=== PATIENT | female | born 1935 | race Caucasian/White ===

== ENCOUNTER → 2017-03-06 09:01 | Outpatient (CLI) | payer MEDICARE, OTHER, SELFPAY ==
[2017-03-06 13:25] LABS: Basophils % 0.6 % (0.1-2.0); Eosinophils # 0.2 K/mm3 (0.0-0.4); Eosinophils % 4.7 % (0.1-12.0); Hemoglobin 14.2 g/dL (12.2-16.2); Lymphocytes # 0.8 K/mm3 (0.7-4.5); Lymphocytes % 16.5 K/mm3 (10-50); Mean Corpuscular HGB Conc 32.9 g/dL (31.8-35.4); Mean Corpuscular Volume 94.2 fl (81-99); Mean Platelet Volume 9.1 fl (7.4-10.4); Monocytes # 0.3 K/mm3 (0.1-1.0); Monocytes % 7.1 % (1.7-9.3); Neutrophils # 3.4 K/mm3 (1.8-7.8); Neutrophils % 71.1 % (37.0-80.0); Platelet Count 144 K/mm3 (142-424); Red Blood Count 4.57 M/mm3 (4.20-5.40); Red Cell Distribution Width 13.5 % (11.5-17.5); White Blood Count 4.8 K/mm3 (4.8-10.8)
[2017-03-06 14:01] LABS: Alanine Aminotransferase 20 U/L (12-78); Albumin Level 3.7 gm/dL (3.4-5.0); Albumin/Globulin Ratio 1.3 (1.1-1.8); Alkaline Phosphatase 53 U/L (46-116); Anion Gap 14.4 mEq/L (5-15); Aspartate Amino Transferase 15 U/L (15-37); Bilirubin,Total 0.6 mg/dL (0.2-1.0); Blood Urea Nitrogen 17 mg/dL (7-18); Calcium 8.8 mg/dL (8.5-10.1); Carbon Dioxide 26 mmol/L (21.0-32.0); Chloride 108 mmol/L (98-107); Chol/HDL Ratio 2.8 (1-3.5); Cholesterol 170 mg/dL (140-200); Creatinine,Serum 0.88 mg/dL (0.55-1.02); Estimated Glomerular Filt Rate 62 ml/min (>60); GFR (African American) 75 ML/MIN (>60); Globulin 2.8 gm/dl (1.3-3.2); Glucose 103 mg/dL (74-106); HDL Cholesterol 61 mg/dL (29-89); LDL Cholesterol 96 mg/dL (0-130); Potassium 4.4 mmoL/L (3.5-5.1); Sodium 144 mmol/L (136-145); Total Protein,Serum 6.5 gm/dL (6.4-8.2); Triglycerides 67 mg/dL (30-200); VLDL Cholesterol 13 mg/dL (0-40)
== END ==
PROVIDERS: PCP Internal Medicine Adolescent Medicine; Visit Provider Internal Medicine Adolescent Medicine
DX: I25.10 Atherosclerotic heart disease of native coronary artery without angina pectoris (principal)
CPT/HCPCS: 36415; 80053; 80061; 85025

== ENCOUNTER 2017-04-04 10:22 | Observation (INO) | payer MEDICARE, OTHER, SELFPAY ==
[2017-04-04] VITALS (7 sets, daily range): BP systolic 97–170; BP diastolic 64–109; PULSE 70–125; RESP 16–20; TEMP 36.1–36.8; O2SAT 95–100; BMI 24.0; BMI 24.9
--- NOTE | 2017-04-04 10:29 | CT_ITS ---
CT cervical spine wo con INDICATION: Neck pain following injury ITS.REASON: fall ORDERING PHYSICIAN: Johny Corbett MD PATIENT AGE: 82 years COMPARISON: None TECHNIQUE: Axial images are obtained without contrast. Sagittal and coronal reformatted images are reviewed as well. FINDINGS: There is normal alignment. There is mild cervicothoracic curvature convex left. No acute fracture or dislocation is evident. No prevertebral soft tissue swelling. There is fusion of the C6-C7 vertebral body. Degenerative disc disease is present at C5-C6 with endplate and uncovertebral hypertrophy with moderate right foraminal narrowing. The lung apices are clear. IMPRESSION: 1. No acute fracture. 2. Degenerative disc disease at C5-C6 with right-sided foraminal narrowing
--- NOTE | 2017-04-04 10:29 | XR_ITS ---
XR shoulder LT min 2V HISTORY: Pain following injury ITS.REASON: fall ORDERING PHYSICIAN: Johny Corbett MD PATIENT AGE: 82 years COMPARISON: None FINDINGS: There is a displaced comminuted fracture involving the proximal shaft of left humerus. The distal fracture fragment is displaced laterally x 18 mm. There is a curvilinear density at the humeral neck with some cortical irregularity laterally which may represent an old humeral neck fracture. Please correlate clinically. If the patient is tender in this region then would consider CT scan to exclude an associated humeral neck fracture. IMPRESSION: Displaced left proximal humeral shaft fracture Possible old humeral neck fracture. Consider CT for confirmation
--- NOTE | 2017-04-04 10:33 | XR_ITS ---
XR clavicle LT CLINICAL INDICATION: Post traumatic pain ITS.REASON: fall ORDERING PHYSICIAN: Johny Corbett MD PATIENT AGE: 82 years COMPARISON: None FINDINGS: Mild osteoarthritic changes are present at the acromioclavicular joint and glenohumeral joint. There is comminuted fracture of the proximal humeral shaft with 19 mm lateral displacement of the distal fracture fragment. Pacemaker pack is present. The clavicle has an unremarkable appearance IMPRESSION: 1. Comminuted displaced left humeral shaft fracture 2. Otherwise negative left clavicle
--- NOTE | 2017-04-04 10:33 | XR_ITS ---
XR chest AP HISTORY: Posttraumatic pain, chest pain following injury ITS.REASON: fall ORDERING PHYSICIAN: Johny Corbett MD PATIENT AGE: 82 years COMPARISON: 01/11/2017 FINDINGS: There has been prior median sternotomy with CABG and prior left atrial appendage clipping. Normal heart size. No evidence of CHF. There is a bipolar pacemaker present from the left subclavian approach. The lungs are clear bilaterally. Nonspecific calcifications are present in the left upper quadrant IMPRESSION: Postsurgical change, no acute finding
--- NOTE | 2017-04-04 10:34 | HMH.EDFALL ---
ED Disposition Clinical Impression: Fracture of humeral shaft, left, closed, DJD (degenerative joint disease) of cervical spine, Intractable pain Disposition: Still a Patient Condition on Discharge: Fair Referrals: Hood Paredes MD [Primary Care Provider] - - Critical Care Critical Care Time: No Attestation: On , the high probability of a clinically significant, sudden or life threatening deterioration of the following system(s) required my full and direct attention, intervention and personal management. The time I documented below is in addition to time spent performing reported procedures but includes the following listed in this critical care notation. Medical Decision Making Vital Signs: 04/04/17 10:23 Temperature 97.9 F Temperature Source Oral Pulse Rate [Right Brachial] 125 H Respiratory Rate 18 Blood Pressure [Right Arm] 170/109 Blood Pressure Mean [Right Arm] 129 Blood Pressure Source [Right Arm] Automatic Cuff Blood Pressure Position [Right Arm] Supine 02 Sat by Pulse Oximetry 100 Oxygen Delivery Method Room Air - Lab Data Lab Results 04/04/17 10:34: WBC 7.8, RBC 4.94, Hgb 15.2, Hct 46.1, MCV 93.3, MCH 30.8, MCHC 33.0, RDW 12.7, Plt Count 160, MPV 8.3, Neut % (Auto) 73.0, Lymph % (Auto) 16.6, [place] % (Auto) 7.2, Eos % (Auto) 2.4, Baso % (Auto) 0.7, Neut # (Auto) 5.7, Lymph # (Auto) 1.3, [place] # (Auto) 0.6, Eos # (Auto) 0.2, Baso # (Auto) 0.1 04/04/17 10:34: Sodium 140, Potassium 4.7, Chloride 106, Carbon Dioxide 28, Anion Gap 10.7, BUN 21 H, Creatinine 1.03 H, Estimated Creat Clear 43, Estimated GFR 51 L, Est GFR ( Amer) 62, Glucose 111 H, Calcium 9.0, Total Bilirubin 0.7, AST 19, ALT 23, Alkaline Phosphatase 55, Total Protein 7.1, Albumin 3.6, Globulin 3.5 H, Albumin/Globulin Ratio 1.0 L Result diagrams: 04/04/17 10:34 04/04/17 10:34 Orders (Tests/Meds): ED MEDICATIONS Discontinued Medications Generic Name Dose Route Start Last Admin Trade Name Ani PRN Reason Stop Dose Admin Morphine Sulfate 2 mg 04/04/17 10:32 04/04/17 10:38 Morphine 2mg/Ml Syringe IV 04/04/17 10:33 2 mg ONCE ONE Administration Morphine Sulfate 2 mg 04/04/17 11:19 04/04/17 11:23 Morphine 2mg/Ml Syringe IV 04/04/17 11:20 2 mg ONCE ONE Administration Ondansetron HCl 4 mg 04/04/17 10:32 04/04/17 10:38 Zofran 4mg/2ml Vial IV 04/04/17 10:33 4 mg ONCE ONE Administration Ondansetron HCl 4 mg 04/04/17 11:22 04/04/17 11:23 Zofran 4mg/2ml Vial IV 04/04/17 11:23 4 mg ONCE ONE Administration - Radiology Data #1 Image(s): Chest, Shoulder, Clavicle Image Reviewed: Yes I reviewed the patient's radiology image Preliminary Findings: Normal/NAD, Abnormal fracture of the humeral head. - CT Data CT Scan: Head, C-Spine Time Received: 11:[address] Reviewed: Yes: I have viewed the radiologist's interpretation Preliminary Findings: Normal/NAD - Alan Inquiry Pt receiving controlled substance: No Alan was queried for this patient: No Medical Decision Making Narrative: 11:[address] Mason the orthopedic: Dr. Mason wanted to see her as an outpatient. I spoke with the patient who complained of intractable pain after morphine I spoke with her primary care physician Gabrielle, agreed to admit her for pain control. Fall HPI - General Chief Complaint: Fall Stated Complaint: fall Mode of Arrival: EMS Limitations: Physical Limitations Description of Symptoms (Recalled from ER Triage Doc. by RN): fell at home in her yard, ems reports that she might have a dislocated shoulder. 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 She went out of her house to visit the neighbors when she slipped in the mud and landed on her left side with a result left shoulder pain. She denies any other focal pain. He states that s
--- NOTE | 2017-04-04 10:37 | ED_ITS ---
ED Disposition Clinical Impression: Fracture of humeral shaft, left, closed, DJD (degenerative joint disease) of cervical spine, Intractable pain Disposition: Still a Patient Condition on Discharge: Fair Referrals: Hood Paredes MD [Primary Care Provider] - - Critical Care Critical Care Time: No Attestation: On , the high probability of a clinically significant, sudden or life threatening deterioration of the following system(s) required my full and direct attention, intervention and personal management. The time I documented below is in addition to time spent performing reported procedures but includes the following listed in this critical care notation. Medical Decision Making Vital Signs: 04/04/17 10:23 Temperature 97.9 F Temperature Source Oral Pulse Rate [Right Brachial] 125 H Respiratory Rate 18 Blood Pressure [Right Arm] 170/109 Blood Pressure Mean [Right Arm] 129 Blood Pressure Source [Right Arm] Automatic Cuff Blood Pressure Position [Right Arm] Supine 02 Sat by Pulse Oximetry 100 Oxygen Delivery Method Room Air - Lab Data Lab Results 04/04/17 10:34: WBC 7.8, RBC 4.94, Hgb 15.2, Hct 46.1, MCV 93.3, MCH 30.8, MCHC 33.0, RDW 12.7, Plt Count 160, MPV 8.3, Neut % (Auto) 73.0, Lymph % (Auto) 16.6 , [place] % (Auto) 7.2, Eos % (Auto) 2.4, Baso % (Auto) 0.7, Neut # (Auto) 5.7, Lymph # (Auto) 1.3, [place] # (Auto) 0.6, Eos # (Auto) 0.2, Baso # (Auto) 0.1 04/04/17 10:34: Sodium 140, Potassium 4.7, Chloride 106, Carbon Dioxide 28, Anion Gap 10.7, BUN 21 H, Creatinine 1.03 H, Estimated Creat Clear 43, Estimated GFR 51 L, Est GFR ( Amer) 62, Glucose 111 H, Calcium 9.0, Total Bilirubin 0.7, AST 19, ALT 23, Alkaline Phosphatase 55, Total Protein 7.1 , Albumin 3.6, Globulin 3.5 H, Albumin/Globulin Ratio 1.0 L Result diagrams: 04/04/17 10:34 04/04/17 10:34 Orders (Tests/Meds): ED MEDICATIONS Discontinued Medications Generic Name Dose Route Start Last Admin Trade Name Ani PRN Reason Stop Dose Admin Morphine Sulfate 2 mg 04/04/17 10:32 04/04/17 10:38 Morphine 2mg/Ml Syringe IV 04/04/17 10:33 2 mg ONCE ONE Administration Morphine Sulfate 2 mg 04/04/17 11:19 04/04/17 11:23 Morphine 2mg/Ml Syringe IV 04/04/17 11:20 2 mg ONCE ONE Administration Ondansetron HCl 4 mg 04/04/17 10:32 04/04/17 10:38 Zofran 4mg/2ml Vial IV 04/04/17 10:33 4 mg ONCE ONE Administration Ondansetron HCl 4 mg 04/04/17 11:22 04/04/17 11:23 Zofran 4mg/2ml Vial IV 04/04/17 11:23 4 mg ONCE ONE Administration - Radiology Data #1 Image(s): Chest, Shoulder, Clavicle Image Reviewed: Yes I reviewed the patient's radiology image Preliminary Findings: Normal/NAD, Abnormal fracture of the humeral head. - CT Data CT Scan: Head, C-Spine Time Received: 11:[address] Reviewed: Yes: I have viewed the radiologist's interpretation Preliminary Findings: Normal/NAD - Alan Inquiry Pt receiving controlled substance: No Alan was queried for this patient: No Medical Decision Making Narrative: 11:[address] Mason the orthopedic: Dr. Mason wanted to see her as an outpatient. I spoke with the patient who complained of intractable pain after morphine I spoke with her primary care physician Gabrielle, agreed to admit her for pain control. [facility]
--- NOTE | 2017-04-04 10:42 | CT_ITS ---
CT head/brain wo con HISTORY: Headache, pain, contusion, abrasion, patient fell with head injury on blood thinners ITS.REASON: FALL ORDERING PHYSICIAN: Johny Corbett MD PATIENT AGE: 82 years COMPARISON: None TECHNIQUE: Axial images obtained without contrast. Brain and bone windows reviewed. FINDINGS: No midline shift, mass effect, intracranial hemorrhage, hydrocephalus, or extra-axial fluid collection is evident. There is mild atrophy with periventricular ischemic gliotic change. There is mild soft tissue splenic and the left frontal region. The calvarium has an unremarkable appearance. No mastoid effusion. No sinus air-fluid levels.. IMPRESSION: No acute intracranial findings.
--- NOTE | 2017-04-04 10:47 | PC.NURSE ---
Pt to radiology at this time
[2017-04-04 10:49] LABS: Basophils # 0.1 K/mm3 (0-0.2); Basophils % 0.7 % (0.1-2.0); Eosinophils # 0.2 K/mm3 (0.0-0.4); Eosinophils % 2.4 % (0.1-12.0); Hematocrit 46.1 % (37.0-47.0); Hemoglobin 15.2 g/dL (12.2-16.2); Lymphocytes # 1.3 K/mm3 (0.7-4.5); Lymphocytes % 16.6 K/mm3 (10-50); Mean Corpuscular Hemoglobin 30.8 pg (27.0-31.2); Mean Corpuscular Volume 93.3 fl (81-99); Mean Platelet Volume 8.3 fl (7.4-10.4); Monocytes # 0.6 K/mm3 (0.1-1.0); Monocytes % 7.2 % (1.7-9.3); Neutrophils # 5.7 K/mm3 (1.8-7.8); Platelet Count 160 K/mm3 (142-424); Red Blood Count 4.94 M/mm3 (4.20-5.40); Red Cell Distribution Width 12.7 % (11.5-17.5); White Blood Count 7.8 K/mm3 (4.8-10.8)
[2017-04-04 11:01] LABS: Alanine Aminotransferase 23 U/L (12-78); Albumin Level 3.6 gm/dL (3.4-5.0); Alkaline Phosphatase 55 U/L (46-116); Anion Gap 10.7 mEq/L (5-15); Bilirubin,Total 0.7 mg/dL (0.2-1.0); Blood Urea Nitrogen 21 mg/dL (7-18); Carbon Dioxide 28 mmol/L (21.0-32.0); Chloride 106 mmol/L (98-107); Creatinine Clearance Estimated 43 mL/min (0-300); Creatinine,Serum 1.03 mg/dL (0.55-1.02); Estimated Glomerular Filt Rate 51 ml/min (>60); GFR (African American) 62 ML/MIN (>60); Globulin 3.5 gm/dl (1.3-3.2); Glucose 111 mg/dL (74-106); Sodium 140 mmol/L (136-145); Total Protein,Serum 7.1 gm/dL (6.4-8.2)
[2017-04-04 11:04] LABS: Potassium 4.7 mmoL/L (3.5-5.1)
[2017-04-04 11:05] LABS: Aspartate Amino Transferase 19 U/L (15-37)
--- NOTE | 2017-04-04 11:42 | PC.NURSE ---
Pt back from radiology at this time.
--- NOTE | 2017-04-04 11:46 | PC.NURSE ---
Dr Mason paged per
--- NOTE | 2017-04-04 12:16 | PC.NURSE ---
Dr Corbett on phone with Dr Mason at this time
--- NOTE | 2017-04-04 12:18 | PC.NURSE ---
Dr Mason requested to see patient in the office.
--- NOTE | 2017-04-04 12:55 | PC.NURSE ---
Dr Paredes agreed to admit patient for pain control.
--- NOTE | 2017-04-04 13:03 | PC.NURSE ---
pt current pain level 7/10. repositioned at this time.
--- NOTE | 2017-04-04 14:26 | HMH.HP ---
*Admission Date: 04/04/17 *Chief complaint: left arm pain *History of present illness: 82 year old female presented to the ED for evaluation of left arm pain s/p fall. Patient reports she was walking through her yard when she tripped and fell landing on her left arm. She had acute onset of arm pain, states I can't move my arm. She denies any dizziness or CV symptoms prior to fall. In the ED, she was noted to have a displaced fracture of the left humeral shaft. Plan was to d/c home with outpatient ortho follow-up; however patient had intractable pain. She was admitted for pain control and orthopedic consultation. [facility] [place] History I have reviewed the patient's past medical history: Yes Medical History: Reports:: Atrial Fibrillation, Coronary Artery Disease, Hypertension, Internal Pacemaker, Valvular Heart Disease Denies:: Cancer, Diabetes Mellitus Type 1, Diabetes Mellitus Type 2, MRSA Laterality Cases: Bilateral: Total Hip Replacement Other Surgeries: Yes: Cardiac Catheterization, Colonoscopy, Pacemaker, Other (LHC, cardioversion) Amputation: No - *Social History Educational Level: Completed High School Smoking Status: Never smoker Alcohol Intake: never Occupational Status: retired Housing: house Household Members: none - Psychiatric History Expresses thoughts of harming self/others: None Suicide Plan Description: No Plan *Family Hx:: Coronary Artery Disease, Heart Attack Review of Systems - Review of Systems Review of systems:: pertinent systems reviewed and negative unless documented below - *Musculoskeletal Comments: left arm pain, swelling and limited mobility Meds Home Medications Medication Instructions Recorded Confirmed Type aspirin 81 mg tablet,delayed 81 mg PO DAILY 02/25/17 04/04/17 History release carvedilol 25 mg tablet 25 mg PO BID 02/25/17 04/04/17 History levothyroxine 100 mcg tablet 100 mcg PO ONCE tab 02/25/17 04/04/17 History lisinopril 10 mg tablet 10 mg PO TID tab 02/25/17 04/04/17 History omeprazole 40 mg capsule,delayed 40 mg PO ONCE 02/25/17 04/04/17 History release promethazine 25 mg tablet 25 mg PO Q4H PRN tab 02/25/17 04/04/17 History spironolactone 25 mg tablet 25 mg PO .qday tab 02/25/17 04/04/17 History Allergies Allergy/AdvReac Type Severity Reaction Status Date / Time codeine Allergy Intermediate DEATHLY Verified 04/04/17 10:28 SICK Exam Vital signs and Labs for Last 24 Hours: Temp Pulse Resp BP Pulse Ox 98.1 F 90 16 135/79 96 04/04/17 13:56 04/04/17 13:56 04/04/17 13:56 04/04/17 13:56 04/04/17 13:51 I & O for Last 24 hours: Intake & Output 04/02/17 04/03/17 04/04/17 04/05/17 11:59 11:59 11:59 11:59 Weight 145 lb 5 oz Narrative: Alert and oriented x3. Rate and rhythm regular. Lung sounds clear and equal. Abdomen soft and non--tender Skin, pink , warm and dry. Left upper arm with obvious deformity and mild swelling. She is able to grasp my hand and wiggle her fingers. Pulses 2+ bilaterally. Sensation intact. Assessment and Plan (1) Fracture of humeral shaft, left, closed Current visit: Yes Status: Acute Category: Medical Code(s): S42.302A - Unspecified fracture of shaft of humerus, left arm, initial encounter for closed fracture (2) Intractable pain Current visit: Yes Status: Acute Category: Medical Code(s): R52 - Pain, unspecified - Assessment and plan all Dx Assessment and Plan for all problems:: Goal is pain control. Orthopedic consult pending. Consider PT consult prior to discharge.
--- NOTE | 2017-04-04 14:30 | P.HP_ITS ---
*Admission Date: 04/04/17 *Chief complaint: left arm pain *History of present illness: 82 year old female presented to the ED for evaluation of left arm pain s/p fall. Patient reports she was walking through her yard when she tripped and fell landing on her left arm. She had acute onset of arm pain, states I can't move my arm. She denies any dizziness or CV symptoms prior to fall. In the ED, she was noted to have a displaced fracture of the left humeral shaft. Plan was to d/c home with outpatient ortho follow-up; however patient had intractable pain. She was admitted for pain control and orthopedic consultation. [facility] History I have reviewed the patient's past medical history: Yes Medical History: Reports:: Atrial Fibrillation, Coronary Artery Disease, Hypertension, Internal Pacemaker, Valvular Heart Disease Denies:: Cancer, Diabetes Mellitus Type 1, Diabetes Mellitus Type 2, MRSA Laterality Cases: Bilateral: Total Hip Replacement Other Surgeries: Yes: Cardiac Catheterization, Colonoscopy, Pacemaker, Other ( LHC, cardioversion) Amputation: No - *Social History Educational Level: Completed High School Smoking Status: Never smoker Alcohol Intake: never Occupational Status: retired Housing: house Household Members: none - Psychiatric History Expresses thoughts of harming self/others: None Suicide Plan Description: No Plan *Family Hx:: Coronary Artery Disease, Heart Attack Review of Systems - Review of Systems Review of systems:: pertinent systems reviewed and negative unless documented below - *Musculoskeletal Comments: left arm pain, swelling and limited mobility Meds Home Medications Medication Instructions Recorded Confirmed Type aspirin 81 mg tablet,delayed 81 mg PO DAILY 02/25/17 04/04/17 History release carvedilol 25 mg tablet 25 mg PO BID 02/25/17 04/04/17 History levothyroxine 100 mcg tablet 100 mcg PO ONCE tab 02/25/17 04/04/17 History lisinopril 10 mg tablet 10 mg PO TID tab 02/25/17 04/04/17 History omeprazole 40 mg capsule,delayed 40 mg PO ONCE 02/25/17 04/04/17 History release promethazine 25 mg tablet 25 mg PO Q4H PRN tab 02/25/17 04/04/17 History spironolactone 25 mg tablet 25 mg PO .qday tab 02/25/17 04/04/17 History Allergies Allergy/AdvReac Type Severity Reaction Status Date / Time codeine Allergy Intermediate DEATHLY Verified 04/04/17 10:28 SICK Exam Vital signs and Labs for Last 24 Hours: Temp Pulse Resp BP Pulse Ox 98.1 F 90 16 135/79 96 04/04/17 13:56 04/04/17 13:56 04/04/17 13:56 04/04/17 13:56 04/04/17 13:51 I & O for Last 24 hours: Intake & Output 04/02/17 04/03/17 04/04/17 04/05/17 11:59 11:59 11:59 11:59 Weight 145 lb 5 oz Narrative: Alert and oriented x3. Rate and rhythm regular. Lung sounds clear and equal. Abdomen soft and non--tender Skin, pink , warm and dry. Left upper arm with obvious deformity and mild swelling. She is able to grasp my hand and wiggle her fingers. Pulses 2+ bilaterally. Sensation intact. Assessment and Plan (1) Fracture of humeral shaft, left, closed Current visit: Yes Status: Acute Category: Medical Code(s): S42.302A - Unspecified fracture of shaft of humerus, left arm, initial encounter for closed fracture (2) Intractable pain Current visit: Yes Status: Acute Category: Medical Code(s): R52 - Pain, unspecified - Asses
--- NOTE | 2017-04-04 16:14 | PC.NURSE ---
Report received from Hollie. Pt arrived to floor at approx 1400 via stretcher. Pt was transferred from stretcher to bed w/ assist x4. She reported severe pain ( a 10/10) in left shoulder and nausea. Prn morphine and phenergan administered per mar w/relief reported by patient. Upon assessment left shoulder noted to be swollen. Sling to left arm in place. Bilateral radial pulses +2, bilateral pedal pulses +2. Trace edema noted to BLE. Cap refill <3sec. Dr Mason came to floor and placed soft roll cast to left shoulder. Pt stated she was hungry, dietary notified and food delivered to room. Pt ate approx 75%. Will continue to monitor.
--- NOTE | 2017-04-04 16:15 | HMH.ORTHOCON ---
*Admission Date: 04/04/17 *Chief complaint: Injury left arm/shoulder *History of present illness: Patient is an 82 year old [id number] female admitted from the ER with fracture shaft of left upper humerus. Patient's son is present with her in the room. She is giving a history of injury to her left arm when she tripped and fell while she was walking through her yard earlier today. Following the fall she developed severe pain in her left upper arm worse with any attempted movements. Following evaluation in the ER, the ER physician contacted me regarding further management. After reviewing the x-rays, I have recommended nonsurgical management with splinting/sling and swath immobilization and outpatient follow-up. However, she was admitted to medical services for pain management as well as the fact that she lives by herself. Patient says she is in a lot of pain over the upper arm and it is made worse by any attempted movements of the arm. No history of any distal tingling or numbness. No history of any other injuries. No history of any previous fractures. No history of any dizziness, syncope, chest pain or shortness of breath prior to the fall. Review of Systems - Review of Systems Review of systems:: pertinent systems reviewed and negative unless documented below - *Musculoskeletal Reports joint pain, Reports limited joint movement Comments: Pain left arm [facility] History I have reviewed the patient's past medical history: Yes Medical History: Reports:: Atrial Fibrillation, Coronary Artery Disease, Hypertension, Internal Pacemaker, Valvular Heart Disease Denies:: Cancer, Diabetes Mellitus Type 1, Diabetes Mellitus Type 2, MRSA Laterality Cases: Bilateral: Total Hip Replacement Other Surgeries: Yes: Cardiac Catheterization, Colonoscopy, Pacemaker, Other (LHC, cardioversion) Amputation: No - *Social History Educational Level: Completed High School Smoking Status: Never smoker Alcohol Intake: never Occupational Status: retired Housing: house Household Members: none - Psychiatric History Expresses thoughts of harming self/others: None Suicide Plan Description: No Plan *Family Hx:: Coronary Artery Disease, Heart Attack Meds Home Medications Medication Instructions Recorded Confirmed Type aspirin 81 mg tablet,delayed 81 mg PO DAILY 02/25/17 04/04/17 History release carvedilol 25 mg tablet 25 mg PO BID 02/25/17 04/04/17 History levothyroxine 100 mcg tablet 100 mcg PO ONCE tab 02/25/17 04/04/17 History lisinopril 10 mg tablet 10 mg PO TID tab 02/25/17 04/04/17 History omeprazole 40 mg capsule,delayed 40 mg PO ONCE 02/25/17 04/04/17 History release promethazine 25 mg tablet 25 mg PO Q4H PRN tab 02/25/17 04/04/17 History spironolactone 25 mg tablet 25 mg PO .qday tab 02/25/17 04/04/17 History Allergies Allergy/AdvReac Type Severity Reaction Status Date / Time codeine Allergy Intermediate DEATHLY Verified 04/04/17 10:28 SICK Exam Vital signs and Labs for Last 24 Hours: Temp Pulse Resp BP Pulse Ox 97.0 F L 121 H 18 109/68 96 04/04/17 16:00 04/04/17 16:00 04/04/17 16:00 04/04/17 16:00 04/04/17 16:00 I & O for Last 24 hours: Intake & Output 04/02/17 04/03/17 04/04/17 04/05/17 11:59 11:59 11:59 11:59 Weight 145 lb 5 oz - Constitutional mild distress, average body habitus, cooperative - *Routine HEENT Exam Head: Present: normocephalic, atraumatic Eye: Present: EOMI, PERRL ENT: Present: mucous membranes moist - *Routine Neck Exam Present: supple, full ROM, trachea midline - *Routine Respiratory Exam Present: CTA bilaterally - *Routine Cardiovascular Exam Present: RRR, Normal S1, Normal S2 - *Routine Abdominal Exam Present: soft, normoactive bowel sounds - *Routine Extremities Exam Present: normal capillary refill Comments: On examination of her left arm, the skin is intact. There is diffuse swelling and ecchymosis over the upper arm. She is
--- NOTE | 2017-04-04 16:20 | P.CONS_ITS ---
*Admission Date: 04/04/17 *Chief complaint: Injury left arm/shoulder *History of present illness: Patient is an 82 year old [id number] female admitted from the ER with fracture shaft of left upper humerus. Patient's son is present with her in the room. She is giving a history of injury to her left arm when she tripped and fell while she was walking through her yard earlier today. Following the fall she developed severe pain in her left upper arm worse with any attempted movements. Following evaluation in the ER, the ER physician contacted me regarding further management. After reviewing the x-rays, I have recommended nonsurgical management with splinting/sling and swath immobilization and outpatient follow-up. However, she was admitted to medical services for pain management as well as the fact that she lives by herself. Patient says she is in a lot of pain over the upper arm and it is made worse by any attempted movements of the arm. No history of any distal tingling or numbness. No history of any other injuries. No history of any previous fractures. No history of any dizziness, syncope, chest pain or shortness of breath prior to the fall. Review of Systems - Review of Systems Review of systems:: pertinent systems reviewed and negative unless documented below - *Musculoskeletal Reports joint pain, Reports limited joint movement Comments: Pain left arm [facility] History I have reviewed the patient's past medical history: Yes Medical History: Reports:: Atrial Fibrillation, Coronary Artery Disease, Hypertension, Internal Pacemaker, Valvular Heart Disease Denies:: Cancer, Diabetes Mellitus Type 1, Diabetes Mellitus Type 2, MRSA Laterality Cases: Bilateral: Total Hip Replacement Other Surgeries: Yes: Cardiac Catheterization, Colonoscopy, Pacemaker, Other ( LHC, cardioversion) Amputation: No - *Social History Educational Level: Completed High School Smoking Status: Never smoker Alcohol Intake: never Occupational Status: retired Housing: house Household Members: none - Psychiatric History Expresses thoughts of harming self/others: None Suicide Plan Description: No Plan *Family Hx:: Coronary Artery Disease, Heart Attack Meds Home Medications Medication Instructions Recorded Confirmed Type aspirin 81 mg tablet,delayed 81 mg PO DAILY 02/25/17 04/04/17 History release carvedilol 25 mg tablet 25 mg PO BID 02/25/17 04/04/17 History levothyroxine 100 mcg tablet 100 mcg PO ONCE tab 02/25/17 04/04/17 History lisinopril 10 mg tablet 10 mg PO TID tab 02/25/17 04/04/17 History omeprazole 40 mg capsule,delayed 40 mg PO ONCE 02/25/17 04/04/17 History release promethazine 25 mg tablet 25 mg PO Q4H PRN tab 02/25/17 04/04/17 History spironolactone 25 mg tablet 25 mg PO .qday tab 02/25/17 04/04/17 History Allergies Allergy/AdvReac Type Severity Reaction Status Date / Time codeine Allergy Intermediate DEATHLY Verified 04/04/17 10:28 SICK Exam Vital signs and Labs for Last 24 Hours: Temp Pulse Resp BP Pulse Ox 97.0 F L 121 H 18 109/68 96 04/04/17 16:00 04/04/17 16:00 04/04/17 16:00 04/04/17 16:00 04/04/17 16:00 I & O for Last 24 hours: Intake & Output 04/02/17 04/03/17 04/04/17 04/05/17 11:59 11:59 11:59 11:59 Weight 145 lb 5 oz - Constitutional mild distress, average body habitus, cooperative - *Routine HEENT Exam Hea
--- NOTE | 2017-04-04 18:49 | PC.NURSE ---
Report to be given to Ava Miles RN
--- NOTE | 2017-04-05 03:49 | PC.NURSE ---
PATIENT HAS RESTED WELL ON AND OFF THIS SHIFT. SHE HAS C/O PAIN TO LEFT ARM X2 AND RECEIVED PRN MORPHINE WHICH WAS EFFECTIVE. SHE SLEEPS IN BETWEEN DOSES OF PAIN MEDS AND USUALLY BEGINS C/O PAIN CLOSE TO TIME WHEN PAIN MEDS ARE DUE. PATIENT USES BSC WITH STAFF ASSIST X1 AND DOES WELL. SHE IS CURRENTLY IN BED SLEEPING. NO OTHER PROBLEMS NOTED AT THIS TIME. VSS. WILL CONTINUE TO MONITOR. SAFETY MEASURES IN PLACE, CALL LIGHT IN REACH.
[2017-04-05 04:00] VITALS: BP 101/59; PULSE 100; RESP 18; TEMP 36.3; O2SAT 93
--- NOTE | 2017-04-05 07:13 | PC.NURSE ---
REPORT GIVEN TO Donaldo RICHMOND W/C
[2017-04-05 07:56] VITALS: BP 107/62; PULSE 122; RESP 16; TEMP 36.8; O2SAT 95
--- NOTE | 2017-04-05 08:23 | HMH.ACPN2 ---
Internal Medicine - PN: Subj *Date: 04/05/17 *Time: 08:23 Interval history: Patient was casted yesterday. Continues to have some pain in the arm with movement, some random tingling in the fingers but no swelling. She is in good spirits, alert, oriented ?3. Cardiopulmonary assessment unremarkable. Left hand is without swelling, good pulses, able to move it well and good stress test technician strength. Cast looks appropriately placed. Exam Vital signs and Labs for Last 24 Hours: Temp Pulse Resp BP Pulse Ox 98.3 F 122 H 16 107/62 95 04/05/17 07:56 04/05/17 07:56 04/05/17 07:56 04/05/17 07:56 04/05/17 07:56 I & O for Last 24 hours: Intake & Output 04/02/17 04/03/17 04/04/17 04/05/17 11:59 11:59 11:59 11:59 Intake Total 720 / 720 Output Total 200 / 200 Balance 520 / 520 Weight 145 lb 5 oz Assessment and Plan (1) Fracture of humeral shaft, left, closed Current visit: Yes Status: Acute Category: Medical Code(s): S42.302A - Unspecified fracture of shaft of humerus, left arm, initial encounter for closed fracture (2) Intractable pain Current visit: Yes Status: Acute Category: Medical Code(s): R52 - Pain, unspecified - Assessment and plan all Dx Assessment and Plan for all problems:: Change to p.o. pain control. Possible discharge this afternoon.
--- NOTE | 2017-04-05 09:02 | HMH.PHAVTE ---
[facility] Pharmacy VTE Monitoring - Patient Demographics Admission date: 04/04/17 Report Date: 04/05/17 Time: 09:03 Allergies/Adverse Reactions: Patient Allergies codeine Allergy (Intermediate, Verified 04/04/17 10:28) DEATHLY SICK Height: 1.63 m Weight: 65.913 kg Patient Problems: Current Active Problems Fracture of humeral shaft, left, closed (Acute) DJD (degenerative joint disease) of cervical spine (Acute) Intractable pain (Acute) - VTE Risk Labs: VTE Related Lab Results Hgb 15.2 g/dL (12.2-16.2) 04/04/17 10:34 Hct 46.1 % (37.0-47.0) 04/04/17 10:34 Plt Count 160 K/mm3 (142-424) 04/04/17 10:34 BUN 21 mg/dL (7-18) H 04/04/17 10:34 Creatinine 1.03 mg/dL (0.55-1.02) H 04/04/17 10:34 Estimated Creat Clear 43 mL/min (0-300) 04/04/17 10:34 Was VTE Risk Assessment Performed: Yes VTE Score: 1 - Prophylaxis VTE Prophylaxis Ordered?: Yes Types of VTE Prophylaxis: TEDS Knee High Location of Applied Device: Bilateral Lower Extremeties - VTE Diagnosis Confirmed Treatment or plan recommended: Continue Current Treatment
--- NOTE | 2017-04-05 13:03 | HMH.DCSUM ---
General - General Admission date: 04/04/17 Discharge date: 04/05/17 HPI HPI: Patient is an 82 year old [id number] female admitted from the ER with fracture shaft of left upper humerus. Patient's son is present with her in the room. She is giving a history of injury to her left arm when she tripped and fell while she was walking through her yard earlier today. Following the fall she developed severe pain in her left upper arm worse with any attempted movements. Following evaluation in the ER, the ER physician contacted me regarding further management. After reviewing the x-rays, I have recommended nonsurgical management with splinting/sling and swath immobilization and outpatient follow-up. However, she was admitted to medical services for pain management as well as the fact that she lives by herself. Patient says she is in a lot of pain over the upper arm and it is made worse by any attempted movements of the arm. No history of any distal tingling or numbness. No history of any other injuries. No history of any previous fractures. No history of any dizziness, syncope, chest pain or shortness of breath prior to the fall. Objective Vital signs: Temp Pulse Resp BP Pulse Ox 98.3 F 122 H 16 107/62 95 04/05/17 07:56 04/05/17 07:56 04/05/17 07:56 04/05/17 07:56 04/05/17 07:56 Narrative: Patient is slightly drowsy from her pain medication but is in no distress. Heart rate regular, lungs clear. Cast and other parts of her exam are unchanged from this morning. Hospital Course Hospital Course: She was admitted, orthopedic consult was obtained, appreciate this. Cast applied. No complications. Patient had good pain control overnight with morphine. This morning given a couple of Percocets. Did well with this. She will be discharged home with Percocet prescription, Phenergan for the nausea with the medication, short-term follow-up with orthopedics. DS: Diagnosis - Discharge Diagnosis (1) Fracture of humeral shaft, left, closed Status: Acute (2) Intractable pain Status: Acute Discharge Plan - Patient Discharge Instructions ACTIVITY: Continue current activity DIET: continue same diet - Follow up Plan Follow up with: Oli Mason MD [Staff Physician] - 04/10/17 Disposition: Home, Self-[facility] Medications: Home Medications Medication Instructions Recorded Confirmed Type aspirin 81 mg tablet,delayed 81 mg PO DAILY 02/25/17 04/04/17 History release carvedilol 25 mg tablet 25 mg PO BID 02/25/17 04/04/17 History levothyroxine 100 mcg tablet 100 mcg PO DAILY tab 02/25/17 04/05/17 History lisinopril 10 mg tablet 10 mg PO TID tab 02/25/17 04/04/17 History omeprazole 40 mg capsule,delayed 40 mg PO HS 02/25/17 04/05/17 History release spironolactone 25 mg tablet 25 mg PO DAILY tab 02/25/17 04/05/17 History Prescriptions/Medication Reconciliation: New Oxycodone HCl/Acetaminophen [Percocet 5/325mg tablet] 1 - 2 tab PO Q4-6H PRN 5 Days #30 tab PRN Reason: Severe Pain Continue omeprazole 40 mg capsule,delayed release 40 mg PO HS spironolactone 25 mg tablet 25 mg PO DAILY tab levothyroxine 100 mcg tablet 100 mcg PO DAILY tab aspirin 81 mg tablet,delayed release 81 mg PO DAILY carvedilol 25 mg tablet 25 mg PO BID lisinopril 10 mg tablet 10 mg PO TID tab Promethazine HCl [Phenergan 25mg tab] 25 mg PO Q4H PRN #20 tab PRN Reason: Vomiting
--- NOTE | 2017-04-05 13:08 | P.DS_ITS ---
General - General Admission date: 04/04/17 Discharge date: 04/05/17 HPI HPI: Patient is an 82 year old [id number] female admitted from the ER with fracture shaft of left upper humerus. Patient's son is present with her in the room. She is giving a history of injury to her left arm when she tripped and fell while she was walking through her yard earlier today. Following the fall she developed severe pain in her left upper arm worse with any attempted movements. Following evaluation in the ER, the ER physician contacted me regarding further management. After reviewing the x-rays, I have recommended nonsurgical management with splinting/sling and swath immobilization and outpatient follow-up. However, she was admitted to medical services for pain management as well as the fact that she lives by herself. Patient says she is in a lot of pain over the upper arm and it is made worse by any attempted movements of the arm. No history of any distal tingling or numbness. No history of any other injuries. No history of any previous fractures. No history of any dizziness, syncope, chest pain or shortness of breath prior to the fall. Objective Vital signs: Temp Pulse Resp BP Pulse Ox 98.3 F 122 H 16 107/62 95 04/05/17 07:56 04/05/17 07:56 04/05/17 07:56 04/05/17 07:56 04/05/17 07:56 Narrative: Patient is slightly drowsy from her pain medication but is in no distress. Heart rate regular, lungs clear. Cast and other parts of her exam are unchanged from this morning. Hospital Course Hospital Course: She was admitted, orthopedic consult was obtained, appreciate this. Cast applied. No complications. Patient had good pain control overnight with morphine. This morning given a couple of Percocets. Did well with this. She will be discharged home with Percocet prescription, Phenergan for the nausea with the medication, short-term follow-up with orthopedics. DS: Diagnosis - Discharge Diagnosis (1) Fracture of humeral shaft, left, closed Status: Acute (2) Intractable pain Status: Acute Discharge Plan - Patient Discharge Instructions ACTIVITY: Continue current activity DIET: continue same diet - Follow up Plan Follow up with: Oli Mason MD [Staff Physician] - 04/10/17 Disposition: Home, Self-[facility] Medications: Home Medications Medication Instructions Recorded Confirmed Type aspirin 81 mg tablet,delayed 81 mg PO DAILY 02/25/17 04/04/17 History release carvedilol 25 mg tablet 25 mg PO BID 02/25/17 04/04/17 History levothyroxine 100 mcg tablet 100 mcg PO DAILY tab 02/25/17 04/05/17 History lisinopril 10 mg tablet 10 mg PO TID tab 02/25/17 04/04/17 History omeprazole 40 mg capsule,delayed 40 mg PO HS 02/25/17 04/05/17 History release spironolactone 25 mg tablet 25 mg PO DAILY tab 02/25/17 04/05/17 History Prescriptions/Medication Reconciliation: New Oxycodone HCl/Acetaminophen [Percocet 5/325mg tablet] 1 - 2 tab PO Q4- 6H PRN 5 Days #30 tab PRN Reason: Severe Pain Continue omeprazole 40 mg capsule,delayed release 40 mg PO HS spironolactone 25 mg tablet 25 mg PO DAILY tab levothyroxine 100 mcg tablet 100 mcg PO DAILY tab aspirin 81 mg tablet,delayed release 81 mg PO DAILY carvedilol 25 mg tablet 25 mg PO BID lisinopril 10 mg tablet 10 mg PO TID tab Promethazine HCl [Phenergan 25mg tab] 25 mg PO Q4H PRN #20 tab PRN Reason: Vomiting
[2017-04-05 13:56] VITALS: BMI 24.7
--- NOTE | 2017-04-05 15:23 | PC.NURSE ---
Pt discharged home, picked up by son. Pt received percocet for pain x2 this shift, medication was effective. Pt was given prescriptions/paperwork/education prior to discharge.
== END 2017-04-05 15:15 | disposition home or self-care (01) ==
LOC: ER 13:01 → 2ND 13:29
PROVIDERS: Admitting Provider Internal Medicine Adolescent Medicine; Emergency Provider Emergency Medicine; Family Provider Internal Medicine Adolescent Medicine; PCP Internal Medicine Adolescent Medicine; Visit Provider Internal Medicine Adolescent Medicine
DX: S42.352A Displaced comminuted fracture of shaft of humerus, left arm, initial encounter for closed fracture (principal); M47.812 Spondylosis without myelopathy or radiculopathy, cervical region; I50.20 Unspecified systolic (congestive) heart failure; I11.0 Hypertensive heart disease with heart failure; Z95.5 Presence of coronary angioplasty implant and graft; Z95.4 Presence of other heart-valve replacement; I42.9 Cardiomyopathy, unspecified; I48.2 Chronic atrial fibrillation; W01.0XXA Fall on same level from slipping, tripping and stumbling without subsequent striking against object, initial encounter; Y92.017 Garden or yard in single-family (private) house as the place of occurrence of the external cause
CPT/HCPCS: 70450; 71045; 72125; 73000; 73030; 80053; 85025; 96365; 96374; 96375; 96376; 99282; G0378; J2270; J2405

== ENCOUNTER 2017-04-08 03:33 | Emergency (ER) | payer MEDICARE, OTHER, SELFPAY ==
[2017-04-08 03:41] VITALS: BP 137/47; PULSE 106; RESP 14; TEMP 36.7; O2SAT 96; BMI 24.0
--- NOTE | 2017-04-08 04:22 | HMH.EDGENADL ---
ED Disposition Clinical Impression: Fracture of humeral shaft, left, closed Qualifiers: Encounter type: sequela Fracture morphology: oblique Fracture alignment: displaced Qualified Code(s): S42.332S - Displaced oblique fracture of shaft of humerus, left arm, sequela Disposition: Home, Self-Care Condition on Discharge: Good Instructions: DI for Humeral Fracture Additional Instructions: call ortho this am Referrals: Hood Paredes MD [Primary Care Provider] - - Critical Care Critical Care Time: No Attestation: On 04/08/17, the high probability of a clinically significant, sudden or life threatening deterioration of the following system(s) required my full and direct attention, intervention and personal management. The time I documented below is in addition to time spent performing reported procedures but includes the following listed in this critical care notation. Medical Decision Making - Medical Records Medical records reviewed: Yes: I reviewed the patient's medical records. Vital Signs: 04/08/17 03:41 Temperature 98.1 F Temperature Source Oral Pulse Rate [Right Radial] 106 H Respiratory Rate 14 Blood Pressure [Right Arm] 137/47 Blood Pressure Mean [Right Arm] 77 Blood Pressure Source [Right Arm] Automatic Cuff Blood Pressure Position [Right Arm] Sitting 02 Sat by Pulse Oximetry 96 Oxygen Delivery Method Room Air - Alan Inquiry Pt receiving controlled substance: No General Adult HPI - General Chief complaint: PAIN Stated complaint: Spasms in fractured left shoulder Time Seen by Provider: 04/08/17 04:22 Mode of Arrival: Wheelchair Source of Information: Patient, Relative, Medical Record Limitations: Physical Limitations Description of Symptoms (Recalled from ER Triage Doc. by RN): Pt. reports spasms in her left shoulder that she broke on - History of Present Illness HPI narrative: pain related to fx of lt upper arm a few days ago and has seen ortho - pt in splint and sling Onset (ago): day(s) Location: upper extremity Radiation: non-radiation Severity: moderate Quality: sharp Relieving factors: immobilization Treatments prior to arrival: other (pain meds) - Related Data Home Medications Medication Instructions Recorded Confirmed aspirin 81 mg tablet,delayed 81 mg PO DAILY 02/25/17 04/08/17 release carvedilol 25 mg tablet 25 mg PO BID 02/25/17 04/08/17 levothyroxine 100 mcg tablet 100 mcg PO DAILY tab 02/25/17 04/08/17 lisinopril 10 mg tablet 10 mg PO TID tab 02/25/17 04/08/17 omeprazole 40 mg capsule,delayed 40 mg PO HS 02/25/17 04/08/17 release spironolactone 25 mg tablet 25 mg PO DAILY tab 02/25/17 04/08/17 Previous Rx's Medication Instructions Recorded Oxycodone HCl/Acetaminophen 1 - 2 tab PO Q4-6H PRN 5 Days #30 04/05/17 [Percocet 5/325mg tablet] tab Promethazine HCl [Phenergan 25mg 25 mg PO Q4H PRN #20 tab 04/05/17 tab] Allergies Allergy/AdvReac Type Severity Reaction Status Date / Time codeine Allergy Intermediate DEATHLY Verified 04/08/17 03:53 SICK [facility] History I have reviewed the patient's past medical history: Yes Medical History: Reports:: Atrial Fibrillation, Coronary Artery Disease, Hypertension, Internal Pacemaker, Valvular Heart Disease Denies:: Cancer, Diabetes Mellitus Type 1, Diabetes Mellitus Type 2, MRSA Laterality Cases: Bilateral: Total Hip Replacement Other Surgeries: Yes: Cardiac Catheterization, Colonoscopy, Pacemaker, Other (LHC, cardioversion) Amputation: No - Social History Smoking Status: Never smoker Alcohol Intake: never Occupational Status: retired Housing: house Household Members: none - Psychiatric History Expresses thoughts of harming self/others: None Suicide Plan Description: No Plan Family Hx:: Coronary Artery Disease, Heart Attack ROS Obtained: Yes All systems reviewed & no additional complaints - Constitutional Constitutional: Denies fever(s) - Eyes Eyes: Denies c
--- NOTE | 2017-04-08 04:25 | ED_ITS ---
ED Disposition Clinical Impression: Fracture of humeral shaft, left, closed Qualifiers: Encounter type: sequela Fracture morphology: oblique Fracture alignment: displaced Qualified Code(s): S42.332S - Displaced oblique fracture of shaft of humerus, left arm, sequela Disposition: Home, Self-Care Condition on Discharge: Good Instructions: DI for Humeral Fracture Additional Instructions: call ortho this am Referrals: Hood Paredes MD [Primary Care Provider] - - Critical Care Critical Care Time: No Attestation: On 04/08/17, the high probability of a clinically significant, sudden or life threatening deterioration of the following system(s) required my full and direct attention, intervention and personal management. The time I documented below is in addition to time spent performing reported procedures but includes the following listed in this critical care notation. Medical Decision Making - Medical Records Medical records reviewed: Yes: I reviewed the patient's medical records. Vital Signs: 04/08/17 03:41 Temperature 98.1 F Temperature Source Oral Pulse Rate [Right Radial] 106 H Respiratory Rate 14 Blood Pressure [Right Arm] 137/47 Blood Pressure Mean [Right Arm] 77 Blood Pressure Source [Right Arm] Automatic Cuff Blood Pressure Position [Right Arm] Sitting 02 Sat by Pulse Oximetry 96 Oxygen Delivery Method Room Air - Alan Inquiry Pt receiving controlled substance: No General Adult HPI - General Chief complaint: PAIN Stated complaint: Spasms in fractured left shoulder Time Seen by Provider: 04/08/17 04:22 Mode of Arrival: Wheelchair Source of Information: Patient, Relative, Medical Record Limitations: Physical Limitations Description of Symptoms (Recalled from ER Triage Doc. by RN): Pt. reports spasms in her left shoulder that she broke on - History of Present Illness HPI narrative: pain related to fx of lt upper arm a few days ago and has seen ortho - pt in splint and sling Onset (ago): day(s) Location: upper extremity Radiation: non-radiation Severity: moderate Quality: sharp Relieving factors: immobilization Treatments prior to arrival: other (pain meds) - Related Data Home Medications Medication Instructions Recorded Confirmed aspirin 81 mg tablet,delayed 81 mg PO DAILY 02/25/17 04/08/17 release carvedilol 25 mg tablet 25 mg PO BID 02/25/17 04/08/17 levothyroxine 100 mcg tablet 100 mcg PO DAILY tab 02/25/17 04/08/17 lisinopril 10 mg tablet 10 mg PO TID tab 02/25/17 04/08/17 omeprazole 40 mg capsule,delayed 40 mg PO HS 02/25/17 04/08/17 release spironolactone 25 mg tablet 25 mg PO DAILY tab 02/25/17 04/08/17 Previous Rx's Medication Instructions Recorded Oxycodone HCl/Acetaminophen 1 - 2 tab PO Q4-6H PRN 5 Days #30 04/05/17 [Percocet 5/325mg tablet] tab Promethazine HCl [Phenergan 25mg 25 mg PO Q4H PRN #20 tab 04/05/17 tab] Allergies Allergy/AdvReac Type Severity Reaction Status Date / Time codeine Allergy Intermediate DEATHLY Verified 04/08/17 03:[address] [facility] History I have reviewed the patient's past medical history: Yes Medical History: Reports:: Atrial Fibrillation, Coronary Artery Disease, Hypertension, Internal Pacemaker, Valvular Heart Disease
--- NOTE | 2017-04-08 04:29 | XR_ITS ---
XR shoulder LT 1V Performed at 4:33 AM Ordering Physician: Ruben Joyner MD Patient Age: 82 years: Female HISTORY: ITS.REASON: pain Increased pain at the left humeral fracture TECHNIQUE: 3 views left shoulder portable COMPARISON :04/04/2017 at 1122 FINDINGS Oblique fracture left humeral shaft is again evident. This oblique/spinal fracture is just proximal to the midportion left humeral shaft.. There is additional angulation, more pronounced at the fracture suggested on this study versus the previous exam. Possibly 20 degree angulation with apex directed lateral, and posterior. Presumably re injury.The hanging fiberglass cast and splint is in place. Pacemaker overlying the left chest with atrial and ventricular leads intact. Sternotomy. Valve replacement IMPRESSION: There is been additional angulation at the previous seen fracture at shaft of humerus. 1 compared to the 04/04/2017 chest study.
[2017-04-08 04:45] VITALS: BP 119/70; PULSE 88; RESP 16; O2SAT 95
[2017-04-08 05:15] VITALS: BP 113/76; PULSE 111; RESP 16; TEMP 36.6; O2SAT 95
== END 2017-04-08 05:15 | disposition home or self-care (01) ==
PROVIDERS: Emergency Provider Emergency Medicine; Family Provider Internal Medicine Adolescent Medicine; PCP Internal Medicine Adolescent Medicine
DX: S42.332D Displaced oblique fracture of shaft of humerus, left arm, subsequent encounter for fracture with routine healing (principal); X58.XXXA Exposure to other specified factors, initial encounter; I25.10 Atherosclerotic heart disease of native coronary artery without angina pectoris; Z95.0 Presence of cardiac pacemaker; I38 Endocarditis, valve unspecified; I10 Essential (primary) hypertension; Z79.82 Long term (current) use of aspirin; Z79.899 Other long term (current) drug therapy
CPT/HCPCS: 73020; 96372; 99282

== ENCOUNTER → 2017-04-08 13:23 | Outpatient (CLI) | payer MEDICARE, OTHER, SELFPAY ==
--- NOTE | 2017-04-08 13:29 | XR_ITS ---
XR shoulder LT 1V HISTORY: Pain following injury, humerus fracture, evaluate for posterior dislocation of the shoulder ITS.REASON: HUMERUS FRACTURE ORDERING PHYSICIAN: Oli Mason MD PATIENT AGE: 82 years COMPARISON: Prior exam from the same day FINDINGS: There is an oblique displaced fracture of the junction of the proximal to mid shaft of the humerus. Axillary view of the shoulder shows no evidence of posterior dislocation. IMPRESSION: 1. No evidence of shoulder dislocation. 2. Proximal humeral fracture
== END ==
PROVIDERS: PCP Internal Medicine Adolescent Medicine; Visit Provider Orthopaedic Surgery
DX: S42.309A Unspecified fracture of shaft of humerus, unspecified arm, initial encounter for closed fracture (principal)
CPT/HCPCS: 73020; 96372

== ENCOUNTER 2017-04-11 15:42 | Emergency (ER) | payer MEDICARE, OTHER, SELFPAY ==
[2017-04-11 15:51] VITALS: BP 133/95; PULSE 92; RESP 16; TEMP 36.8; O2SAT 96; BMI 27.4
--- NOTE | 2017-04-11 16:01 | XR_ITS ---
XR humerus LT CLINICAL INDICATION: Cast displacement, follow-up fracture ITS.REASON: DISLOCATED CAST ORDERING PHYSICIAN: Johny Corbett MD PATIENT AGE: 82 years COMPARISON: 04/08/2017 FINDINGS: Displaced proximal shaft humerus fracture once again noted with 1.4 cm lateral displacement of the distal fracture fragment as well as dorsal displacement of the distal fracture fragment x 1.7 cm with 0% bone apposition and no overlying callus formation. There is minimal lateral angulation of the distal fracture fragment IMPRESSION: Overall no change persistent displaced proximal humeral fracture
--- NOTE | 2017-04-11 16:05 | HMH.EDGENADL ---
ED Disposition Clinical Impression: Arm pain, left, Fracture, humerus closed, shaft, Decubitus ulcer of buttock, stage 2 Disposition: Home, Self-Care Condition on Discharge: Fair Additional Instructions: 1- us the new sling. 2- he it off for some degree of external rotation and abduction. 3- see Dr Mason next week as planned. 4- continue [place] check every hour and return for any change. 5- use duoderm patch for the bed sore. Referrals: Hood Paredes MD [Primary Care Provider] - - Critical Care Critical Care Time: No Attestation: On 04/11/17, the high probability of a clinically significant, sudden or life threatening deterioration of the following system(s) required my full and direct attention, intervention and personal management. The time I documented below is in addition to time spent performing reported procedures but includes the following listed in this critical care notation. Medical Decision Making - Medical Records Medical records reviewed: Yes: I reviewed the patient's medical records. Vital Signs: 04/11/17 15:51 Temperature 98.3 F Temperature Source Oral Pulse Rate [Right Brachial] 92 H Respiratory Rate 16 Blood Pressure [Right Arm] 133/95 Blood Pressure Mean [Right Arm] 107 Blood Pressure Source [Right Arm] Automatic Cuff Blood Pressure Position [Right Arm] Sitting 02 Sat by Pulse Oximetry 96 Oxygen Delivery Method Room Air Orders (Tests/Meds): ED MEDICATIONS Discontinued Medications Generic Name Dose Route Start Last Admin Trade Name Freq PRN Reason Stop Dose Admin Hydrocodone Bitart/Acetaminophen 1 tab 04/11/17 15:57 04/11/17 16:03 [place] 7.5/325mg Tablet PO 04/11/17 15:58 1 tab ONCE ONE Administration Ondansetron HCl 4 mg 04/11/17 15:57 04/11/17 16:03 Zofran 4mg Odt SL 04/11/17 15:58 4 mg ONCE ONE Administration ORDERS Category Date Time Status XR humerus LT Stat Exams 04/11/17 16:01 Taken - Radiology Data #1 Image(s): Humerus Image Reviewed: Yes I reviewed the patient's radiology image Preliminary Findings: Abnormal (I discussed with the x-ray with Dr. Mason.) - Alan Inquiry Pt receiving controlled substance: No Alan was queried for this patient: No Medical Decision Making Narrative: The patient felt relief after removing the cotton wrap and Ollie wrap over her Ortho-Glass. SHe underwent follow-up x-rays. Her cap Refills where intact and her radial pulse was 2 + strong. Dr. Mason was in agreement keep the patient in comfortable position even if this requires some degree of abduction and external rotation. I showed the daughter how to check for her neurovascular bundle. General Adult HPI - General Chief complaint: PAIN Stated complaint: broken arm, in pain Mode of Arrival: Family Vehicle Limitations: No Limitations Description of Symptoms (Recalled from ER Triage Doc. by RN): LEFT HUMERUS - History of Present Illness HPI narrative: 82 years old white female with a one-week history of mid shaft left humerus fracture. She was admitted for pain control was seen by Dr. Mason who placed her in an Ortho-Glass and arm sling. She was seen early this morning by Dr. Guzman for oral thrush right buttock sore, she was prescribed antibiotic for both. Upon return she complained of 3 day history of left arm pain, her daughter brought her to the ED for evaluation. She denies weakness, numbness of the left upper extremity. Onset (ago): day(s) (3-4 days.) Location: left, upper extremity Radiation: non-radiation Severity: moderate Severity scale (1-10): 5 Quality: sharp, other (irritating) Consistency: constant Relieving factors: none Exacerbating factors: none Associated symptoms: denies other symptoms Treatments prior to arrival: other (she is one ultram for pain. ) - Related Data Home Medications Medication Instructions Recorded Confirmed aspirin 81 mg tablet,delayed 81 mg PO DAILY 02/25/17 0
--- NOTE | 2017-04-11 16:08 | ED_ITS ---
ED Disposition Clinical Impression: Arm pain, left, Fracture, humerus closed, shaft, Decubitus ulcer of buttock, stage 2 Disposition: Home, Self-Care Condition on Discharge: Fair Additional Instructions: 1- us the new sling. 2- he it off for some degree of external rotation and abduction. 3- see Dr Mason next week as planned. 4- continue NV check every hour and return for any change. 5- use duoderm patch for the bed sore. Referrals: Hood Paredes MD [Primary Care Provider] - - Critical Care Critical Care Time: No Attestation: On 04/11/17, the high probability of a clinically significant, sudden or life threatening deterioration of the following system(s) required my full and direct attention, intervention and personal management. The time I documented below is in addition to time spent performing reported procedures but includes the following listed in this critical care notation. Medical Decision Making - Medical Records Medical records reviewed: Yes: I reviewed the patient's medical records. Vital Signs: 04/11/17 15:51 Temperature 98.3 F Temperature Source Oral Pulse Rate [Right Brachial] 92 H Respiratory Rate 16 Blood Pressure [Right Arm] 133/95 Blood Pressure Mean [Right Arm] 107 Blood Pressure Source [Right Arm] Automatic Cuff Blood Pressure Position [Right Arm] Sitting 02 Sat by Pulse Oximetry 96 Oxygen Delivery Method Room Air Orders (Tests/Meds): ED MEDICATIONS Discontinued Medications Generic Name Dose Route Start Last Admin Trade Name Freq PRN Reason Stop Dose Admin Hydrocodone Bitart/Acetaminophen 1 tab 04/11/17 15:57 04/11/17 16:03 [place] 7.5/325mg Tablet PO 04/11/17 15:58 1 tab ONCE ONE Administration Ondansetron HCl 4 mg 04/11/17 15:57 04/11/17 16:03 Zofran 4mg Odt SL 04/11/17 15:58 4 mg ONCE ONE Administration ORDERS Category Date Time Status XR humerus LT Stat Exams 04/11/17 16:01 Taken - Radiology Data #1 Image(s): Humerus Image Reviewed: Yes I reviewed the patient's radiology image Preliminary Findings: Abnormal (I discussed with the x-ray with Dr. Mason.) - Alan Inquiry Pt receiving controlled substance: No Alan was queried for this patient: No Medical Decision Making Narrative: The patient felt relief after removing the cotton wrap and Ollie wrap over her Ortho-Glass. SHe underwent follow-up x-rays. Her cap Refills where intact and her radial pulse was 2 + strong. Dr. Mason was in agreement keep the patient in comfortable position even if this requires some degree of abduction and external rotation. I showed the daughter how to check for her neurovascular bundle. General Adult HPI - General Chief complaint: PAIN Stated complaint: broken arm, in pain Mode of Arrival: Family Vehicle Limitations: No Limitations Description of Symptoms (Recalled from ER Triage Doc. by RN): LEFT HUMERUS - History of Present Illness HPI narrative: 82 years old white female with a one-week history of mid shaft left humerus fracture. She was admitted for pain control was seen by Dr. Mason who placed her in an Ortho-Glass and arm sling. She was seen early this morning by Dr. Guzman for oral thrush right buttock sore, she was prescribed antibiotic for both. Upon return she comp
[2017-04-11 17:13] VITALS: BP 138/84; PULSE 104; RESP 20; TEMP 36.6
== END 2017-04-11 17:23 | disposition home or self-care (01) ==
PROVIDERS: Emergency Provider Emergency Medicine; Family Provider Internal Medicine Adolescent Medicine; PCP Internal Medicine Adolescent Medicine
DX: M79.622 Pain in left upper arm (principal); S42.352A Displaced comminuted fracture of shaft of humerus, left arm, initial encounter for closed fracture; L89.302 Pressure ulcer of unspecified buttock, stage 2; Z95.4 Presence of other heart-valve replacement; Z95.5 Presence of coronary angioplasty implant and graft; Z95.0 Presence of cardiac pacemaker; I10 Essential (primary) hypertension; I48.2 Chronic atrial fibrillation; I25.10 Atherosclerotic heart disease of native coronary artery without angina pectoris
CPT/HCPCS: 73060; 99281; 99282

== ENCOUNTER 2017-04-11 17:00 | Outpatient (RCR) | payer MEDICARE, OTHER, SELFPAY | END 2017-04-11 17:01 | disposition home or self-care (01) | LOC: PT 17:00 | PROVIDERS: Visit Provider Orthopaedic Surgery | DX: S49.92XD Unspecified injury of left shoulder and upper arm, subsequent encounter (principal); S42.342D Displaced spiral fracture of shaft of humerus, left arm, subsequent encounter for fracture with routine healing | CPT/HCPCS: 73020; 96372; 97760 ==

== ENCOUNTER → 2017-04-24 11:54 | Outpatient (CLI) | payer MEDICARE, OTHER, SELFPAY ==
--- NOTE | 2017-04-24 11:55 | XR_ITS ---
XR humerus LT CLINICAL INDICATION: ITS.REASON: follow up left humerus fracture ORDERING PHYSICIAN: Oli Mason MD PATIENT AGE: 82 years COMPARISON: 04/11/17 FINDINGS: Laced proximal humeral shaft fracture once again noted. The distal fracture fragment is displaced laterally x 17 mm not significant change. No callus formation apparent. 0% bony apposition. IMPRESSION: No change displaced proximal humeral fracture
== END ==
PROVIDERS: PCP Internal Medicine Adolescent Medicine; Visit Provider Orthopaedic Surgery
DX: S42.302D Unspecified fracture of shaft of humerus, left arm, subsequent encounter for fracture with routine healing (principal)
CPT/HCPCS: 73060

== ENCOUNTER → 2017-05-15 13:19 | Outpatient (CLI) | payer MEDICARE, OTHER, SELFPAY ==
--- NOTE | 2017-05-15 13:22 | XR_ITS ---
XR humerus LT Ordering Physician: Oli Mason MD Patient Age: 82 years: Female HISTORY: ITS.REASON: fu left humerus fracture TECHNIQUE: AP and lateral views left humerus COMPARISON :Previous study 04/24/2017 FINDINGS There is progressive callus formation and healing about the fracture humeral shaft just proximal to its midpoint. The moderate angulation and distraction here remains stable in position, similar.. The distal fragment is displaced to 15 mm laterally and & posteriorly. The moderate angulation if anything less evident on today's study but this may be projectional. IMPRESSION: Healing oblique fracture of the proximal humeral shaft. . Distraction and displacement at the fracture appear similar . Definite developing early callus formation. Moderate angulation effacing less evident on today's studies
== END ==
PROVIDERS: PCP Internal Medicine Adolescent Medicine; Visit Provider Orthopaedic Surgery
DX: S42.302A Unspecified fracture of shaft of humerus, left arm, initial encounter for closed fracture (principal)
CPT/HCPCS: 73060

== ENCOUNTER → 2017-06-03 13:24 | Outpatient (CLI) | payer MEDICARE, OTHER, SELFPAY ==
--- NOTE | 2017-06-03 13:27 | XR_ITS ---
XR chest 2V HISTORY: ITS.REASON: shortness of breath and pain around pacemaker ORDERING PHYSICIAN: Nathalie Luque PATIENT AGE: 82 years COMPARISON: 04/04/2017 FINDINGS: Mild cardiomegaly without failure. There has been a prior CABG and atrial appendage clipping. Cardiac pacemaker device is present from left subclavian approach. Pacer wires appear intact. No lobar consolidation or collapse. Slight increased markings right lower lobe medially likely due to vascular overlap with chronic change. IMPRESSION: As above, no change with no acute finding.
== END ==
PROVIDERS: PCP Internal Medicine Adolescent Medicine; Visit Provider Urology
DX: I48.2 Chronic atrial fibrillation (principal); I25.10 Atherosclerotic heart disease of native coronary artery without angina pectoris; Z95.0 Presence of cardiac pacemaker
CPT/HCPCS: 71046

== ENCOUNTER → 2017-06-07 07:54 | Outpatient (CLI) | payer MEDICARE, OTHER, SELFPAY ==
--- NOTE | 2017-06-07 07:59 | CA_ITS ---
PROCEDURE: 2-D M-mode and color Doppler study INDICATIONS FOR THE TEST: Chest pain COPD Heart MurmurX Tobacco Smoking Palpitations Fatigue Syncope Edema Hypertension Diabetes Mellitus Rheumatic Fever SOB ALY Obesity Hyperlipidemia Family History HD Additional History A FLUTTER,MVR,PACEMAKER,CAD ECHO 09/27 35% EF PATIENT INFORMATION HEIGHT: 64 WEIGHT:149 GENDER: Female B/P:122/84 2-D/M-MODE INTERPRETATION: 2-D MEASUREMENTS OBSERVED VALUES IN CMS Right Ventricular Dimension (RVDd) 2.9 Interventricular Septum (Thickness)(IVsd) 1.3 Left Ventricular Internal Dimensions(LVIDd) 4.9 Left Ventricular Posterior Wall (Thickness)(LVPWd) 1.3 Aortic Root 3.3 Aortic Cusp Separation 2.0 Left Atrial Dimensions (LAD) 5.3 2D 1. Left atrium is moderately enlarged, left ventricle is normal size, mild concentric left ventricular hypertrophy, visually estimated ejection fraction is 20-25%, left ventricle is globally hypokinetic. 2. The right atrium and right ventricle are mildly enlarged with normal contractility. There is a pacemaker lead seen in the right ventricle. 3. The aortic valve is minimally thickened and fibrosed. 4. There is mild prosthetic valve noted in the mitral position. 5. The tricuspid valve leaflets are minimally thickened. 6. No significant pericardial effusion noted. DOPPLER INTERROGATION: 1. The aortic out flow velocity within normal range, there is no aortic stenosis aortic insufficiency. 2. The mitral inflow velocities mildly increased, the pressure half time and mean gradient is not calculated. There is mild mitral regurgitation. 3. There is mild tricuspid regurgitation noted, tricuspid and enteric velocity insufficient for acquisition of the right ventricular systolic pressure. CONCLUSION: 1. Moderately enlarged atrium, normal left ventricular size, mild concentric left ventricular hypertrophy, visually estimated ejection fraction of 20-25%, left ventricle is globally hypokinetic. 2. Bio prosthetic valve in the mitral position, the mean gradient is not calculated, this does not appear to be significant mitral inflow obstruction or mitral regurgitation. 3. Mild tricuspid regurgitation, tricuspid and jet velocity insufficient for calculation of the right ventricular systolic pressure. 4. No significant pericardial effusion noted.
== END ==
PROVIDERS: Family Provider Internal Medicine Adolescent Medicine; PCP Internal Medicine Adolescent Medicine; Visit Provider Internal Medicine Cardiovascular Disease
DX: I48.4 Atypical atrial flutter (principal); I50.23 Acute on chronic systolic (congestive) heart failure
CPT/HCPCS: 93306

== ENCOUNTER → 2017-06-13 08:51 | Outpatient (CLI) | payer MEDICARE, OTHER, SELFPAY ==
[2017-06-13 13:59] LABS: Basophils # 0.1 K/mm3 (0-0.2); Basophils % 0.9 % (0.1-2.0); Eosinophils # 0.2 K/mm3 (0.0-0.4); Eosinophils % 2.6 % (0.1-12.0); Hemoglobin 14.7 g/dL (12.2-16.2); Lymphocytes % 14.4 K/mm3 (10-50); Mean Corpuscular HGB Conc 31.9 g/dL (31.8-35.4); Mean Corpuscular Hemoglobin 29.3 pg (27.0-31.2); Mean Corpuscular Volume 91.7 fl (81-99); Mean Platelet Volume 9.5 fl (7.4-10.4); Monocytes # 0.6 K/mm3 (0.1-1.0); Monocytes % 8.7 % (1.7-9.3); Neutrophils # 5.1 K/mm3 (1.8-7.8); Neutrophils % 73.4 % (37.0-80.0); Platelet Count 172 K/mm3 (142-424); Red Blood Count 5.02 M/mm3 (4.20-5.40); Red Cell Distribution Width 13.5 % (11.5-17.5)
[2017-06-13 14:09] LABS: Anion Gap 17.4 mEq/L (5-15); Blood Urea Nitrogen 26 mg/dL (7-18); Carbon Dioxide 23 mmol/L (21.0-32.0); Chloride 108 mmol/L (98-107); Creatinine,Serum 0.96 mg/dL (0.55-1.02); Estimated Glomerular Filt Rate 56 ml/min (>60); GFR (African American) 67 ML/MIN (>60); Glucose 118 mg/dL (74-106); Potassium 4.4 mmoL/L (3.5-5.1); Sodium 144 mmol/L (136-145)
== END ==
PROVIDERS: Visit Provider Internal Medicine Cardiovascular Disease
DX: I48.91 Unspecified atrial fibrillation (principal); I25.10 Atherosclerotic heart disease of native coronary artery without angina pectoris; Z95.2 Presence of prosthetic heart valve
CPT/HCPCS: 36415; 80048; 85025

== ENCOUNTER → 2017-06-24 13:31 | Outpatient (CLI) | payer MEDICARE, OTHER, SELFPAY ==
--- NOTE | 2017-06-24 13:35 | XR_ITS ---
XR humerus LT CLINICAL INDICATION: Follow-up fracture ITS.REASON: follow up ORDERING PHYSICIAN: Oli Mason MD PATIENT AGE: 82 years COMPARISON: 05/15/2016 FINDINGS: There is a healing displaced fracture involving the proximal to mid shaft of the left humerus. The distal fracture fragment is displaced posterior laterally x 17 mm with mild medial angulation of the distal fracture fragment. Increasing callus formation noted since a previous exam. IMPRESSION: Healing displaced left proximal to mid shaft humeral fracture
== END ==
PROVIDERS: Family Provider Internal Medicine Adolescent Medicine; PCP Internal Medicine Adolescent Medicine; Visit Provider Orthopaedic Surgery
DX: S42.309D Unspecified fracture of shaft of humerus, unspecified arm, subsequent encounter for fracture with routine healing (principal)
CPT/HCPCS: 73060

== ENCOUNTER 2017-07-31 11:00 | Outpatient (RCR) | payer MEDICARE, OTHER, SELFPAY ==
--- NOTE | 2017-05-20 14:42 | HMH.PTOPEV ---
Rehab Outpatient Evaluation Rehab OP Evaluation Start: 05/20/17 14:15 Freq: Status: Active Protocol: Document 05/20/17 14:16 TFRY (Rec: 05/20/17 14:41 TFRY [id number]) Electronically Signed By Alesia Vang OT 05/20/17 14:16 Outpatient Therapy Subjective History Subjective History THIS IS A 82 YEAR OLD RIGHT HANDED FEMALE REFERRED TO OCCUPATIONAL THERAPY FOR LEFT HUMERUS PATIENT IS STATUS POST A FX. PATIENT STATES THAT SHE FELL ON APRIL 11, 2017 AND BROKE HER HUMERUS. Chief Complaint Pain Stiff Symptom Type Ache Symptoms Relieved By Rest/Positioning Symptoms Aggravated By Physical Activity Prior Functional Limitations None Current Functional Limitations Reaching Lifting Symptom Description Activity Dependent Level of pain today (0-10) 0 Pain scale - at its best (0-10) 0 Pain scale - at its worst (0-10) 5 Shoulder/Elbow Eval Shoulder Objective Measurements Palpation Tenderness tenderness shoulder exam standard left Shoulder Palpation Findings Tenderness swelling shoulder exam standard left Shoulder ROM Left Shoulder ROM Limitations Pain Shoulder Abduction Active Range of 70 Motion (degrees) Shoulder Abduction Passive Range of 90 Motion (degrees) Shoulder Flexion Active Range of Motion 60 (degrees) Query Text: Shoulder Flexion Passive Range of Motion 105 (degrees) Shoulder External Rotation Active Range 30 of Motion (degrees) Shoulder External Rotation Passive Range 30 of Motion (degrees) Shoulder Internal Rotation Active Range WFL of Motion (degrees) Shoulder Internal Rotation Passive Range WFL of Motion (degrees) Shoulder Extension Active Range of 40 Motion (degrees) Shoulder Extension Passive Range of 45 Motion (degrees) pain with active ROM shoulder exam left standard pain with passive ROM shoulder exam left standard decreased ROM shoulder exam standard left Shoulder MMT Shoulder Abduction Strength Grade 2+ Poor+ Shoulder Extension Strength Grade 3 Fair Shoulder Flexion Strength Grade 2+ Poor+ Shoulder External Rotation Strength 2+ Poor+ Grade Shoulder Internal Rotation Strength 3 Fair Grade Shoulder Strength Patient Testing Sitting Position Elbow Objective Measurements Outpat
== END 2017-08-16 12:00 | disposition home or self-care (01) ==
LOC: OT 11:00
PROVIDERS: Family Provider Internal Medicine Adolescent Medicine; PCP Internal Medicine Adolescent Medicine; Visit Provider Orthopaedic Surgery
DX: S42.302A Unspecified fracture of shaft of humerus, left arm, initial encounter for closed fracture (principal)
CPT/HCPCS: 97110; 97163; 97164; 97165

== ENCOUNTER → 2017-12-16 09:11 | Outpatient (CLI) | payer MEDICARE, OTHER, SELFPAY ==
--- NOTE | 2017-12-16 09:18 | XR_ITS ---
XR DEXA axial skeleton HISTORY: ITS.REASON: POST MENOPAUSAL ORDERING PHYSICIAN: Hood Paredes MD PATIENT AGE: 82 years COMPARISON: 07/25/2016 FINDINGS: The BMD measured at the AP Spine L1-L4 is 1.006 g/cm squared with a T score of -1.5. This is considered Osteopenic according to the World Health Organization criteria. Fracture risk is Moderate. Treatment is advised. L-spine density has increased by 7%. Mean hip density has a T score of -1.2 and has decreased by 3% IMPRESSION: Osteopenia with moderate fracture risk. Suggest treatment and follow-up exam December 2019
== END ==
PROVIDERS: PCP Internal Medicine Adolescent Medicine; Visit Provider Internal Medicine Adolescent Medicine
DX: Z13.820 Encounter for screening for osteoporosis (principal); Z78.0 Asymptomatic menopausal state
CPT/HCPCS: 77080

== ENCOUNTER 2017-12-18 17:49 | Observation (INO) ==
--- NOTE | 2017-12-18 17:52 | Emergency Department Note ---
ED Disposition Clinical Impression: Chest pain, precordial, Pre-syncope Disposition: Still a Patient Condition on Discharge: Good - Critical Care Critical Care Time: No Attestation: On , the high probability of a clinically significant, sudden or life threatening deterioration of the following system(s) required my full and direct attention, intervention and personal management. The time I documented below is in addition to time spent performing reported procedures but includes the following listed in this critical care notation. Medical Decision Making - Alan Inquiry Pt receiving controlled substance: No Vital Signs: 12/18/17 17:49 12/18/17 17:56 12/18/17 18:53 Temperature 98.2 F 98.2 F Temperature Source Oral Oral Pulse Rate Pulse Rate [Left Radial] 90 90 87 Respiratory Rate 18 18 Blood Pressure Blood Pressure [Right Arm] 150/80 H 150/80 H 160/78 H Blood Pressure Mean [Right Arm] 103 103 105 Blood Pressure Source [Right Arm] Automatic Cuff Automatic Cuff Automatic Cuff Blood Pressure Position [Right Arm] Sitting Sitting Sitting 02 Sat by Pulse Oximetry 96 96 97 Oxygen Delivery Method Room Air Room Air Room Air 12/18/17 20:04 Temperature 98.5 F Temperature Source Pulse Rate 74 Pulse Rate [Left Radial] Respiratory Rate 15 Blood Pressure 154/74 H Blood Pressure [Right Arm] Blood Pressure Mean [Right Arm] Blood Pressure Source [Right Arm] Blood Pressure Position [Right Arm] 02 Sat by Pulse Oximetry Oxygen Delivery Method Room Air - Lab Data Lab Results 12/18/17 18:13: WBC 9.9, RBC 4.53, Hgb 13.9, Hct 41.3, MCV 91.2, MCH 30.6, MCHC 33.5, RDW 13.3, Plt Count 189, MPV 8.3, Neut % (Auto) 68.4, Lymph % (Auto) 20.4, [place] % (Auto) 6.2, Eos % (Auto) 4.1, Baso % (Auto) 0.9, Neut # (Auto) 6.8, Lymph # (Auto) 2.0, [place] # (Auto) 0.6, Eos # (Auto) 0.4, Baso # (Auto) 0.1 12/18/17 18:13: Sodium 141, Potassium 3.5, Chloride 105, Carbon Dioxide 25, Anion Gap 14.5, BUN 20 H, Creatinine 1.14 H, Estimated Creat Clear 38, Estimated GFR 46 L, Est GFR ( Amer) 55 L, Glucose 118 H, Calcium 9.2, Total Bilirubin 0.3, AST 16, ALT 20, Alkaline Phosphatase 68, Troponin I < 0.02, Total Protein 7.1, Albumin 3.7, Globulin 3.4 H, Albumin/Globulin Ratio 1.1, Digoxin 1.10 L 12/18/17 18:13: TSH 0.12 L, Free T4 Index 3.8 L, Thyroxine (T4) 10.0, T3 Uptake 38 Result diagrams: 12/18/17 18:13 12/18/17 18:13 Orders (Tests/Meds): ED MEDICATIONS Generic Name Dose Route Start Last Admin Trade Name Freq PRN Reason Stop Dose Admin Aspirin 81 mg 12/19/17 09:00 Aspirin 81mg Enteric Coated Tablet PO 01/18/18 08:59 DAILY STEPHANE Digoxin 125 mcg 12/18/17 20:05 Digoxin 0.125mg Tablet PO 01/17/18 20:04 ONCE STEPHANE Levothyroxine Sodium 100 mcg 12/19/17 09:00 Synthroid 100mcg (0.1mg) Tablet PO 01/18/18 08:59 DAILY [place]ANE Non-Formulary Medication 1 tab 12/19/17 09:00 Losartan/Hydrochlorothiazide [Hyzaar 100-12.5 Tablet] PO 01/18/18 08:59 DAILY [place] Non-Formulary Medication 100 mg 12/18/17 21:00 Metoprolol Tartrate [Metoprolol Tartrate] PO 01/17/18 20:59 BID [place]ANE Non-Formulary Medication 40 mg 12/18/17 21:00 Omeprazole [Omeprazole 40mg Capsule] PO 01/17/18 20:59 HS STEPHANE Non-Formulary Medication 4 mg 12/18/17 20:05 Ondansetron Hcl [Zofran 4mg Tab] PO Q8H PRN nausea and vomiting Spironolactone 25 mg 12/19/17 09:00 Aldactone 25mg Tablet PO 01/18/18 08:59 DAILY STEPHANE - Radiology Data #1 Image(s): Chest Image Reviewed: Yes I reviewed the patient's radiology image Cardiomegaly. Pacemaker. No acute disease. - ECG Data Tracing #1 EKG interpreted by Fredi Womack MD: Rhythm: Atrial fibrillation, controlled response, with demand pacemaker beats as well Rate: 96 [place]: normal Ectopy: none Conduction: normal ST Segment Changes: Anterior, lateral, inferior depression T Wave Changes: Anterior, lateral, inferior inversion Q Waves: none ST and T wave changes are new since most recent EKG January 2017 Tracing #2 EKG #2 interpreted by Fredi Womack MD: Rhythm: Mostly ventricular paced rhythm, with some atrial fibrillation Rate: 84 [place]: normal Ectopy: none Conduction: normal ST Segment Changes: Lateral depression T Wave Changes: Lateral T wave inversion Q Waves: none - Physician Consults Physician Consulted: Bobby Time: 19:42 Reason -: Cardiology Eval/Care Comment/Response: Admit to primary care, he will see the patient in the morning, serial cardiac enzyme Additional Consult: Anya - present Time: 20:05 Reason -: Admission - Reevaluation(s) Time: 19:56 Reevaluation #1: Remains asymptomatic. Now also states that during the episode this evening she had a sensation of vibrating or beating around her pacemaker. She describes this is being more around the pacemaker rather than substernally in the cardiac area. Uncertain whether this represented palpitations or rapid heartbeat. She says that her pacemaker area is now also sore to the touch. She does not describe anything that sounds like a discharge of her defibrillator. I advised that she may need her pacemaker/defibrillator interrogated while she is in the hospital. General Adult HPI - General Stated complaint: Chest pain Time Seen by Provider: 12/18/17 17:50 - History of Present Illness HPI narrative: Around 5 PM was sitting talking to her sister when she had onset of a "awful feeling", pressure in the left side of her chest and an overall feeling that she was going to pass out. Denies shortness of breath but did have a feeling of being hot and sweaty and nauseated. Symptoms lasted for 10 minutes. Her chest pressure had resolved by the time EMS arrived, but her nausea persisted. She was treated with medication for nausea during transport and says her nausea is now gone. She does not think that she had a full syncopal episode, just felt li ke she was going to pass out. Has a history of coronary artery disease with stent placement. Pacemaker defibrillator. Atrial fibrillation. Mitral valve replacement. - Related Data Home Medications Medication Instructions Recorded Confirmed aspirin 81 mg tablet,delayed 81 mg PO DAILY 02/25/17 12/18/17 release levothyroxine 100 mcg tablet 100 mcg PO DAILY tab 02/25/17 12/18/17 omeprazole 40 mg capsule,delayed 40 mg PO HS 02/25/17 12/18/17 release spironolactone 25 mg tablet 25 mg PO DAILY tab 02/25/17 12/18/17 Digoxin 125 mcg PO ONCE 12/18/17 12/18/17 Losartan/Hydrochlorothiazide 1 tab PO DAILY 12/18/17 12/18/17 [Hyzaar 100-12.5 Tablet] Metoprolol Tartrate 100 mg PO BID 12/18/17 12/18/17 Previous Rx's Medication Instructions Recorded Promethazine HCl [Phenergan 25mg 25 mg PO Q4H PRN #20 tab 04/05/17 tab] ondansetron HCl 4 mg tablet 4 mg PO Q8H PRN #20 tab 04/08/17 Allergies Allergy/AdvReac Type Severity Reaction Status Date / Time codeine Allergy Intermediate "DEATHLY Verified 05/15/17 14:05 SICK" amiodarone Allergy Mild tongue Verified 05/31/17 10:15 tingling acetaminophen [From Percocet] AdvReac Nausea Verified 05/15/17 14:05 oxycodone [From Percocet] AdvReac Nausea Verified 05/15/17 14:05 H History I have reviewed the patient's past medical history: Yes Medical History: Reports:: Atrial Fibrillation, Congestive Heart Failure, Co ronary Artery Disease, Hyperlipidemia, Hypertension, Internal Pacemaker, Valvular Heart Disease Denies:: Cancer, Diabetes Mellitus Type 1, Diabetes Mellitus Type 2, MRSA Other Medical History: Reports: Other Comment: 2018- Lt. broken arm Laterality Cases: Bilateral: Total Hip Replacement Other Surgeries: Yes: Cardiac Catheterization, Colonoscopy, Pacemaker, Other ([facility] 2018) Amputation: No Fractures: Yes Comment: LT arm - Social History Smoking Status: Never smoker Alcohol Intake: never Alcohol Intake Frequency:: other Occupational Status: retired Housing: house Household Members: none Family Hx:: Coronary Artery Disease, Heart Attack ROS Obtained: Yes All systems reviewed & no additional complaints - Constitutional Constitutional: Denies fever(s) - Cardiovascular Cardiovascular: Reports chest pain at rest, Reports diaphoresis - Respiratory Respiratory: No cough, No dyspnea - Gastrointestinal Gastrointestingal: Reports: nausea. Denies: abdominal pain, vomiting Physical Exam - General General appearance: alert, in no apparent distress - Head Head exam: atraumatic, normocephalic - Eye Eye exam: Present: normal appearance - ENT ENT exam: Present: mucous membranes moist - Neck Neck exam: Present: normal inspection, trachea midline - Chest Chest inspection: Present: normal inspection, symmetric chest wall rise - Respiratory Respiratory exam: Present: normal lung sounds bilaterally. Absent: respiratory distress - Cardiovascular Cardiovascular exam: Present: regular rate, irregular rhythm, normal heart sounds, Pacemaker/defibrillator - Abdominal Exam Abdominal exam: Present: soft. Absent: distention, tenderness - Extremities Exam Extremities exam: Present: normal inspection - Neurological Exam Neurological exam: Present: alert, oriented X3. Absent: motor sensory deficit - Psychiatric Psychiatric exam: Present: normal affect, normal mood - Skin Skin exam: Present: warm, dry
[2017-12-18 18:26] LABS: Basophils # 0.1 K/mm3 (0-0.2); Basophils % 0.9 % (0.1-2.0); Eosinophils # 0.4 K/mm3 (0.0-0.4); Eosinophils % 4.1 % (0.1-12.0); Hematocrit 41.3 % (37.0-47.0); Hemoglobin 13.9 g/dL (12.2-16.2); Lymphocytes % 20.4 % (10-50); Mean Corpuscular HGB Conc 33.5 g/dL (31.8-35.4); Mean Corpuscular Hemoglobin 30.6 pg (27.0-31.2); Mean Corpuscular Volume 91.2 fl (81-99); Mean Platelet Volume 8.3 fl (7.4-10.4); Monocytes # 0.6 K/mm3 (0.1-1.0); Monocytes % 6.2 % (1.7-9.3); Neutrophils # 6.8 K/mm3 (1.8-7.8); Neutrophils % 68.4 % (37.0-80.0); Platelet Count 189 K/mm3 (142-424); Red Blood Count 4.53 M/mm3 (4.20-5.40); Red Cell Distribution Width 13.3 % (11.5-17.5); White Blood Count 9.9 K/mm3 (4.8-10.8)
[2017-12-18 18:47] LABS: Alanine Aminotransferase 20 U/L (12-78); Albumin Level 3.7 gm/dL (3.4-5.0); Albumin/Globulin Ratio 1.1 (1.1-1.8); Alkaline Phosphatase 68 U/L (46-116); Anion Gap 14.5 mEq/L (5-15); Bilirubin,Total 0.3 mg/dL (0.2-1.0); Blood Urea Nitrogen 20 mg/dL (7-18); Calcium 9.2 mg/dL (8.5-10.1); Carbon Dioxide 25 mmol/L (21.0-32.0); Chloride 105 mmol/L (98-107); Globulin 3.4 gm/dl (1.3-3.2); Glucose 118 mg/dL (74-106); Sodium 141 mmol/L (136-145); Total Protein,Serum 7.1 gm/dL (6.4-8.2)
[2017-12-18 18:52] LABS: Free Thyroxine Index 3.8 ug/dL (5.93-13.13); Thyroid Stimulating Hormone 0.12 uIU/ml (0.358-3.740)
[2017-12-18 18:53] LABS: Aspartate Amino Transferase 16 U/L (15-37); Potassium 3.5 mmoL/L (3.5-5.1)
--- NOTE | 2017-12-19 07:47 | Pharmacy Consult Notes ---
[facility] Pharmacy VTE Monitoring - Patient Demographics Admission date: 12/19/17 Report Date: 12/19/17 Time: 07:47 Allergies/Adverse Reactions: Patient Allergies codeine Allergy (Intermediate, Verified 05/15/17 14:05) "DEATHLY SICK" amiodarone Allergy (Mild, Verified 05/31/17 10:15) tongue tingling acetaminophen [From Percocet] Adverse Reaction (Verified 05/15/17 14:05) Nausea oxycodone [From Percocet] Adverse Reaction (Verified 05/15/17 14:05) Nausea Height: 1.6 m Weight: 61.774 kg Patient Problems: Current Active Problems Chest pain, precordial (Acute) Pre-syncope (Acute) - VTE Risk Labs: VTE Related Lab Results Hgb 13.9 g/dL (12.2-16.2) 12/18/17 18:13 Hct 41.3 % (37.0-47.0) 12/18/17 18:13 Plt Count 189 K/mm3 (142-424) 12/18/17 18:13 BUN 20 mg/dL (7-18) H 12/18/17 18:13 Creatinine 1.14 mg/dL (0.55-1.02) H 12/18/17 18:13 Estimated Creat Clear 38 mL/min (0-300) 12/18/17 18:13 Was VTE Risk Assessment Performed: Yes VTE Risk Level: Moderate Risk Clinical Trial Participant: No - Prophylaxis VTE Prophylaxis Ordered?: Yes Types of VTE Prophylaxis: TEDS Knee High Location of Applied Device: Bilateral Lower Extremeties
--- NOTE | 2017-12-19 08:15 | Consult Report ---
History of Present Illness Consult date: 12/19/17 Requesting physician: Hood Paredes Chief complaint: chest discomfort, near syncope Additional Medical History:: 1. Coronary artery disease A. History of drug-eluting stent to to left anterior descending, ramus and circumflex arteries 08/18/2014. On dual antiplatelet therapy until recently. 2. Mitral valve replacement with a tissue valve approximately April 2015, [facility]. Combined with RIGHT and LEFT atrial ablation procedures with LEFT atrial appendage ligation. A. Patient cardioverted to sinus rhythm. B. Postop for cardiomyopathy with ejection fraction on May 18, 2015 showing ejection fraction of less than 20 percent with mild TR. 3. Hypertension 4. Hyperlipidemia 5. History of atrial fibrillation and enlarged LEFT atrium A. RIGHT and LEFT atrial ablation procedures with LEFT atrial appendage ligation, April 2015. B. Hospital observation after ER visit, 12/19/2017, for A. fib with RVR in the VT zone that responded to ATP without defibrillator firing. 6. History of recurrent anemia with reported EGD and colonoscopy within the last year okay per patient. 7. [facility] AICD placed 10/2016 for sudden cardiac prevention and ischemic cardiomyopathy A. Echo, 05/2017, Moderately enlarged atrium, normal left ventricular size, mild concentric left ventricular hypertrophy, visually estimated ejection fraction of 20-25%, left ventricle is globally hypokinetic. Bio prosthetic valve in the mitral position, the mean gradient is not calculated, this does not appear to be significant mitral inflow obstruction or mitral regurgitation. Mild tricuspid regurgitation, tricuspid and jet velocity insufficient for calculation of the right ventricular systolic pressure. No significant pericardial effusion noted. B. MARS, 06/2017, Mildly left atrium, normal left ventricular size, visually estimated ejection fraction 50% with no obvious regional wall motion abnormality. There is no thrombus seen in the left atrium, left atrial appendage is slightly gated there is no fluid appendage. Normal functioning valve prosthetic valve in the mitral position. Agitated saline contrast study fails to identify intracardiac shunt. No significant pericardial effusion noted. History of present illness: 82-year-old white female with history of coronary artery disease, mitral valve replacement with bioprosthetic valve and ischemic cardia myopathy with subsequent placement of AICD in October 2016 presented to the ER for evaluation of lightheadedness and near syncopal symptoms. Patient relates sitting at the table talking with her sister when she felt an uncomfortable sensation in her chest described as a buzzing sensation around her defibrillator. She did feel lightheaded and dizzy as if she might pass out but denies loss of consciousness. Patient came to the emergency department for evaluation. EKG showed intermittent atrial fibrillation with intermittent pacing. Initial troponin was normal but patient was kept overnight for observation. Resultant troponins have remained normal. Cardiology consulted for evaluation recommendations. Patient's pacemaker/defibrillator was interrogated this a.m. showing 2 episodes occurring at 5:33 PM and 5:34 PM last evening that appeared to be atrial fibrillation with a rapid ventricular response into the ventricular tachycardia zone which prompted the device to anti-tachy pace her out of the rhythm. There were no episodes of defibrillator firing. The device appears to have worked appropriately. In talking with the patient recently she states she has had some intermittent low blood pressures into the 90s systolic and has reduced her losartan to just a half a tablet of her 100 mg pill twice a day. She maintains compliance of her beta-terri. Review of telemetry shows no further episodes overnight. [facility] History Medical History: Reports:: Atrial Fibrillation, Congestive Heart Failure, Coronary Artery Disease, Hyperlipidemia, Hypertension, Internal Pacemaker, Valvular Heart Disease Denies:: Cancer, Diabetes Mellitus Type 1, Diabetes Mellitus Type 2, MRSA Other Medical History: Reports: Anemia, Cataracts, Hypothyroidism, Thyroid Disease, Other Laterality Cases: Bilateral: Total Hip Replacement Other Surgeries: Yes: Cardiac Catheterization, Colonoscopy, Pacemaker, Other (MARS 2018) Amputation: No Fractures: Yes - *Social History Educational Level: Attended High School Smoking Status: Never smoker Alcohol Intake: never Alcohol Intake Frequency:: other Occupational Status: retired Housing: house Household Members: none - Psychiatric History Expresses thoughts of harming self/others: None Suicide Plan Description: No Plan *Family Hx:: Coronary Artery Disease, Heart Attack Meds Home Medications Medication Instructions Recorded Confirmed Type aspirin 81 mg tablet,delayed 81 mg PO DAILY 02/25/17 12/18/17 History release levothyroxine 100 mcg tablet 100 mcg PO DAILY tab 02/25/17 12/18/17 History omeprazole 40 mg capsule,delayed 40 mg PO HS 02/25/17 12/18/17 History release Digoxin 125 mcg PO DAILY 12/18/17 12/19/17 History Metoprolol Tartrate 100 mg PO BID 12/18/17 12/18/17 History Losartan/Hydrochlorothiazide 1 each PO DAILY 12/19/17 12/19/17 History [Losartan-Hctz 100-12.5 mg Tab] Spironolactone 25 mg PO DAILY 12/19/17 12/19/17 History Allergies Allergy/AdvReac Type Severity Reaction Status Date / Time codeine Allergy Intermediate "DEATHLY Verified 05/15/17 14:05 SICK" amiodarone Allergy Mild tongue Verified 05/31/17 10:15 tingling acetaminophen [From Percocet] AdvReac Nausea Verified 05/15/17 14:05 oxycodone [From Percocet] AdvReac Nausea Verified 05/15/17 14:05 Review of Systems - *Cardiovascular Reports chest pain, Reports rapid, pounding, or irregular heartbeat, Reports fast heart rate - *Respiratory Denies shortness of breath, Denies shortness of breath with activity - *Gastrointestinal Denies abdominal pain, Denies loose stools - *Genitourinary Denies blood in urine - *Musculoskeletal Denies joint pain - *Neurologic Reports dizziness, Denies lack of coordination Exam Vital signs and Labs for Last 24 Hours: Temp Pulse Resp BP Pulse Ox 97.6 F 80 17 115/65 96 12/19/17 04:00 12/19/17 04:58 12/19/17 04:00 12/19/17 04:00 12/19/17 04:00 Laboratory Results - last 24 hr 12/18/17 18:13: WBC 9.9, RBC 4.53, Hgb 13.9, Hct 41.3, MCV 91.2, MCH 30.6, MCHC 33.5, RDW 13.3, Plt Count 189, MPV 8.3, Neut % (Auto) 68.4, Lymph % (Auto) 20.4, [place] % (Auto) 6.2, Eos % (Auto) 4.1, Baso % (Auto) 0.9, Neut # (Auto) 6.8, Lymph # (Auto) 2.0, [place] # (Auto) 0.6, Eos # (Auto) 0.4, Baso # (Auto) 0.1 12/18/17 18:13: Sodium 141, Potassium 3.5, Chloride 105, Carbon Dioxide 25, Anion Gap 14.5, BUN 20 H, Creatinine 1.14 H, Estimated Creat Clear 38, Estimated GFR 46 L, Est GFR ( Amer) 55 L, Glucose 118 H, Calcium 9.2, Total Bilirubin 0.3, AST 16, ALT 20, Alkaline Phosphatase 68, Troponin I < 0.02, Total Protein 7.1, Albumin 3.7, Globulin 3.4 H, Albumin/Globulin Ratio 1.1, Digoxin 1.10 L 12/18/17 18:13: TSH 0.12 L, Free T4 Index 3.8 L, Thyroxine (T4) 10.0, T3 Uptake 38 12/18/17 23:10: Troponin I < 0.02 12/19/17 02:15: Troponin I < 0.02 I & O for Last 24 hours: Intake & Output 12/16/17 12/17/17 12/18/17 12/19/17 11:59 11:59 11:59 11:59 Weight 136 lb 3 oz - *Routine HEENT Exam Head: Present: normocephalic Eye: Present: EOMI, PERRL ENT: Present: mucous membranes moist - *Routine Neck Exam Present: supple. Absent: JVD, carotid bruit - *Routine Respiratory Exam Present: CTA bilaterally. Absent: accessory muscle use, rales, rhonchi, wheezes - *Routine Cardiovascular Exam Present: RRR. Absent: murmur, gallop, rubs - *Routine Abdominal Exam Present: soft. Absent: tenderness, distended, guarding - *Routine Extremities Exam Absent: edema, calf tenderness - *Routine Skin Exam Present: warm. Absent: cyanosis - *Routine Neurological Exam Present: alert, oriented X3, moving all extremities Assessment and Plan (1) Pre-syncope Current visit: Yes Status: Acute Category: Medical Code(s): R55 - Syncope and collapse (2) Atrial fibrillation Problem details: s/p GIOVANNI ligation (2016) Current visit: No Status: Chronic Qualifiers: Atrial fibrillation type: chronic Qualified Code(s): I48.2 - Chronic atrial fibrillation Category: Medical Code(s): I48.91 - Unspecified atrial fibrillation (3) History of mitral valve replacement with bioprosthetic valve Current visit: Yes Status: Acute Category: Surgical Code(s): Z95.3 - Presence of xenogenic heart valve (4) Coronary arteriosclerosis Current visit: No Status: Chronic Category: Medical Code(s): I25.10 - Atherosclerotic heart disease of [place] coronary artery without angina pectoris (5) Stented coronary artery Current visit: No Status: Chronic Category: Surgical Code(s): Z95.5 - Presence of coronary angioplasty implant and graft - Assessment and plan all Dx Assessment and Plan for all problems:: 1. Recommend increasing metoprolol tartrate to 150 mg BID 2. Reduce losartan to 25 mg daily 3. Low TSH noted. Will defer synthroid dose to Dr. Paredes. 4. Pt could be discharged home today with early follow up with Dr. Paredes and our clinic within the next week. 5. Will obtain echo either prior to discharge or as outpatient.
--- NOTE | 2017-12-19 08:47 | H&P/Discharge Summary ---
General - General Admission date:: 12/18/17 Discharge date: 12/19/17 *Admission Date: 12/19/17 *Chief complaint: palpitations, dizziness *History of present illness: 82-year-old white female with history of coronary artery disease, mitral valve replacement with bioprosthetic valve and ischemic cardia myopathy with subsequent placement of AICD in October 2016 presented to the ER for evaluation of lightheadedness and near syncopal symptoms. Patient relates sitting at the table talking with her sister when she felt an uncomfortable sensation in her chest described as a buzzing sensation around her defibrillator . She did feel lightheaded and dizzy as if she might pass out but denies loss of consciousness. Patient came to the emergency department for evaluation. EKG showed intermittent atrial fibrillation with intermittent pacing. Initial troponin was normal but patient was kept overnight for observation. Resultant troponins have remained normal. Cardiology consulted for evaluation recommendations. Patient's pacemaker/defibrillator was interrogated this a.m. showing 2 episodes occurring at 5:33 PM and 5:34 PM last evening that appeared to be atrial fibrillation with a rapid ventricular response into the ventricular tachycardia zone which prompted the device to anti-tachy pace her out of the rhythm. There were no episodes of defibrillator firing. The device appears to have worked appropriately. In talking with the patient recently she states she has had some intermittent low blood pressures into the 90s systolic and has reduced her losartan to just a half a tablet of her 100 mg pill twice a day. She maintains compliance of her beta-sandip. Review of telemetry shows no further episodes overnight. Above per Cardiology Bhavin Deshpande PA-C. Greatly appreciated. [facility] History I have reviewed the patient's past medical history: Yes Medical History: Reports:: Atrial Fibrillation, Congestive Heart Failure, Coronary Artery Disease, Hyperlipidemia, Hypertension, Internal Pacemaker, Valvular Heart Disease Denies:: Cancer, Diabetes Mellitus Type 1, Diabetes Mellitus Type 2, MRSA Other Medical History: Reports: Anemia, Cataracts, Hypothyroidism, Thyroid Disease, Other Laterality Cases: Bilateral: Total Hip Replacement Other Surgeries: Yes: Cardiac Catheterization, Colonoscopy, Pacemaker, Other (MARS 2018) Amputation: No Fractures: Yes - *Social History Educational Level: Attended High School Smoking Status: Never smoker Alcohol Intake: never Alcohol Intake Frequency:: other Occupational Status: retired Housing: house Household Members: none - Psychiatric History Expresses thoughts of harming self/others: None Suicide Plan Description: No Plan *Family Hx:: Coronary Artery Disease, Heart Attack Review of Systems - Constitutional Reports weakness - *Cardiovascular Reports lightheadedness, Reports fast heart rate - *Neurologic Reports dizziness, Denies lack of coordination Exam Vital signs and Labs for Last 24 Hours: Temp Pulse Resp BP Pulse Ox 98.4 F 80 18 120/71 95 12/19/17 08:00 12/19/17 08:00 12/19/17 08:00 12/19/17 08:00 12/19/17 08:00 Laboratory Results - last 24 hr 12/18/17 18:13: WBC 9.9, RBC 4.53, Hgb 13.9, Hct 41.3, MCV 91.2, MCH 30.6, MCHC 33.5, RDW 13.3, Plt Count 189, MPV 8.3, Neut % (Auto) 68.4, Lymph % (Auto) 20.4, [place] % (Auto) 6.2, Eos % (Auto) 4.1, Baso % (Auto) 0.9, Neut # (Auto) 6.8, Lymph # (Auto) 2.0, [place] # (Auto) 0.6, Eos # (Auto) 0.4, Baso # (Auto) 0.1 12/18/17 18:13: Sodium 141, Potassium 3.5, Chloride 105, Carbon Dioxide 25, Anion Gap 14.5, BUN 20 H, Creatinine 1.14 H, Estimated Creat Clear 38, Estimated GFR 46 L, Est GFR ( Amer) 55 L, Glucose 118 H, Calcium 9.2, Total Bilirubin 0.3, AST 16, ALT 20, Alkaline Phosphatase 68, Troponin I < 0.02, Total Protein 7.1, Albumin 3.7, Globulin 3.4 H, Albumin/Globulin Ratio 1.1, Digoxin 1.10 L 12/18/17 18:13: TSH 0.12 L, Free T4 Index 3.8 L, Thyroxine (T4) 10.0, T3 Uptake 38 12/18/17 23:10: Troponin I < 0.02 12/19/17 02:15: Troponin I < 0.02 I & O for Last 24 hours: Intake & Output 11/05/18 11/06/18 11/07/18 11/08/18 11:59 11:59 11:59 11:59 Intake Total 240 / 240 Balance 240 / 240 Weight 136 lb 3 oz Narrative: Alert and oriented x3. Rate and rhythm regular. No LE edema. No JVD. No carotid bruit. Skin pink, warm and dry. Pharynx with mild erythema, nose clear. No cervical LAD. Lung sounds clear and equal. Abdomen soft and nontender. No acute neuro deficits. Hospital Course Hospital Course: Patient was admitted to observation. She was placed on telemetry which was uneventful. She had no further episodes of chest tightness or palpitations. Serial enzymes were negative. Cardiology was consulted and PPM was interrogated. A. fib and short run VT noted, see cardiology note. Recommendations to increase Beta Sandip and decrease losartan. TSH was noted to be low at 0.12. Synthroid was decreased. Patient feels well and is ready to d/c home. Discharge home on increased dose of beta sandip. Stop losartan/HCTZ and start decreased dose of losartan. Synthroid decreased. Claritan added for allergic rhinitis. See medication reconciliation for complete list. FU in office with Dr. Paredes in [place] at 0900 Saturday Results Labs on day of discharge: Labs from last 24 hours 12/19/17 12/18/17 12/18/17 02:15 23:10 18:13 WBC RBC Hgb Hct MCV MCH MCHC RDW Plt Count MPV Neut % (Auto) Lymph % (Auto) [place] % (Auto) Eos % (Auto) Baso % (Auto) Neut # (Auto) Lymph # (Auto) [place] # (Auto) Eos # (Auto) Baso # (Auto) Sodium Potassium Chloride Carbon Dioxide Anion Gap BUN Creatinine Estimated Creat Clear Estimated GFR Est GFR ( Amer) Glucose Calcium Total Bilirubin AST ALT Alkaline Phosphatase Troponin I < 0.02 < 0.02 Total Protein Albumin Globulin Albumin/Globulin Ratio TSH 0.12 L Free T4 Index 3.8 L Thyroxine (T4) 10.0 T3 Uptake 38 Digoxin 12/18/17 12/18/17 18:13 18:13 WBC 9.9 RBC 4.53 Hgb 13.9 Hct 41.3 MCV 91.2 MCH 30.6 MCHC 33.5 RDW 13.3 Plt Count 189 MPV 8.3 Neut % (Auto) 68.4 Lymph % (Auto) 20.4 [place] % (Auto) 6.2 Eos % (Auto) 4.1 Baso % (Auto) 0.9 Neut # (Auto) 6.8 Lymph # (Auto) 2.0 [place] # (Auto) 0.6 Eos # (Auto) 0.4 Baso # (Auto) 0.1 Sodium 141 Potassium 3.5 Chloride 105 Carbon Dioxide 25 Anion Gap 14.5 BUN 20 H Creatinine 1.14 H Estimated Creat Clear 38 Estimated GFR 46 L Est GFR ( Amer) 55 L Glucose 118 H Calcium 9.2 Total Bilirubin 0.3 AST 16 ALT 20 Alkaline Phosphatase 68 Troponin I < 0.02 Total Protein 7.1 Albumin 3.7 Globulin 3.4 H Albumin/Globulin Ratio 1.1 TSH Free T4 Index Thyroxine (T4) T3 Uptake Digoxin 1.10 L DS: Diagnosis - Discharge Diagnosis (1) Pre-syncope Status: Acute (2) Atrial fibrillation Status: Chronic Problem details: s/p GIOVANNI ligation (2015) (3) History of mitral valve replacement with bioprosthetic valve Status: Acute (4) Coronary arteriosclerosis Status: Chronic (5) Stented coronary artery Status: Chronic Discharge Medications - Medications for Discharge Home Medication List at Discharge: New Levothyroxine Sodium [Synthroid 75mcg (0.075mg) tablet] 75 mcg PO DAILY #30 tablet Loratadine [Claritin] 10 mg PO DAILY #30 capsule Losartan Potassium [Cozaar] 50 mg PO DAILY #30 tablet Metoprolol Tartrate [Lopressor 100mg Tablet] 150 mg PO BID #90 tab Continue omeprazole 40 mg capsule,delayed release 40 mg PO HS aspirin 81 mg tablet,delayed release 81 mg PO DAILY ondansetron HCl 4 mg tablet 4 mg PO Q8H PRN #20 tab PRN Reason: nausea and vomiting Digoxin 125 mcg PO DAILY Spironolactone 25 mg PO DAILY Discontinued levothyroxine 100 mcg tablet 100 mcg PO DAILY tab Metoprolol Tartrate 100 mg PO BID Losartan/Hydrochlorothiazide [Losartan-Hctz 100-12.5 mg Tab] 1 each PO DAILY Disposition Disposition: Home, Self-Care
--- NOTE | 2017-12-19 15:26 | Cardiology Report ---
PROCEDURE: 2-D M-mode and color Doppler study INDICATIONS FOR THE TEST: Chest pain+ COPD Heart Murmur+ Tobacco Smoking Palpitations+ Fatigue Syncopepre Edema Hypertension+Diabetes Mellitus Rheumatic Fever SOB ALY Obesity Hyperlipidemia Family History HD+ Additional History pacemaker, pig valve MV, CAD, hx of AFIB, hx of ablation PATIENT INFORMATION HEIGHT: 63 WEIGHT: 136 GENDER: Female B/P: 120/71 2-D/M-MODE INTERPRETATION: 2-D MEASUREMENTS OBSERVED VALUES IN CMS Right Ventricular Dimension (RVDd) 2.9 Interventricular Septum (Thickness)(IVsd) 1.0 Left Ventricular Internal Dimensions(LVIDd) 3.7 Left Ventricular Posterior Wall (Thickness)(LVPWd) 1.2 Aortic Root 2.8 Aortic Cusp Separation 2.1 Left Atrial Dimensions (LAD) 4.6 2D 1. Left atrium is moderately enlarged, left ventricle is normal size, visually estimated ejection fraction 40-45%, there is abnormal septal motion, there is moderate hypokinesis involving the distal septum and apical wall. 2. The right atrium and right ventricle are mildly enlarged with normal contractility., There is pacemaker lead seen in the right atrium and right ventricle 3. The aortic valve is minimally thickened and fibrosed. 4. There is mild prosthetic valve noted in the mitral position valve is well seated. 5. The tricuspid valve is grossly normal. 6. No significant pericardial effusion noted. DOPPLER INTERROGATION: 1. The aortic out flow velocity within normal range, there is no aortic stenosis aortic insufficiency. 2. The mitral inflow velocity across the prosthetic valve is within normal range, there is no mitral inflow obstruction, or significant mitral regurgitation. 3. Mild tricuspid regurgitation, calculated right ventricular systolic pressure 36 mmHg consistent with mild pulmonary hypertension. 4. Diastolic parameters are inconclusive CONCLUSION: 1. Moderately enlarged left atrium, normal left ventricular size, visually estimated ejection fraction of 40-45% with segmental wall motion abnormality described above, there is abnormal septal motion. 2. Mildly enlarged right ventricle with normal contractility. 3. Normal functioning bio prosthetic valve in the mitral position. 4. Mild tricuspid regurgitation, calculated right ventricular systolic pressure 36 mmHg consistent with mild pulmonary hypertension. 5. No significant pericardial effusion noted.
== END 2017-12-19 10:06 | disposition home or self-care (01) ==
LOC: ER 17:49 → 2ND 17:49
PROVIDERS: ADMIT Emergency Medicine; ATTEND Internal Medicine Adolescent Medicine
CPT/HCPCS: 36415; 71010; 71045; 80053; 80162; 84436; 84443; 84479; 84484; 85025; 93005; 93306; 99284; G0378

== ENCOUNTER → 2018-04-01 08:41 | Outpatient (CLI) | payer MEDICARE, OTHER, SELFPAY ==
--- NOTE | 2018-04-01 08:42 | CI_ITS ---
Cerebrovascular Exam Indications: 782.0 Disturbance of skin sensation. IMPRESSIONS 1. The bilateral vertebral arteries are patent with normal antegrade flow. 2. Study suggests 20-49% stenosis involving the right internal carotid artery. Disease progression from the study of 28-Mar-2015. 3. Study suggests less than 20% stenosis involving the left internal carotid artery. No change from the study of 28-Mar-2015. History: Risk factors: Hypertension. Hyperlipidemia. Carotid duplex study. Complete study and Doppler flow study including spectral analysis, color and gayle scale imaging. Height: Height: 162.6cm. Height: 64in. Weight: Weight: 63.5kg. Weight: 139.7lb. Body mass index: BMI: 24kg/m^2. Body surface area: BSA: 1.7m^2. Location: Vascular laboratory. Patient status: Outpatient. Tables: Arterial flow: + +--------+--------+ Location V sys V ed + +--------+--------+ Right CCA - proximal 84.9cm/s 15.7cm/s + +--------+--------+ Right CCA - distal 51.5cm/s 10.1cm/s + +--------+--------+ Right ECA 80.8cm/s 7cm/s + +--------+--------+ Right ICA - proximal 29.7cm/s 9.6cm/s + +--------+--------+ Right ICA - mid 56.8cm/s 18.5cm/s + +--------+--------+ Right ICA - distal 56.8cm/s 16.3cm/s + +--------+--------+ Right vertebral 18.9cm/s 5.2cm/s + +--------+--------+ Left CCA - proximal 57.5cm/s 12.3cm/s + +--------+--------+ Left CCA - distal 55.8cm/s 14.9cm/s + +--------+--------+ Left ECA 72cm/s 5.7cm/s + +--------+--------+ Left ICA - proximal 54.4cm/s 11.9cm/s + +--------+--------+ Left ICA - mid 38.2cm/s 16.2cm/s + +--------+--------+ Left ICA - distal 55.3cm/s 18cm/s + +--------+--------+ Left vertebral 29cm/s 9.7cm/s + +--------+--------+ Velocity ratios: + + + + + + Right, V sys Right, V ed Left, V sys Left, V ed + + + + + + Max ICA/dist CCA 1.1 1.83 0.99 1.21 + + + + + + (Report amended ) Electronically signed by: Amor Davis [id number]
== END ==
PROVIDERS: PCP Internal Medicine Adolescent Medicine; Visit Provider Internal Medicine Cardiovascular Disease
DX: E78.5 Hyperlipidemia, unspecified (principal); I11.9 Hypertensive heart disease without heart failure; I25.10 Atherosclerotic heart disease of native coronary artery without angina pectoris; I42.9 Cardiomyopathy, unspecified; I48.91 Unspecified atrial fibrillation; R20.0 Anesthesia of skin; R55 Syncope and collapse; Z95.4 Presence of other heart-valve replacement; Z95.5 Presence of coronary angioplasty implant and graft
CPT/HCPCS: 93880

== ENCOUNTER → 2018-04-04 09:14 | Outpatient (CLI) | payer MEDICARE, OTHER, SELFPAY ==
[2018-04-04 14:27] LABS: Anion Gap 15.6 mEq/L (5-15); Blood Urea Nitrogen 17 mg/dL (7-18); Calcium 9.2 mg/dL (8.5-10.1); Carbon Dioxide 24 mmol/L (21.0-32.0); Chloride 106 mmol/L (98-107); Creatinine,Serum 1.12 mg/dL (0.55-1.02); Estimated Glomerular Filt Rate 47 ml/min (>60); GFR (African American) 56 ML/MIN (>60); Glucose 129 mg/dL (74-106); Potassium 4.6 mmoL/L (3.5-5.1); Sodium 141 mmol/L (136-145)
== END ==
PROVIDERS: PCP Internal Medicine Adolescent Medicine; Visit Provider Internal Medicine Cardiovascular Disease
DX: E78.5 Hyperlipidemia, unspecified (principal); I25.10 Atherosclerotic heart disease of native coronary artery without angina pectoris; I42.9 Cardiomyopathy, unspecified; I48.91 Unspecified atrial fibrillation; R55 Syncope and collapse; Z95.4 Presence of other heart-valve replacement; Z95.5 Presence of coronary angioplasty implant and graft; I50.20 Unspecified systolic (congestive) heart failure
CPT/HCPCS: 36415; 80048; 83880

== ENCOUNTER → 2020-07-20 07:36 | Outpatient (CLI) | payer MEDICARE, OTHER, SELFPAY ==
[2020-07-20 10:12] LABS: Basophils # 0.1 K/mm3 (0-0.2); Basophils % 1.2 % (0.1-2.0); Eosinophils # 0.2 K/mm3 (0.0-0.4); Eosinophils % 3.2 % (0.1-12.0); Hematocrit 42.1 % (37.0-47.0); Hemoglobin 14.1 g/dL (12.2-16.2); Lymphocytes # 1.2 K/mm3 (0.7-4.5); Lymphocytes % 17.2 % (10-50); Mean Corpuscular HGB Conc 33.6 g/dL (31.8-35.4); Mean Corpuscular Hemoglobin 29.7 pg (27.0-31.2); Mean Corpuscular Volume 88.5 fl (81-99); Mean Platelet Volume 8.9 fl (7.4-10.4); Monocytes # 0.6 K/mm3 (0.1-1.0); Neutrophils # 4.9 K/mm3 (1.8-7.8); Neutrophils % 70.5 % (37.0-80.0); Platelet Count 130 K/mm3 (142-424); Red Blood Count 4.76 M/mm3 (4.20-5.40); Red Cell Distribution Width 14.6 % (11.5-17.5)
[2020-07-20 10:13] LABS: Chloride 107 mmol/L (98-107)
[2020-07-20 10:14] LABS: Potassium 4.3 mmoL/L (3.5-5.1); Sodium 140 mmol/L (136-145)
[2020-07-20 10:16] LABS: Alanine Aminotransferase 17 U/L (12-78); Albumin/Globulin Ratio 1.6 (1.1-1.8); Alkaline Phosphatase 59 U/L (38-126); Anion Gap 12.3 mEq/L (5-15); Aspartate Amino Transferase 22 U/L (14-36); Bilirubin,Total 1.2 mg/dl (0.2-1.3); Blood Urea Nitrogen 10 mg/dl (7-17); Carbon Dioxide 25 mmol/L (22.0-30.0); Estimated Glomerular Filt Rate 60 ml/min (>60); GFR (African American) 72 ML/MIN (>60); Globulin 2.5 g/dL (1.3-3.2); Total Protein,Serum 6.5 g/dl (6.3-8.2)
[2020-07-20 10:17] LABS: Chol/HDL Ratio 4.3 (1-3.5); Cholesterol 150 mg/dl (140-200); Glucose 119 mg/dl (74-100); HDL Cholesterol 35 mg/dl (40-60); Triglycerides 146 mg/dl (30-150); VLDL Cholesterol 29 mg/dL (0-40)
[2020-07-20 10:28] LABS: Direct LDL Cholesterol 87.39 mg/dL (100-129)
[2020-07-20 10:48] LABS: Thyroid Stimulating Hormone 1.02 uIU/mL (0.465-4.68)
== END ==
PROVIDERS: Visit Provider Internal Medicine Adolescent Medicine
DX: I25.10 Atherosclerotic heart disease of native coronary artery without angina pectoris (principal); I48.20 Chronic atrial fibrillation, unspecified; E03.9 Hypothyroidism, unspecified
CPT/HCPCS: 36415; 80053; 80061; 84443; 85025

== ENCOUNTER → 2021-01-17 18:24 | Outpatient (CLI) | payer MEDICARE, OTHER, SELFPAY ==
[2021-01-17 19:27] LABS: Basophils # 0.1 K/mm3 (0-0.2); Eosinophils # 0.2 K/mm3 (0.0-0.4); Hematocrit 44.5 % (37.0-47.0); Hemoglobin 14.3 g/dL (12.2-16.2); Lymphocytes # 1.3 K/mm3 (0.7-4.5); Lymphocytes % 19.4 % (10-50); Mean Corpuscular HGB Conc 32.2 g/dL (31.8-35.4); Mean Corpuscular Hemoglobin 29.9 pg (27.0-31.2); Mean Corpuscular Volume 92.8 fl (81-99); Mean Platelet Volume 10.5 fl (7.4-10.4); Monocytes # 0.5 K/mm3 (0.1-1.0); Monocytes % 6.9 % (1.7-9.3); Neutrophils # 4.8 K/mm3 (1.8-7.8); Neutrophils % 69.7 % (37.0-80.0); Platelet Count 149 K/mm3 (142-424); Red Blood Count 4.79 M/mm3 (4.20-5.40); Red Cell Distribution Width 14.5 % (11.5-17.5); White Blood Count 6.9 K/mm3 (4.8-10.8)
[2021-01-17 19:29] LABS: Alanine Aminotransferase 17 U/L (12-78); Albumin Level 4.1 g/dl (3.5-5.0); Albumin/Globulin Ratio 1.6 (1.1-1.8); Alkaline Phosphatase 61 U/L (38-126); Anion Gap 5.3 mEq/L (5-15); Aspartate Amino Transferase 25 U/L (14-36); Bilirubin,Total 1.1 mg/dl (0.2-1.3); Blood Urea Nitrogen 18 mg/dl (7-17); Calcium 9.6 mg/dl (8.4-10.2); Carbon Dioxide 32 mmol/L (22.0-30.0); Chloride 104 mmol/L (98-107); Chol/HDL Ratio 4.2 (1-3.5); Cholesterol 162 mg/dl (140-200); Estimated Glomerular Filt Rate 47 ml/min (>60); GFR (African American) 57 ML/MIN (>60); Globulin 2.6 g/dL (1.3-3.2); Glucose 123 mg/dl (74-100); HDL Cholesterol 39 mg/dl (40-60); Potassium 4.3 mmoL/L (3.5-5.1); Sodium 137 mmol/L (136-145); Total Protein,Serum 6.7 g/dl (6.3-8.2); Triglycerides 112 mg/dl (30-150); VLDL Cholesterol 22 mg/dL (0-40)
[2021-01-17 19:40] LABS: Direct LDL Cholesterol 105.04 mg/dL (100-129)
[2021-01-17 20:00] LABS: Thyroid Stimulating Hormone 0.86 uIU/mL (0.465-4.68)
== END ==
PROVIDERS: Visit Provider Internal Medicine Adolescent Medicine
DX: I48.91 Unspecified atrial fibrillation (principal); E03.9 Hypothyroidism, unspecified
CPT/HCPCS: 80053; 80061; 84443; 85025

== ENCOUNTER 2021-02-02 22:44 | Inpatient (IN) | payer MEDICARE, OTHER, SELFPAY ==
[2021-02-02 22:37] VITALS: BP 161/105; PULSE 92; RESP 18; TEMP 36.8; O2SAT 93; BMI 25.7
--- NOTE | 2021-02-02 22:38 | ECG_ITS ---
APPROVED REPORT Exam: Resting ECG HR:119 bpm ECG Measurements Heart Rate 119 AXES QRSd 84 QRS -1 QT 370 T 246 QTc 520 Conclusion Accelerated Junctional rhythm with occasional premature ventricular complexes and fusion complexes Marked ST abnormality, possible inferolateral subendocardial injury Abnormal ECG Electronically signed by : Hood Paredes MD 02/03/2021 12:34:28
--- NOTE | 2021-02-02 22:46 | XR_ITS ---
PROCEDURE INFORMATION: Exam: XR Chest Exam date and time: 02/02/2021 10:46 PM Age: 86 years old Clinical indication: Shortness of breath; Sternal or substernal pain TECHNIQUE: Imaging protocol: XR of the chest. Views: 1 view. COMPARISON: CR [id number] XR chest portable 04/06/2018 1:27 PM FINDINGS: Tubes, catheters and devices: Dual lead left-sided cardiac pacemaker. Lungs: Interstitial opacities in both lungs could reflect pneumonia. Pleural spaces: Unremarkable. No pleural effusion. No pneumothorax. Heart/Mediastinum: Cardiomegaly. Left atrial appendage clip. Bones/joints: Midline sternotomy. IMPRESSION: 1. Interstitial opacities in both lungs could reflect pneumonia. 2. Cardiomegaly
[2021-02-02 22:55] LABS: Basophils # 0.2 K/mm3 (0-0.2); Basophils % 1.7 % (0.1-2.0); Eosinophils # 0.4 K/mm3 (0.0-0.4); Eosinophils % 3.2 % (0.1-12.0); Hematocrit 46.6 % (37.0-47.0); Hemoglobin 14.7 g/dL (12.2-16.2); Lymphocytes # 3.2 K/mm3 (0.7-4.5); Lymphocytes % 27.6 % (10-50); Mean Corpuscular HGB Conc 31.7 g/dL (31.8-35.4); Mean Corpuscular Hemoglobin 30.1 pg (27.0-31.2); Mean Corpuscular Volume 95.2 fl (81-99); Monocytes # 0.9 K/mm3 (0.1-1.0); Monocytes % 7.5 % (1.7-9.3); Neutrophils # 6.9 K/mm3 (1.8-7.8); Platelet Count 164 K/mm3 (142-424); Red Blood Count 4.89 M/mm3 (4.20-5.40); White Blood Count 11.5 K/mm3 (4.8-10.8)
[2021-02-02 22:57] LABS: Alanine Aminotransferase 23 U/L (12-78); Albumin Level 4.3 g/dl (3.5-5.0); Albumin/Globulin Ratio 1.6 (1.1-1.8); Alkaline Phosphatase 63 U/L (38-126); Anion Gap 11.4 mEq/L (5-15); Aspartate Amino Transferase 32 U/L (14-36); Bilirubin,Total 0.8 mg/dl (0.2-1.3); Blood Urea Nitrogen 16 mg/dl (7-17); Calcium 9.4 mg/dl (8.4-10.2); Carbon Dioxide 26 mmol/L (22.0-30.0); Chloride 103 mmol/L (98-107); Creatinine Clearance Estimated 34 mL/min (50-200); Estimated Glomerular Filt Rate 39 ml/min (>60); GFR (African American) 47 ML/MIN (>60); Globulin 2.7 g/dL (1.3-3.2); Glucose 175 mg/dl (74-100); Potassium 3.4 mmoL/L (3.5-5.1); Sodium 137 mmol/L (136-145)
[2021-02-02 23:00] VITALS: BP 160/110; PULSE 111; O2SAT 91
[2021-02-02 23:03] LABS: C-Reactive Protein 2.1 mg/L (0-4)
[2021-02-02 23:17] LABS: Procalcitonin 0.054 ng/mL (0.0-2.0); Troponin I < 0.01 ng/ml (0.00-0.034)
[2021-02-02 23:18] LABS: Erythrocyte Sedimentation Rate 8 mm/hr (0-30)
--- NOTE | 2021-02-02 23:21 | HMH.EDGENADL ---
ED Disposition Clinical Impression: AICD (automatic cardioverter/defibrillator) present, Abnormal EKG, Renal insufficiency Cholelithiasis and cholecystitis without obstruction Qualifiers: Cholelithiasis location: gallbladder Cholecystitis acuity: acute Qualified Code(s): K80.00 - Calculus of gallbladder with acute cholecystitis without obstruction Disposition: Admitted As Inpatient Condition on Discharge: [facility] - Critical Care Critical Care Time: No Attestation: On 02/02/21, the high probability of a clinically significant, sudden or life threatening deterioration of the following system(s) required my full and direct attention, intervention and personal management. The time I documented below is in addition to time spent performing reported procedures but includes the following listed in this critical care notation. Medical Decision Making - Medical Records Medical records reviewed: Yes: I reviewed the patient's medical records. - Alan Inquiry Pt receiving controlled substance: No Vital Signs: 02/02/21 22:37 02/02/21 23:00 02/02/21 23:30 Temperature 98.2 F Temperature Source Oral Pulse Rate 111 H 121 H Pulse Rate [Right] 92 H Respiratory Rate 18 16 Blood Pressure 160/110 H 171/110 H Blood Pressure [Right Arm] 161/105 H Blood Pressure Mean Blood Pressure Mean [Right Arm] 123 02 Sat by Pulse Oximetry 93 L 91 L 94 L Oxygen Delivery Method Room Air Nasal Cannula Oxygen Flow Rate (LPM) 2 02/03/21 00:00 02/03/21 00:30 02/03/21 01:00 Temperature Temperature Source Pulse Rate 117 H 118 H Pulse Rate [Right] Respiratory Rate 25 H 23 21 Blood Pressure 156/112 H 141/102 H 159/107 H Blood Pressure [Right Arm] Blood Pressure Mean Blood Pressure Mean [Right Arm] 02 Sat by Pulse Oximetry 96 96 95 Oxygen Delivery Method Nasal Cannula Nasal Cannula Nasal Cannula Oxygen Flow Rate (LPM) 2 2 2 02/03/21 01:30 02/03/21 02:01 02/03/21 02:30 Temperature Temperature Source Pulse Rate 116 H 103 H Pulse Rate [Right] Respiratory Rate 20 18 16 Blood Pressure 145/94 H 139/107 H 139/103 H Blood Pressure [Right Arm] Blood Pressure Mean 117 110 Blood Pressure Mean [Right Arm] 02 Sat by Pulse Oximetry 95 95 96 Oxygen Delivery Method Nasal Cannula Oxygen Flow Rate (LPM) 2 02/03/21 03:00 Temperature Temperature Source Pulse Rate 103 H Pulse Rate [Right] Respiratory Rate 20 Blood Pressure 142/94 H Blood Pressure [Right Arm] Blood Pressure Mean 112 Blood Pressure Mean [Right Arm] 02 Sat by Pulse Oximetry 96 Oxygen Delivery Method Oxygen Flow Rate (LPM) - Lab Data Lab results reviewed: Yes: I reviewed the patient's lab results. Lab Results 02/02/21 22:30: WBC 11.5 H, RBC 4.89, Hgb 14.7, Hct 46.6, MCV 95.2, MCH 30.1, MCHC 31.7 L, RDW 15.0, Plt Count 164, MPV 9.0, Neut % (Auto) 60.0, Lymph % (Auto) 27.6, Andrews % (Auto) 7.5, Eos % (Auto) 3.2, Baso % (Auto) 1.7, Neut # (Auto) 6.9, Lymph # (Auto) 3.2, [place] # (Auto) 0.9, Eos # (Auto) 0.4, Baso # (Auto) 0.2, ESR 8 02/02/21 22:30: Sodium 137, Potassium 3.4 L, Chloride 103, Carbon Dioxide 26, Anion Gap 11.4, BUN 16, Creatinine 1.30 H, Estimated Creat Clear 34, Estimated GFR 39 L, Est GFR ( Amer) 47 L, Glucose 175 H, Calcium 9.4, Total Bilirubin 0.8, AST 32, ALT 23, Alkaline Phosphatase 63, Troponin I < 0.01, C-Reactive Protein 2.1, Total Protein 7.0, Albumin 4.3, Globulin 2.7, Albumin/Globulin Ratio 1.6 02/02/21 22:30: Procalcitonin 0.054 02/02/21 22:30: Digoxin 0.60 02/03/21 00:34: Urine Color Yellow, Urine Appearance Clear, Urine pH 6.0, Ur Specific Romance >= 1.030, Urine Protein 1+, Urine Glucose (UA) Negative, Urine Ketones Negative, Urine Blood Negative, Urine Nitrate Negative, Urine Bilirubin Negative, Urine Urobilinogen 0.2, Ur Leukocyte Esterase Negative, Urine WBC Occasional, Urine Bacteria Trace 02/03/21 01:21: SARS-CoV-2 (PCR) Not detected, Influenza A Untype (PCR) Not detected, Influenza Type B (
[2021-02-02 23:30] VITALS: BP 171/110; PULSE 121; RESP 16; O2SAT 94
[2021-02-03] VITALS (31 sets, daily range): BP systolic 107–172; BP diastolic 69–112; PULSE 71–130; RESP 13–32; TEMP 36.4–37; O2SAT 90–100; BMI 26.2
--- NOTE | 2021-02-03 | IR_ITS ---
APPROVED REPORT Patient Location: Inpatient [place] Law Clerk: PAVAN Garcia RT (R) PROCEDURES Right femoral arterial access Catheter placed into the left superficial femoral artery Left superficial femoral artery antegrade angiogram Catheter placement in the left external iliac artery Left external iliac artery angiogram Thrombectomy to the left posterior tibialis artery Thrombectomy to the left anterior tibialis artery Thrombectomy to the left PT trunk Thrombectomy to the left popliteal artery Thrombectomy to the left common femoral artery Thrombectomy to the left profunda femoris artery Stent deployment to the left PT trunk and left popliteal artery Catheter placement to the left anterior tibialis artery with antegrade angiography Catheter placement in the left posterior tibialis artery with antegrade angiography INDICATION Acute thrombosis of the left leg, Acute thrombosis of the left profunda femoris artery, Acute thrombosis of the left common femoral artery, Acute thrombosis of the left popliteal artery, Acute thrombosis of the left PT trunk, Acute thrombosis of the left posterior tibialis artery, Acute thrombosis of the left anterior tibialis artery, Atherosclerosis 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 COMPLICATIONS NONE Estimated Blood Loss: LESS THAN 10 ML TECHNIQUE 1% lidocaine used anesthetize the right groin the right femoral was accessed via the Salinger technique and a 6 [place] sheath was placed in the left femoral artery. A rim catheter was placed in the distal abdominal aorta and used to cannulate the left common iliac artery where a wire was in place distally into the left superficial femoral artery. Angiography was performed in the left superficial femoral artery which demonstrated thrombosis of the left superficial femoral artery. The catheter and sheath were removed over the wire and a long destination sheath was advanced. The distal tip ended in the left superficial femoral artery. When hooking up pressure there was essentially no pressure obtained in the left superficial femoral artery therefore the sheath was pulled back into the left external iliac artery and angiography was performed which demonstrated a thrombosis of the left common femoral artery and left profunda femoris artery. Therapeutic heparin was administered giving a therapeutic ACT. At this point Choice PT extra-support wire was replaced distally and a CAT 6 catheter was used to aspirate thrombus throughout the left common femoral artery significantly restoring antegrade flow. This catheter was advanced to the left popliteal artery left PT trunk left anterior tibialis artery and left posterior tibialis artery. A large amount of thrombus was aspirated in all of the respective vessels. The same procedure was repeated in the left profunda femoris artery restoring most of the flow proximally. Selective angiography was performed in the left anterior tibialis artery posterior tibialis artery PT trunk and left popliteal artery. Eventually balloons were used to also help restore flow which included long 4 mm balloons and 5 mm balloons. Despite multiple inflations the PT trunk and popliteal artery remained subtotally occluded therefore a 5 mm x 80 mm EV 3 self-expanding stent was deployed at the very distal aspect of the left PT trunk. A 4 mm balloon was used to post dilate which failed to completely reduce the stent therefore a 5 mm x 40 mm balloon was then deployed at 20 елена to further post dilate the stent. Repeat angiography demonstrated excellent inline flow to the PT trunk as well as the large posterior tibialis artery which provided inline flow into the left foot. The
--- NOTE | 2021-02-03 00:24 | CT_ITS ---
PROCEDURE INFORMATION: Exam: CT Abdomen And Pelvis Without Contrast Exam date and time: 02/03/2021 12:24 AM Age: 86 years old Clinical indication: Patient HX: PT C/O abdominal pain, no prior SX to abdomen, n/v TECHNIQUE: Imaging protocol: Computed tomography of the abdomen and pelvis without contrast. Radiation optimization: All CT scans at this facility use at least one of these dose optimization techniques: automated exposure control; mA and/or kV adjustment per patient size (includes targeted exams where dose is matched to clinical indication); or iterative reconstruction. COMPARISON: [facility] CT CHEST W/ CONTRAST 08/17/2014 2:59 PM FINDINGS: Tubes, catheters and devices: Dukes catheter. Lungs: In the lung bases there is airspace disease concerning for pneumonia. Heart: Cardiomegaly. Liver: There is a complex 2 cm hypodense lesion in the right lobe of the liver stable since 2014 therefore it is likely benign. Gallbladder and bile ducts: Distended gallbladder with layering gallstones. Pancreas: Normal. No ductal dilation. Spleen: Normal. No splenomegaly. Adrenal glands: Normal. No mass. Kidneys and ureters: There is a 3 cm simple cyst lower pole right kidney requiring no further follow-up. No hydronephrosis or renal stones. Stomach and bowel: Diverticulosis in the sigmoid without diverticulitis. No colitis. No small bowel obstruction. Appendix: No evidence of appendicitis. Intraperitoneal space: Unremarkable. No free air. No significant fluid collection. Vasculature: Unremarkable. No abdominal aortic aneurysm. Lymph nodes: Unremarkable. No enlarged lymph nodes. Urinary bladder: Unremarkable as visualized. Reproductive: Hysterectomy. Bones/joints: Unremarkable. No acute fracture. Soft tissues: Unremarkable. IMPRESSION: 1. Distended gallbladder and layering stones. Correlate for right upper quadrant pain. 2. No obstructive uropathy. 3. No colitis or small bowel obstruction. 4. Appendix normal 5. Findings concerning for pneumonia in the lung bases
--- NOTE | 2021-02-03 00:24 | CT_ITS ---
PROCEDURE INFORMATION: Exam: CT Lumbar Spine Without Contrast Exam date and time: 02/03/2021 12:24 AM Age: 86 years old Clinical indication: Low back pain TECHNIQUE: Imaging protocol: Computed tomography images of the lumbar spine without contrast. Radiation optimization: All CT scans at this facility use at least one of these dose optimization techniques: automated exposure control; mA and/or kV adjustment per patient size (includes targeted exams where dose is matched to clinical indication); or iterative reconstruction. COMPARISON: CT ABDOMEN PELVIS WO CON 02/03/2021 12:43 AM FINDINGS: Vertebrae: No acute fracture. Normal alignment. Discs/Spinal canal/Neural foramina: At L4-L5 there is disc bulging resulting in neural foraminal and central canal narrowing. Facet joint arthropathy. Ligamentum flavum hypertrophy. At L5-S1 there is central canal narrowing with disc bulging resulting in narrowing of bilateral lateral recess and contact upon the descending bilateral nerve roots. Soft tissues: Unremarkable. IMPRESSION: Degenerative changes in the lower lumbar spine. No acute findings.
[2021-02-03 00:41] LABS: Microscopic, Urine URINE MICROSCOPIC (MICROSCOPIC)
[2021-02-03 00:44] LABS: Appearance,Urine CLEAR (Clear); Bilirubin,Urine Negative (Negative); Blood, Urine Negative (Negative); Color,Urine YELLOW (Yellow); Glucose,Urine (UA) Negative (Negative); Ketones,Urine Negative (Negative); Leukocyte Esterase,Urine Negative (Negative); Nitrate,Urine Negative (Negative); Protein,Urine 1+ (Negative); Specific Gravity, Urine >= 1.030 (1.005-1.030); Urobilinogen,Urine 0.2 EU/dl (0.2)
[2021-02-03 01:24] LABS: Bacteria,Urine Trace /lpf; WBC,Urine Occasional #/hpf (0-3)
[2021-02-03 01:38] LABS: Coronavirus 19, PCR Not Detected (NotDetected); Influenza A, PCR Not Detected (NotDetected); Influenza B, PCR Not Detected (NotDetected)
--- NOTE | 2021-02-03 01:52 | ECG_ITS ---
APPROVED REPORT Exam: Resting ECG HR:118 bpm ECG Measurements Heart Rate 118 AXES QRSd 86 QRS 4 QT 366 T 251 QTc 513 Conclusion Accelerated Junctional rhythm with fusion complexes Marked ST abnormality, possible inferior subendocardial injury Abnormal ECG Electronically signed by : Hood Paredes MD 02/03/2021 12:34:20
[2021-02-03 02:07] LABS: Amylase 87 U/L (30-110)
[2021-02-03 02:07] LABS: Lipase 152 U/L (23-300)
[2021-02-03 02:08] LABS: Lactic Acid 1.5 mmol/L (0.7-2.1)
[2021-02-03 02:22] LABS: Troponin I < 0.01 ng/ml (0.00-0.034)
--- NOTE | 2021-02-03 03:26 | PC.NURSE ---
shila on phone with dr sen @ this time
--- NOTE | 2021-02-03 04:35 | PC.NURSE ---
PT ARRIVED TO FLOOR VIA STRETCHER FROM ED W/STAFF @ [id number]
[2021-02-03 06:08] LABS: Chloride 107 mmol/L (98-107)
[2021-02-03 06:09] LABS: Potassium 4.5 mmoL/L (3.5-5.1); Sodium 140 mmol/L (136-145)
[2021-02-03 06:11] LABS: Anion Gap 11.5 mEq/L (5-15); Basophils % 0.5 % (0.1-2.0); Blood Urea Nitrogen 14 mg/dl (7-17); Carbon Dioxide 26 mmol/L (22.0-30.0); Creatinine Clearance Estimated 45 mL/min (50-200); Eosinophils % 0.1 % (0.1-12.0); Estimated Glomerular Filt Rate 53 ml/min (>60); GFR (African American) 64 ML/MIN (>60); Hematocrit 41.3 % (37.0-47.0); Lymphocytes # 0.4 K/mm3 (0.7-4.5); Lymphocytes % 5.2 % (10-50); Mean Corpuscular HGB Conc 31.2 g/dL (31.8-35.4); Mean Corpuscular Hemoglobin 29.9 pg (27.0-31.2); Mean Corpuscular Volume 95.7 fl (81-99); Mean Platelet Volume 9.1 fl (7.4-10.4); Monocytes # 0.5 K/mm3 (0.1-1.0); Monocytes % 5.7 % (1.7-9.3); Neutrophils # 7.3 K/mm3 (1.8-7.8); Neutrophils % 88.6 % (37.0-80.0); Platelet Count 103 K/mm3 (142-424); Red Blood Count 4.32 M/mm3 (4.20-5.40); Red Cell Distribution Width 14.8 % (11.5-17.5); White Blood Count 8.2 K/mm3 (4.8-10.8)
[2021-02-03 06:12] LABS: Calcium 8.1 mg/dl (8.4-10.2); Chol/HDL Ratio 3.8 (1-3.5); Cholesterol 136 mg/dl (140-200); Glucose 127 mg/dl (74-100); HDL Cholesterol 36 mg/dl (40-60); Magnesium 1.7 mg/dl (1.6-2.3); Triglycerides 105 mg/dl (30-150); VLDL Cholesterol 21 mg/dL (0-40)
[2021-02-03 06:23] LABS: Direct LDL Cholesterol 77.38 mg/dL (100-129)
[2021-02-03 06:42] LABS: MANUAL DIFFERENTIAL MANUAL DIFFERENTIAL (MANUAL DIFF); Troponin I < 0.01 ng/ml (0.00-0.034)
[2021-02-03 06:49] LABS: Hemoglobin 12.9 g/dL (12.2-16.2)
--- NOTE | 2021-02-03 07:08 | PC.NURSE ---
pt admitted this morning, pt denies abd pain, pt mainly complains of pain in left leg mostly, pt has pacemaker but no capture is noted on tele, pt with tachycardia as noted in ER, juntional rythm, pt having echocardiogram at bedside this morning.
[2021-02-03 07:16] LABS: Hypochromasia 1+; Lymphocytes % 4 % (10-50); Macrocytosis 1+; Monocytes % 4 % (2-9); Neutrophils % 92 % (42-76); Platelet Estimate Normal; Total Cells Counted 100
--- NOTE | 2021-02-03 07:40 | HMH.PHAVTE ---
[facility] Pharmacy VTE Monitoring - Patient Demographics Admission date: 02/03/21 Report Date: 02/03/21 Time: 07:40 Allergies/Adverse Reactions: Patient Allergies codeine Allergy (Intermediate, Verified 10/16/18 09:20) DEATHLY SICK amiodarone Allergy (Mild, Verified 10/16/18 09:20) tongue tingling acetaminophen [From Percocet] Adverse Reaction (Verified 10/16/18 09:20) Nausea oxycodone [From Percocet] Adverse Reaction (Verified 10/16/18 09:20) Nausea Height: 1.63 m Weight: 69.853 kg Patient Problems: Current Active Problems Cholelithiasis and cholecystitis without obstruction (Acute) Abnormal EKG (Acute) Renal insufficiency (Acute) AICD (automatic cardioverter/defibrillator) present (Chronic) - VTE Risk Labs: VTE Related Lab Results Hgb 12.9 g/dL (12.2-16.2) D 02/03/21 05:20 Hct 41.3 % (37.0-47.0) 02/03/21 05:20 Plt Count 103 K/mm3 (142-424) L D 02/03/21 05:20 BUN 14 mg/dl (7-17) 02/03/21 05:20 Creatinine 1.00 mg/dl (0.52-1.04) D 02/03/21 05:20 Estimated Creat Clear 45 mL/min (50-200) 02/03/21 05:20 Was VTE Risk Assessment Performed: Yes VTE Score: 3 VTE Risk Level: Low Risk Clinical Trial Participant: No - Prophylaxis VTE Prophylaxis Ordered?: Yes Types of VTE Prophylaxis: TEDS Knee High
--- NOTE | 2021-02-03 07:44 | HMH.PHAINT ---
home medicaiton list verified using list from [facility] and pt interview
--- NOTE | 2021-02-03 08:00 | CA_ITS ---
APPROVED REPORT EXAM: Comprehensive 2D, Doppler, and color-flow Echocardiogram [employer] Relations: [employer] CRT Ht: 5 ft 4 in Wt: 150lbs BSA: 1.73 BP: 142/94 mmHg Indications: Murmur, Atrial Fibrillation, Hyperlipidemia, Cardiomyopathy, Hypertension/HDD, MVr pig valve, ablation, gin 2018, acute cholecystitis 2D Dimensions LVOT 1.75 cm (M/F) 1.5-2.5 LA Volume 66.50 mL LA Volume Index 38.40 mL/m2 (M/F) 16-34 M-Mode Dimensions RVDd 2.58 cm (0.9-2.6) LA Diam 4.99 cm (1.9-4.0) LVDd 3.51 cm (3.5-5.7) Ao Diam 3.87 cm (2.0-3.7) LVDs 2.98 cm (3.5-5.7) IVSd 1.91 cm (0.6-1.1) PWd 1.14 cm (0.6-1.1) EF (Teich) 32.80% FS 15.10% EDV (Teich) 51.20 mL TAPSE 0.90 (<1.7) ESV (Teich) 34.40 mL LV Diastology E Decel Time 151.00 (160-240 msec) E/A Ratio 4.18 LAT E' 2.10 (<10 cm/sec) LAT A' 3.70 cm/s E/LAT E' Ratio 90.24 (>14) Aortic Valve AO Peak GR. 3.80 mmHg AO VTI 39.09 (18-25 cm) Mitral Valve MV E Max Kurt. 190.00 (40-130 cm/s) MV A Velocity 45.00 (40-130 cm/s) E/A Ratio 4.18 MV Decel. Time 151.00 (160-240 ms) MV PHT 44.00 ms Pulmonary Valve PV Peak Velocity 178.00 (50-150 cm/s) Tricuspid Valve TR P. Velocity 304.00 cm/s RAP Estimate 10.00 mmHg RVSP 47.10 mmHg Left Ventricle Technically difficult study because of the patient factors. Left atrium is mildly enlarged, left ventricle is normal size, mild concentric left ventricular hypertrophy, visually estimated ejection fraction 45%, there is abnormal septal motion, diastolic parameters are inconclusive. Right Ventricle Right atrium and right ventricle are mildly enlarged with normal contractility, pacemaker lead seen in right ventricle. Aortic Valve Aortic valve is thickened and calcified without Doppler evidence of aortic stenosis or aortic insufficiency. Mitral Valve Bioprosthetic valve noted in the mitral position, valve is well-seated, the mean gradient across prosthetic valve is 8 mmHg, there is no significant mitral inflow obstruction by pressure half-time measurement of the valve area. There is no significant mitral regurgitation seen. Tricuspid Valve Tricuspid valve grossly normal, there is mild tricuspid regurgitation, calculated right ventricular systolic pressure is 47 mmHg. Pulmonic Valve Pulmonic valve is poorly visualized. Great Vessels Aortic root is normal size. Inferior vena cava is mildly dilated with normal inspiratory collapse. Pericardium No significant pericardial effusion noted. Conclusion 1. Biatrial enlargement, normal left ventricular size, mild concentric left ventricular hypertrophy, visually estimated ejection fraction 45%, there is abnormal septal motion, diastolic parameters are inconclusive. 2. Bioprosthetic valve in the mitral position without significant mitral inflow obstruction, there is no mitral regurgitation. 3. Mild tricuspid regurgitation, calculated right ventricular systolic pressure is 47 mmHg. 4. There is no significant pericardial effusion noted. 5. Inferior vena cava is mildly dilated with normal inspiratory collapse. Electronically signed by : Melvin Beltre MD 02/05/2021 11:28:29
--- NOTE | 2021-02-03 08:00 | US_ITS ---
PROCEDURE: US GALLBLADDER CLINICAL INDICATION: abd pain COMPARISON: CT CT ABDOMEN PELVIS WO CON from 02/03/2021 FINDINGS: Pancreas: Unremarkable/Not well seen Liver: Unremarkable. There is appropriate direction of blood flow within a non dilated portal vein. Right kidney: There is mild right hydronephrosis. 4 cm benign-appearing right renal cyst along the lower pole. Gallbladder: Gallstones are present. Gallbladder slightly distended. No gallbladder wall thickening, pericholecystic fluid, or biliary dilatation is evident. IMPRESSION: 1. Cholelithiasis with mildly distended gallbladder. 2. Mild right hydronephrosis. The patient has developed hydronephrosis since the CT scan of of 12 hours earlier. In review of that CT, there is a 3-4 mm calcific density in the plane of the right distal ureter just proximal to the UVJ on image 111 series 5 suggesting a distal ureteral stone. A repeat CT of the abdomen and pelvis may confirm this finding. Please correlate with clinical parameters. There are multiple phleboliths also in the pelvis. An additional calcification is noted in this area but does appear to be medial to the right ureter. Dictated by: Amor Davis MD 02/03/2021 08:34 Amor Davis MD in OV 02/03/2021 08:34
--- NOTE | 2021-02-03 09:34 | HMH.GSCON ---
*Admission Date: 02/03/21 *Reason for consult:: Cholelithiasis; nausea/vomiting *History of present illness: This is an 86-year-old female who presented to the emergency department overnight with increasing left lower extremity pain. She developed nausea and emesis during transport to the hospital. Evaluation included a CT scan of her abdomen/pelvis that revealed layering stones within the gallbladder. A follow-up ultrasound confirmed stones with slight distention of the gallbladder noted. No wall thickening, pericholecystic fluid, or biliary dilatation noted. No history of jaundice. No fevers. Currently, she states that she has no abdominal pain. She is not currently nauseous and believes her nausea last evening was secondary to motion sickness during transport to the hospital. Her primary concern remains her left lower extremity pain. Review of Systems - Constitutional Denies chills - *Cardiovascular Denies chest pain - *Gastrointestinal Denies abdominal pain - *Neurologic Denies headache(s), Denies seizure-like activity [facility] History Medical History: Reports:: Atrial Fibrillation, Cardiomyopathy, Congestive Heart Failure, Coronary Artery Disease, Hyperlipidemia, Hypertension, Internal Pacemaker, Valvular Heart Disease Denies:: Cancer, Diabetes Mellitus Type 1, Diabetes Mellitus Type 2, MRSA *Have you ever received a pneumonia vaccine?: Yes *Have you received a flu vaccine this season?: Yes Other Medical History: Reports: Anemia, Cataracts, Hypothyroidism, Thyroid Disease, Other Laterality Cases: Bilateral: Total Hip Replacement Other Surgeries: Yes: Cardiac Catheterization, Colonoscopy, Mitral Valve Replacement, Open Heart Surgery, Pacemaker, Other (MARS 2018) Amputation: No Fractures: Yes - *Social History Last grade of school completed: 9th or 10th Smoking Status: Never smoker Alcohol Intake: never Alcohol Intake Frequency:: other Substance Use Type: denies use *Occupational Status:: retired Housing: house Household Members: none *Travel in the last 8 weeks: None Family Hx:: Coronary Artery Disease, Heart Attack Meds Home Medications Medication Instructions Recorded Confirmed Type aspirin 81 mg tablet,delayed 81 mg PO DAILY 02/25/17 02/02/21 History release ondansetron HCl 4 mg tablet 4 mg PO Q8H PRN #20 tab 04/08/17 02/02/21 Rx Spironolactone [Spironolactone 25 mg PO DAILY 12/19/17 02/02/21 History 25mg Tablet] losartan 50 mg tablet 100 mg PO DAILY tab 03/27/18 02/03/21 History metoprolol tartrate 100 mg tablet 100 mg PO BID tab 03/27/18 02/02/21 History digoxin 125 mcg (0.125 mg) tablet 125 mcg PO DAILY #90 tab 04/10/18 02/02/21 Rx levothyroxine 75 mcg tablet 100 mcg PO DAILY tab 07/17/18 02/02/21 History Allergies Allergy/AdvReac Type Severity Reaction Status Date / Time codeine Allergy Intermediate DEATHLY Verified 10/16/18 09:20 SICK amiodarone Allergy Mild tongue Verified 10/16/18 09:20 tingling acetaminophen [From Percocet] AdvReac Nausea Verified 10/16/18 09:20 oxycodone [From Percocet] AdvReac Nausea Verified 10/16/18 09:20 Exam Vital signs and Labs for Last 24 Hours: Temp Pulse Resp BP Pulse Ox 97.8 F 123 H 15 121/78 91 L 02/03/21 08:00 02/03/21 08:00 02/03/21 08:00 02/03/21 08:00 02/03/21 08:00 Laboratory Results - last 24 hr 02/02/21 22:30: WBC 11.5 H, RBC 4.89, Hgb 14.7, Hct 46.6, MCV 95.2, MCH 30.1, MCHC 31.7 L, RDW 15.0, Plt Count 164, MPV 9.0, Neut % (Auto) 60.0, Lymph % (Auto) 27.6, [place] % (Auto) 7.5, Eos % (Auto) 3.2, Baso % (Auto) 1.7, Neut # (Auto) 6.9, Lymph # (Auto) 3.2, [place] # (Auto) 0.9, Eos # (Auto) 0.4, Baso # (Auto) 0.2, ESR 8 02/02/21 22:30: Sodium 137, Potassium 3.4 L, Chloride 103, Carbon Dioxide 26, Anion Gap 11.4, BUN 16, Creatinine 1.30 H, Estimated Creat Clear 34, Estimated GFR 39 L, Est GFR ( Amer) 47 L, Glucose 175 H, Calcium 9.4, Total Bilirubin 0.8, AST 32, ALT 23, Alkaline Phosphatase 63, Troponin I < 0.01, C-Re
--- NOTE | 2021-02-03 09:46 | CT_ITS ---
PROCEDURE: CT ABDOMEN PELVIS WO CON CLINICAL INDICATION: f/u hydronephrosis... please scan pelvis also COMPARISON: CT CHW CT CHEST W/ CONTRAST from 08/17/2014 CR CXR CHEST(2 VIEWS-NOT PORTABLE) from 01/11/[address] ABDOMEN PELVIS WO CON from 02/03/2021 TECHNIQUE: Axial images obtained with sagittal and coronal reformats. All CT scans at the facility use one or more dose reduction, viz: automated exposure control, ma/kV adjustment per patient size (including targeted exams where dose is matched to indication, i.e. head), or iterative reconstruction technique. FINDINGS: LOWER THORAX: Prior CABG. Cardiac pacemaker device is present. There is significant calcification of the mitral valve annulus. There are small bilateral pleural effusions with atelectatic changes in the lung bases. The effusions have increased in size since the previous exam. ABDOMEN & PELVIS: Partially calcified mass noted along the fundus of the stomach measuring 5 x 3.8 cm in the subdiaphragmatic region not significantly changed.. 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 2.5 cm hypodensity right hepatic lobe posteriorly and a 1 cm hypodensity in the left hepatic lobe segment 4 a. these may be due to small cyst. The spleen and pancreas have an unremarkable appearance. There is mild bilateral adrenal enlargement nonspecific. Cholelithiasis with mildly distended gallbladder. There has been interval development of mild bilateral hydronephrosis. There are 2 calcific densities lying along the distal aspect of the right ureter. The more proximal of these 2 calcifications cannot completely be from the ureter. A Dukes catheter is present. The urinary bladder is nondistended. Small amount air is present in the urinary bladder. 4.5 cm right renal cyst. Unremarkable appendix there is colonic diverticulosis. No evidence of diverticulitis. There are small bilateral inguinal hernias. Loop of small bowel is present within the right inguinal hernia and there is a small loop of descending colon present in the left inguinal hernia. No bowel obstruction is apparent. Prior hysterectomy with mild rectal prolapse No acute bony findings. IMPRESSION: 1. Bibasilar atelectasis with small developing bilateral pleural effusions. 2. 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 Interval development of mild bilateral hydronephrosis. Two calcific densities are present along the distal aspect of the right ureter probably due to phleboliths and not ureteral stones. 4. Distended gallbladder with cholelithiasis not significantly changed 5. Small bilateral inguinal hernias containing small bowel on the right and large bowel on the left. Bowel was not present within these hernias on the most recent exam. No evidence of bowel obstruction. 6. Colonic diverticulosis. No evidence of diverticulitis. Dictated by: Amor Davis MD 02/03/2021 10:53 Amor Davis MD in [place] 02/03/2021 10:53
--- NOTE | 2021-02-03 09:51 | HMH.HP ---
*Admission Date: 02/03/21 *Chief complaint: Left leg pain. *History of present illness: 86-year-old white female with history of tachyarrhythmias, sick sinus syndrome and chronic atrial fibrillation who had pacemaker placed in 2017. She is very active and vibrant and enjoys good functional status but yesterday evening began to have significant left leg pain and numbness. Was unable to walk, was unable to lift her leg well. She did not notice any kind of urinary symptoms, but reports that she has lots of frequent urination regardless. She came to the emergency department because of her leg pain. In the emergency department work-up was quite extensive, and included ultrasound and CT of her abdomen which revealed gallstones, mild gallbladder thickening, and CT scanning showed initially unremarkable status but ultrasound performed later showed developing hydronephrosis of the right kidney. Of note patient denies flank pain or urinary problems as noted above. Her main complaint is her leg pain. [facility] History I have reviewed the patient's past medical history: Yes Medical History: Reports:: Atrial Fibrillation, Cardiomyopathy, Congestive Heart Failure, Coronary Artery Disease, Hyperlipidemia, Hypertension, Internal Pacemaker, Valvular Heart Disease Denies:: Cancer, Diabetes Mellitus Type 1, Diabetes Mellitus Type 2, MRSA *Have you ever received a pneumonia vaccine?: Yes *Have you received a flu vaccine this season?: Yes Other Medical History: Reports: Anemia, Cataracts, Hypothyroidism, Thyroid Disease, Other Laterality Cases: Bilateral: Total Hip Replacement Other Surgeries: Yes: Cardiac Catheterization, Colonoscopy, Mitral Valve Replacement, Open Heart Surgery, Pacemaker, Other ([facility] 2018) Amputation: No Fractures: Yes - *Social History Last grade of school completed: 9th or 10th Smoking Status: Never smoker Alcohol Intake: never Alcohol Intake Frequency:: other Substance Use Type: denies use *Occupational Status:: retired Housing: house Household Members: none *Travel in the last 8 weeks: None Family Hx:: Coronary Artery Disease, Heart Attack Review of Systems - Review of Systems Review of systems:: pertinent systems reviewed and negative unless documented below - *Neurologic Denies headache(s), Denies seizure-like activity Meds Home Medications Medication Instructions Recorded Confirmed Type aspirin 81 mg tablet,delayed 81 mg PO DAILY 02/25/17 02/02/21 History release ondansetron HCl 4 mg tablet 4 mg PO Q8H PRN #20 tab 04/08/17 02/02/21 Rx Spironolactone [Spironolactone 25 mg PO DAILY 12/19/17 02/02/21 History 25mg Tablet] losartan 50 mg tablet 100 mg PO DAILY tab 03/27/18 02/03/21 History metoprolol tartrate 100 mg tablet 100 mg PO BID tab 03/27/18 02/02/21 History digoxin 125 mcg (0.125 mg) tablet 125 mcg PO DAILY #90 tab 04/10/18 02/02/21 Rx levothyroxine 75 mcg tablet 100 mcg PO DAILY tab 07/17/18 02/02/21 History Allergies Allergy/AdvReac Type Severity Reaction Status Date / Time codeine Allergy Intermediate DEATHLY Verified 10/16/18 09:20 SICK amiodarone Allergy Mild tongue Verified 10/16/18 09:20 tingling acetaminophen [From Percocet] AdvReac Nausea Verified 10/16/18 09:20 oxycodone [From Percocet] AdvReac Nausea Verified 10/16/18 09:20 Exam Vital signs and Labs for Last 24 Hours: Temp Pulse Resp BP Pulse Ox 97.8 F 123 H 15 121/78 91 L 02/03/21 08:00 02/03/21 08:00 02/03/21 08:00 02/03/21 08:00 02/03/21 08:00 Laboratory Results - last 24 hr 02/02/21 22:30: WBC 11.5 H, RBC 4.89, Hgb 14.7, Hct 46.6, MCV 95.2, MCH 30.1, MCHC 31.7 L, RDW 15.0, Plt Count 164, MPV 9.0, Neut % (Auto) 60.0, Lymph % (Auto) 27.6, [place] % (Auto) 7.5, Eos % (Auto) 3.2, Baso % (Auto) 1.7, Neut # (Auto) 6.9, Lymph # (Auto) 3.2, [place] # (Auto) 0.9, Eos # (Auto) 0.4, Baso # (Auto) 0.2, ESR 8 02/02/21 22:30: Sodium 137, Potassium 3.4 L, Chloride 103, Carbon Dioxide 26, Anion Gap 11.4, BUN 16, C
--- NOTE | 2021-02-03 15:13 | PC.NURSE ---
Spoke with Maura in radiology and made her aware Dr. Paredes has ordered a stat cta of brennan legs.
--- NOTE | 2021-02-03 16:01 | CT_ITS ---
PROCEDURE INFORMATION: Exam: CTA Angiogram of the Abdominal Aorta and Bilateral Lower Extremities (Run-off) With IV Contrast Exam date and time: 02/03/2021 4:01 PM Age: 86 years old Clinical indication: Numbness and other: Cold feet; Foot; Left; Additional info: R/O blood clot TECHNIQUE: Imaging protocol: CT angiogram of the abdominal aorta, pelvis and bilateral lower extremities with IV iodinated contrast. 3D rendering (Not supervised by radiologist): MIP and/or 3D reconstructed images were created by the technologist. Radiation optimization: All CT scans at this facility use at least one of these dose optimization techniques: automated exposure control; mA and/or kV adjustment per patient size (includes targeted exams where dose is matched to clinical indication); or iterative reconstruction. Contrast material: ISO 370; Contrast volume: 120 ml; Contrast route: INTRAVENOUS (IV); COMPARISON: CT ABDOMEN PELVIS WO CON 02/03/2021 10:08 AM FINDINGS: Tubes, catheters and devices: A balloon bladder catheter is present. Aorta: Abdominal aorta has a normal course and caliber. There is [id number]-[id number] diffuse calcified and noncalcified plaque appreciated throughout the abdominal aorta. Abdominal aorta and nevertheless is completely patent and without hemodynamically significant stenosis present. Celiac trunk and mesenteric arteries: Celiac artery is completely patent. The celiac artery has a J-shaped at the proximal segments with minimal stenosis appreciated to the proximal downward curved, as could be seen with anterior cruciate ligament impingement/compression. Note that the stenosis is minimal. Celiac artery is otherwise patent and essentially free of atherosclerotic disease. There is a punctate atherosclerotic plaque at the takeoff of the SMA which is not causing hemodynamically significant stenosis. Vvao-fp-iuxyxvvx diffuse calcified and noncalcified plaque is appreciated throughout the SMA. This is causing at least 50% luminal stenosis at the mid to distal segments (image 25 series 3). The SMA is otherwise completely patent. The MARVA remains patent. Renal arteries: Right renal artery is completely patent and free of atherosclerotic plaque. There is prominent calcified plaque at the takeoff of the left renal artery, causing 50% luminal stenosis. Left renal artery is otherwise completely patent. Right iliac arteries: Right iliac arteries demonstrate mild diffuse calcified and noncalcified plaque without hemodynamically significant stenosis. Right iliac arteries are otherwise completely patent. Right femoral/popliteal arteries: Right common femoral artery has mild circumferential atherosclerotic plaque, not causing hemodynamically significant stenosis. Right common femoral artery is otherwise patent. Right deep femoral artery is completely patent and free of atherosclerotic plaque. Right superficial femoral artery is completely patent with minimal diffuse atherosclerotic plaque present, not causing hemodynamically significant stenosis. Right popliteal artery is completely patent and essentially free of atherosclerotic plaque. Right infrapopliteal arteries: Moderate to severe multi segmental atherosclerotic calcified and noncalcified plaque throughout the right anterior tibial artery. This is causing multi segmental 50-69% luminal stenosis. There is flow noted throughout the right anterior tibial artery. Ngyy-wp-ioupmfod multi segmental calcified and noncalcified plaque appreciated throughout the right posterior tibial artery. There is occlusion to the distal segments of the right posterior tibial artery with minimal distal reconstitution of contrast.
--- NOTE | 2021-02-03 16:14 | PC.NURSE ---
Spoke with Maura again at 1558, in re to CT of BLE. She is here at this time to take pt down for scan. Pt has been clipped in case veterinarian laboratory animal care is needed. Checked L pedal pulse with doppler and no pulse noted. Dr. Paredes is aware of pt's c/o of numbness, decreased pulse, coolness to foot and pallor. He ordered the CTA. VSS.
--- NOTE | 2021-02-03 17:45 | PC.NURSE ---
Called and spoke to Rad again at this time and CTA is still pending, Rad states it has been assigned to a doctor and is awaiting to be read.
--- NOTE | 2021-02-03 20:13 | PC.NURSE ---
Addendum entered by Nikhil Arreola RN 02/03/21 20:16: Pt clipped prior to going to oven laborer. Original Note: Dr. Paredes made aware of pt's CTA results and spoke with Dr. Rosales. Pt is down to laboratory phlebotomist at this time. House aware. Pt stable and aware of procedure prior to going to oven laborer.
--- NOTE | 2021-02-03 20:48 | SUR.OPER ---
AT THIS TIME MD ADMINISTERED 10ML EPTIFIBATIDE 0.75 MG/ML. MD ADMIN INTRA ARTERIAL. COULD NOT ORDER IN APR. VERIFIED W/ JANETH SCHMITZ.
--- NOTE | 2021-02-03 20:58 | SUR.OPER ---
ADMINISTERS ANOTHER DOSE OF EPTIFIBATIDE 0.75MG/ML. 10MLS INTRA ARTERIAL. VERIFIED W/ JANETH SCHMITZ.
--- NOTE | 2021-02-03 21:10 | PC.NURSE ---
Pt report passed on to Ventura Carvajal RN to assume care at this time.
--- NOTE | 2021-02-03 21:15 | SUR.OPER ---
EPTIFIBATIDE 0.75MG/ML 10ML ADMINISTERED PER INTRA ARTERIAL. VERIFIED W/ JANETH SCHMITZ.
[2021-02-03 22:07] LABS: CATHL Activated Clotting Time 304 SEC (74-125)
--- NOTE | 2021-02-03 22:22 | PC.NURSE ---
patient up to floor from radiographer cardiac catheterization @ this time.
--- NOTE | 2021-02-03 22:30 | PC.NURSE ---
pt arrived from cardiac catheterization technician to 218
--- NOTE | 2021-02-03 22:31 | PC.NURSE ---
pt supine and flat from blood and plasma laboratory assistant, right groin site dressing CDI with no ecchymosis or drainage present, soft and nontender; pt can start sitting up per blood and plasma laboratory assistant RN at 0030 but slowly and only in 15 degree increments; pt has nitro paste on left foot and is to be applied Q6 (last applied at 2100 per blood and plasma laboratory assistant RN), pt on integrilin drip at 11mL/hr not to be titrated and will be turned off tomorrow 02/04/2021 at 1530 per MD Rosales
--- NOTE | 2021-02-03 22:40 | PC.NURSE ---
pt's groin site dressing CDI, no hematoma, drainage, or ecchymosis noted; positive pedal pulses; pt supine and flat;
--- NOTE | 2021-02-03 22:55 | PC.NURSE ---
pt's groin site dressing CDI, no hematoma, drainage, or ecchymosis noted; positive pedal pulses; pt supine and flat
--- NOTE | 2021-02-03 23:25 | PC.NURSE ---
pt's groin site dressing CDI, no hematoma, drainage, or ecchymosis noted; positive pedal pulses; pt flat and supine; pt c/o pain to left leg, giving prn pain medication see emar
--- NOTE | 2021-02-03 23:55 | PC.NURSE ---
pt's groin site dressing CDI, no hematoma, drainage, or ecchymosis noted; positive pedal pulses; pt flat and supine; pain medication effective as evidence by pt sleeping in bed
[2021-02-04] VITALS (18 sets, daily range): BP systolic 96–136; BP diastolic 47–86; PULSE 66–123; RESP 13–19; TEMP 36.6–37.1; O2SAT 94–100; BMI 27.3
--- NOTE | 2021-02-04 00:25 | PC.NURSE ---
pt's groin site dressing CDI, slight purple hue noted laterally to 2x2 gauze and firmness noted around gauze, no drainage present, positive pedal pulses, pt flat but raised HOB minimally by placing pt in reverse trendelenberg
--- NOTE | 2021-02-04 00:55 | PC.NURSE ---
pt's groin site dressing CDI, slight purple hue noted laterally to 2x2 gauze and firmness noted around gauze, no drainage present, positive pedal pulses, pt flat in reverse trendelenberg
--- NOTE | 2021-02-04 01:55 | PC.NURSE ---
pt's groin site dressing CDI, slight purple hue noted laterally to 2x2 gauze and firmness noted around gauze, no drainage present, positive pedal pulses, pt flat and in reverse trendelenberg
--- NOTE | 2021-02-04 02:55 | PC.NURSE ---
pt's groin site dressing CDI, slight purple hue noted laterally to 2x2 gauze and firmness noted around gauze, no drainage present, positive pedal pulses, pt flat and pt in reverse trendelenberg
--- NOTE | 2021-02-04 03:55 | PC.NURSE ---
pt's groin site dressing CDI, slightly firm around gauze but no hematoma or drainage, positive pedal pulses
--- NOTE | 2021-02-04 04:55 | PC.NURSE ---
pt's groin site dressing CDI, slightly firm around gauze but no hematoma or drainage, positive pedal pulses
--- NOTE | 2021-02-04 07:06 | HMH.GSPN ---
Subjective Narrative: She states that she feels fine . Currently with no abdominal pain. She is now status post thrombectomy/stenting to improve left lower extremity blood flow by the cardiology service yesterday. She believes her leg is better . Progress Note: A&P (1) Cholelithiasis Status: Acute Assessment and plan: Although she does have gallstones with some concomitant gallbladder distention, there is no definitive evidence of cholecystitis radiographically. Currently, she has no abdominal pain. As stated in the patient's H&P, cholelithiasis and gallbladder distention are likely incidental findings. (2) Neuralgia of left lower extremity Status: Acute (3) Urinary retention Status: Acute (4) Hydronephrosis Status: Acute Exam Vital signs and Labs for Last 24 Hours: Temp Pulse Resp BP Pulse Ox 97.8 F 82 14 107/73 L 96 02/04/21 04:00 02/04/21 06:00 02/04/21 06:00 02/04/21 06:00 02/04/21 06:00 Laboratory Results - last 24 hr 02/03/21 05:20: Total Counted 100, Neutrophils % (Manual) 92 H, Lymphocytes % (Manual) 4 L, Monocytes % (Manual) 4, Platelet Estimate Normal, RBC Morphology Not Reportable, Hypochromasia 1+, Macrocytosis 1+ 02/03/21 21:53: Activated Clotting Time 304 H* I & O for Last 24 hours: Intake & Output 02/01/21 02/02/21 02/03/21 02/04/21 11:59 11:59 11:59 11:59 Intake Total 240 / 240 Output Total 1900 / 1900 Balance -1660 / -1660 Weight 154 lb 160 lb 2 oz - Constitutional no acute distress - *Routine Respiratory Exam Absent: respiratory distress - *Routine Abdominal Exam Present: soft
[2021-02-04 07:18] LABS: Basophils # 0.1 K/mm3 (0-0.2); Basophils % 1.7 % (0.1-2.0); Eosinophils # 0.1 K/mm3 (0.0-0.4); Eosinophils % 1.1 % (0.1-12.0); Hematocrit 35.7 % (37.0-47.0); Hemoglobin 11.2 g/dL (12.2-16.2); Lymphocytes # 0.6 K/mm3 (0.7-4.5); Lymphocytes % 6.8 % (10-50); Mean Corpuscular HGB Conc 31.4 g/dL (31.8-35.4); Mean Corpuscular Hemoglobin 30.1 pg (27.0-31.2); Mean Corpuscular Volume 95.9 fl (81-99); Mean Platelet Volume 9.7 fl (7.4-10.4); Monocytes # 0.7 K/mm3 (0.1-1.0); Monocytes % 7.9 % (1.7-9.3); Neutrophils % 82.6 % (37.0-80.0); Platelet Count 124 K/mm3 (142-424); Red Blood Count 3.73 M/mm3 (4.20-5.40); Red Cell Distribution Width 15.2 % (11.5-17.5); White Blood Count 8.5 K/mm3 (4.8-10.8)
[2021-02-04 07:21] LABS: Chloride 106 mmol/L (98-107)
[2021-02-04 07:22] LABS: Potassium 4.7 mmoL/L (3.5-5.1); Sodium 138 mmol/L (136-145)
[2021-02-04 07:25] LABS: Anion Gap 8.7 mEq/L (5-15); Blood Urea Nitrogen 13 mg/dl (7-17); Calcium 8.3 mg/dl (8.4-10.2); Carbon Dioxide 28 mmol/L (22.0-30.0); Creatinine Clearance Estimated 47 mL/min (50-200); Estimated Glomerular Filt Rate 60 ml/min (>60); GFR (African American) 72 ML/MIN (>60); Glucose 117 mg/dl (74-100)
--- NOTE | 2021-02-04 09:28 | HMH.ACPN2 ---
Internal Medicine - PN: Subj *Date: 02/04/21 *Time: 09:28 Interval history: Events of yesterday noted. Patient's leg progressively became more cool. After evaluation of CTA taken to Weight And Balance Control Agent where significant clot burden was removed and stents were placed in the left leg with latter-day of perfusion and markedly improved pain symptomatology. Patient this morning feels much better. Exam Vital signs and Labs for Last 24 Hours: Temp Pulse Resp BP Pulse Ox 97.8 F 82 14 107/73 L 96 02/04/21 04:00 02/04/21 06:00 02/04/21 06:00 02/04/21 06:00 02/04/21 06:00 Laboratory Results - last 24 hr 02/03/21 21:53: Activated Clotting Time 304 H* 02/04/21 06:35: WBC 8.5, RBC 3.73 L, Hgb 11.2 L, Hct 35.7 L, MCV 95.9, MCH 30.1, MCHC 31.4 L, RDW 15.2, Plt Count 124 L, MPV 9.7, Neut % (Auto) 82.6 H, Lymph % (Auto) 6.8 L, [place] % (Auto) 7.9, Eos % (Auto) 1.1, Baso % (Auto) 1.7, Neut # (Auto) 7.0, Lymph # (Auto) 0.6 L, [place] # (Auto) 0.7, Eos # (Auto) 0.1, Baso # (Auto) 0.1 02/04/21 06:35: Sodium 138, Potassium 4.7, Chloride 106, Carbon Dioxide 28, Anion Gap 8.7, BUN 13, Creatinine 0.90, Estimated Creat Clear 47, Estimated GFR 60, Est GFR ( Amer) 72, Glucose 117 H, Calcium 8.3 L I & O for Last 24 hours: Intake & Output 02/01/21 02/02/21 02/03/21 02/04/21 11:59 11:59 11:59 11:59 Intake Total 240 / 240 Output Total 1900 / 1900 Balance -1660 / -1660 Weight 154 lb 160 lb 2 oz Narrative: Heart rate regular. Lungs clear. Abdomen soft, leg is warm, toes are still cold and tender but markedly improved over yesterday's exam. Able to move legs well. Assessment and Plan (1) Cholelithiasis Status: Acute Category: Medical Code(s): K80.20 - Calculus of gallbladder without cholecystitis without obstruction (2) Neuralgia of left lower extremity Status: Acute Category: Medical Code(s): M79.2 - Neuralgia and neuritis, unspecified (3) Urinary retention Status: Acute Category: Medical Code(s): R33.9 - Retention of urine, unspecified (4) Hydronephrosis Status: Acute Category: Medical Code(s): N13.30 - Unspecified hydronephrosis - Assessment and plan all Dx Assessment and Plan for all problems:: Nice improvement after removal of clot. Cardiology input appreciated. Patient on Integrilin drip. Patient has been told she should not take anticoagulation after a valve procedure in [place] several years ago. We will investigate this. I think she was told she did not need anticoagulation in the future, but now that she had an arterial clot she should be placed back on Xarelto on discharge. We will watch her for the next 24 hours, slowly feed given her gallstones although I think this is an incidental finding.
--- NOTE | 2021-02-04 13:45 | HMH.PHAVTE ---
[facility] Pharmacy VTE Monitoring - Patient Demographics Admission date: 02/04/21 Report Date: 02/04/21 Time: 13:45 Allergies/Adverse Reactions: Patient Allergies codeine Allergy (Intermediate, Verified 10/16/18 09:20) DEATHLY SICK amiodarone Allergy (Mild, Verified 10/16/18 09:20) tongue tingling oxycodone [From Percocet] Adverse Reaction (Verified 10/16/18 09:20) Nausea Height: 1.63 m Weight: 72.631 kg Patient Problems: Current Active Problems Cholelithiasis and cholecystitis without obstruction (Acute) Abnormal EKG (Acute) Renal insufficiency (Acute) Cholelithiasis (Acute) Neuralgia of left lower extremity (Acute) Urinary retention (Acute) Hydronephrosis (Acute) AICD (automatic cardioverter/defibrillator) present (Chronic) - VTE Risk Labs: VTE Related Lab Results Hgb 11.2 g/dL (12.2-16.2) L 02/04/21 06:35 Hct 35.7 % (37.0-47.0) L 02/04/21 06:35 Plt Count 124 K/mm3 (142-424) L 02/04/21 06:35 BUN 13 mg/dl (7-17) 02/04/21 06:35 Creatinine 0.90 mg/dl (0.52-1.04) 02/04/21 06:35 Estimated Creat Clear 47 mL/min (50-200) 02/04/21 06:35 Was VTE Risk Assessment Performed: Yes VTE Score: 3 VTE Risk Level: Low Risk Clinical Trial Participant: No - Prophylaxis Types of VTE Prophylaxis: TEDS Knee High Location of Applied Device: Bilateral Lower Extremeties (BRANDAN HOSE ORDERED)
--- NOTE | 2021-02-04 16:41 | PC.NURSE ---
Patient has been pleasant and cooperative this shift, no acute changes noted, reports that her left leg feels much better and the pain has improved greatly, completed integrelin drip at 1530 per MD order, LLE pulses 1+, extremity warm to touch, patient reports she can move this extremity much better than previous day, alert and oriented x4, on 3LNC, vss, will continue to monitor for changes.
--- NOTE | 2021-02-04 22:31 | PC.NURSE ---
No care needed
[2021-02-05] VITALS (8 sets, daily range): BP systolic 101–136; BP diastolic 53–70; PULSE 70–102; RESP 15–22; TEMP 36.8–37.5; O2SAT 90–97; BMI 26.5
--- NOTE | 2021-02-05 05:07 | PC.NURSE ---
Pt has c/o burning to LLE at times when she moves her leg. Has been up to BSC x1. Pedal pulses palpable with improvement this AM. LLE is warm. Some bruising noted to post tibial that is unchanged from prior assessment. (R) femoral cath site has DSG in place. Bruising noted that is unchanged from prior assessment. Medication administered per apr. Pt is paced on telemetry. VSS. Pt is currently on 2L O2 NC. No other concerns at this time. Will continue to monitor.
[2021-02-05 07:03] LABS: Basophils # 0.1 K/mm3 (0-0.2); Chloride 105 mmol/L (98-107); Eosinophils # 0.2 K/mm3 (0.0-0.4); Hematocrit 30.6 % (37.0-47.0); Lymphocytes # 0.9 K/mm3 (0.7-4.5); Potassium 4.1 mmoL/L (3.5-5.1); Sodium 136 mmol/L (136-145)
[2021-02-05 07:06] LABS: Anion Gap 8.1 mEq/L (5-15); Blood Urea Nitrogen 13 mg/dl (7-17); Carbon Dioxide 27 mmol/L (22.0-30.0); Creatinine Clearance Estimated 46 mL/min (50-200); Estimated Glomerular Filt Rate 53 ml/min (>60); GFR (African American) 64 ML/MIN (>60)
[2021-02-05 07:07] LABS: Glucose 106 mg/dl (74-100)
[2021-02-05 07:16] LABS: Basophils % 0.7 % (0.1-2.0); Eosinophils % 2.5 % (0.1-12.0); Mean Corpuscular HGB Conc 31.6 g/dL (31.8-35.4); Mean Corpuscular Hemoglobin 29.9 pg (27.0-31.2); Mean Corpuscular Volume 94.7 fl (81-99); Mean Platelet Volume 9.4 fl (7.4-10.4); Monocytes # 0.6 K/mm3 (0.1-1.0); Monocytes % 7.3 % (1.7-9.3); Neutrophils % 77.5 % (37.0-80.0); Platelet Count 139 K/mm3 (142-424); Red Blood Count 3.23 M/mm3 (4.20-5.40); Red Cell Distribution Width 15.2 % (11.5-17.5); White Blood Count 7.8 K/mm3 (4.8-10.8)
[2021-02-05 07:17] LABS: Hemoglobin 9.6 g/dL (12.2-16.2)
--- NOTE | 2021-02-05 07:45 | HMH.ACPN2 ---
Internal Medicine - PN: Subj *Date: 02/05/21 *Time: 07:45 Interval history: Overall patient feels better, rested well through the night. Notes that her leg feels much improved but continues to have pain in the posterior calf on the left side and into the toes but it is improving. No dyspnea, chest pain or coughing or palpitations. Exam Vital signs and Labs for Last 24 Hours: Temp Pulse Resp BP Pulse Ox 99.1 F 71 18 104/54 L 97 02/05/21 04:00 02/05/21 04:00 02/05/21 04:00 02/05/21 04:00 02/05/21 04:00 Laboratory Results - last 24 hr 02/05/21 06:13: WBC 7.8, RBC 3.23 L, Hgb 9.6 L D, Hct 30.6 L, MCV 94.7, MCH 29.9, MCHC 31.6 L, RDW 15.2, Plt Count 139 L, MPV 9.4, Neut % (Auto) 77.5, Lymph % (Auto) 12.0, [place] % (Auto) 7.3, Eos % (Auto) 2.5, Baso % (Auto) 0.7, Neut # (Auto) 6.0, Lymph # (Auto) 0.9, [place] # (Auto) 0.6, Eos # (Auto) 0.2, Baso # (Auto) 0.1 02/05/21 06:13: Sodium 136, Potassium 4.1, Chloride 105, Carbon Dioxide 27, Anion Gap 8.1, BUN 13, Creatinine 1.00, Estimated Creat Clear 46, Estimated GFR 53 L, Est GFR ( Amer) 64, Glucose 106 H, Calcium 8.0 L I & O for Last 24 hours: Intake & Output 02/02/21 02/03/21 02/04/21 02/05/21 11:59 11:59 11:59 11:59 Intake Total 240 / 240 1048 / 1048 Output Total 1900 / 1900 650 / 650 Balance -1660 / -1660 398 / 398 Weight 154 lb 160 lb 2 oz 155 lb 6 oz Microbiology Reports for the Last 24 Hours: Microbiology 02/03/21 01:35 Blood Blood Culture - Preliminary NO GROWTH AFTER 48 HOURS 02/03/21 01:35 Blood Blood Culture - Preliminary NO GROWTH AFTER 48 HOURS Narrative: Alert, pleasant. Talkative. Heart rate regular. Previously noted holosystolic murmur. Lungs clear. Well-expanded. Abdomen soft and nontender. Extremities show nicely improved perfusion and warmth on the left side. She has some tenderness in the toes and in the calf with palpation. Again very improved. Right leg remains normal. Assessment and Plan (1) Cholelithiasis Status: Acute Category: Medical Code(s): K80.20 - Calculus of gallbladder without cholecystitis without obstruction (2) Neuralgia of left lower extremity Status: Acute Category: Medical Code(s): M79.2 - Neuralgia and neuritis, unspecified (3) Urinary retention Status: Acute Category: Medical Code(s): R33.9 - Retention of urine, unspecified (4) Hydronephrosis Status: Acute Category: Medical Code(s): N13.30 - Unspecified hydronephrosis (5) Embolism, arterial, leg, left Status: Acute Category: Medical Code(s): I74.3 - Embolism and thrombosis of arteries of the lower extremities - Assessment and plan all Dx Assessment and Plan for all problems:: 1. Urinary retention has resolved with treatment of her underlying clot disease and metabolic stress. Dukes has been out. Urinating well. 2. Cholelithiasis. Asymptomatic. Follow as an outpatient. 3. Arterial clot issues. Nice resolution post intervention late 02/03/2021. Continue Xarelto that was started last night after Integrilin drip. Physical therapy evaluation for gait evaluation given residual pain. Hemoglobin is dropped from her baseline down to 9.6. Possibly from hydration/Integrilin use, etc. Check this again tomorrow. If no need for transfusion anticipate discharge home tomorrow.
--- NOTE | 2021-02-05 08:58 | HMH.GSPN ---
Subjective Narrative: She denies abdominal pain Progress Note: A&P (1) Cholelithiasis Status: Acute Assessment and plan: Seemingly, her gallstones remain asymptomatic despite some mild gallbladder distention noted radiographically. No need for urgent intervention Continue to follow-up as outpatient (2) Neuralgia of left lower extremity Status: Acute (3) Urinary retention Status: Acute (4) Hydronephrosis Status: Acute (5) Embolism, arterial, leg, left Status: Acute Exam Vital signs and Labs for Last 24 Hours: Temp Pulse Resp BP Pulse Ox 98.9 F 81 15 101/53 L 90 L 02/05/21 08:00 02/05/21 08:18 02/05/21 08:00 02/05/21 08:00 02/05/21 08:00 Laboratory Results - last 24 hr 02/05/21 06:13: WBC 7.8, RBC 3.23 L, Hgb 9.6 L D, Hct 30.6 L, MCV 94.7, MCH 29.9, MCHC 31.6 L, RDW 15.2, Plt Count 139 L, MPV 9.4, Neut % (Auto) 77.5, Lymph % (Auto) 12.0, [place] % (Auto) 7.3, Eos % (Auto) 2.5, Baso % (Auto) 0.7, Neut # (Auto) 6.0, Lymph # (Auto) 0.9, [place] # (Auto) 0.6, Eos # (Auto) 0.2, Baso # (Auto) 0.1 02/05/21 06:13: Sodium 136, Potassium 4.1, Chloride 105, Carbon Dioxide 27, Anion Gap 8.1, BUN 13, Creatinine 1.00, Estimated Creat Clear 46, Estimated GFR 53 L, Est GFR ( Amer) 64, Glucose 106 H, Calcium 8.0 L I & O for Last 24 hours: Intake & Output 02/02/21 02/03/21 02/04/21 02/05/21 11:59 11:59 11:59 11:59 Intake Total 240 / 240 1288 / 1288 Output Total 1900 / 1900 850 / 850 Balance -1660 / -1660 438 / 438 Weight 154 lb 160 lb 2 oz 155 lb 6 oz Microbiology Reports for the Last 24 Hours: Microbiology 02/03/21 01:35 Blood Blood Culture - Preliminary NO GROWTH AFTER 48 HOURS 02/03/21 01:35 Blood Blood Culture - Preliminary NO GROWTH AFTER 48 HOURS - Constitutional no acute distress - *Routine Respiratory Exam Absent: respiratory distress - *Routine Cardiovascular Exam Absent: tachycardia
--- NOTE | 2021-02-05 18:20 | PC.NURSE ---
Patient has been pleasant and cooperative this shift, peripheral pulses 1+, c/o nausea once this shift treated with zofran per emar with good results, has been weaned to RA and tolerating well, has ambulated with walker in the room with assist x1, patient remains unsteady on her feet and limps on her left leg, she reports the pain is still present but improving, right groin cath site cdi with bruising present, bruising unchanged from previous day, voiding without difficulty, PIVL changed this shift, vital signs stable, no s/s of distress noted.
[2021-02-06] VITALS: BP 112/55; PULSE 77; PULSE 79; RESP 22; TEMP 36.7; O2SAT 98
[2021-02-06 04:00] VITALS: BP 116/60; PULSE 74; RESP 21; TEMP 36.8; O2SAT 96
[2021-02-06 05:07] VITALS: BMI 26.2
[2021-02-06 06:19] LABS: Basophils % 0.6 % (0.1-2.0); Eosinophils # 0.2 K/mm3 (0.0-0.4); Eosinophils % 3.4 % (0.1-12.0); Hematocrit 28.5 % (37.0-47.0); Lymphocytes % 15.2 % (10-50); Mean Corpuscular HGB Conc 31.5 g/dL (31.8-35.4); Mean Corpuscular Hemoglobin 29.9 pg (27.0-31.2); Monocytes # 0.5 K/mm3 (0.1-1.0); Monocytes % 7.4 % (1.7-9.3); Neutrophils # 4.8 K/mm3 (1.8-7.8); Neutrophils % 73.4 % (37.0-80.0); Platelet Count 138 K/mm3 (142-424); Red Cell Distribution Width 15.7 % (11.5-17.5); White Blood Count 6.5 K/mm3 (4.8-10.8)
--- NOTE | 2021-02-06 06:37 | PC.NURSE ---
Pt has rested well this shift. Has ambulated with assist x1 and walker to bathroom. Tolerated fair. Pt continues to c/o discomfort to LLE with ambulation. LLE is warm. Pedal pulse palpable. Bruising remains to post tib. (R) femoral cath site continues to have bruising. Pt stated that she is sore to (L) groin area. VSS. Pt is paced on telemetry. No other concerns. Will continue to monitor.
[2021-02-06 06:56] LABS: Chloride 104 mmol/L (98-107); Potassium 3.9 mmoL/L (3.5-5.1); Sodium 137 mmol/L (136-145)
[2021-02-06 06:59] LABS: Anion Gap 8.9 mEq/L (5-15); Blood Urea Nitrogen 11 mg/dl (7-17); Carbon Dioxide 28 mmol/L (22.0-30.0); Creatinine Clearance Estimated 45 mL/min (50-200); Estimated Glomerular Filt Rate 60 ml/min (>60); GFR (African American) 72 ML/MIN (>60)
[2021-02-06 07:00] LABS: Glucose 99 mg/dl (74-100)
--- NOTE | 2021-02-06 07:32 | HMH.GSPN ---
Subjective Patient reports: no new complaints, feels better Narrative: She states that she expects to go home today. Progress Note: A&P (1) Cholelithiasis Status: Acute Assessment and plan: Seemingly asymptomatic. The patient wishes to continue ongoing conversation regarding the risks/benefits of cholecystectomy as an outpatient. (2) Neuralgia of left lower extremity Status: Acute (3) Urinary retention Status: Acute (4) Hydronephrosis Status: Acute (5) Embolism, arterial, leg, left Status: Acute Exam Vital signs and Labs for Last 24 Hours: Temp Pulse Resp BP Pulse Ox 98.2 F 74 21 116/60 96 02/06/21 04:00 02/06/21 04:00 02/06/21 04:00 02/06/21 04:00 02/06/21 04:00 Laboratory Results - last 24 hr 02/06/21 05:53: WBC 6.5, RBC 3.00 L, Hgb 9.0 L, Hct 28.5 L, MCV 95.0, MCH 29.9, MCHC 31.5 L, RDW 15.7, Plt Count 138 L, MPV 9.0, Neut % (Auto) 73.4, Lymph % (Auto) 15.2, [place] % (Auto) 7.4, Eos % (Auto) 3.4, Baso % (Auto) 0.6, Neut # (Auto) 4.8, Lymph # (Auto) 1.0, [place] # (Auto) 0.5, Eos # (Auto) 0.2, Baso # (Auto) 0.0 02/06/21 05:53: Sodium 137, Potassium 3.9, Chloride 104, Carbon Dioxide 28, Anion Gap 8.9, BUN 11, Creatinine 0.90, Estimated Creat Clear 45, Estimated GFR 60, Est GFR ( Amer) 72, Glucose 99, Calcium 8.0 L I & O for Last 24 hours: Intake & Output 02/03/21 02/04/21 02/05/21 02/06/21 11:59 11:59 11:59 11:59 Intake Total 240 / 240 1288 / 1288 360 / 360 Output Total 1900 / 1900 850 / 850 Balance -1660 / -1660 438 / 438 360 / 360 Weight 154 lb 160 lb 2 oz 155 lb 6 oz 153 lb 9.6 oz - Constitutional no acute distress - *Routine Respiratory Exam Absent: respiratory distress - *Routine Cardiovascular Exam Absent: tachycardia
[2021-02-06 08:00] VITALS: BP 112/42; PULSE 74; PULSE 80; RESP 16; TEMP 36.9; O2SAT 90
[2021-02-06 08:04] VITALS: PULSE 80
--- NOTE | 2021-02-06 08:55 | HMH.DCSUM ---
General - General Admission date:: 02/03/21 Discharge date: 02/06/21 HPI HPI: 86-year-old white female with history of tachyarrhythmias, sick sinus syndrome and chronic atrial fibrillation who had pacemaker placed in 2017. She is very active and vibrant and enjoys good functional status but yesterday evening began to have significant left leg pain and numbness. Was unable to walk, was unable to lift her leg well. She did not notice any kind of urinary symptoms, but reports that she has lots of frequent urination regardless. She came to the emergency department because of her leg pain. In the emergency department work-up was quite extensive, and included ultrasound and CT of her abdomen which revealed gallstones, mild gallbladder thickening, and CT scanning showed initially unremarkable status but ultrasound performed later showed developing hydronephrosis of the right kidney. Of note patient denies flank pain or urinary problems as noted above. Her main complaint is her leg pain. Hospital Course Hospital Course: Patient was admitted, extensive work-up was done for her complaints of abdominal pain and leg pain. After CTA was done the day after admission it was realized that she had significant blockage and embolic phenomenon. She was taken to [facility] where multiple interventions were undertaken including evacuation of emboli, and several stents were placed. Patient tolerated this well, and her symptoms nicely improved. She was found to have gallbladder disease but this is felt to be an incidental finding. Other issues on admission such as her metabolic issues resolved once the clot situation was taken care of. This morning she is doing much better, leg pain has improved nicely. She is able to get up and walk around with some assistance with a walker. Plan we did discharge patient home. She will placed on Xarelto 15 mg twice daily and new high-dose statin therapy. Given her difficulty walking and pain with walking and new reliance on a walker she qualifies for home health based on my [id number] evaluation today. I recommended home health for PT/OT/home safety evaluation/nursing care. I will follow her in my office next week. New medications have been sampled/prescribed as noted. Objective Vital signs: Temp Pulse Resp BP Pulse Ox 98.5 F 80 16 112/42 L 90 L 02/06/21 08:00 02/06/21 08:00 02/06/21 08:00 02/06/21 08:00 02/06/21 08:00 no acute distress - *Routine HEENT Exam Head: Present: normocephalic Eye: Present: EOMI, PERRL ENT: Present: mucous membranes moist - *Routine Neck Exam Present: supple - *Routine Respiratory Exam Present: CTA bilaterally - *Routine Cardiovascular Exam Present: RRR - *Routine Abdominal Exam Present: soft, normoactive bowel sounds. Absent: tenderness - *Routine Extremities Exam Absent: cyanosis, clubbing, edema Comments: Left lower extremity much less painful. Pulses are palpable now. Warm and well-perfused. Minimal tenderness with muscle palpation of the calf and distal foot musculature. - *Routine Skin Exam Present: warm. Absent: rash - Detailed Eye Exam Eyelids: Bilateral normal inspection Results Labs on day of discharge: Labs from last 24 hours 02/06/21 02/06/21 05:53 05:53 WBC 6.5 RBC 3.00 L Hgb 9.0 L Hct 28.5 L MCV 95.0 MCH 29.9 MCHC 31.5 L RDW 15.7 Plt Count 138 L MPV 9.0 Neut % (Auto) 73.4 Lymph % (Auto) 15.2 [place] % (Auto) 7.4 Eos % (Auto) 3.4 Baso % (Auto) 0.6 Neut # (Auto) 4.8 Lymph # (Auto) 1.0 [place] # (Auto) 0.5 Eos # (Auto) 0.2 Baso # (Auto) 0.0 Sodium 137 Potassium 3.9 Chloride 104 Carbon Dioxide 28 Anion Gap 8.9 BUN 11 Creatinine 0.90 Estimated Creat Clear 45 Estimated GFR 60 Est GFR ( Amer) 72 Glucose 99 Calcium 8.0 L Preliminary micro results at discharge 02/03/21 01:35 Blood Culture - Preliminary Blo
--- NOTE | 2021-02-06 09:33 | PC.NURSE ---
pt is noted to be unsteady on her feet. she requires a rolling walker to ambulate safely
--- NOTE | 2021-02-06 09:50 | HMH.CNCARD ---
History of Present Illness Consult date: 02/03/21 Requesting physician: Ruben Joyner Consult reason: known to you Chief complaint: left leg pain History of present illness: This is an 86-year-old white female who presented to the emergency department with complaints of significant left lower extremity pain and numbness. The patient was unable to walk or lift her left leg because of severe pain. The patient states that she had also had some nausea and vomiting and low back pain associated with the left leg pain. She denied any chest pain or pressure. She denied any shortness of breath. She denied any edema in her lower extremity. The patient was worked up in the emergency department and found to have a thrombus to her left lower extremity as well as gallstones and hydronephrosis of the right kidney. The patient was taken directly to the cardiac catheterization laboratory and underwent left lower extremity runoff. This morning she denies any chest pain or pressure. She denies any shortness of breath or edema. She denies any fever, chills, nausea, vomiting, diarrhea, PND or orthopnea. Left lower extremity runoff shows: Acute thrombosis of the left common femoral artery left profunda femoris artery left popliteal artery left PT trunk left anterior tibialis artery and left posterior tibialis artery Successful mechanical thrombectomy of the above arteries with pentecostal of flow Successful stenting of the left popliteal artery and left PT trunk restoring the stenosis to less than 10% with a self-expanding stent PLAN 1. Integrilin drip for the next 18 hours 2. Xarelto 15 mg p.o. twice daily for 3 weeks 3. Plavix 300 mg now followed by 75 mg daily 4. No aspirin at this time 5. Supportive care with pain control. Anticipate the left thigh and left calf will experience ischemic pain over the next several days 6. If patient's blood pressure will allow I would like to apply 1 inch of Nitropaste to the left foot every 6 hours for the next 48 hours [facility] History I have reviewed the patient's past medical history: Yes Medical History: Reports:: Atrial Fibrillation, Cardiomyopathy, Congestive Heart Failure, Coronary Artery Disease, Hyperlipidemia, Hypertension, Internal Pacemaker, Valvular Heart Disease Denies:: Cancer, Diabetes Mellitus Type 1, Diabetes Mellitus Type 2, MRSA *Have you ever received a pneumonia vaccine?: Yes *Have you received a flu vaccine this season?: Yes Other Medical History: Reports: Anemia, Cataracts, Hypothyroidism, Thyroid Disease, Other Laterality Cases: Bilateral: Total Hip Replacement Other Surgeries: Yes: Cardiac Catheterization, Colonoscopy, Mitral Valve Replacement, Open Heart Surgery, Pacemaker, Other ([facility] 2018) Amputation: No Fractures: Yes - *Social History Last grade of school completed: 9th or 10th Smoking Status: Never smoker Alcohol Intake: never Alcohol Intake Frequency:: other Substance Use Type: denies use *Occupational Status:: retired Housing: house Household Members: none *Travel in the last 8 weeks: None Family Hx:: Coronary Artery Disease, Heart Attack Meds Home Medications Medication Instructions Recorded Confirmed Type aspirin 81 mg tablet,delayed 81 mg PO DAILY 02/25/17 02/02/21 History release ondansetron HCl 4 mg tablet 4 mg PO Q8H PRN #20 tab 04/08/17 02/02/21 Rx Spironolactone [Spironolactone 25 mg PO DAILY 12/19/17 02/02/21 History 25mg Tablet] metoprolol tartrate 100 mg tablet 100 mg PO BID tab 03/27/18 02/02/21 History digoxin 125 mcg (0.125 mg) tablet 125 mcg PO DAILY #90 tab 04/10/18 02/02/21 Rx Levothyroxine Sodium [Synthroid 100 mcg PO DAILY 02/04/21 02/04/21 History 100mcg (0.1mg) tablet] Losartan Potassium 100 mg PO DAILY 02/04/21 02/04/21 History Atorvastatin Calcium [Lipitor 40mg 40 mg PO HS #90 tab 02/06/21 Rx Tab] Rivaroxaban [Xarelto 15mg tablet] 15 mg PO BID #21 tab 02/06/21 Rx Allergies Allergy/AdvReac Type Severity Reaction Stat
--- NOTE | 2021-02-06 09:59 | SW/DCPLANNER ---
RECEIVED REFERRAL FOR THIS PATIENT FOR A ROLLING WALKER AND HOME HEALTH PT/OT AND JAIL.... PATIENT CHOSE [facility] AND WILL BE DISCHARGING HOME TODAY WITH SERVICES TO START SOON.. IS AT BEDSIDE, ONCE WALKER IS DELIVERED SHE WILL LEAVE...
--- NOTE | 2021-02-06 10:06 | HMH.PTEV ---
Physical Therapy Evaluation Rehab PT IP Evaluation Start: 02/05/21 07:44 Freq: ONCE Status: Active Protocol: Document 02/06/21 10:03 SUSAN (Rec: 02/06/21 10:05 SUSAN [id number]) Subjective/History History History 86-year-old white female with history of tachyarrhythmias, sick sinus syndrome and chronic atrial fibrillation who had pacemaker placed in 2017. She is very active and vibrant and enjoys good functional status but yesterday evening began to have significant left leg pain and numbness. Was unable to walk, was unable to lift her leg well. She did not notice any kind of urinary symptoms, but reports that she has lots of frequent urination regardless. She came to the emergency department because of her leg pain. In the emergency department work-up was quite extensive, and included ultrasound and CT of her abdomen which revealed gallstones, mild gallbladder thickening, and CT scanning showed initially unremarkable status but ultrasound performed later showed developing hydronephrosis of the right kidney. Of note patient denies flank pain or urinary problems as noted above. Her main complaint is her leg pain. Subjective Subjective pt c/o pain in LLE w/ wbing Rehab PT IP Eval Objective Appearance Patient Behavior Appropriate,Cooperative Patient Orientation Place,Name,Birthday,Year Difficulty following instructions none Speech Pattern Clear,Appropriate Ambulation Patient Able to Ambulate Yes Ambulation Observation IP General Gait Pattern Observation No Deviations/Normal Ambulation Distance (feet) 40 Ambulation Assistive Device Rolling Walker Ambulation Ability Independent Balance Ability to Arise Able, uses arms to help Sitting Balance
[2021-02-06 10:45] VITALS: PULSE 80
--- NOTE | 2021-02-06 11:05 | PC.NURSE ---
pt has palpable pulses in ble. lle is +1. no edema noted in ble. pt does endorse tenderness/pain in lle with pressure when checking pulses/sensation. lle is cooler than rle. pt advised on s/s to watch for that indicate reocculsion
--- NOTE | 2021-02-06 11:51 | HMH.PHACLD ---
Shani Fuller has received discharge medication counseling on the following medications: MD SENDING PATIENT HOME WITH NEW PRESCRIPTIONS FOR XARELTO 15 MG BID, PLAVIX 75 MG DAILY, AND ATORVASTATIN 40 MG HS. MD STOPPING ASPIRIN 81 MG DAILY AT THIS TIME.
[2021-02-06 12:00] VITALS: BP 115/58; PULSE 69; RESP 19; TEMP 37; O2SAT 90
== END 2021-02-06 12:20 | disposition home or self-care (01) | DRG 271 ==
LOC: ER 22:51 → 2ND 02-03 04:08
PROVIDERS: Internal Medicine; Admitting Provider Internal Medicine Adolescent Medicine; Emergency Provider Emergency Medicine; PCP Internal Medicine Adolescent Medicine; Visit Provider Internal Medicine Adolescent Medicine
PROC: 047N3DZ Dilation of Left Popliteal Artery with Intraluminal Device, Percutaneous Approach (ICD-10-PCS; principal; 2021-02-03 19:30)
DX: I82.412 Acute embolism and thrombosis of left femoral vein (principal); K80.00 Calculus of gallbladder with acute cholecystitis without obstruction; I42.9 Cardiomyopathy, unspecified; I50.22 Chronic systolic (congestive) heart failure; I82.442 Acute embolism and thrombosis of left tibial vein; I82.432 Acute embolism and thrombosis of left popliteal vein; I82.492 Acute embolism and thrombosis of other specified deep vein of left lower extremity; K80.20 Calculus of gallbladder without cholecystitis without obstruction; M79.2 Neuralgia and neuritis, unspecified; Z20.822 Contact with and (suspected) exposure to COVID-19; R33.9 Retention of urine, unspecified; I70.90 Unspecified atherosclerosis; Z95.810 Presence of automatic (implantable) cardiac defibrillator; I48.91 Unspecified atrial fibrillation; I11.0 Hypertensive heart disease with heart failure; I25.10 Atherosclerotic heart disease of native coronary artery without angina pectoris; E78.5 Hyperlipidemia, unspecified; Z96.643 Presence of artificial hip joint, bilateral
CPT/HCPCS: 36415; 37184; 37185; 37226; 71045; 72131; 74176; 75635; 76705; 80048; 80053; 80061; 80162; 81001; 82150; 83605; 83690; 83735; 84145; 84484; 85007; 85025; 85347; 85651; 86140; 87040; 93005; 93306; 96365; 96367; 96375; 97161; 99152; 99153; 99285; C1725; C1760; C1766; C1769; C1876; C1894; C9803; J1327; J1335; J1644; J2405; Q9966; Q9967; U0003; U0005

== ENCOUNTER → 2021-02-23 10:21 | Outpatient (CLI) | payer MEDICARE, OTHER, SELFPAY ==
[2021-02-23 14:44] LABS: Hematocrit 36.4 % (37.0-47.0); Hemoglobin 11.5 g/dL (12.2-16.2)
[2021-02-23 15:26] LABS: Blood Urea Nitrogen 14 mg/dl (7-17); Estimated Glomerular Filt Rate 60 ml/min (>60); GFR (African American) 72 ML/MIN (>60)
== END ==
PROVIDERS: Visit Provider Internal Medicine
DX: I25.10 Atherosclerotic heart disease of native coronary artery without angina pectoris (principal)
CPT/HCPCS: 36415; 82565; 84520; 85014; 85018

== ENCOUNTER → 2021-06-23 09:44 | Outpatient (CLI) | payer MEDICARE, OTHER, SELFPAY ==
[2021-06-23 10:00] LABS: Basophils # 0.1 K/mm3 (0-0.2); Basophils % 1.6 % (0.1-2.0); Eosinophils # 0.2 K/mm3 (0.0-0.4); Eosinophils % 2.8 % (0.1-12.0); Hemoglobin 10.6 g/dL (12.2-16.2); Lymphocytes # 1.2 K/mm3 (0.7-4.5); Lymphocytes % 14.5 % (10-50); Mean Corpuscular HGB Conc 31.2 g/dL (31.8-35.4); Mean Corpuscular Hemoglobin 24.2 pg (27.0-31.2); Mean Corpuscular Volume 77.5 fl (81-99); Mean Platelet Volume 10.2 fl (7.4-10.4); Monocytes # 0.6 K/mm3 (0.1-1.0); Monocytes % 6.5 % (1.7-9.3); Neutrophils # 6.3 K/mm3 (1.8-7.8); Neutrophils % 74.6 % (37.0-80.0); Platelet Count 239 K/mm3 (142-424); Red Blood Count 4.39 M/mm3 (4.20-5.40); Red Cell Distribution Width 15.7 % (11.5-17.5); White Blood Count 8.5 K/mm3 (4.8-10.8)
[2021-06-23 11:32] LABS: Anion Gap 12.9 mEq/L (5-15); Blood Urea Nitrogen 16 mg/dl (7-17); Carbon Dioxide 24 mmol/L (22.0-30.0); Chloride 106 mmol/L (98-107); Estimated Glomerular Filt Rate 60 ml/min (>60); GFR (African American) 72 ML/MIN (>60); Glucose 171 mg/dl (74-100); Potassium 3.9 mmoL/L (3.5-5.1); Sodium 139 mmol/L (136-145)
[2021-06-23 11:42] LABS: NT Pro Brain Natriuretic Pep. 1880 pg/mL (0-450)
== END ==
PROVIDERS: Internal Medicine Cardiovascular Disease; PCP Internal Medicine Adolescent Medicine
DX: E78.5 Hyperlipidemia, unspecified (principal); I05.9 Rheumatic mitral valve disease, unspecified; I11.9 Hypertensive heart disease without heart failure; I25.10 Atherosclerotic heart disease of native coronary artery without angina pectoris; I42.9 Cardiomyopathy, unspecified; I48.91 Unspecified atrial fibrillation; I50.20 Unspecified systolic (congestive) heart failure; I73.9 Peripheral vascular disease, unspecified; Z95.4 Presence of other heart-valve replacement
CPT/HCPCS: 36415; 80048; 83880; 85025

== ENCOUNTER → 2021-06-28 10:54 | Outpatient (CLI) | payer MEDICARE, OTHER, SELFPAY | PROVIDERS: PCP Internal Medicine Adolescent Medicine; Visit Provider Internal Medicine Cardiovascular Disease | DX: E78.5 Hyperlipidemia, unspecified (principal); I05.9 Rheumatic mitral valve disease, unspecified; I25.10 Atherosclerotic heart disease of native coronary artery without angina pectoris; I42.9 Cardiomyopathy, unspecified; I50.20 Unspecified systolic (congestive) heart failure; I73.9 Peripheral vascular disease, unspecified; Z95.4 Presence of other heart-valve replacement; I11.0 Hypertensive heart disease with heart failure | CPT/HCPCS: 93306 ==

== ENCOUNTER → 2021-07-21 09:25 | Outpatient (CLI) | payer MEDICARE, OTHER, SELFPAY ==
[2021-07-21 10:27] LABS: Chloride 108 mmol/L (98-107); Potassium 4.1 mmoL/L (3.5-5.1); Sodium 139 mmol/L (136-145)
[2021-07-21 10:30] LABS: Anion Gap 10.1 mEq/L (5-15); Blood Urea Nitrogen 13 mg/dl (7-17); Calcium 9.2 mg/dl (8.4-10.2); Carbon Dioxide 25 mmol/L (22.0-30.0); Estimated Glomerular Filt Rate 60 ml/min (>60); GFR (African American) 72 ML/MIN (>60); Glucose 154 mg/dl (74-100)
== END ==
PROVIDERS: PCP Internal Medicine Adolescent Medicine; Visit Provider Internal Medicine Cardiovascular Disease
DX: I25.10 Atherosclerotic heart disease of native coronary artery without angina pectoris
CPT/HCPCS: 36415; 80048

== ENCOUNTER → 2021-08-09 12:33 | Outpatient (CLI) | payer MEDICARE, OTHER, SELFPAY ==
--- NOTE | 2021-08-09 12:33 | CA_ITS ---
FINAL REPORT CLINICAL HISTORY: PAD, left leg numbness, Hx-01/2021 thrombectomy FINDINGS: LOWER EXTREMITY DUPLEX DOPPLER Color Doppler and duplex Doppler of the left lower lower extremity was performed. Spectral analysis was also performed. Velocities were measured at multiple levels. All velocities are in centimeters per second. C[employer] SOLUT[employer] SUPERVISOR: 137 SFA Prox: 102 SFA Mid: 68 SFA Distal: 86 CUPOLA MELTER HELPER: 99 JOSE: 20 Left common femoral artery, superficial femoral artery, popliteal artery and proximal posterior tibial artery are patent with triphasic waveforms. There is diminished flow in the distal left popliteal artery. There are monophasic waveforms involving the left anterior tibial and distal posterior tibial arteries. These findings are consistent with distal disease involving the anterior and posterior tibial arteries. 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
== END ==
PROVIDERS: PCP Internal Medicine Adolescent Medicine; Visit Provider Internal Medicine Cardiovascular Disease
DX: E78.5 Hyperlipidemia, unspecified (principal); I05.9 Rheumatic mitral valve disease, unspecified; I11.9 Hypertensive heart disease without heart failure; I25.10 Atherosclerotic heart disease of native coronary artery without angina pectoris; R20.0 Anesthesia of skin; Z95.4 Presence of other heart-valve replacement; I70.212 Atherosclerosis of native arteries of extremities with intermittent claudication, left leg
CPT/HCPCS: 93926

== ENCOUNTER 2022-01-13 20:37 | Emergency (ER) | payer MEDICARE, OTHER, SELFPAY ==
[2022-01-13 20:47] VITALS: BP 143/79; PULSE 84; RESP 18; TEMP 36.5; O2SAT 97; BMI 25.7
--- NOTE | 2022-01-13 20:50 | ECG_ITS ---
APPROVED REPORT Exam: Resting ECG HR:83 bpm ECG Measurements Heart Rate 83 AXES QRSd 93 QRS 25 QT 368 T -88 QTc 408 Conclusion ATRIAL FLUTTER/TACHYCARDIA ST DEVIATION AND MARKED T-WAVE ABNORMALITY, CONSIDER ANTEROLATERAL ISCHEMIA [-0.5+ mV T-WAVE IN I/aVL/V3-V6] ST DEVIATION AND MODERATE T-WAVE ABNORMALITY, CONSIDER INFERIOR ISCHEMIA [-0.1+ mV T-WAVE IN II/aVF] ABNORMAL ECG UNCONFIRMED REPORT Electronically signed by : Hood Paredes MD 01/14/2022 09:33:09
--- NOTE | 2022-01-13 20:50 | XR_ITS ---
PROCEDURE INFORMATION: Exam: XR Chest Exam date and time: 01/13/2022 9:10 PM Age: 86 years old Clinical indication: Other: Syncope; Prior surgery TECHNIQUE: Imaging protocol: Radiologic exam of the chest. Views: 1 view. COMPARISON: CR XR CHEST PORTABLE 02/02/2021 11:23 PM FINDINGS: Tubes, catheters and devices: Left subclavian transvenous pacemaker/AICD. Left atrial appendage occlusion device. Lungs: Minimal left basilar atelectasis or scarring. Pleural spaces: Unremarkable. No pleural effusion. No pneumothorax. Heart/Mediastinum: Mild cardiomegaly. Vasculature: Atherosclerotic vascular disease. Bones/joints: Changes of prior sternotomy and CABG. IMPRESSION: No acute cardiopulmonary abnormality.
[2022-01-13 21:06] LABS: Coronavirus 19, PCR Not Detected (NotDetected); Influenza A, PCR Not Detected (NotDetected); Influenza B, PCR Not Detected (NotDetected)
[2022-01-13 21:11] LABS: Basophils # 0.1 K/mm3 (0-0.2); Basophils % 1.1 % (0.1-2.0); Eosinophils # 0.2 K/mm3 (0.0-0.4); Eosinophils % 3.8 % (0.1-12.0); Hematocrit 32.5 % (37.0-47.0); Hemoglobin 9.7 g/dL (12.2-16.2); Lymphocytes # 1.8 K/mm3 (0.7-4.5); Lymphocytes % 29.3 % (10-50); Mean Corpuscular HGB Conc 29.9 g/dL (31.8-35.4); Mean Corpuscular Hemoglobin 20.6 pg (27.0-31.2); Mean Corpuscular Volume 68.8 fl (81-99); Mean Platelet Volume 7.9 fl (7.4-10.4); Monocytes # 0.5 K/mm3 (0.1-1.0); Monocytes % 8.4 % (1.7-9.3); Neutrophils # 3.5 K/mm3 (1.8-7.8); Neutrophils % 57.5 % (37.0-80.0); Platelet Count 188 K/mm3 (142-424); Red Blood Count 4.72 M/mm3 (4.20-5.40); Red Cell Distribution Width 17.4 % (11.5-17.5); White Blood Count 6.2 K/mm3 (4.8-10.8)
[2022-01-13 21:18] LABS: Chloride 107 mmol/L (98-107)
[2022-01-13 21:19] LABS: Sodium 137 mmol/L (136-145)
[2022-01-13 21:22] LABS: Blood Urea Nitrogen 15 mg/dl (7-17); Calcium 9.4 mg/dl (8.4-10.2); Carbon Dioxide 27 mmol/L (22.0-30.0); Creatinine Clearance Estimated 40 mL/min (50-200); Estimated Glomerular Filt Rate 47 ml/min (>60); GFR (African American) 57 ML/MIN (>60); Glucose 115 mg/dl (74-100)
[2022-01-13 21:30] VITALS: BP 157/93; PULSE 69; RESP 19; O2SAT 95
[2022-01-13 21:34] LABS: Troponin I < 0.01 ng/ml (0.00-0.034)
[2022-01-13 22:01] VITALS: BP 135/73; PULSE 82; RESP 20; O2SAT 97
[2022-01-13 22:33] LABS: Microscopic, Urine URINE MICROSCOPIC (MICROSCOPIC)
[2022-01-13 22:49] LABS: Appearance,Urine CLEAR (Clear); Bilirubin,Urine Negative (Negative); Blood, Urine Negative (Negative); Color,Urine YELLOW (Yellow); Glucose,Urine (UA) Negative (Negative); Ketones,Urine Negative (Negative); Leukocyte Esterase,Urine Negative (Negative); Nitrate,Urine Negative (Negative); Protein,Urine Negative (Negative); Specific Gravity, Urine 1.025 (1.005-1.030)
--- NOTE | 2022-01-13 22:59 | HMH.EDGENADL ---
Discharge Plan Disposition Patient Disposition: Home, Self-Care Chief Complaint: Nausea/Vomiting/Diarrhea Prescriptions Prescriptions: No Action metoprolol tartrate 100 mg tablet 100 mg PO BID Xarelto 20 mg tablet 20 mg PO DAILY olopatadine 0.6 % spray,non-aerosol 1 spray INTRANASAL ONCE PRN ondansetron HCl [Zofran] 4 mg tablet 4 mg PO Q8H PRN (Reason: nausea and vomiting) Qty: 20 1RF digoxin 125 mcg tablet 125 mcg PO DAILY Qty: 90 4RF spironolactone 25 mg tablet 25 mg PO BID Qty: 60 5RF levothyroxine 100 MCG tablet 100 mcg PO DAILY losartan 100 MG tablet 100 mg PO DAILY atorvastatin 40 MG tablet 40 mg PO HS Qty: 90 0RF clopidogrel 75 MG tablet 75 mg PO DAILY 30 Days Qty: 30 11RF Referrals Follow up/Referrals: Hood Paredes MD [Primary Care Provider] - See instructions Clinical Impressions Clinical Impression: Near syncope Instructions Patient Instructions: DI for Syncope in Adults (Fainting) Discharge ED Provider: Ruben Joyner General Adult HPI General Chief complaint: Nausea/Vomiting/Diarrhea Stated complaint: Dizzy/Pre-syncopal/N,V Time Seen by Provider: 01/13/22 22:59 Mode of Arrival: EMS Source of Information: Patient, EMS and Medical Record Limitations: No Limitations Description of Symptoms (Recalled from ER Triage Doc. by RN): Pt states roughly an hour ago she was sitting at home and began to feel nauseas and dizzy like she might pass out. Had some vomiting en route via [facility]. History of Present Illness HPI narrative: episode at home at rest of not feeling well with nausea and dizzyness lasting a few min but no chest pain or syncope Onset (ago): minute(s) Severity: moderate Related Data Home Medications Medication Instructions Recorded Confirmed metoprolol tartrate 100 mg tablet 100 mg PO BID Heart disease 03/27/18 08/25/21 levothyroxine 100 mcg tablet 100 mcg PO DAILY THYROID 02/04/21 08/25/21 losartan 100 mg tablet 100 mg PO DAILY BLOOD PRESSURE 02/04/21 08/25/21 olopatadine 0.6 % nasal spray 1 spray intranasal ONCE PRN 05/26/21 08/25/21 rivaroxaban 20 mg tablet (Xarelto) 20 mg PO DAILY 05/26/21 08/25/21 Previous Rx's Medication Instructions Recorded ondansetron HCl 4 mg tablet 4 mg PO Q8H PRN nausea and 04/08/17 (Zofran) vomiting #20 tabs digoxin 125 mcg (0.125 mg) tablet 125 mcg PO DAILY heart #90 tabs 04/10/18 atorvastatin 40 mg tablet 40 mg PO HS #90 tabs 02/06/21 clopidogrel 75 mg tablet 75 mg PO DAILY 30 days #30 tabs 02/06/21 spironolactone 25 mg tablet 25 mg PO BID High blood pressure 06/26/21 #60 tabs Allergies Allergy/AdvReac Type Severity Reaction Status Date / Time codeine Allergy Intermediate DEATHLY Verified 08/25/21 14:06 SICK amiodarone Allergy Mild tongue Verified 08/25/21 14:06 tingling oxycodone [From Percocet] AdvReac Nausea Verified 08/25/21 14:06 PFSH PFS Disclaimer: The information contained in this section may have been updated after the patient was seen, as this information can be updated by other users. Medical History (Updated 01/14/22 @ 00:23 by Ruben Joyner MD) Carotid artery stenosis Left leg numbness Social History Smoking Status: Never smoker alcohol intake: never substance use type: denies use current occupational status: retired Travel in the last 8 weeks: Inside the [place] household members: none housing: house caffeine: No ROS Obtained: Yes All systems reviewed & no additional complaints except as documented Physical Exam General General appearance: alert Head Head exam: normocephalic Eye Eye exam: Present PERRL and EOMI; Absent scleral icterus ENT ENT exam: Present mucous membranes moist and other (no evid of tongue biting ) Neck Neck exam: Present trachea midline Respiratory Respiratory exam: Present normal lung sounds bilaterally; Absent respiratory distress Cardiovascular Cardiovascula
--- NOTE | 2022-01-13 23:03 | PC.NURSE ---
paged @ this time
--- NOTE | 2022-01-13 23:06 | PC.NURSE ---
Dr. Joyner speaking with Dr. Paredes
[2022-01-13 23:12] LABS: Bacteria,Urine 1+ /lpf; Squamous Epithelial Cell,Urine Occasional #/hpf (0-5); WBC,Urine Occasional #/hpf (0-3)
[2022-01-14 00:15] LABS: Troponin I 0.02 ng/ml (0.00-0.034)
[2022-01-14 00:28] VITALS: BP 135/73; PULSE 80; RESP 18; TEMP 36.6; O2SAT 99
== END 2022-01-14 00:33 | disposition home or self-care (01) ==
PROVIDERS: Emergency Provider Emergency Medicine; PCP Internal Medicine Adolescent Medicine
DX: R11.2 Nausea with vomiting, unspecified (principal); R19.7 Diarrhea, unspecified; R55 Syncope and collapse; R20.2 Paresthesia of skin; Z20.822 Contact with and (suspected) exposure to COVID-19; I65.29 Occlusion and stenosis of unspecified carotid artery; Z79.02 Long term (current) use of antithrombotics/antiplatelets; Z79.899 Other long term (current) drug therapy; Z88.5 Allergy status to narcotic agent; Z88.6 Allergy status to analgesic agent; Z88.8 Allergy status to other drugs, medicaments and biological substances
CPT/HCPCS: 71045; 80048; 81001; 83735; 84484; 85025; 93005; 96374; 99284; C9803; J2405; U0003; U0005

== ENCOUNTER → 2022-01-26 11:44 | Outpatient (CLI) | payer MEDICARE, OTHER, SELFPAY ==
--- NOTE | 2022-01-26 | CA_ITS ---
APPROVED REPORT Exam: Pharmacologic Technologist: Christy Garcia, Ht: 5 ft 4 in Wt: 148 lbs BSA: 1.72 m2 HR: 70 bpm BP: 150/67 mmHg Medical History Medical History: HTN, Hyperlipidemia Medications: Levothyroxine,,,,, Metoprolol,,,,, Losartan,,,,, Digoxin,,,,, CloPIdogrel,,,,, SpirOnolactone,,,,, Zofran,,,,, AtorvaASTATIN,,,,, Cardiac Risk Factors: HTN, Hyperlipidemia Stress Test Details Test: LEXISCAN HR Resting HR: 70 bpm Max Heart Rate (APMHR): 134.644899 bpm Max HR Achieved: 76 bpm Target HR (85% APMHR): 113.421672 bpm % of APMHR: 56.72 Recovery HR: 70 bpm BP Resting BP: 150/67 mmHg Max BP: 156/69 mmHg Recovery BP: 145.0/77.0 mmHg ECG Clinical Exercise duration: 04:05 min Highest Stage Achieved: Exercise capacity: 1.0 METs Stress ECG Conclusion During lexiscan pt experinced SOA, palpitations, light headed, and nausea. Frequent PAC and PVCs noted. <1.5mm ST changes. Test Summary REST . . . . . . . Sitting REST . . . . . . . Sitting REST 16:00 . . 70 . 150/ 67 . . Stage 1 01:00 . . 70 . . . . Stage 2 01:00 . . 70 . . . . Stage 3 01:00 . . 72 . 144/ 57 . . Stage 4 01:00 . . 70 . 150/ 73 . . Stage 4 01:05 . . 73 . 156/ 69 . Stop exercise at 04:05 RECOVERY 01:00 . . 72 . . . . RECOVERY 02:00 . . 70 . 145/ 77 . . RECOVERY 03:00 . . 70 . 154/ 70 . . RECOVERY 03:02 . . 71 . 154/ 70 . . Electronically signed by : Melvin Beltre MD 01/26/2022 13:51:59
--- NOTE | 2022-01-26 11:44 | NM_ITS ---
APPROVED REPORT Exam: Nuclear Stress Test Indication: CAD, DYSRHYTHMIA, VALVE REPLACEMENT, HTN, HYPERLIPIDEMIA, FM HX, SOB, SYNCOPE, PACEMAKER, DEFIBULATOR Patient Location: Outpatient Stress Tech: Christy Garcia NM Tech:PAVAN Coronel RT (R)(N)(M) Ht: 5 ft 4 in Wt: 148 lbs Bra Size: B HR: 70 bpm BP: 150/67 mmHg BSA: 1.72 m2 TID: 1.10 BMI: 25.4 History: CAD, DYSRHYTHMIA, VALVE REPLACEMENT, HTN, HYPERLIPIDEMIA, FM HX, SOB, SYNCOPE, PACEMAKER, DEFIBULATOR Procedure: Patient received a 0.4 mg of intravenous Lexiscan, resting heart rate 70 bpm, resting blood pressure 150/67 mmHg, with Lexiscan maximum heart rate achived was 77 bpm which is Less than 85 % of the maximum predicted heart rate and blood pressure was 150/73 mmHg. With Lexiscan, patient denied any complaint of chest pain. Electrocardiogram Resting electrocardiogram shows electronically paced rhythm, with Lexiscan there is a 1.[address] segment depression noted from the baseline EKG. The EKG portion of the Lexiscan is nondiagnostic. Cardiac Stress and Resting SPECT Images: Cardiac Stress and Resting SPECT images were obtained using technetium 99m Myoview 31.3 mCi stress and 10.45 mCi at rest. Gated SPECT for analysis of segmental wall motion and calculation of the ejection fraction also done. Cardiac stress and resting SPECT images show a fixed defect in the mid inferior wall with reduced contractility is likely secondary to myocardial scarring without any significant vineet-infarct ischemia. Computer derived ejection fraction is 47% with moderate inferior wall hypokinesis. Right ventricle is normal size and contractility. Conclusion: 1. The EKG portion of the Lexiscan is nondiagnostic. 2. Scintigraphic evidence of myocardial scarring as described above without significant vineet-infarct ischemia computer derived ejection fraction is 47% with segmental wall motion abnormality, right ventricle is normal size and contractility. 3. Abnormal Lexiscan Myoview study. Electronically signed by : Melvin Beltre MD 01/27/2022 07:29:34
--- NOTE | 2022-01-26 12:52 | CA_ITS ---
APPROVED REPORT EXAM: Comprehensive 2D, Doppler, and color-flow Echocardiogram Hand Riveter: Ness Almeida, RT(R) Ht: 5 ft 4 in Wt: 148lbs BSA: 1.72 BP: 151/74 mmHg Indications: SOB, MV replacement (porcine), syncope, HTN, hyperlipidemia, LEV, CM, AFIB, AICD 2D Dimensions LVOT 1.86 cm (M/F) 1.5-2.5 LVEF (Paz's) 47.70 % F: 54 - 74 LV Volume 87.70 mL F: 46 - 106 LV Volume Index 50.99 mL/m2 F: 29 - 61 M-Mode Dimensions RVDd 2.92 cm (0.9-2.6) LA Diam 4.96 cm (1.9-4.0) LVDd 6.18 cm (3.5-5.7) Ao Diam 2.74 cm (2.0-3.7) LVDs 4.66 cm (3.5-5.7) IVSd 0.87 cm (0.6-1.1) PWd 0.95 cm (0.6-1.1) EF (Teich) 47.90% FS 24.60% EDV (Teich) 192.60 mL ESV (Teich) 100.30 mL LV Diastology E Decel Time 253.00 (160-240 msec) E/A Ratio 1.4 MED E' 8.70 (< 7 cm/sec) E'/MED E' Ratio 19.97 (>14) LAT E' 9.40 (<10 cm/sec) E/LAT E' Ratio 18.48 (>14) Aortic Valve LVOT Max 98.00 (70-110 cm/s) LVOT VTI 19.11 cm AoV Peak Kurt. 129.00 (50-130 cm/s) AO Peak GR. 6.70 mmHg AO Mean GR. 3.30 (<5 mmHg) AO VTI 23.19 (18-25 cm) TRACEY (VTI) 2.24 (2.5-4.5 cm2) Mitral Valve MV E Max Kurt. 174.00 (40-130 cm/s) MV A Velocity 128.00 (40-130 cm/s) E/A Ratio 1.36 MV Decel. Time 253.00 (160-240 ms) MV PHT 74.00 ms Tricuspid Valve TR P. Velocity 298.00 cm/s RAP Estimate 15.00 mmHg RVSP 50.50 mmHg Left Ventricle Left atrium is moderately enlarged, left ventricle is normal size mild concentric left ventricular hypertrophy, estimated ejection fraction 50% with no regional wall motion abnormality, diastolic parameters are inconclusive. Right Ventricle Right atrium and right ventricle are mildly enlarged with normal contractility, and AICD lead seen in right ventricle. Aortic Valve Aortic valve is thickened and calcified without aortic stenosis or aortic insufficiency. Mitral Valve There is bioprosthetic valve noted in the mitral position, the valve is well-seated. The mean gradient across prosthetic valve is 5 mmHg, valve area is 2.53 cm???, there is no significant mitral regurgitation. Tricuspid Valve Tricuspid valve grossly normal, there is mild tricuspid regurgitation, tricuspid regurgitation jet velocity is inadequate for calculation of the right ventricular systolic pressure. Pulmonic Valve Pulmonic valve is poorly visualized. Great Vessels Aortic root is normal size. Inferior vena cava is normal size with normal inspiratory collapse. Pericardium No significant pericardial effusion noted. Conclusion 1. Biatrial enlargement, normal left ventricular size, mild concentric left ventricular hypertrophy, estimated ejection fraction 50% with no regional wall motion abnormality, diastolic parameters are inconclusive. 2. Normal functioning bioprosthetic valve in the mitral position without significant mitral inflow obstruction or mitral regurgitation. 3. Mild tricuspid regurgitation. 4. No significant pericardial effusion. 5. Inferior vena cava is normal size with normal inspiratory collapse. Electronically signed by : Melvin Beltre MD 01/27/2022 07:18:19
== END ==
PROVIDERS: PCP Internal Medicine Adolescent Medicine; Visit Provider Physician Assistant
DX: E78.2 Mixed hyperlipidemia (principal); I11.0 Hypertensive heart disease with heart failure; I25.10 Atherosclerotic heart disease of native coronary artery without angina pectoris; I48.2 Chronic atrial fibrillation; I50.20 Unspecified systolic (congestive) heart failure; I65.29 Occlusion and stenosis of unspecified carotid artery; I73.9 Peripheral vascular disease, unspecified; R42 Dizziness and giddiness; R55 Syncope and collapse; R94.31 Abnormal electrocardiogram [ECG] [EKG]; Z95.3 Presence of xenogenic heart valve; Z95.5 Presence of coronary angioplasty implant and graft; Z95.810 Presence of automatic (implantable) cardiac defibrillator
CPT/HCPCS: 78452; 93017; 93306; A9502; J2785

== ENCOUNTER 2022-02-06 09:21 | Day surgery (SDC) | payer MEDICARE, OTHER, SELFPAY ==
[2022-02-06] VITALS (14 sets, daily range): BP systolic 106–158; BP diastolic 46–94; PULSE 70–83; RESP 16–18; O2SAT 95–99; BMI 25.0
--- NOTE | 2022-02-06 09:24 | IR_ITS ---
APPROVED REPORT Patient Location: Outpatient Content Manager: PAVAN Solis RT (R) PROCEDURES Selective coronary angiogram Drug-eluting stent deployment to the mid LAD INDICATION Abnormal Myoview with inferior ischemia, Severe stenosis in the mid LAD which has a wraparound the apex LAD which then supplies the inferior wall and appears to be the culprit vessel for the inferior ischemic defect, Coronary artery disease, Syncope Informed consent was obtained prior to the procedure. COMPLICATIONS None Estimated Blood Loss: Less than 10 mls TECHNIQUE One percent lidocaine used to anesthetize the right anterior aspect of the wrist. The right radial artery was accessed via the Seldinger technique. A 6 Turkmen sheath was placed in the right radial artery. 2.5 mg of verapamil, 800 mcg of nitroglycerin, 1mg Lidocaine and 5000 U Heparin were given through the arterial sheath. The papa catheter was also used to perform selective coronary angiography. At the end the diagnostic angiogram therapeutic heparin was administered giving a therapeutic ACT and a Choice PT extra-support wire was placed distally in the LAD. A 2.75 x 26 mm resolute Alon stent was deployed at 16 елена reducing the severe stenosis to 0%. BRIAN-3 flow was present before and after the procedure. At the end the procedure the apparatus was removed the sheath was removed and hemostasis was achieved using TR banding patient was transferred to the postop putting in stable condition ANGIOGRAPHIC RESULTS The left main artery Normal The left anterior descending artery Has stents in the proximal segment which are widely patent with mild in-stent restenosis. The midportion of the LAD then has a concentric at least 70% stenosis. The LAD is a large wraps the apex and supplies a large portion of the inferior wall The circumflex artery Is nondominant yet still large and has a first obtuse marginal artery with a stent in its proximal and mid segment which is widely patent with minimal in-stent restenosis excellent excellent proximal distal transitioning. A moderate sized ramus intermedius originates from the proximal LAD and has stents throughout its proximal mid and even distal segment. There are diffuse 50% and 60% concentric stenosis representing in-stent restenosis The right coronary artery Probably a dominant vessel although it does not supply all of the inferior wall as the other portion supplied by the LAD. There are stents in the proximal segment which have concentric 30 to 40% in-stent restenosis. There is an additional 30 to 40% mid vessel stenosis distal to the proximal right coronary stent. The MARTINEZ ventriculogram reveals Not performed The left ventricular end-diastolic pressure Not measured IMPRESSION Severe stenosis in the mid wraparound apex LAD which supplied the inferior wall which corresponded to the abnormal Myoview Successful stenting of a wraparound LAD vessel reducing the severe stenosis to 0% with 1 drug-eluting stent Persistent moderate to severe in-stent restenosis throughout a moderate to large ramus intermedius which is best managed medically In-stent restenosis in a proximal right coronary artery which is best managed medically PLAN 1. Dual antiplatelet therapy 2. Risk factor modification 3. Avoidance of tobacco products 4. Check echocardiogram to make sure no degree of LV dysfunction exists 5. Continue to interrogate pacemaker to make sure no arrhythmias accounting for the syncope 6. Cardiac rehabilitation 7. LDL less than 55 to be achieved with high intensity statin Electronically signed by : Cliff Rosales MD 02/06/2022 11:33:13
[2022-02-06 09:48] LABS: Basophils # 0.1 K/mm3 (0-0.2); Basophils % 0.8 % (0.1-2.0); Eosinophils # 0.2 K/mm3 (0.0-0.4); Eosinophils % 2.9 % (0.1-12.0); Hematocrit 31.8 % (37.0-47.0); Hemoglobin 9.9 g/dL (12.2-16.2); Lymphocytes # 1.1 K/mm3 (0.7-4.5); Lymphocytes % 15.7 % (10-50); Mean Corpuscular HGB Conc 31.1 g/dL (31.8-35.4); Mean Corpuscular Hemoglobin 21.3 pg (27.0-31.2); Mean Corpuscular Volume 68.5 fl (81-99); Mean Platelet Volume 8.3 fl (7.4-10.4); Monocytes # 0.5 K/mm3 (0.1-1.0); Monocytes % 6.9 % (1.7-9.3); Neutrophils # 5.2 K/mm3 (1.8-7.8); Neutrophils % 73.7 % (37.0-80.0); Platelet Count 224 K/mm3 (142-424); Red Blood Count 4.64 M/mm3 (4.20-5.40); Red Cell Distribution Width 17.8 % (11.5-17.5)
[2022-02-06 09:51] LABS: Chloride 106 mmol/L (98-107); Potassium 4.1 mmoL/L (3.5-5.1); Sodium 142 mmol/L (136-145)
[2022-02-06 09:54] LABS: Blood Urea Nitrogen 13 mg/dl (7-17); Creatinine Clearance Estimated 38 mL/min (50-200); Estimated Glomerular Filt Rate 47 ml/min (>60); GFR (African American) 57 ML/MIN (>60)
[2022-02-06 09:55] LABS: Anion Gap 12.1 mEq/L (5-15); Calcium 10.1 mg/dl (8.4-10.2); Carbon Dioxide 28 mmol/L (22.0-30.0); Glucose 126 mg/dl (74-100)
[2022-02-06 12:06] LABS: CATHL Activated Clotting Time 323 SEC (74-125)
--- NOTE | 2022-02-06 14:30 | P.CONPHA_ITS ---
PHA Manager Product Management Discharge Med Production Control Supervisor: Shani Fuller has received discharge medication counseling on the following medications: ASPIRIN (NEW) PLAVIX LIPITOR LOSARTAN METOPROLOL PATIENT HAS BOTTLE OF ASPIRIN 81MG AT HOME. PATIENT VERBALIZED UNDERSTANDING AND HAD NO QUESTIONS AT THIS TIME. -SHUN MONTOYA, PHARMD
== END 2022-02-06 15:46 | disposition home or self-care (01) ==
PROVIDERS: PCP Internal Medicine Adolescent Medicine; Visit Provider Internal Medicine
DX: I25.10 Atherosclerotic heart disease of native coronary artery without angina pectoris (principal); Z95.820 Peripheral vascular angioplasty status with implants and grafts; Z95.810 Presence of automatic (implantable) cardiac defibrillator; Z95.5 Presence of coronary angioplasty implant and graft; Z95.3 Presence of xenogenic heart valve; I70.213 Atherosclerosis of native arteries of extremities with intermittent claudication, bilateral legs; T82.855A Stenosis of coronary artery stent, initial encounter; I65.23 Occlusion and stenosis of bilateral carotid arteries; Y83.1 Surgical operation with implant of artificial internal device as the cause of abnormal reaction of the patient, or of later complication, without mention of misadventure at the time of the procedure; I11.0 Hypertensive heart disease with heart failure; I50.20 Unspecified systolic (congestive) heart failure; I42.9 Cardiomyopathy, unspecified
CPT/HCPCS: 36415; 80048; 85025; 85347; 92928; 99152; C1725; C1769; C1876; C9600; J1644; Q9967

== ENCOUNTER → 2022-03-02 13:53 | Outpatient (CLI) | payer MEDICARE, OTHER, SELFPAY ==
[2022-03-02 15:58] LABS: Anion Gap 11.8 mEq/L (5-15); Blood Urea Nitrogen 25 mg/dl (7-17); Calcium 8.9 mg/dl (8.4-10.2); Carbon Dioxide 27 mmol/L (22.0-30.0); Chloride 107 mmol/L (98-107); Estimated Glomerular Filt Rate 39 ml/min (>60); GFR (African American) 47 ML/MIN (>60); Glucose 99 mg/dl (74-100); Potassium 4.8 mmoL/L (3.5-5.1); Sodium 141 mmol/L (136-145)
[2022-03-02 16:04] LABS: NT Pro Brain Natriuretic Pep. 1280 pg/mL (0-450)
== END ==
PROVIDERS: Physician Assistant; PCP Internal Medicine Adolescent Medicine; Visit Provider Internal Medicine
DX: E78.5 Hyperlipidemia, unspecified (principal); I05.9 Rheumatic mitral valve disease, unspecified; I25.10 Atherosclerotic heart disease of native coronary artery without angina pectoris; I42.9 Cardiomyopathy, unspecified; I48.91 Unspecified atrial fibrillation; I50.20 Unspecified systolic (congestive) heart failure; I73.9 Peripheral vascular disease, unspecified; Z95.4 Presence of other heart-valve replacement; I11.0 Hypertensive heart disease with heart failure
CPT/HCPCS: 36415; 80048; 83880

== ENCOUNTER → 2022-03-22 09:41 | Outpatient (CLI) | payer MEDICARE, OTHER, SELFPAY ==
[2022-03-22 11:33] LABS: Anion Gap 12.4 mEq/L (5-15); Blood Urea Nitrogen 20 mg/dl (7-17); Calcium 9.1 mg/dl (8.4-10.2); Carbon Dioxide 25 mmol/L (22.0-30.0); Chloride 106 mmol/L (98-107); Estimated Glomerular Filt Rate 43 ml/min (>60); GFR (African American) 52 ML/MIN (>60); Glucose 146 mg/dl (74-100); Potassium 4.4 mmoL/L (3.5-5.1); Sodium 139 mmol/L (136-145)
[2022-03-22 11:42] LABS: NT Pro Brain Natriuretic Pep. 1050 pg/mL (0-450)
== END ==
PROVIDERS: PCP Internal Medicine Adolescent Medicine; Visit Provider Physician Assistant
DX: I11.0 Hypertensive heart disease with heart failure (principal); E78.2 Mixed hyperlipidemia; I25.10 Atherosclerotic heart disease of native coronary artery without angina pectoris; I42.9 Cardiomyopathy, unspecified; I50.20 Unspecified systolic (congestive) heart failure; Z95.4 Presence of other heart-valve replacement; Z95.5 Presence of coronary angioplasty implant and graft; I48.20 Chronic atrial fibrillation, unspecified
CPT/HCPCS: 36415; 80048; 83880

== ENCOUNTER → 2022-05-31 09:27 | Outpatient (CLI) | payer MEDICARE, OTHER, SELFPAY ==
[2022-05-31 09:53] LABS: Basophils # 0.1 K/mm3 (0-0.2); Basophils % 0.8 % (0.1-2.0); Eosinophils # 0.2 K/mm3 (0.0-0.4); Eosinophils % 2.2 % (0.1-12.0); Hemoglobin 10.3 g/dL (12.2-16.2); Lymphocytes # 1.2 K/mm3 (0.7-4.5); Mean Corpuscular HGB Conc 30.4 g/dL (31.8-35.4); Mean Corpuscular Hemoglobin 21.9 pg (27.0-31.2); Mean Platelet Volume 8.1 fl (7.4-10.4); Monocytes # 0.6 K/mm3 (0.1-1.0); Monocytes % 7.2 % (1.7-9.3); Neutrophils # 6.2 K/mm3 (1.8-7.8); Neutrophils % 74.8 % (37.0-80.0); Platelet Count 247 K/mm3 (142-424); Red Blood Count 4.72 M/mm3 (4.20-5.40); Red Cell Distribution Width 17.7 % (11.5-17.5); White Blood Count 8.2 K/mm3 (4.8-10.8)
[2022-05-31 10:25] LABS: Chloride 106 mmol/L (98-107); Sodium 139 mmol/L (136-145)
[2022-05-31 10:26] LABS: Potassium 4.4 mmoL/L (3.5-5.1)
[2022-05-31 10:28] LABS: Alanine Aminotransferase 15 U/L (12-78); Alkaline Phosphatase 50 U/L (38-126); Anion Gap 11.4 mEq/L (5-15); Aspartate Amino Transferase 21 U/L (14-36); Bilirubin,Indirect 1.1 mg/dL (0.0-0.9); Bilirubin,Total 1.1 mg/dl (0.2-1.3); Bilirubin,Unconjugated 1.3 mg/dL (0.0-1.1); Blood Urea Nitrogen 17 mg/dl (7-17); Carbon Dioxide 26 mmol/L (22.0-30.0); Cholesterol 75 mg/dl (140-200); Estimated Glomerular Filt Rate 53 ml/min (>60); GFR (African American) 64 ML/MIN (>60); Triglycerides 100 mg/dl (30-150); VLDL Cholesterol 20 mg/dL (0-40)
[2022-05-31 10:29] LABS: Chol/HDL Ratio 1.9 (1-3.5); Glucose 115 mg/dl (74-100); HDL Cholesterol 40 mg/dl (40-60); Total Protein,Serum 6.3 g/dl (6.3-8.2)
[2022-05-31 10:41] LABS: Direct LDL Cholesterol < 30.00 mg/dL (100-129)
[2022-05-31 10:45] LABS: Free T4 (Free Thyroxine) 1.75 ng/dl (0.78-2.19)
[2022-05-31 11:00] LABS: Thyroid Stimulating Hormone 0.21 uIU/mL (0.465-4.68)
== END ==
PROVIDERS: PCP Internal Medicine Adolescent Medicine; Visit Provider Physician Assistant
DX: E78.2 Mixed hyperlipidemia (principal); I05.9 Rheumatic mitral valve disease, unspecified; I25.10 Atherosclerotic heart disease of native coronary artery without angina pectoris; I42.9 Cardiomyopathy, unspecified; I50.20 Unspecified systolic (congestive) heart failure; I73.9 Peripheral vascular disease, unspecified; Z95.3 Presence of xenogenic heart valve; Z95.5 Presence of coronary angioplasty implant and graft; Z95.810 Presence of automatic (implantable) cardiac defibrillator; E11.9 Type 2 diabetes mellitus without complications; I11.0 Hypertensive heart disease with heart failure; R06.00 Dyspnea, unspecified; I48.20 Chronic atrial fibrillation, unspecified
CPT/HCPCS: 36415; 80048; 80061; 80076; 84439; 84443; 85025

== ENCOUNTER 2022-08-29 14:10 | Emergency (ER) | payer MEDICARE, OTHER, SELFPAY ==
[2022-08-29] VITALS (10 sets, daily range): BP systolic 118–167; BP diastolic 60–86; PULSE 67–88; RESP 11–21; TEMP 36.4; O2SAT 91–99; BMI 24.0
--- NOTE | 2022-08-29 14:14 | ECG_ITS ---
APPROVED REPORT Exam: Resting ECG HR:73 bpm ECG Measurements Heart Rate 73 AXES QRSd 181 QRS -79 QT 427 T 95 QTc 453 Conclusion ELECTRONIC VENTRICULAR PACEMAKER ABNORMAL RHYTHM ECG UNCONFIRMED REPORT Electronically signed by : Hood Paredes MD 08/29/2022 21:00:44
--- NOTE | 2022-08-29 14:40 | XR_ITS ---
FINAL REPORT CLINICAL HISTORY: dyspnea COMPARISON: 01/13/2022 FINDINGS: A single PA view of the chest was obtained. The cardiac silhouette is normal. The patient is status post median sternotomy. There is no change in the left AICD. There is right basilar opacity, favor atelectasis. There is no effusion or pneumothorax. IMPRESSION: Right basilar opacity, favor atelectasis. Reviewed, Interpreted and Dictated by Christina Edwards MD Transcribed by Yvette Lowery Authenticated and [facility]
--- NOTE | 2022-08-29 14:41 | HMH.EDGENADL ---
Discharge Plan Disposition Patient Disposition: Still a Patient Prescriptions Prescriptions: No Action metoprolol tartrate 100 mg tablet 100 mg PO BID olopatadine 0.6 % spray,non-aerosol 1 spray INTRANASAL ONCE PRN (Reason: .) ondansetron HCl [Zofran] 4 mg tablet 4 mg PO Q8H PRN (Reason: nausea and vomiting) Qty: 20 1RF digoxin 125 mcg tablet 125 mcg PO DAILY Qty: 90 4RF spironolactone 25 mg tablet 25 mg PO BID Qty: 60 5RF levothyroxine 100 MCG tablet 100 mcg PO DAILY losartan 100 MG tablet 100 mg PO DAILY atorvastatin 40 MG tablet 40 mg PO HS clopidogrel 75 MG tablet 75 mg PO DAILY peg 3350-electrolytes [Golytely] 236-22.74-6.74 -5.86 gram recon soln 240 ml PO Q10M PRN (Reason: .) Rx Instructions: until fecal effluent is clear aspirin 81 mg Capsule 81 mg PO DAILY Qty: 30 0RF Referrals Follow up/Referrals: Provider,Referral, [Referring] - See instructions Clinical Impressions Clinical Impression: Chest pain, Near syncope Discharge ED Provider: Jade Swain General Adult HPI <Nilda Peraza MD - Last Filed: 08/29/22 14:43> General Chief complaint: PAIN Stated complaint: left arm pain Time Seen by Provider: 08/29/22 14:32 History of Present Illness HPI narrative: Patient is an 87-year-old female here with some left anterior chest discomfort as well as near syncope. States she has a history of an AICD secondary to coronary artery disease she is unsure of the brand and it has not defibrillated her today that she had some discomfort in the left anterior chest that is radiating into her left shoulder. Nonexertional no diaphoresis or shortness of breath associated with this. She had an episode today where something just came over me where she fell like she was in a lose consciousness but she did not. No fevers or chills no abdominal pain. She is currently asymptomatic. Related Data Home Medications Medication Instructions Recorded Confirmed metoprolol tartrate 100 mg tablet 100 mg PO BID Heart disease 03/27/18 05/31/22 levothyroxine 100 mcg tablet 100 mcg PO DAILY THYROID 02/04/21 05/31/22 losartan 100 mg tablet 100 mg PO DAILY BLOOD PRESSURE 02/04/21 05/31/22 olopatadine 0.6 % nasal spray 1 spray intranasal ONCE PRN . 05/26/21 05/31/22 atorvastatin 40 mg tablet 40 mg PO HS Cholesterol 02/06/22 05/31/22 clopidogrel 75 mg tablet 75 mg PO DAILY CAD 02/06/22 05/31/22 peg 3350-electrolytes 236 240 ml PO Q10M PRN . 02/06/22 05/31/22 gram-22.74 gram-6.74 gram-5.86 gram solution (Golytely) Previous Rx's Medication Instructions Recorded ondansetron HCl 4 mg tablet 4 mg PO Q8H PRN nausea and 04/08/17 (Zofran) vomiting #20 tabs digoxin 125 mcg (0.125 mg) tablet 125 mcg PO DAILY heart #90 tabs 04/10/18 spironolactone 25 mg tablet 25 mg PO BID High blood pressure 06/26/21 #60 tabs aspirin 81 mg capsule 81 mg PO DAILY #30 caps 02/06/22 Allergies Allergy/AdvReac Type Severity Reaction Status Date / Time codeine Allergy Intermediate DEATHLY Verified 05/31/22 09:10 SICK amiodarone Allergy Mild tongue Verified 05/31/22 09:10 tingling oxycodone [From Percocet] AdvReac Nausea Verified 05/31/22 09:10 [facility] <Nilda Peraza MD - Last Filed: 08/29/22 14:43> [facility] Disclaimer: The information contained in this section may have been updated after the patient was seen, as this information can be updated by other users. Medical History Carotid artery stenosis Left leg numbness Syncope Typical angina Surgical History History of cardiac cath History of heart artery stent Social History Smoking Status: Never smoker alcohol intake: never substance use type: denies use current occupational status: retired Travel in the last 8 weeks: Inside the [place]
[2022-08-29 14:52] LABS: Basophils % 0.5 % (0.1-2.0); Eosinophils # 0.2 K/mm3 (0.0-0.4); Eosinophils % 2.7 % (0.1-12.0); Hematocrit 33.6 % (37.0-47.0); Hemoglobin 9.8 g/dL (12.2-16.2); Lymphocytes # 1.3 K/mm3 (0.7-4.5); Mean Corpuscular HGB Conc 29.1 g/dL (31.8-35.4); Mean Corpuscular Hemoglobin 21.6 pg (27.0-31.2); Mean Corpuscular Volume 74.3 fl (81-99); Monocytes # 0.5 K/mm3 (0.1-1.0); Monocytes % 7.5 % (1.7-9.3); Neutrophils # 5.2 K/mm3 (1.8-7.8); Neutrophils % 71.3 % (37.0-80.0); Platelet Count 182 K/mm3 (142-424); Red Blood Count 4.52 M/mm3 (4.20-5.40); Red Cell Distribution Width 17.1 % (11.5-17.5); White Blood Count 7.2 K/mm3 (4.8-10.8)
[2022-08-29 14:57] LABS: Alanine Aminotransferase 21 U/L (12-78); Albumin Level 4.3 g/dl (3.5-5.0); Albumin/Globulin Ratio 1.6 (1.1-1.8); Alkaline Phosphatase 59 U/L (38-126); Anion Gap 11.5 mEq/L (5-15); Aspartate Amino Transferase 31 U/L (14-36); Bilirubin,Total 0.8 mg/dl (0.2-1.3); Blood Urea Nitrogen 25 mg/dl (7-17); Calcium 9.3 mg/dl (8.4-10.2); Carbon Dioxide 28 mmol/L (22.0-30.0); Chloride 106 mmol/L (98-107); Creatinine Clearance Estimated 29 mL/min (50-200); Estimated Glomerular Filt Rate 36 ml/min (>60); GFR (African American) 43 ML/MIN (>60); Globulin 2.7 g/dL (1.3-3.2); Glucose 139 mg/dl (74-100); Magnesium 2.2 mg/dl (1.6-2.3); Potassium 5.5 mmoL/L (3.5-5.1); Sodium 140 mmol/L (136-145)
[2022-08-29 15:02] LABS: D-Dimer 0.74 ug/mL (0.0-0.5)
[2022-08-29 15:10] LABS: Troponin I < 0.01 ng/ml (0.00-0.034)
--- NOTE | 2022-08-29 15:35 | PC.NURSE ---
rounded on pt to see if they had any needs. Pt stated no needs at this time.. Asked about whats taking so long. Explained that we had an emergency with another room but the Doctor will be in as soon as possible
--- NOTE | 2022-08-29 16:13 | PC.NURSE ---
pt ambulatory to restroom without complications
--- NOTE | 2022-08-29 17:29 | PC.NURSE ---
Dr. Swain at [facility]
--- NOTE | 2022-08-29 17:35 | PC.NURSE ---
2nd troponin sent to lab, pt reports no other needs at this time. family at [facility], call chang within reach
[2022-08-29 18:23] LABS: Troponin I < 0.01 ng/ml (0.00-0.034)
== END 2022-08-29 18:41 | disposition home or self-care (01) ==
PROVIDERS: Student in an Organized Health Care Education/Training Program; Emergency Provider Emergency Medicine; PCP Internal Medicine Adolescent Medicine
DX: R07.89 Other chest pain (principal); R55 Syncope and collapse; I25.118 Atherosclerotic heart disease of native coronary artery with other forms of angina pectoris; I65.29 Occlusion and stenosis of unspecified carotid artery; Z95.810 Presence of automatic (implantable) cardiac defibrillator
CPT/HCPCS: 71045; 80053; 83735; 84484; 85025; 85378; 93005; 96360; 99285

== ENCOUNTER 2023-08-13 08:38 | Outpatient (CLI) | payer MEDICARE, OTHER, SELFPAY ==
--- NOTE | 2023-08-13 08:40 | CA_ITS ---
APPROVED REPORT EXAM: Comprehensive 2D, Doppler, and color-flow Echocardiogram Creasing Machine Operator: Adela Roger RVT Ht: 5 ft 4 in Wt: 125lbs BSA: 1.60 BP: 123/66 mmHg Indications: Mitral Valve Replaced, Shortness of Breath, Atrial Fibrillation, CAD, Hyperlipidemia, Cardiomyopathy, Hypertension/HDD 2D Dimensions IVSd 1.21 cm LA Volume 71.30 mL PWd 1.19 cm LA Volume Index 43.50 mL/m2 (M/F) 16-34 LVDd 4.28 cm M-Mode Dimensions RVDd 2.71 cm (0.9-2.6) LA Diam 5.05 cm (1.9-4.0) LVDd 4.24 cm (3.5-5.7) LVDs 3.05 cm (3.5-5.7) IVSd 0.82 cm (0.6-1.1) PWd 0.65 cm (0.6-1.1) EF (Teich) 54.70% FS 28.10% EDV (Teich) 80.40 mL TAPSE 1.53 (<1.7) ESV (Teich) 36.40 mL LV Diastology E Decel Time 243 (160-240 msec) E/A Ratio 3.40 Aortic Valve TRACEY Index 1.30 cm2/m2 AoV Peak Kurt. 132.0 (50-130 cm/s) AO Peak GR. 6.90 mmHg AO Mean GR. 3.90 (<5 mmHg) AO VTI 23.8 (18-25 cm) TRACEY (VTI) 2.13 (2.5-4.5 cm2) Mitral Valve MV E Max Kurt. 146.0 (40-130 cm/s) MV A Velocity 43.0 (40-130 cm/s) E/A Ratio 3.40 MV Mean Gr. 5.10 (<2mmHg) MV PHT 71.0 ms Pulmonary Valve PV Peak Velocity 68.0 (50-150 cm/s) Tricuspid Valve TR P. Velocity 310.00 cm/s RAP Estimate 10.00 mmHg RVSP 48.50 mmHg Left Ventricle The left ventricle is normal size. Left ventricular systolic function is mildly decreased. There is increased LV wall thickness. The septum is asynchronous. The LV apex appears severely hypokinetic. Diastolic function is indeterminate. LVEF is 45%. Right Ventricle Right ventricle is mildly dilated. Right ventricle is mildly hypokinetic. There is a device lead in the right ventricle. Atria Left atrium is severely dilated. Right atrium is severely dilated. There is no Doppler evidence of interatrial shunt. Aortic Valve The aortic valve is mildly thickened. There is no aortic valvular stenosis. Trace aortic regurgitation. Mitral Valve s/p mitral valve replacement. Mean MV gradient 5 mmHg at HR 78 bpm. Peak E velocity 146 cm/s. PHT is 72 ms. Mild mitral regurgitation. No evidence of paravalvular leak. Tricuspid Valve The tricuspid valve leaflets are thin and pliable. Moderate tricuspid regurgitation. RVSP is 45-50 mmHg. Pulmonic Valve The pulmonary valve is normal in structure. Trace pulmonic regurgitation. Great Vessels The aortic root is normal in size. The ascending aorta is not well-visualized. IVC is normal in size and collapses >50% with inspiration. Pericardium There is no pericardial effusion. Other Information Study Quality: Fair Conclusion Mildly reduced LV systolic function (LVEF 45%). Septum is asynchronous. The LV apex appears severely hypokinetic. Mild RV dilation with mild reduction in RV function. Severe biatrial dilation. s/p MVR. Mild MR. MV parameters are overall acceptable and unchanged from prior. Moderate TR. Elevated RVSP 45-50 mmHg. The prior study from 01/26/2022, the LVEF is down slightly further reduced. The MVR parameters are overall unchanged. Future TTE's are recommended to be performed with ultrasound enhancing agent to visualize the LV apex in the setting of LV apical hypokinesis (to conclusively rule out LV apical thrombus). Electronically signed by : China Brock MD 08/18/2023 22:27:54
== END 2023-08-13 23:59 | disposition home or self-care (01) ==
PROVIDERS: PCP Internal Medicine Adolescent Medicine; Visit Provider Physician Assistant
DX: I25.10 Atherosclerotic heart disease of native coronary artery without angina pectoris (principal); I48.91 Unspecified atrial fibrillation
CPT/HCPCS: 93306

== ENCOUNTER 2023-09-04 15:12 | Outpatient (CLI) | payer MEDICARE, SELFPAY ==
--- NOTE | 2023-09-04 15:16 | CA_ITS ---
APPROVED REPORT EXAM: Limited 2D Echocardiogram with contrast Corporate Travel Counselor: Adamaris Power CRT Ht: 5 ft 4 in Wt: 125lbs BSA: 1.60 BP: 123/66 mmHg Indications: EF / THROMBUS EVAL WITH DEFINITY Echo Enhancing Agent Indication: Rule out thrombus Agent(s) / Amount(s) Used: Definity 2 cc Other Information Study Quality: Adequate Conclusion This is a limited TTE to evaluate for LV thrombus in the setting of apical akinesis. Limited windows were obtained. Ultrasound enhancing agent is administered. The left ventricle is normal in size. There is increased LV wall thickness. The LV apex appears akinetic. LVEF is 45%. Administration of ultrasound enhancing agent does not demonstrate any evidence of LV thrombus. Electronically signed by : China Brock MD 09/04/2023 22:12:46
[2023-09-04] MEDS: DEFINITY US ECHO CONTRAST 2ML INJ 2 MG IV (15:44)
== END 2023-09-04 23:59 | disposition home or self-care (01) ==
LOC: RT 15:13
PROVIDERS: PCP Internal Medicine Adolescent Medicine; Visit Provider Physician Assistant
DX: I51.89 Other ill-defined heart diseases (principal); Z95.3 Presence of xenogenic heart valve; Z95.810 Presence of automatic (implantable) cardiac defibrillator; M79.2 Neuralgia and neuritis, unspecified; R20.0 Anesthesia of skin
CPT/HCPCS: 93308; Q9957

== ENCOUNTER 2023-12-09 12:55 | Emergency (ER) | payer MEDICARE, SELFPAY ==
[2023-12-09 12:57] VITALS: BP 155/92; PULSE 71; RESP 18; TEMP 37.1; O2SAT 96; BMI 20.6
[2023-12-09 13:30] VITALS: BP 147/87; PULSE 71; O2SAT 97
--- NOTE | 2023-12-09 13:31 | CT_ITS ---
PROCEDURE INFORMATION: Exam: CT Lumbar Spine Without Contrast Exam date and time: 12/09/2023 2:42 PM Age: 88 years old Clinical indication: Injury or trauma; Fall; Blunt trauma (contusions or hematomas); Additional info: Fall, right rib pain TECHNIQUE: Imaging protocol: Computed tomography of the lumbar spine without contrast. Radiation optimization: All CT scans at this facility use at least one of these dose optimization techniques: automated exposure control; mA and/or kV adjustment per patient size (includes targeted exams where dose is matched to clinical indication); or iterative reconstruction. COMPARISON: CT THORACIC SPINE WO CON 12/09/2023 2:42 PM FINDINGS: Bones/joints: generalized osteopenia. Lumbar spondylosis with multilevel disc degeneration. Mild compression fracture deformity L3. Findings chronic. Transitional L5 vertebral segment. Kidneys and ureters: 4.5 cm right renal cyst partially visualized Vasculature: Scattered regions of atherosclerotic vascular calcification within the abdominal aorta and common iliac arteries. Soft tissues: Unremarkable. IMPRESSION: No evidence of acute osseous injury COMMENTS: Consistent with the [employer]'s Incidental Findings Committee white paper (J Am Milo Radiol 2018): Any incidental renal lesion less than 1 cm or classified as too small to characterize, or any incidental cystic renal lesion characterized as simple-appearing, is likely benign. No follow-up imaging is recommended for these lesions per consensus recommendations based on imaging criteria.
--- NOTE | 2023-12-09 13:31 | CT_ITS ---
PROCEDURE INFORMATION: Exam: CT Cervical Spine Without Contrast Exam date and time: 12/09/2023 2:33 PM Age: 88 years old Clinical indication: Injury or trauma; Fall; Blunt trauma; Additional info: Fall, right rib pain TECHNIQUE: Imaging protocol: Computed tomography of the cervical spine without contrast. Radiation optimization: All CT scans at this facility use at least one of these dose optimization techniques: automated exposure control; mA and/or kV adjustment per patient size (includes targeted exams where dose is matched to clinical indication); or iterative reconstruction. COMPARISON: CT HEAD/BRAIN WO CON 12/09/2023 2:33 PM FINDINGS: Bones: No acute fracture of the cervical spine. No subluxation or dislocation of the cervical spine. C6 and C7 are fused. Intervertebral disc space narrowing C5/C6 may represent degenerative disc disease.. Anterior osteophyte formation C5/C6. Posterior osteophyte formation C4 through C6. Degenerative changes in the facets at multiple levels. Degenerative changes at C1/C2. Degenerative changes in the temporomandibular joints Lungs: Lung apices are normal. Thyroid: The thyroid is heterogeneous and contains calcifications Soft tissues: Unremarkable. IMPRESSION: 1. No acute fracture of the cervical spine. 2. No subluxation or dislocation of the cervical spine. 3. Intervertebral disc space narrowing C5/C6 may represent degenerative disc disease..
--- NOTE | 2023-12-09 13:31 | CT_ITS ---
PROCEDURE INFORMATION: Exam: CT Head Without Contrast Exam date and time: 12/09/2023 2:33 PM Age: 88 years old Clinical indication: Injury or trauma; Fall; Blunt trauma (contusions or hematomas); Additional info: Fall, right rib pain TECHNIQUE: Imaging protocol: Computed tomography of the head without contrast. Radiation optimization: All CT scans at this facility use at least one of these dose optimization techniques: automated exposure control; mA and/or kV adjustment per patient size (includes targeted exams where dose is matched to clinical indication); or iterative reconstruction. COMPARISON: CT CERVICAL SPINE WO CON 12/09/2023 2:33 PM FINDINGS: Brain: No acute intracranial hemorrhage.. There is mild diffuse heterogeneity of the white matter attenuation, consistent with chronic white matter ischemic changes. Mild cerebral atrophy. Remote lacunar infarction in the left thalamus Cerebral ventricles: No ventriculomegaly. Paranasal sinuses: Visualized sinuses are unremarkable. No fluid levels. Mastoid air cells: Visualized mastoid air cells are well aerated. Bones: Unremarkable. No acute fracture. Soft tissues: Unremarkable. IMPRESSION: No acute intracranial hemorrhage..
--- NOTE | 2023-12-09 13:31 | XR_ITS ---
PROCEDURE INFORMATION: Exam: XR Chest Exam date and time: 12/09/2023 2:48 PM Age: 88 years old Clinical indication: Injury or trauma; Fall; Blunt trauma (contusions or hematomas); Additional info: Fall right rib pain TECHNIQUE: Imaging protocol: Radiologic exam of the chest. Views: 1 view. COMPARISON: CT CHEST W CON 12/09/2023 2:46 PM FINDINGS: Tubes, catheters and devices: The pacemaker device. Left atrial appendage occlusion device Lungs: Bilateral ground-glass regions of opacification. Findings nonspecific however most likely reflect interstitial lung disease. An acute inflammatory process could not be entirely excluded. Pleural spaces: Unremarkable. No pleural effusion. No pneumothorax. Heart/Mediastinum: Cardiomegaly Bones/joints: Unremarkable. IMPRESSION: No evidence of acute cardiopulmonary disease.
--- NOTE | 2023-12-09 13:31 | CT_ITS ---
PROCEDURE INFORMATION: Exam: CT Chest With Contrast; Diagnostic Exam date and time: 12/09/2023 2:46 PM Age: 88 years old Clinical indication: Injury or trauma; Fall; Blunt trauma (contusions or hematomas); Additional info: Fall, right rib pain, suspected fracture TECHNIQUE: Imaging protocol: Diagnostic computed tomography of the chest with contrast. Radiation optimization: All CT scans at this facility use at least one of these dose optimization techniques: automated exposure control; mA and/or kV adjustment per patient size (includes targeted exams where dose is matched to clinical indication); or iterative reconstruction. Contrast material: ISOVUE; Contrast volume: 75 ml; Contrast route: IV; COMPARISON: CR XR CHEST PORTABLE 08/29/2022 2:50 PM FINDINGS: Tubes, catheters and devices: pacemaker device Lungs: Bilateral ground-glass regions of opacification. Findings nonspecific however most likely reflect interstitial lung disease. An acute inflammatory process could not be entirely excluded. Bibasilar atelectasis versus parenchymal scarring. Pleural spaces: Unremarkable. No pneumothorax. No pleural effusion. Heart: Unremarkable. No cardiomegaly. No pericardial effusion. Coronary arteries: CABG Lymph nodes: Unremarkable. No enlarged lymph nodes. Vasculature: Prominence of the main pulmonary artery. Clinically correlate regarding pulmonary arterial hypertension. There is suboptimal opacification of pulmonary arteries due to contrast bolus timing. Bones/joints: Sternotomy. Generalized osteopenia Soft tissues: Unremarkable. IMPRESSION: 1. No large or central pulmonary embolus. Evaluation of the peripheral pulmonary arteries is limited. 2. No evidence of acute intrathoracic abnormality.
--- NOTE | 2023-12-09 13:31 | CT_ITS ---
PROCEDURE INFORMATION: Exam: CT Thoracic Spine Without Contrast Exam date and time: 12/09/2023 2:42 PM Age: 88 years old Clinical indication: Injury or trauma; Fall; Blunt trauma (contusions or hematomas); Additional info: Fall, right rib pain TECHNIQUE: Imaging protocol: Computed tomography of the thoracic spine without contrast. Radiation optimization: All CT scans at this facility use at least one of these dose optimization techniques: automated exposure control; mA and/or kV adjustment per patient size (includes targeted exams where dose is matched to clinical indication); or iterative reconstruction. COMPARISON: CT LUMBAR SPINE WO CON 12/09/2023 2:42 PM FINDINGS: Bones/joints: Osteopenia. Thoracic spondylosis with multilevel disc degeneration. Soft tissues: Unremarkable. IMPRESSION: No evidence of acute osseous injury.
--- NOTE | 2023-12-09 13:31 | CT_ITS ---
PROCEDURE INFORMATION: Exam: CT Abdomen And Pelvis With Contrast; Adrenals Exam date and time: 12/09/2023 2:46 PM Age: 88 years old Clinical indication: Injury or trauma; Fall; Blunt; Ruq; Additional info: Fall, right rib pain, suspected fracture TECHNIQUE: Imaging protocol: Computed tomography of the abdomen and pelvis with intravenous contrast. Exam focused on the adrenals. Radiation optimization: All CT scans at this facility use at least one of these dose optimization techniques: automated exposure control; mA and/or kV adjustment per patient size (includes targeted exams where dose is matched to clinical indication); or iterative reconstruction. Contrast material: ISOVUE; Contrast volume: 75 ml; Contrast route: IV; COMPARISON: CT ANGIO ABDOMEN/FEMORAL 02/03/2021 4:28 PM FINDINGS: Lungs: Bibasilar atelectasis versus parenchymal scarring. Liver: Decreased density throughout the liver compatible with hepatic steatosis. Hepatic cyst right lobe of the liver again demonstrated Gallbladder and biliary ducts: Cholelithiasis Pancreas: Pancreas unremarkable Spleen: The spleen is unremarkable. Adrenal glands: Adrenal glands unremarkable. Kidneys: Bilateral renal cysts Stomach and bowel: Mild stool burden. Colonic diverticulosis. No evidence of diverticulitis. Appendix: Appendix unremarkable Intraperitoneal space: Unremarkable. No free air. No significant fluid collection. Lymph nodes: Unremarkable. No enlarged lymph nodes. Vasculature: Scattered regions of atherosclerotic vascular calcification within the abdominal aorta and common iliac arteries. Urinary bladder: Unremarkable. Reproductive: Unremarkable. Bones/joints: Unremarkable. No acute fracture. No dislocation. Soft tissues: Fat filled inguinal hernia IMPRESSION: No evidence of acute abnormality. COMMENTS: Consistent with the [employer]'s Incidental Findings Committee white paper (J Am Milo Radiol 2018): Any incidental renal lesion less than 1 cm or classified as too small to characterize, or any incidental cystic renal lesion characterized as simple-appearing, is likely benign. No follow-up imaging is recommended for these lesions per consensus recommendations based on imaging criteria.
--- NOTE | 2023-12-09 13:46 | ECG_ITS ---
APPROVED REPORT Exam: Resting ECG HR:70 bpm ECG Measurements Heart Rate 70 AXES QRSd 186 QRS -78 QT 455 T 103 QTc 475 Conclusion ELECTRONIC VENTRICULAR PACEMAKER ABNORMAL RHYTHM ECG UNCONFIRMED REPORT Electronically signed by : INÉS STARK, 12/10/2023 05:27:03
[2023-12-09] MEDS: ONDANSETRON 4MG/2ML VIAL 4 MG IV (14:02)
[2023-12-09] MEDS: MORPHINE 4MG/ML SYRINGE 4 MG IV (14:02)
[2023-12-09 14:04] LABS: Basophils % 0.8 % (0.1-2.0); Eosinophils # 0.1 K/mm3 (0.0-0.4); Eosinophils % 2.3 % (0.1-12.0); Hematocrit 45.7 % (37.0-47.0); Hemoglobin 15.1 g/dL (12.2-16.2); Lymphocytes # 0.7 K/mm3 (0.7-4.5); Lymphocytes % 12.6 % (10-50); Mean Corpuscular Hemoglobin 31.3 pg (27.0-31.2); Mean Corpuscular Volume 94.8 fl (81-99); Mean Platelet Volume 8.3 fl (7.4-10.4); Monocytes # 0.4 K/mm3 (0.1-1.0); Neutrophils # 4.2 K/mm3 (1.8-7.8); Neutrophils % 76.3 % (37.0-80.0); Platelet Count 94 K/mm3 (142-424); Red Blood Count 4.82 M/mm3 (4.20-5.40); Red Cell Distribution Width 19.5 % (11.5-17.5); White Blood Count 5.4 K/mm3 (4.8-10.8)
--- NOTE | 2023-12-09 14:12 | PC.NURSE ---
pt resting in room no call light in reach
[2023-12-09 14:14] LABS: Blood Urea Nitrogen 15 mg/dl (7-17); Calcium 9.4 mg/dl (8.4-10.2); Carbon Dioxide 29 mmol/L (22.0-30.0); Chloride 101 mmol/L (98-107); Creatinine Clearance Estimated 32 mL/min (50-200); Estimated Glomerular Filt Rate 47 ml/min (>60); GFR (African American) 57 ML/MIN (>60); Glucose 134 mg/dl (74-100); Sodium 140 mmol/L (136-145)
[2023-12-09] MEDS: SODIUM CHLORIDE 0.9% 10ML SYR (RAD ONLY) 10 ML IV (14:43)
[2023-12-09] MEDS: IOPAMIDOL-370 (76%);100ML BOTTLE 75 ML IV (14:44)
[2023-12-09 14:47] LABS: Troponin I < 0.01 ng/ml (0.00-0.034)
[2023-12-09 15:01] VITALS: BP 178/99; PULSE 90; O2SAT 97
--- NOTE | 2023-12-09 15:17 | ED_ITS ---
<Statement entered by Nilda Peraza MD - 12/09/23 22:41> I was consulted by the JANEE, and we discussed the complexity of the problems being addressed. I approved the treatment and management plan for this patient's care in the emergency department, thus performing a substantive portion of the medical decision making. Nilda Peraza MD, KENDALL, FACEP Discharge Plan Disposition Chief Complaint: Fall Prescriptions Prescriptions: No Action metoprolol tartrate 100 mg tablet 100 mg PO BID olopatadine 0.6 % spray,non-aerosol 1 spray INTRANASAL ONCE PRN (Reason: .) ondansetron HCl [Zofran] 4 mg tablet 4 mg PO Q8H PRN (Reason: nausea and vomiting) Qty: 20 1RF famotidine 20 mg tablet 20 mg PO DAILY digoxin 125 mcg (0.125 mg) tablet 0.125 mg PO DAILY spironolactone 25 mg tablet 25 mg PO BID Qty: 60 5RF levothyroxine 100 MCG tablet 100 mcg PO DAILY losartan 100 MG tablet 100 mg PO DAILY atorvastatin 40 MG tablet 40 mg PO HS clopidogrel 75 MG tablet 75 mg PO DAILY aspirin 81 mg Capsule 81 mg PO DAILY Qty: 30 0RF Referrals Follow up/Referrals: Hood Paredes MD [Primary Care Provider] - See instructions Print Language Print Language: Welsh Discharge ED Provider: Pascual Ng General Adult HPI General Chief complaint: Fall Stated complaint: fall R back side soa 12/08 Time Seen by Provider: 12/09/23 13:08 Mode of Arrival: Ambulatory Source of Information: Patient Limitations: No Limitations Description of Symptoms (Recalled from ER Triage Doc. by RN): Patient fell getting out of the shower this morning. Patient is c/o of right side pain located where her ribs are. Patient denies hitting her head, or LOC. Patient states it hurts when she takes a deep breath. History of Present Illness HPI narrative: 88yoF patient presents with a chief complaint of Right-sided rib pain following a fall. She reports slipping and falling in bathtub but denies any loss of consciousness or passing out. Denies hitting her head. She denies any other pain, including neck pain, head pain, vision changes, chest pain, shortness of breath, belly pain, and nausea. The patient states that he has difficulty breathing due to the pain but is otherwise able to breathe normally. Please note that above description of symptoms, in this electronic medical record under categorization of recalled from ER triage doctor by RN are reflective of an initial nursing assessment, however, is not reflective of my full history and physical exam that was personally taken and clarified. Consequentially, this preceding description of symptoms, which may include the patient's categorized chief complaint in the EMR, do not reflect my personal clinical impression, and the ultimate description of history of present illness and patient stated complaints should be deferred to this section of the note. Unless stated otherwise or congruent with this section of the note, additional signs, symptoms, or incongruence should be interpreted as inaccurate with my clinical impression. Related Data Home Medications ?Medication ?Instructions ?Recorded ?Confirmed metoprolol tartrate 100 mg tablet 100 mg PO BID Heart disease 03/27/18 08/05/23 levothyroxine 100 mcg tablet 100 mcg PO DAILY THYROID 02/04/21 08/05/23 losartan 100 mg tablet 100 mg PO DAILY BLOOD PRESSURE 02/04/21 08/05/23 olopatadine 0.6 % nasal spray 1 spray intranasal ONCE PRN . 05/26/21 08/05/23 atorvastatin 40 mg tablet 40 mg PO HS Cholesterol 02/06/22 08/05/23 clopidogrel 75 mg tablet 75 mg PO DAILY CAD 02/06/22 08/05/23 digoxin 125 mcg (0.125 mg) tablet 0.125 mg PO DAILY 08/05/23 08/05/23 famotidine 20 mg tablet 20 mg PO DAILY 08/05/23 08/05/23 Previous Rx's ?Medication ?Instructions ?Recorded ondansetron HCl 4 mg tablet 4 mg PO Q8H PRN nausea and 04/08/17 (Zofran) vomiting #20 tabs spironolactone 25 mg tablet 25 mg PO BID High blood pressure 06/26/21 #60 tabs aspirin 81 mg capsule 81 mg PO DAILY #30 caps 02/06/22 Allergies Allergy/AdvReac Type Severity Reaction Status Date / Time codeine Allergy Intermediate DEATHLY Verified 08/05/23 09:27 SICK amiodarone Allergy Mild tongue Verified 08/05/23 09:27 tingling oxycodone [From Percocet] AdvReac Nausea Verified 08/05/23 09:27 [facility] Disclaimer: The information contained in this section may have been updated after the patient was seen, as this information can be updated by other users. Medical History Syncope Typical angina Left leg numbness Carotid artery stenosis Surgical History History of cardiac cath History of heart artery stent Social History Smoking Status: Never smoker alcohol intake: never substance use type: denies use current occupational status: retired Travel in the last 8 weeks: Inside the [place] household members: none housing: house caffeine: No Other Medical History Have you received the Flu Vaccine for this season: No Have you received the Pneumonia Vaccine: Yes ROS Obtained: Yes Systems reviewed as appropriate & no additional complaints except as documented Physical Exam General General appearance: alert and in no apparent distress Head Head exam: atraumatic and normocephalic Eye Eye exam: Present normal appearance and EOMI ENT ENT exam: Present normal exam Neck Neck exam: Present normal inspection Chest Chest inspection: Present normal inspection, symmetric chest wall rise and tenderness (Right lateral ribs tender to palpation, no noted flail chest, no noted bruising, no laceration or abrasion) Respiratory Respiratory exam: Present normal lung sounds bilaterally; Absent respiratory distress, wheezes or stridor Cardiovascular Cardiovascular exam: Present regular rate, normal rhythm and normal heart sounds Abdominal Exam Abdominal exam: Present soft and normal bowel sounds; Absent distention or tenderness Extremities Exam Extremities exam: Present normal inspection, full ROM, normal capillary refill and other (All compartments soft); Absent tenderness Back Exam Back exam: Present normal inspection Neurological Exam Neurological exam: Present alert, oriented X3 and CN II-XII intact; Absent motor sensory deficit Psychiatric Psychiatric exam: Present normal affect and normal mood Skin Skin exam: Present warm, dry, intact and normal color; Absent rash Medical Decision Making Medical Records Medical records reviewed: Yes I reviewed the patient's medical records. Screening: Per USPSTF and CDC recommendations, given the prevalence of disease in our region, it is our hospital?s policy to screen for HIV and viral Hepatitis for all patients aged 18 and over and those with ongoing risk factors. Alan Inquiry Pt receiving controlled substance: No Alan was queried for this patient: No Vital Signs: 12/09/23 12:57 12/09/23 13:30 12/09/23 15:01 Temperature 98.7 F Temperature Source Oral Pulse Rate 71 90 Pulse Rate [Right Brachial] 71 Respiratory Rate 18 Blood Pressure 147/87 H 178/99 H Blood Pressure [Right Arm] 155/92 H Blood Pressure Mean [Right Arm] 113 Blood Pressure Source [Right Arm] Automatic Cuff Blood Pressure Position [Right Arm] Supine 02 Sat by Pulse Oximetry 96 97 97 Oxygen Delivery Method Room Air Room Air Room Air Lab Data Lab Results 12/09/23 13:53: WBC 5.4, RBC 4.82, Hgb 15.1, Hct 45.7, MCV 94.8, MCH 31.3 H, MCHC 33.0, RDW 19.5 H, Plt Count 94 L, MPV 8.3, Neut % (Auto) 76.3, Lymph % (Auto) 12.6, [place]in[place] % (Auto) 8.0, Eos % (Auto) 2.3, Baso % (Auto) 0.8, Neut # (Auto) 4.2, Lymph # (Auto) 0.7, [place] # (Auto) 0.4, Eos # (Auto) 0.1, Baso # (Auto) 0.0, Sodium 140, Potassium 4.0, Chloride 101, Carbon Dioxide 29, Anion Gap 14.0, BUN 15, Creatinine 1.10 H, Estimated Creat Clear 32, Estimated GFR 47 L, Est GFR ( Amer) 57 L, Glucose 134 H, Calcium 9.4, Troponin I < 0.01 12/09/23 13:53 12/09/23 13:53 Orders (Tests/Meds): ED MEDICATIONS Discontinued Medications Generic Name Dose Route Start Last Admin Trade Name Freq PRN Reason Stop Dose Admin Iopamidol 75 ml 12/09/23 14:43 12/09/23 14:44 Iopamidol-370 (76%);100ml Bottle IV 12/09/23 14:44 75 ml ONCE ONE Administration Morphine Sulfate 4 mg 12/09/23 13:31 12/09/23 14:02 Morphine 4mg/Ml Syringe IV 12/09/23 13:32 4 mg ONCE ONE Administration Ondansetron HCl 4 mg 12/09/23 13:31 12/09/23 14:02 Ondansetron 4mg/2ml Vial IV 12/09/23 13:32 4 mg ONCE ONE Administration Prochlorperazine Edisylate 10 mg 12/09/23 15:16 12/09/23 15:23 Prochlorperazine 10mg/2ml Vial IV 12/09/23 15:17 10 mg ONCE ONE Administration Sodium Chloride 10 ml 12/09/23 14:43 12/09/23 14:43 Sodium Chloride 0.9% 10ml Syr (Rad Only) IV 12/09/23 14:44 10 ml ONCE ONE Administration ORDERS Category Date Time Status CT abdomen pelvis w con Stat Cat Scan 12/09/23 13:[address] cervical spine wo con Stat Cat Scan 12/09/23 13:[address] chest w con Stat Cat Scan 12/09/23 13:[address] head/brain wo con Stat Cat Scan 12/09/23 13:[address] lumbar spine wo con Stat Cat Scan 12/09/23 13:[address] thoracic spine wo con Stat Cat Scan 12/09/23 13:31 Taken Chest XR -- portable [XR chest portable] Stat Exams 12/09/23 13:31 Taken BMP [Basic Metabolic Panel] Stat Lab 12/09/23 13:53 Completed CBC w/Auto Diff [Complete Blood Count Auto Diff] Stat Lab 12/09/23 13:53 Completed Troponin I Q3H Lab 12/09/23 13:53 Completed Troponin I Q3H Lab 12/09/23 16:45 Ordered ECG Data Tracing #1: V paced rhythm, 70 bpm, no noted ischemic findings Medical Decision Narrative: Patient with history and exam per above presenting for evaluation of right rib pain following mechanical fall in bathtub. Patient is on daily aspirin Diagnoses considered include rib fracture, pulmonary contusion, intracranial abnormality, spinous abnormality, intrathoracic abdominal or pelvic abnormality ED workup and treatment included: As above Labs were independently interpreted by me, significant for elevated creatinine however stable from baseline. No noted MERLINE. Electrolytes within normal limits, nonactionable BMP. No noted leukocytosis, no noted anemia. CBC nonactionable Imaging was independently visualized and interpreted by me, significant for Chest x-ray with no noted acute cardiopulmonary process, no noted rib fracture on image. Pacemaker noted CT imaging pending at time of signout. Please refer to radiology report for full details. My clinical impression at this time is most consistent with Fall, right-sided rib pain. Workup finalization pending at time of signout. Patient care signed over to Dr. Peraza pending workup resolution. Patient hemodynamically stable at time of signout Critical Care Critical Care Time Critical Care Time: Yes Attestation: On 12/09/23, the high probability of a clinically significant, sudden or life threatening deterioration of the following system(s) required my full and direct attention, intervention and personal management. The time I documented below is in addition to time spent performing reported procedures but includes the following listed in this critical care notation. Total Time Total Critical Care Time: 35
[2023-12-09] MEDS: PROCHLORPERAZINE 10MG/2ML VIAL 10 MG IV (15:23)
[2023-12-09 15:30] VITALS: BP 146/88; PULSE 86; O2SAT 94
[2023-12-09 16:00] VITALS: BP 159/92; PULSE 81; O2SAT 95
[2023-12-09 17:17] VITALS: BP 170/86; PULSE 81; RESP 16; TEMP 37.1; O2SAT 95
[2023-12-09] MEDS: LIDOCAINE 5% TRANSDERMAL PATCH 1 EACH TP (17:18)
== END 2023-12-09 17:18 | disposition home or self-care (01) ==
PROVIDERS: Emergency Provider Student in an Organized Health Care Education/Training Program; PCP Internal Medicine Adolescent Medicine
DX: S20.219A Contusion of unspecified front wall of thorax, initial encounter (principal); R07.82 Intercostal pain; W18.2XXA Fall in (into) shower or empty bathtub, initial encounter; Y93.89 Activity, other specified; Y92.002 Bathroom of unspecified non-institutional (private) residence as the place of occurrence of the external cause
CPT/HCPCS: 70450; 71045; 71260; 72125; 72128; 72131; 74177; 80048; 84484; 85025; 93005; 96374; 96375; 99291; J0780; J2270; J2405; Q9967

== ENCOUNTER 2023-12-12 06:26 | Observation (INO) | payer MEDICARE, SELFPAY ==
[2023-12-12] VITALS (14 sets, daily range): BP systolic 150–204; BP diastolic 87–111; PULSE 69–107; RESP 16–20; TEMP 36.4–36.7; O2SAT 95–97; BMI 21.2; BMI 20.8
--- NOTE | 2023-12-12 06:45 | PC.NURSE ---
Pt states she fell on Saturday and has right rib pain. Was seen at the time of that incident and treated. Pt states Morphine she was given made her vomit. Now having HTN and vomiting. Skin pink warm and dry. Resp full and easy. Speech clear and appropriate. Son at bedside
[2023-12-12 07:18] LABS: Basophils # 0.1 K/mm3 (0-0.2); Basophils % 0.6 % (0.1-2.0); Eosinophils % 0.4 % (0.1-12.0); Hematocrit 48.6 % (37.0-47.0); Hemoglobin 16.1 g/dL (12.2-16.2); Lymphocytes # 0.9 K/mm3 (0.7-4.5); Lymphocytes % 11.9 % (10-50); Mean Corpuscular HGB Conc 33.1 g/dL (31.8-35.4); Mean Corpuscular Hemoglobin 31.3 pg (27.0-31.2); Mean Corpuscular Volume 94.5 fl (81-99); Mean Platelet Volume 8.6 fl (7.4-10.4); Monocytes # 0.5 K/mm3 (0.1-1.0); Monocytes % 6.9 % (1.7-9.3); Neutrophils # 6.2 K/mm3 (1.8-7.8); Neutrophils % 80.1 % (37.0-80.0); Platelet Count 103 K/mm3 (142-424); Red Blood Count 5.14 M/mm3 (4.20-5.40); Red Cell Distribution Width 19.1 % (11.5-17.5); White Blood Count 7.8 K/mm3 (4.8-10.8)
[2023-12-12 07:21] LABS: Albumin Level 4.3 g/dl (3.5-5.0); Chloride 104 mmol/L (98-107); Potassium 4.1 mmoL/L (3.5-5.1); Sodium 139 mmol/L (136-145)
[2023-12-12 07:23] LABS: Alanine Aminotransferase 19 U/L (12-78); Anion Gap 11.1 mEq/L (5-15); Aspartate Amino Transferase 26 U/L (14-36); Blood Urea Nitrogen 19 mg/dl (7-17); Carbon Dioxide 28 mmol/L (22.0-30.0); Creatinine Clearance Estimated 32 mL/min (50-200); Estimated Glomerular Filt Rate 47 ml/min (>60); GFR (African American) 57 ML/MIN (>60)
[2023-12-12 07:24] LABS: Albumin/Globulin Ratio 1.6 (1.1-1.8); Alkaline Phosphatase 56 U/L (38-126); Bilirubin,Total 1.5 mg/dl (0.2-1.3); Calcium 9.6 mg/dl (8.4-10.2); Globulin 2.7 g/dL (1.3-3.2); Glucose 166 mg/dl (74-100); Lipase 98 U/L (23-300); Magnesium 1.8 mg/dl (1.6-2.3)
[2023-12-12] MEDS: KETOROLAC 30MG/ML VIAL 15 MG IV (07:33)
[2023-12-12] MEDS: ONDANSETRON 4MG/2ML VIAL 4 MG IV ×2 (07:33→15:29)
[2023-12-12] MEDS: FAMOTIDINE 20MG/2ML VIAL 20 MG IV (07:33)
--- NOTE | 2023-12-12 07:38 | HMH.EDGENADL ---
Discharge Plan Disposition Patient Disposition: Home, Self-Care Prescriptions Prescriptions: New ondansetron 4 mg tablet,disintegrating 4 mg PO Q6H PRN (Reason: nausea and vomiting) Qty: 10 0RF No Action metoprolol tartrate 100 mg tablet 100 mg PO BID olopatadine 0.6 % spray,non-aerosol 1 spray INTRANASAL ONCE PRN (Reason: .) ondansetron HCl [Zofran] 4 mg tablet 4 mg PO Q8H PRN (Reason: nausea and vomiting) Qty: 20 1RF famotidine 20 mg tablet 20 mg PO DAILY digoxin 125 mcg (0.125 mg) tablet 0.125 mg PO DAILY spironolactone 25 mg tablet 25 mg PO BID Qty: 60 5RF levothyroxine 100 MCG tablet 100 mcg PO DAILY losartan 100 MG tablet 100 mg PO DAILY atorvastatin 40 MG tablet 40 mg PO HS clopidogrel 75 MG tablet 75 mg PO DAILY aspirin 81 mg Capsule 81 mg PO DAILY Qty: 30 0RF Referrals Follow up/Referrals: Provider,Referral, MD [Primary Care Provider] - See instructions Activity Restrictions/Add. Instructions Additional Instructions/Restrictions: Call your family doctor to establish care for this visit to the emergency department and schedule follow-up within 48 hours to ensure improvement. If you have any worsening of your condition or any other concerning signs or symptoms, return to the emergency department or your primary care doctor for further evaluation. Clinical Impressions Clinical Impression: Nausea & vomiting, Acute dehydration Print Language Print Language: Lithuanian Discharge ED Provider: Prakash Whitten General Adult HPI General Chief complaint: Headache Stated complaint: vomiting, hi bp, saldaña Time Seen by Provider: 12/12/23 06:59 Mode of Arrival: Wheelchair Source of Information: Patient Limitations: No Limitations Description of Symptoms (Recalled from ER Triage Doc. by RN): Pt states she fell Saturday and has right rib pain Has been vomiting since given Morphine Now having HTN and headache History of Present Illness HPI narrative: Please note that above description of symptoms, in this electronic medical record under categorization of recalled from ER triage doctor by RN are reflective of an initial nursing assessment, however, is not reflective of my full history and physical exam that was personally taken and clarified. Consequentially, this preceding description of symptoms, which may include the patient's categorized chief complaint in the EMR, do not reflect my personal clinical impression, and the ultimate description of history of present illness and patient stated complaints should be deferred to this section of the note. Unless stated otherwise or congruent with this section of the note, additional signs, symptoms, or incongruence should be interpreted as inaccurate with my clinical impression. Related Data Home Medications ?Medication ?Instructions ?Recorded ?Confirmed metoprolol tartrate 100 mg tablet 100 mg PO BID Heart disease 03/27/18 08/05/23 levothyroxine 100 mcg tablet 100 mcg PO DAILY THYROID 02/04/21 08/05/23 losartan 100 mg tablet 100 mg PO DAILY BLOOD PRESSURE 02/04/21 08/05/23 olopatadine 0.6 % nasal spray 1 spray intranasal ONCE PRN . 05/26/21 08/05/23 atorvastatin 40 mg tablet 40 mg PO HS Cholesterol 02/06/22 08/05/23 clopidogrel 75 mg tablet 75 mg PO DAILY CAD 02/06/22 08/05/23 digoxin 125 mcg (0.125 mg) tablet 0.125 mg PO DAILY 08/05/23 08/05/23 famotidine 20 mg tablet 20 mg PO DAILY 08/05/23 08/05/23 Previous Rx's ?Medication ?Instructions ?Recorded ondansetron HCl 4 mg tablet 4 mg PO Q8H PRN nausea and 04/08/17 (Zofran) vomiting #20 tabs spironolactone 25 mg tablet 25 mg PO BID High blood pressure 06/26/21 #60 tabs aspirin 81 mg capsule 81 mg PO DAILY #30 caps 02/06/22 ondansetron 4 mg disintegrating 4 mg PO Q6H PRN nausea and 12/12/23 tablet vomiting #10 tabs Allergies Allergy/AdvReac Type Severity Reaction Status Date / Time codeine Allergy Intermediate DEATHLY Verified 08/05/23 09:27 SICK amiodarone Allergy Mild tongue Verified 08/05/23 09:27 tingling oxycodone [From Percocet] AdvReac Nausea Verified 08/05/23 09:[address] [facility] Disclaimer: The information contained in this section may have been updated after the patient was seen, as this information can be updated by other users. Medical History Syncope Typical angina Left leg numbness Carotid artery stenosis Surgical History History of cardiac cath History of heart artery stent Social History Smoking Status: Unknown if ever smoked alcohol intake: never substance use type: denies use current occupational status: retired Travel in the last 8 weeks: Inside the [place] household members: none housing: house caffeine: No Other Medical History Have you received the Flu Vaccine for this season: No Have you received the Pneumonia Vaccine: Yes ROS Obtained: Yes All systems reviewed & no additional complaints except as documented Physical Exam General General appearance: alert Head Head exam: atraumatic and normocephalic Eye Eye exam: Present normal appearance, PERRL and EOMI Neck Neck exam: Present normal inspection, full ROM and trachea midline Respiratory Respiratory exam: Absent respiratory distress, wheezes, stridor, accessory muscle use or prolonged expiratory phase Cardiovascular Cardiovascular exam: Present other (Pulses equal symmetric in upper and lower extremities) Abdominal Exam Abdominal exam: Present soft; Absent distention, tenderness or pulsatile mass Extremities Exam Extremities exam: Absent edema Neurological Exam Neurological exam: Present alert, oriented X3 and CN II-XII intact; Absent motor sensory deficit Skin Skin exam: Present warm and dry; Absent diaphoresis or erythema Medical Decision Making Medical Records Medical records reviewed: Yes I reviewed the patient's medical records. Screening: Per USPSTF and CDC recommendations, given the prevalence of disease in our region, it is our hospital?s policy to screen for HIV and viral Hepatitis for all patients aged 18 and over and those with ongoing risk factors. Alan Inquiry Pt receiving controlled substance: No Alan was queried for this patient: No Vital Signs: 12/12/23 06:36 12/12/23 07:01 Temperature 97.6 F Temperature Source Oral Pulse Rate 99 H Pulse Rate [Right Brachial] 107 H Respiratory Rate 20 Blood Pressure 174/104 H Blood Pressure [Right Arm] 184/111 H Blood Pressure Mean [Right Arm] 135 Blood Pressure Source [Right Arm] Automatic Cuff Blood Pressure Position [Right Arm] Supine 02 Sat by Pulse Oximetry 96 96 Oxygen Delivery Method Room Air Lab Data Lab Results 12/12/23 06:47: WBC 7.8 D, RBC 5.14, Hgb 16.1, Hct 48.6 H, MCV 94.5, MCH 31.3 H, MCHC 33.1, RDW 19.1 H, Plt Count 103 L, MPV 8.6, Neut % (Auto) 80.1 H, Lymph % (Auto) 11.9, Dent % (Auto) 6.9, Eos % (Auto) 0.4, Baso % (Auto) 0.6, Neut # (Auto) 6.2, Lymph # (Auto) 0.9, Dent # (Auto) 0.5, Eos # (Auto) 0.0, Baso # (Auto) 0.1, Sodium 139, Potassium 4.1, Chloride 104, Carbon Dioxide 28, Anion Gap 11.1, BUN 19 H D, Creatinine 1.10 H, Estimated Creat Clear 32, Estimated GFR 47 L, Est GFR ( Amer) 57 L, Glucose 166 H, Calcium 9.6, Magnesium 1.8, Total Bilirubin 1.5 H, AST 26, ALT 19, Alkaline Phosphatase 56, Troponin I < 0.01, Total Protein 7.0, Albumin 4.3, Globulin 2.7, Albumin/Globulin Ratio 1.6, Lipase 98 12/12/23 06:47 12/12/23 06:47 Orders (Tests/Meds): ED MEDICATIONS Generic Name Dose Route Start Last Admin Trade Name Freq PRN Reason Stop Dose Admin Sodium Chloride 8 ml 12/12/23 07:08 Sodium Chloride 0.9% 10ml Vial IV 01/11/24 07:07 NEEDED PRN dilute pepcid Discontinued Medications Generic Name Dose Route Start Last Admin Trade Name Freq PRN Reason Stop Dose Admin Famotidine 20 mg 12/12/23 07:08 12/12/23 07:33 Famotidine 20mg/2ml Vial IV 12/12/23 07:09 20 mg ONCE ONE Administration Sodium Chloride 1,000 mls @ 999 mls/hr 12/12/23 08:04 12/12/23 08:11 Sod Chlor 0.9% 1000ml Bag IV 12/12/23 09:04 999 mls/hr .Q1H1M ONE Administration Ketorolac Tromethamine 15 mg 12/12/23 07:08 12/12/23 07:33 Ketorolac 30mg/Ml Vial IV 12/12/23 07:09 15 mg ONCE ONE Administration Metoprolol Tartrate 100 mg 12/12/23 08:30 12/12/23 08:57 Metoprolol Tartrate 50mg Tablet PO 12/12/23 08:31 100 mg ONCE ONE Administration Ondansetron HCl 4 mg 12/12/23 07:08 12/12/23 07:33 Ondansetron 4mg/2ml Vial IV 12/12/23 07:09 4 mg ONCE ONE Administration ORDERS Category Date Time Status CBC w/Auto Diff [Complete Blood Count Auto Diff] Stat Lab 12/12/23 06:47 Completed CMP [Comprehensive Metabolic Panel] Stat Lab 12/12/23 06:47 Completed HIV (1&2) Antibody Rapid Stat Lab 12/12/23 06:47 Received Hep C Ab with Reflex to RNA Stat Lab 12/12/23 06:47 Received Lipase Stat Lab 12/12/23 06:47 Completed Magnesium Stat Lab 12/12/23 06:47 Completed Trop I [Troponin I] Stat Lab 12/12/23 06:47 Completed Troponin I Q3H Lab 12/12/23 10:15 Ordered Troponin I Q3H Lab 12/12/23 13:15 Ordered Medical Decision Narrative: 88-year-old female history of hypertension, hyperlipidemia, CAD status post stenting, mitral valve replacement, paroxysmal A-fib presenting with vomiting. Patient was seen a couple days prior to this for a fall, she injured her ribs. Was given pain medications for home-going, has been vomiting ever since taking these pain meds. Has been unable to keep anything down meaningfully. Able to keep sips of liquids down, otherwise vomiting. Primarily in the setting of taking pain meds, but now in the absence of taking pain medications. Did not get any nausea meds for home-going. History obtained the patient and family. On arrival, patient hemodynamically stable, alert, oriented x4, appropriate, GCS 15, moving all extremities spontaneously, pupils equal and reactive to light. Full physical exam performed and significant for dry mucous membranes, but well-appearing female. No acute distress. Speaking full sentences, does not appear to be retching or nauseated. She is hypertensive and borderline tachycardic. Cardiopulmonary exam normal otherwise. Differential includes gastritis, enteritis, iatrogenic, pancreatitis, ACS, NE, among others. Patient placed on continuous cardiac monitoring and continuous pulse ox with initial blood pressure 184/111, heart rate 107, saturation 96% on room air. Patient was given fluid bolus, Pepcid, Toradol and Zofran for symptomatic management and correction of underlying abnormalities. Shortly thereafter was p.o. challenged successfully. Given home dose of metoprolol tartrate 100 mg. Workup independently interpreted and significant for mild MERLINE in the setting of CKD. Troponin negative. Lipase negative. On reevaluation, patient states she still feels nauseous, but tolerated p.o. intake, as well as home metoprolol. Remains neurologically intact. Abdomen on repeat exam soft, nontender, nondistended. Well-appearing, speaking in full sentences. She states that her insides feel shaky, reassurance was given. Given patient presentation, workup, history, this most likely represents gastritis versus iatrogenic nausea induced by pain medications. Because patient at baseline without signs or symptoms of clinical decompensation, deemed appropriate for discharge. Results were relayed to patient who voiced understanding and were agreeable to outpatient management and follow up. I discussed my clinical impression with patient and answered all questions. At this time, the evidence for any other entities in the differential is insufficient to warrant any further testing or ED observation. This was explained as well. Advisory was given that persistent or worsening symptoms require further evaluation. I confirmed the understanding of this discussion. Health Counselor disclaimer Much of this encounter note is an electronic employment recruiter spoken language to printed text. Electronic employment recruiter of the spoken language may permit errors. Although I have reviewed the note, some errors may still exist. Critical Care Critical Care Time Critical Care Time: No
--- NOTE | 2023-12-12 07:39 | PC.NURSE ---
I rounded on the pt and took her a cup of ice with permission from the MD. no new needs voiced. call chang in reach.
[2023-12-12 07:57] LABS: Troponin I < 0.01 ng/ml (0.00-0.034)
[2023-12-12] MEDS: 0.9 % SODIUM CHLORIDE 1000ML 1,000 ML 999 ML IV (08:11)
[2023-12-12] MEDS: METOPROLOL TARTRATE 50MG TABLET 100 MG PO (08:57)
--- NOTE | 2023-12-12 09:31 | PC.NURSE ---
dr enciso at bedside to reevaluate pt
--- NOTE | 2023-12-12 10:03 | PC.NURSE ---
While attempting to d/c pt she started feeling very nauseated. MD went bedside to talk to the pt and her son. Pt is attempting to eat some saltine crackers to see if they will help settle her stomach.
[2023-12-12] MEDS: ONDANSETRON 4MG ODT 4 MG SL (10:13)
--- NOTE | 2023-12-12 10:45 | ECG_ITS ---
APPROVED REPORT Exam: Resting ECG HR:79 bpm ECG Measurements Heart Rate 79 AXES QRSd 98 QRS 13 QT 382 T 269 QTc 416 Conclusion UNCERTAIN IRREGULAR RHYTHM ELECTRONIC VENTRICULAR PACEMAKER -- CONTOUR ANALYSIS BASED ON INTRINSIC RHYTHM ST DEVIATION AND MODERATE T-WAVE ABNORMALITY, CONSIDER ANTEROLATERAL ISCHEMIA [-0.1+ mV T-WAVE IN V3-V6] ST DEVIATION AND MODERATE T-WAVE ABNORMALITY, CONSIDER INFERIOR ISCHEMIA [-0.1+ mV T-WAVE IN II/aVF] ABNORMAL ECG UNCONFIRMED REPORT Electronically signed by : INÉS STARK, 12/14/2023 00:48:22
--- NOTE | 2023-12-12 10:54 | PC.NURSE ---
Dr. Whitten at bedside for pt update
[2023-12-12 11:09] LABS: HIV (1&2) Antibody Rapid NONREACTIVE (NONREACTIVE)
--- NOTE | 2023-12-12 11:46 | ECG_ITS ---
APPROVED REPORT Exam: Resting ECG HR:77 bpm ECG Measurements Heart Rate 77 AXES QRSd 87 QRS 3 QT 386 T -90 QTc 418 Conclusion UNCERTAIN IRREGULAR RHYTHM ELECTRONIC VENTRICULAR PACEMAKER -- CONTOUR ANALYSIS BASED ON INTRINSIC RHYTHM ST DEVIATION AND MARKED T-WAVE ABNORMALITY, CONSIDER ANTEROLATERAL ISCHEMIA [-0.5+ mV T-WAVE IN I/aVL/V3-V6] ST DEVIATION AND MODERATE T-WAVE ABNORMALITY, CONSIDER INFERIOR ISCHEMIA [-0.1+ mV T-WAVE IN II/aVF] ABNORMAL ECG UNCONFIRMED REPORT Electronically signed by : INÉS STARK, 12/14/2023 00:47:32
--- NOTE | 2023-12-12 11:54 | PC.NURSE ---
DR YOUNG SPEAKING WITH HOSPITALIST
--- NOTE | 2023-12-12 11:56 | CT_ITS ---
PROCEDURE INFORMATION: Exam: CT Abdomen And Pelvis With Contrast Exam date and time: 12/12/2023 12:32 PM Age: 88 years old Clinical indication: Abdominal pain; Epigastric; Additional info: Epigastric pain TECHNIQUE: Imaging protocol: Computed tomography of the abdomen and pelvis with contrast. Radiation optimization: All CT scans at this facility use at least one of these dose optimization techniques: automated exposure control; mA and/or kV adjustment per patient size (includes targeted exams where dose is matched to clinical indication); or iterative reconstruction. Contrast material: ISOVUE; Contrast volume: 75 ml; Contrast route: IV; COMPARISON: CT ABDOMEN PELVIS W CON 12/09/2023 2:46 PM FINDINGS: Tubes, catheters and devices: Pacemaker defibrillator leads identified overlying the chest, mediastinum. Lungs: Bilateral pulmonary linear interstitial opacities identified within lower lungs. The pulmonary opacities are most prominent within the lower left lung. Heart: Findings suggesting mitral valve replacement. Cardiac silhouette appears moderately enlarged. Coronary arteries: Coronary arterial calcifications are demonstrated. Liver: Liver demonstrates diffuse severe hypodensity. Liver appears heterogeneous with irregular border. Possible hepatic parenchymal disease. Gallbladder and biliary ducts: Cholelithiasis is demonstrated. Gallbladder findings suggesting potential questionable acute cholecystitis. Gallbladder is distended. Evidence for gallbladder wall thickening, enhancement with adjacent edema and fluid. Findings could be related to intrinsic gallbladder inflammation or hepatic, cardiac etiologies. No evidence for biliary dilatation. Pancreas: Unremarkable. Spleen: Unremarkable. No splenomegaly. Adrenal glands: Normal. No mass. Kidneys and ureters: The kidneys appear irregular with lobulated contours and areas of cortical thinning. Findings suggesting potential renal parenchymal disease. Bilateral simple appearing incidental renal cysts are demonstrated. Largest cyst within the lower pole right kidney measures 14 Hounsfield units and 5 cm on axial image 47. No visualized renal hydronephrosis. No visible renal calculi. Stomach and bowel: Moderate volume of colonic fecal material identified throughout colon. Generalized colonic diverticulosis is demonstrated. No definite visible evidence for focal acute diverticulitis. The bowel appears otherwise unremarkable. Appendix: The visualized appendix appears unremarkable. Intraperitoneal space: No free air. No significant fluid collection. Vasculature: Calcifications in the pelvis, most compatible with phleboliths. Moderate to severe atherosclerotic calcification demonstrated within the aorta. Moderate to severe diffuse atherosclerotic arterial vascular wall calcifications are demonstrated. Lymph nodes: No enlarged lymph nodes. Urinary bladder: Air is identified within the urinary bladder. Bladder appears otherwise unremarkable and contains simple appearing fluid. No secondary findings to suggest acute bladder infection, inflammation. Fluid in the bladder measures 20 Hounsfield units. Bladder is nondistended. Reproductive: The uterus is not present. Bones/joints: Sternotomy wires, hardware is demonstrated. Diffusely decreased bone density. Moderate to severe generalized bony degenerative changes. Multilevel disc and osteophyte complexes with moderate to severe central canal and foraminal narrowing. Bony structures appear otherwise unremarkable. Soft tissues: Mild diffuse generalized anasarca. Other findings: Limited study with motion artifact. IMPRESSION: 1. Severe hepatic steatosis. Nonspecific heterogeneous and irregular appearance of the liver. Recommend correlation with liver function tests. 2. Moderate enlarged cardiac silhouette. Postsurgical changes in the mediastinum. 3. Pulmonary atelectasis infiltrates or edema within lower chest bilaterally. 4. Questionable acute cholecystitis. Cholelithiasis. See above details. Recommend gallbladder ultrasound and consider surgical consultation. 5. Moderate degree constipation. Colonic diverticulosis. 6. Nonspecific air identified within otherwise unremarkable urinary bladder. Recommend clinical correlation for possible recent bladder catheterization. Infection or fistula are less likely differential considerations. 7. Bilateral renal cysts. 8. Chronic findings. Degenerative and postsurgical changes are demonstrated, as described above. COMMENTS: Consistent with the [employer]'s Incidental Findings Committee white paper (J Am Milo Radiol 2018): Any incidental renal lesion less than 1 cm or classified as too small to characterize, or any incidental cystic renal lesion characterized as simple-appearing, is likely benign. No follow-up imaging is recommended for these lesions per consensus recommendations based on imaging criteria.
--- NOTE | 2023-12-12 12:26 | PC.NURSE ---
Pt gone to RAD via wheelchair
[2023-12-12 12:32] LABS: Troponin I < 0.01 ng/ml (0.00-0.034)
[2023-12-12] MEDS: IOPAMIDOL-370 (76%);100ML BOTTLE 75 ML IV (12:46)
--- NOTE | 2023-12-12 12:47 | PC.NURSE ---
Pt returned to room from RAD
--- NOTE | 2023-12-12 13:14 | US_ITS ---
PROCEDURE INFORMATION: Exam: US Abdomen, Limited; Right Upper Quadrant Exam date and time: 12/12/2023 1:33 PM Age: 88 years old Clinical indication: Abnormal findings; Abnormal radiologic finding of the abdomen; Radiologic exam and body structure: CT; Additional info: Possible acute cholecystitis on CT abdomen TECHNIQUE: Imaging protocol: Real time ultrasound of the abdomen with image documentation. Limited exam focused on the right upper quadrant. COMPARISON: US GALLBLADDER 02/03/2021 7:52 AM FINDINGS: Liver: Liver does not appear enlarged. Slightly irregular contour. Heterogeneous increased parenchymal echogenicity. Heterogeneous echogenic liver lesion within superior right hepatic lobe measuring 2.7 cm, 2.1 cm, 2.5 cm. This corresponds with hypodensity seen but respectively within the liver on prior CT. Possible hemangioma. Gallbladder: Positive gallstones and echogenic gallbladder sludge. Gallbladder is distended. Gallbladder measures at least 9 cm greatest length. Gallbladder wall measures 8 mm in thickness. Pericholecystic fluid is demonstrated. Biliary ducts: No visible stones. The common duct measures 3 mm in diameter. Pancreas: Visualized aspects of the pancreas appear grossly unremarkable. Right kidney: Right kidney measures 8.9 cm, 7.5 cm, 5.5 cm. Normal contour and parenchymal echogenicity. No solid mass identified. No nephrolithiasis. No hydronephrosis. Simple appearing right renal cysts. Upper pole right renal cyst measures 15 mm. Lower pole right renal cyst measures up to 4.8 cm. Aorta: Visualized aspects appear grossly unremarkable. Inferior vena cava: Visualized aspects appear grossly unremarkable. Portal venous: Patent with normal direction of blood flow. Not dilated. IMPRESSION: 1. Findings concerning for potential acute cholecystitis in the correct clinical setting. 2. Heterogeneous appearance of the liver with steatosis. 3. Indeterminate liver lesion may represent hemangioma measuring up to 2.7 cm. Recommend further evaluation with dynamic pre-and postcontrast MRI. 4. Right renal cysts.
--- NOTE | 2023-12-12 13:17 | PC.NURSE ---
VICE PRESIDENT OF COMMUNICATIONS NOTIFIED OF ADMISSION
--- NOTE | 2023-12-12 13:30 | PC.NURSE ---
REPORT CALLED TO JANETH BAEZA
--- NOTE | 2023-12-12 15:16 | HMH.PHAINT1 ---
Pharmacy Intervention Comments: Home medication list verified using LIST FROM OUTPATIENT PHARMACY
[2023-12-12] MEDS: LACTATED RINGERS 1000ML 1,000 ML 75 ML IV (15:25)
--- NOTE | 2023-12-12 17:00 | EXP.HP ---
History of Present Illness *Admission Date: 12/12/23 *Reason for visit:: Nausea/vomiting *History of present illness: Shani Fuller is a 88-year-old female with a medical history significant for CAD s/p CABG, stents, HFpEF, PAD, mitral valve replacement, A-fib s/p GIOVANNI ligation with AICD, hypothyroidism, hypertension who presents with 2-day onset of nausea/vomiting. She states she was in the hospital on Saturday after she had fallen slipping in her bathtub and hurt her right ribs. She states she was given tramadol in the ED for pain which helped, and so she was discharged home. When she got home, she started experiencing mild nausea which she attributed to the tramadol. Next day she continued to have nausea with vomiting, and has had mild nausea/vomiting since then. She denies chest pain, shortness of breath, fevers, chills, abdominal pain, constipation/diarrhea. However, she did tell the provider she was having epigastric pain that has now resolved on my interview. Workup in the ED significant for WBC 7.8, creatinine 1.1 (baseline around 1.0). CT abdomen/pelvis showed questionable acute cholecystitis, moderate constipation among acute findings. RUQ ultrasound suggestive of potential acute cholecystitis. Case was discussed with ED provider and decision was made to admit patient for nausea/vomiting in the setting of potential acute cholecystitis. [facility] Disclaimer: The information contained in this section may have been updated after the patient was seen, as this information can be updated by other users. Medical History (Updated 12/12/23 @ 17:15 by Thomas Benz MD) Syncope Typical angina Left leg numbness Carotid artery stenosis Surgical History (Updated 12/12/23 @ 14:25 by Amaya Aly RN) History of implantable cardioverter-defibrillator (ICD) insertion H/O heart valve replacement with bioprosthetic valve History of cardiac cath History of heart artery stent Family History (Updated 12/12/23 @ 14:24 by Amaya Aly RN) Other No significant family history Social History (Updated 12/12/23 @ 14:23 by Amaya Aly, JANETH) Smoking Status: Never smoker alcohol intake: never substance use type: denies use current occupational status: retired Travel in the last 8 weeks: Inside the [place] household members: none housing: house caffeine: No Other Medical History Have you received the Flu Vaccine for this season: Yes Have you received the Pneumonia Vaccine: Yes Meds Home Medications and Allergies Home Medications ?Medication ?Instructions ?Recorded ?Confirmed ?Type metoprolol tartrate 100 mg tablet 100 mg PO BID 03/27/18 12/12/23 History levothyroxine 100 mcg tablet 100 mcg PO DAILY 02/04/21 12/12/23 History losartan 100 mg tablet 100 mg PO DAILY 02/04/21 12/12/23 History aspirin 81 mg capsule 81 mg PO DAILY #30 caps 02/06/22 12/12/23 Rx atorvastatin 40 mg tablet 40 mg PO HS 02/06/22 12/12/23 History digoxin 125 mcg (0.125 mg) tablet 0.125 mg PO DAILY 08/05/23 12/12/23 History famotidine 20 mg tablet 20 mg PO BID 08/05/23 12/12/23 History ferrous sulfate 325 mg (65 mg 325 mg PO DAILY 12/12/23 12/12/23 History iron) tablet (FeroSul) ondansetron 4 mg disintegrating 4 mg PO Q6H PRN nausea and 12/12/23 Rx tablet vomiting #10 tabs spironolactone 25 mg tablet 25 mg PO BID 12/12/23 12/12/23 History New Prescriptions to Start Prescriptions: ondansetron Prakash Whitten Allergies Allergy/AdvReac Type Severity Reaction Status Date / Time codeine Allergy Intermediate DEATHLY Verified 08/05/23 09:27 SICK amiodarone Allergy Mild tongue Verified 08/05/23 09:27 tingling oxycodone [From Percocet] AdvReac Nausea Verified 08/05/23 09:27 Exam Data for Last 24 hours Vital signs and Labs for Last 24 Hours: Temp Pulse Resp BP Pulse Ox O2 Del Method 98.1 F 89 16 150/106 H 96 Room Air 12/12/23 16:00 12/12/23 16:00 12/12/23 16:00 12/12/23 16:00 12/12/23 16:00 12/12/23 15:51 Laboratory Results - last 24 hr 12/12/23 06:47: WBC 7.8 D, RBC 5.14, Hgb 16.1, Hct 48.6 H, MCV 94.5, MCH 31.3 H, MCHC 33.1, RDW 19.1 H, Plt Count 103 L, MPV 8.6, Neut % (Auto) 80.1 H, Lymph % (Auto) 11.9, [place] % (Auto) 6.9, Eos % (Auto) 0.4, Baso % (Auto) 0.6, Neut # (Auto) 6.2, Lymph # (Auto) 0.9, [place] # (Auto) 0.5, Eos # (Auto) 0.0, Baso # (Auto) 0.1, Sodium 139, Potassium 4.1, Chloride 104, Carbon Dioxide 28, Anion Gap 11.1, BUN 19 H D, Creatinine 1.10 H, Estimated Creat Clear 32, Estimated GFR 47 L, Est GFR ( Amer) 57 L, Glucose 166 H, Calcium 9.6, Magnesium 1.8, Total Bilirubin 1.5 H, AST 26, ALT 19, Alkaline Phosphatase 56, Troponin I < 0.01, Total Protein 7.0, Albumin 4.3, Globulin 2.7, Albumin/Globulin Ratio 1.6, Lipase 98, HIV 1&2 Antibody Rapid Nonreactive 12/12/23 11:45: Troponin I < 0.01 I & O for Last 24 hours: Intake & Output 12/09/23 12/10/23 12/11/23 12/12/23 23:59 23:59 23:59 23:59 Weight 55.338 kg Constitutional Constitutional: no acute distress *Routine HEENT Exam Head: Present normocephalic Eye: Present EOMI and PERRL ENT: Present mucous membranes moist *Routine Neck Exam Neck: Present supple; Absent lymphadenopathy *Routine Respiratory Exam Respiratory: Present CTA bilaterally *Routine Cardiovascular Exam Cardiovascular: Present RRR *Routine Abdominal Exam Abdominal: Present soft and normoactive bowel sounds; Absent tenderness *Routine Rectal Exam Rectal:: deferred *Routine Genitalia Exam Genitalia:: deferred *Routine Extremities Exam Extremities: Absent cyanosis, clubbing or edema *Routine Skin Exam Skin: Present warm; Absent rash *Routine Neurological Exam Neurological: Present alert and oriented X3 Assessment and Plan *Assessment and plan (1) Acute cholecystitis: Status: Acute Category: Medical Code(s): K81.0 - Acute cholecystitis (2) Acute dehydration: Status: Acute Category: Medical Code(s): E86.0 - Dehydration Plan Shani Fuller is a 88-year-old female with a medical history significant for CAD s/p CABG, stents, HFpEF, PAD, mitral valve replacement, A-fib s/p GIOVANNI ligation with AICD, hypothyroidism, hypertension who presents with 2-day onset of nausea/vomiting. She states she was in the hospital on Saturday after she had fallen slipping in her bathtub and hurt her right ribs. She states she was given tramadol in the ED for pain which helped, and so she was discharged home. When she got home, she started experiencing mild nausea which she attributed to the tramadol. Next day she continued to have nausea with vomiting, and has had mild nausea/vomiting since then. She denies chest pain, shortness of breath, fevers, chills, abdominal pain, constipation/diarrhea. However, she did tell the provider she was having epigastric pain that has now resolved on my interview. Workup in the ED significant for WBC 7.8, creatinine 1.1 (baseline around 1.0). CT abdomen/pelvis showed questionable acute cholecystitis, moderate constipation among acute findings. RUQ ultrasound suggestive of potential acute cholecystitis. Case was discussed with ED provider and decision was made to admit patient for nausea/vomiting in the setting of potential acute cholecystitis. #Suspected acute cholecystitis ? Suggested by nausea/vomiting, resolved epigastric pain, and findings on CT abdomen/pelvis and RUQ ultrasound. ? No leukocytosis, afebrile, no tachycardia. ? Patient states she is able to tolerate p.o. intake at this time after receiving antiemetic in the ED. ? General Surgery consulted, pending recommendations at this time. ? IV Zosyn for now. ? N.p.o. at midnight. #History of CAD s/p CABG, stents #PAD ? Continue home aspirin, atorvastatin. #A-fib s/p GIOVANNI ligation with AICD ? Currently rate controlled. ? Continue home digoxin, metoprolol. #HFpEF ? Currently stable. #Hypothyroidism ? Continue home levothyroxine #Hypertension ? Resume home metoprolol, losartan, spironolactone. Full code DVT prophylaxis Lovenox Diet, n.p.o. after midnight
[2023-12-12] MEDS: PIPERACILLIN/TAZO 3.375 GM in 0.9 % SODIUM CHLORIDE 50 ML IV ×2 (17:06→23:42)
--- NOTE | 2023-12-12 18:20 | PC.NURSE ---
pt resting supine in bed. a &ox4. complained of nausea once this shift and treated per apr. no vomiting since arriving to the floor. pt is NPO at midnight, but has tolerated a cardiac diet well for dinner. no complaints of pain. no complaints or needs at this time. call light within reach.
[2023-12-12] MEDS: FAMOTIDINE 20MG TABLET 20 MG PO (20:30)
[2023-12-12] MEDS: SPIRONOLACTONE 25MG TABLET 25 MG PO (20:30)
[2023-12-12] MEDS: ATORVASTATIN 40MG TABLET 40 MG PO (20:30)
[2023-12-12] MEDS: PATIENT'S OWN HOME MEDICATION (Metoprolol Tartrate 100 mg tablet) 100 EACH PO (21:26)
[2023-12-13 04:00] VITALS: BP 150/88; PULSE 79; RESP 18; TEMP 36.8; O2SAT 96; BMI 21.4
[2023-12-13] MEDS: LACTATED RINGERS 1000ML 1,000 ML 75 ML IV (06:07)
--- NOTE | 2023-12-13 06:10 | PC.NURSE ---
Patient alert and oriented on arrival to floor. Patient rested well with no complaints. Did get confused after awakening, but easily reoriented. Standbv assist to restroom. Room air. NPO since midnight. Bed alarm on. Call light in reach.
[2023-12-13 07:28] LABS: Basophils % 0.7 % (0.1-2.0); Eosinophils % 0.4 % (0.1-12.0); Hematocrit 41.7 % (37.0-47.0); Lymphocytes # 0.6 K/mm3 (0.7-4.5); Lymphocytes % 9.9 % (10-50); Mean Corpuscular HGB Conc 33.4 g/dL (31.8-35.4); Mean Corpuscular Hemoglobin 31.7 pg (27.0-31.2); Mean Corpuscular Volume 94.8 fl (81-99); Mean Platelet Volume 8.3 fl (7.4-10.4); Monocytes # 0.5 K/mm3 (0.1-1.0); Monocytes % 8.3 % (1.7-9.3); Neutrophils # 4.8 K/mm3 (1.8-7.8); Neutrophils % 80.7 % (37.0-80.0); Platelet Count 93 K/mm3 (142-424); Red Cell Distribution Width 19.1 % (11.5-17.5); White Blood Count 5.9 K/mm3 (4.8-10.8)
--- NOTE | 2023-12-13 07:34 | P.CONS_ITS ---
History of Present Illness *Admission Date: 12/12/23 *Reason for visit:: Acute cholecystitis... *History of present illness: Patient is an 88-year-old female with history of coronary artery disease status post previous CABG, coronary stenting, heart failure, chronic arterial occlusive disease, previous mitral valve replacement, atrial fibrillation status post previous left atrial appendage ligation, AICD placement, hypertension, hypothyroidism. She had been seen in the emergency department on 12/09/2023 after she had fallen when she was getting out of the shower and complained of right sided rib pain. She underwent thorough trauma evaluation including multiple images which included abdominal pelvic CT scan which revealed no evidence of acute abnormality . Patient was managed as an outpatient. She had developed nausea and vomiting. She returned to the emergency department at which time a repeat CT scan revealed a plethora of findings notable for severe hepatic steatosis. Nonspecific heterogeneous and irregular appearance of the liver. Recommend correlation with liver function test. Moderate enlarged cardiac silhouette. Postsurgical changes in the mediastinum. Pulmonary atelectasis infiltrates or edema within the lower chest bilaterally. Questionable acute cholecystitis. Cholelithiasis in addition to multiple other chronic findings. She was admitted to the hospitalist service for inpatient management. She did undergo gallbladder ultrasound which revealed gallstones with 8 mm thick wall. There was also findings of pericholecystic fluid. Common bile duct normal. Surgical consultation was ordered for today. [facility] Disclaimer: The information contained in this section may have been updated after the patient was seen, as this information can be updated by other users. Medical History (Updated 12/12/23 @ 17:15 by Thomas Benz MD) Syncope Typical angina Left leg numbness Carotid artery stenosis Surgical History (Updated 12/12/23 @ 14:25 by Amaya Aly RN) History of implantable cardioverter-defibrillator (ICD) insertion H/O heart valve replacement with bioprosthetic valve History of cardiac cath History of heart artery stent Family History (Updated 12/12/23 @ 14:24 by Amaya Aly RN) Other No significant family history Social History (Updated 12/12/23 @ 14:23 by Amaya Aly RN) Smoking Status: Never smoker alcohol intake: never substance use type: denies use current occupational status: retired Travel in the last 8 weeks: [place] the [place] household members: none housing: house caffeine: No Meds Home Medications and Allergies Home Medications ?Medication ?Instructions ?Recorded ?Confirmed ?Type metoprolol tartrate 100 mg tablet 100 mg PO BID 03/27/18 12/12/23 History levothyroxine 100 mcg tablet 100 mcg PO DAILY 02/04/21 12/12/23 History losartan 100 mg tablet 100 mg PO DAILY 02/04/21 12/12/23 History aspirin 81 mg capsule 81 mg PO DAILY #30 caps 02/06/22 12/12/23 Rx atorvastatin 40 mg tablet 40 mg PO HS 02/06/22 12/12/23 History digoxin 125 mcg (0.125 mg) tablet 0.125 mg PO DAILY 08/05/23 12/12/23 History famotidine 20 mg tablet 20 mg PO BID 08/05/23 12/12/23 History ferrous sulfate 325 mg (65 mg 325 mg PO DAILY 12/12/23 12/12/23 History iron) tablet (FeroSul) ondansetron 4 mg disintegrating 4 mg PO Q6H PRN nausea and 12/12/23 Rx tablet vomiting #10 tabs spironolactone 25 mg tablet 25 mg PO BID 12/12/23 12/12/23 History New Prescriptions to Start Prescriptions: ondansetron Prakash Whitten Allergies Allergy/AdvReac Type Severity Reaction Status Date / Time codeine Allergy Intermediate DEATHLY Verified 08/05/23 09:27 SICK amiodarone Allergy Mild tongue Verified 08/05/23 09:27 tingling oxycodone [From Percocet] AdvReac Nausea Verified 08/05/23 09:27 Exam (Inpt) Vital signs and Labs for Last 24 Hours: Temp Pulse Resp BP Pulse Ox O2 Del Method 98.2 F 79 18 150/88 H 96 Room Air 12/13/23 04:00 12/13/23 04:00 12/13/23 04:00 12/13/23 04:00 12/13/23 04:00 12/13/23 05:00 Laboratory Results - last 24 hr 12/12/23 06:47: WBC 7.8 D, RBC 5.14, Hgb 16.1, Hct 48.6 H, MCV 94.5, MCH 31.3 H , MCHC 33.1, RDW 19.1 H, Plt Count 103 L, MPV 8.6, Neut % (Auto) 80.1 H, Lymph % (Auto) 11.9, [place] % (Auto) 6.9, Eos % (Auto) 0.4, Baso % (Auto) 0.6, Neut # (Auto) 6.2, Lymph # (Auto) 0.9, [place] # (Auto) 0.5, Eos # (Auto) 0.0, Baso # (Auto) 0.1, Troponin I < 0.01, HIV 1&2 Antibody Rapid Nonreactive 12/12/23 11:45: Troponin I < 0.01 12/13/23 07:07: WBC 5.9, RBC 4.40, Hgb 14.0, Hct 41.7, MCV 94.8, MCH 31.7 H, MCHC 33.4, RDW 19.1 H, Plt Count 93 L, MPV 8.3, Neut % (Auto) 80.7 H, Lymph % (Auto) 9.9 L, [place] % (Auto) 8.3, Eos % (Auto) 0.4, Baso % (Auto) 0.7, Neut # (Auto) 4.8, Lymph # (Auto) 0.6 L, [place] # (Auto) 0.5, Eos # (Auto) 0.0, Baso # (Auto) 0.0 I & O for Labs for Last 24 Hours: Intake & Output 12/10/23 12/11/23 12/12/23 12/13/23 11:59 11:59 11:59 11:59 Output Total 0 / 0 Balance 0 / 0 Weight 124 lb 125 lb 7.088 oz GI: Present soft; Absent tenderness Results Labs 12/13/23 07:07 12/13/23 07:07 Labs: Laboratory Results - last 24 hr 12/12/23 06:47: WBC 7.8 D, RBC 5.14, Hgb 16.1, Hct 48.6 H, MCV 94.5, MCH 31.3 H , MCHC 33.1, RDW 19.1 H, Plt Count 103 L, MPV 8.6, Neut % (Auto) 80.1 H, Lymph % (Auto) 11.9, [place] % (Auto) 6.9, Eos % (Auto) 0.4, Baso % (Auto) 0.6, Neut # (Auto) 6.2, Lymph # (Auto) 0.9, [place] # (Auto) 0.5, Eos # (Auto) 0.0, Baso # (Auto) 0.1, Troponin I < 0.01, HIV 1&2 Antibody Rapid Nonreactive 12/12/23 11:45: Troponin I < 0.01 12/13/23 07:07: WBC 5.9, RBC 4.40, Hgb 14.0, Hct 41.7, MCV 94.8, MCH 31.7 H, MCHC 33.4, RDW 19.1 H, Plt Count 93 L, MPV 8.3, Neut % (Auto) 80.7 H, Lymph % (Auto) 9.9 L, [place] % (Auto) 8.3, Eos % (Auto) 0.4, Baso % (Auto) 0.7, Neut # (Auto) 4.8, Lymph # (Auto) 0.6 L, [place] # (Auto) 0.5, Eos # (Auto) 0.0, Baso # (Auto) 0.0 Assessment and Plan *Assessment and plan (1) Acute cholecystitis: Status: Acute Category: Medical Code(s): K81.0 - Acute cholecystitis Plan Patient likely does have some degree of acute cholecystitis based on clinical presentation and imaging. Fortunately she has shown some improvement. She has significant risk factors and may be a prohibitive risk for surgery at this facility. I will see if cardiology can give a operative risk assessment.
[2023-12-13 07:52] LABS: Alanine Aminotransferase 12 U/L (12-78); Albumin Level 3.2 g/dl (3.5-5.0); Albumin/Globulin Ratio 1.4 (1.1-1.8); Alkaline Phosphatase 36 U/L (38-126); Anion Gap 8.5 mEq/L (5-15); Aspartate Amino Transferase 29 U/L (14-36); Bilirubin,Total 1.7 mg/dl (0.2-1.3); Blood Urea Nitrogen 18 mg/dl (7-17); Calcium 8.7 mg/dl (8.4-10.2); Carbon Dioxide 25 mmol/L (22.0-30.0); Chloride 108 mmol/L (98-107); Creatinine Clearance Estimated 36 mL/min (50-200); Estimated Glomerular Filt Rate 52 ml/min (>60); GFR (African American) 63 ML/MIN (>60); Globulin 2.3 g/dL (1.3-3.2); Glucose 90 mg/dl (74-100); Magnesium 1.7 mg/dl (1.6-2.3); Potassium 4.5 mmoL/L (3.5-5.1); Sodium 137 mmol/L (136-145); Total Protein,Serum 5.5 g/dl (6.3-8.2)
[2023-12-13 08:00] VITALS: BP 167/83; PULSE 66; RESP 18; TEMP 36.6; O2SAT 95
[2023-12-13 08:12] VITALS: PULSE 66
[2023-12-13] MEDS: PIPERACILLIN/TAZO 3.375 GM in 0.9 % SODIUM CHLORIDE 50 ML IV (08:12)
[2023-12-13] MEDS: FAMOTIDINE 20MG TABLET 20 MG PO (08:12)
[2023-12-13] MEDS: IRBESARTAN 150MG TAB 150 MG PO (08:12)
[2023-12-13] MEDS: SPIRONOLACTONE 25MG TABLET 25 MG PO (08:12)
[2023-12-13] MEDS: LEVOTHYROXINE 100MCG (0.1MG) TAB 100 MCG PO (08:12)
[2023-12-13] MEDS: DIGOXIN 0.125MG TABLET 125 MCG PO (08:12)
[2023-12-13] MEDS: ASPIRIN EC 81MG TABLET 81 MG PO (08:12)
[2023-12-13] MEDS: METOPROLOL TARTRATE 50MG TABLET 100 MG PO (08:13)
[2023-12-13 08:21] LABS: HCV Ab Non Reactive (Non Reactive)
[2023-12-13 08:30] LABS: Alanine Aminotransferase 17 U/L (12-78); Albumin Level 3.9 g/dl (3.5-5.0); Alkaline Phosphatase 41 U/L (38-126); Aspartate Amino Transferase 26 U/L (14-36); Bilirubin,Indirect 1.9 mg/dL (0.0-0.9); Bilirubin,Total 1.9 mg/dl (0.2-1.3); Bilirubin,Unconjugated 2.1 mg/dL (0.0-1.1); Total Protein,Serum 6.1 g/dl (6.3-8.2)
[2023-12-13 08:31] LABS: INR 0.98 (0.9-1.1)
--- NOTE | 2023-12-13 13:14 | P.CONCA_ITS ---
History of Present Illness History of Present Illness Consult date: 12/13/23 Requesting physician: Thomas Benz Consult reason: pre-op evaluation Chief complaint: Nausea vomiting and abdominal pain History of present illness: 88-year-old white female established patient of our office with history of drug- eluting stents 2021, PAD with drug-eluting stents 2020, HFrEF-severe biatrial dilation with EF 45%, status post ICD, paroxysmal atrial fibrillation, status post bioprosthetic mitral valve replacement. Patient typically has NYHA = 1?2 symptoms at baseline. She is able to do yard work and light housework without symptoms, no orthopnea or lower extremity edema at baseline. Patient presented to the emergency room with nausea and vomiting for several days. She also had a fall and hit her right ribs which are bruised and has right upper quadrant pain. Workup was largely benign but imaging revealed possible mild acute cholecystitis so she was admitted for further workup. Patient reports symptoms are improving slightly this morning other than soreness to her right ribs which are sore to touch. She was able to eat p.o. this morning without diarrhea or vomiting. We are asked to give preoperative evaluation. EKG shows SR alternating with v-paced and she has new inferior and anterior t-wave inversions. Trop normal x2. PFSH PFSH Disclaimer: The information contained in this section may have been updated after the patient was seen, as this information can be updated by other users. Medical History Syncope Typical angina Left leg numbness Carotid artery stenosis Surgical History History of implantable cardioverter-defibrillator (ICD) insertion H/O heart valve replacement with bioprosthetic valve History of cardiac cath History of heart artery stent Family History Other No significant family history Social History Smoking Status: Never smoker alcohol intake: never substance use type: denies use current occupational status: retired Travel in the last 8 weeks: [place] the [place] household members: none housing: house caffeine: No Review of Systems Constitutional Constitutional: Denies fatigue and Reports weakness Eyes Eyes: Denies loss of vision ENT Ears, Nose, Mouth, and Throat: Denies hearing loss and Denies vertigo *Cardiovascular Cardiovascular: Denies chest pain, Denies dyspnea and Denies syncope *Respiratory Respiratory: Denies cough and Denies dyspnea *Gastrointestinal Gastrointestinal: Denies change in stool character, Reports nausea and Reports vomiting *Musculoskeletal Musculoskeletal: Denies muscle weakness Comments: right rib pain Integumentary/Breasts Skin/Breast: Denies changing lesions *Neurologic Neurologic: Denies loss of vision, Denies syncope, Denies vertigo and Reports weakness Endocrine Endocrine: Denies fatigue Exam Data for Last 24 hours Vital signs and Labs for Last 24 Hours: Temp Pulse Resp BP Pulse Ox O2 Del Method 97.9 F 66 18 167/83 H 95 Room Air 12/13/23 08:00 12/13/23 08:12 12/13/23 08:00 12/13/23 08:00 12/13/23 08:00 12/13/23 11:00 Laboratory Results - last 24 hr 12/12/23 06:47: Hepatitis C Antibody Non reactive 12/13/23 07:07: WBC 5.9, RBC 4.40, Hgb 14.0, Hct 41.7, MCV 94.8, MCH 31.7 H, MCHC 33.4, RDW 19.1 H, Plt Count 93 L, MPV 8.3, Neut % (Auto) 80.7 H, Lymph % (Auto) 9.9 L, [place] % (Auto) 8.3, Eos % (Auto) 0.4, Baso % (Auto) 0.7, Neut # (Auto) 4.8, Lymph # (Auto) 0.6 L, [place] # (Auto) 0.5, Eos # (Auto) 0.0, Baso # (Auto) 0.0, Sodium 137, Potassium 4.5, Chloride 108 H, Carbon Dioxide 25, Anion Gap 8.5, BUN 18 H, Creatinine 1.00, Estimated Creat Clear 36, Estimated GFR 52 L , Est GFR ( Amer) 63, Glucose 90, Calcium 8.7, Magnesium 1.7, Total Bilirubin 1.7 H, AST 29, ALT 12 D, Alkaline Phosphatase 36 L, Total Protein 5.5 L, Albumin 3.2 L D, Globulin 2.3, Albumin/Globulin Ratio 1.4 12/13/23 08:08: PT 11.0, INR 0.98, Total Bilirubin 1.9 H, Direct Bilirubin 0.0, Conjugated Bilirubin 0.0, Indirect Bilirubin 1.9 H, Unconjugated Bilirubin 2.1 H , AST 26, ALT 17 D, Alkaline Phosphatase 41, Total Protein 6.1 L, Albumin 3.9 D I & O for Last 24 hours: Intake & Output 12/10/23 12/11/23 12/12/23 12/13/23 23:59 23:59 23:59 23:59 Output Total 0 / 0 0 / 0 Balance 0 / 0 0 / 0 Weight 122 lb 125 lb 7.088 oz Constitutional Constitutional: no acute distress and cooperative *Routine HEENT Exam Eye: Present PERRL *Routine Respiratory Exam Respiratory: Present CTA bilaterally; Absent accessory muscle use, wheezes or crackles *Routine Cardiovascular Exam Cardiovascular: Present RRR, Normal S1 and Normal S2; Absent murmur, gallop or rubs *Routine Abdominal Exam Abdominal: Present soft; Absent tenderness *Routine Extremities Exam Extremities: Present pulses intact; Absent cyanosis or edema *Routine Skin Exam Skin: Present intact; Absent erythema or wounds *Routine Neurological Exam Neurological: Present alert and oriented X3 Routine Psychiatric Exam Psychiatric: Present cooperative Meds Home Medications and Allergies Home Medications ?Medication ?Instructions ?Recorded ?Confirmed ?Type metoprolol tartrate 100 mg tablet 100 mg PO BID 03/27/18 12/12/23 History levothyroxine 100 mcg tablet 100 mcg PO DAILY 02/04/21 12/12/23 History losartan 100 mg tablet 100 mg PO DAILY 02/04/21 12/12/23 History aspirin 81 mg capsule 81 mg PO DAILY #30 caps 02/06/22 12/12/23 Rx atorvastatin 40 mg tablet 40 mg PO HS 02/06/22 12/12/23 History digoxin 125 mcg (0.125 mg) tablet 0.125 mg PO DAILY 08/05/23 12/12/23 History famotidine 20 mg tablet 20 mg PO BID 08/05/23 12/12/23 History ferrous sulfate 325 mg (65 mg 325 mg PO DAILY 12/12/23 12/12/23 History iron) tablet (FeroSul) ondansetron 4 mg disintegrating 4 mg PO Q6H PRN nausea and 12/12/23 Rx tablet vomiting #10 tabs spironolactone 25 mg tablet 25 mg PO BID 12/12/23 12/12/23 History New Prescriptions to Start Prescriptions: ondansetron Prakash Whitten Allergies Allergy/AdvReac Type Severity Reaction Status Date / Time codeine Allergy Intermediate DEATHLY Verified 08/05/23 09:27 SICK amiodarone Allergy Mild tongue Verified 08/05/23 09:27 tingling oxycodone [From Percocet] AdvReac Nausea Verified 08/05/23 09:27 Assessment and Plan *Assessment and plan (1) Pre-op evaluation: Status: Acute Category: Medical Code(s): Z01.818 - Encounter for other preprocedural examination (2) Acute cholecystitis: Status: Acute Category: Medical Code(s): K81.0 - Acute cholecystitis (3) AICD (automatic cardioverter/defibrillator) present: Status: Chronic Category: Surgical Code(s): Z95.810 - Presence of automatic (implantable) cardiac defibrillator (4) Atrial fibrillation: Status: Chronic Qualifiers: Atrial fibrillation type: chronic Qualified Code(s): I48.2 - Chronic atrial fibrillation Category: Medical Code(s): I48.91 - Unspecified atrial fibrillation (5) Coronary arteriosclerosis: Status: Chronic Category: Medical Code(s): I25.10 - Atherosclerotic heart disease of [place] coronary artery without angina pectoris (6) History of mitral valve replacement with bioprosthetic valve: Status: Acute Category: Surgical Code(s): Z95.3 - Presence of xenogenic heart valve Plan Pre-Op Assessment - pt has significant CV pathology at baseline and has new EKG changes here - she is moderate to high risk for any surgical intervention and we would recommend avoiding surgery unless a true emergency - will check 2D ECHO CAD s/p KYLE 2021 - pt denies angina although EKG has new t-wave changes inferior and anterior leads - trop normal - check ECHO - cont ASA, Statin, BB HFrEF s/p ICD -known EF 45% -euvolemic here -cont metoprolol, spironolactone, losartan s/p bioprosthetic MVR - will obtain ECHO N/V and possible acute cholecytitis - plans per primary service
--- NOTE | 2023-12-13 13:20 | CA_ITS ---
APPROVED REPORT EXAM: Comprehensive 2D, Doppler, and color-flow Echocardiogram Superintendent Stevedoring: Adela Roger RVT Ht: 5 ft 4 in Wt: 125lbs BSA: 1.60 BP: 167/83 mmHg Indications: CAD,MVR,AICD,CM,HTN,HLD Echo Enhancing Agent Indication: Rule out thrombus Agent(s) / Amount(s) Used: Definity 2 cc 2D Dimensions Left Atrium 4.71 cm F: 2.7 - 3.8 LA Volume 61.60 mL RVID Base (AP4) 2.55 cm (M/F) 2.5-4.1 LA Volume Index 38.50 mL/m2 (M/F) 16-34 LVOT 1.84 cm (M/F) 1.5-2.5 EF AP4 32.10 % GL Strain -2.2 % M-Mode Dimensions RVDd 2.41 cm (0.9-2.6) LVDd 3.61 cm (3.5-5.7) Ao Diam 2.83 cm (2.0-3.7) LVDs 3.08 cm (3.5-5.7) IVSd 1.04 cm (0.6-1.1) PWd 0.64 cm (0.6-1.1) EF (Teich) 31.90% FS 14.70% EDV (Teich) 54.80 mL ESV (Teich) 37.30 mL LV Diastology E Decel Time 197 (160-240 msec) E/A Ratio 3.3 MED E' 11.0 (>= 7 cm/sec) E'/MED E' Ratio 15.51 (<= 14) LAT E' 8.2 (>= 10 cm/sec) E/LAT E' Ratio 20.80 (<= 14) Aortic Valve LVOT Max 73.0 (70-110 cm/s) TRACEY Index 1.31 cm2/m2 LVOT VTI 16.65 cm AoV Peak Kurt. 108.0 (50-130 cm/s) AO Peak GR. 4.10 mmHg AO Mean GR. 2.80 (<5 mmHg) AO VTI 21.1 (18-25 cm) TRACEY (VTI) 2.10 (2.5-4.5 cm2) Mitral Valve MV E Max Kurt. 171.0 (40-130 cm/s) MV A Velocity 52.0 (40-130 cm/s) E/A Ratio 3.27 MV Decel. Time 197 (160-240 ms) MV Mean Gr. 5.00 (<2mmHg) MV PHT 58.0 ms Tricuspid Valve TR P. Velocity 344.00 cm/s RAP Estimate 10.00 mmHg RVSP 57.30 mmHg Left Ventricle The left ventricle is normal size. Left ventricular systolic function is moderately decreased. There is increased LV wall thickness. The septum is asynchronous. There is near akinesis of the mid to distal septal and inferoseptal LV sal[place]. Diastolic function is indeterminate. No left ventricle thrombus noted on this study. LVEF is 30-35%. Right Ventricle Right ventricle is mildly dilated. The right ventricular systolic function is mildly reduced. There is a device lead in the right ventricle. Atria Left atrium is moderately dilated. Right atrium is moderately dilated. There is no Doppler evidence of interatrial shunt. Aortic Valve Aortic valve is mildly thickened. There is no aortic valvular stenosis. Trace aortic regurgitation. Mitral Valve s/p mechanical MVR. The prosthesis is well-seated. Mean MV gradient is 4 mmHg at HR 71 bpm. Peak E velocity 171 cm/s. PHT is 45 ms. Mild central mitral regurgitation. Tricuspid Valve Tricuspid valve is grossly normal in structure and function. Moderate tricuspid regurgitation. RVSP is 45-50 mmHg. Pulmonic Valve The pulmonary valve is normal in structure. Trace pulmonic regurgitation. The ascending aorta is not well-visualized. Great Vessels The aortic root is normal in size. IVC is normal in size and collapses >50% with inspiration. Pericardium There is no pericardial effusion. Other Information Study Quality: Fair Conclusion Moderate reduction in LV systolic function (LVEF 30-35%). The septum is asynchronous. There is near akinesis of the mid to distal septal and inferoseptal LV saldivar. Mild RV dilation with mild reduction in RV function. Biatrial dilation. s/p mechanical MVR. Mild central MR. Acceptable transmitral gradients (Mean MV gradient is 4 mmHg at HR 71 bpm. Peak E velocity 171 cm/s. PHT is 45 ms). Moderate TR. Elevated RVSP 45-50 mmHg. When compared to prior study from 08/2023, the LV systolic function is now further reduced. Electronically signed by : China Brock MD 12/16/2023 01:50:27
[2023-12-13] MEDS: DEFINITY US ECHO CONTRAST 2ML INJ 2 MG IV (14:55)
[2023-12-13 16:00] VITALS: BP 167/82; PULSE 77; RESP 16; TEMP 36.4; O2SAT 98
--- NOTE | 2023-12-13 17:45 | EXP.DC.SUM ---
General Admission date:: 12/12/23 HPI HPI HPI: Patient is an 88-year-old female with history of coronary artery disease status post previous CABG, coronary stenting, heart failure, chronic arterial occlusive disease, previous mitral valve replacement, atrial fibrillation status post previous left atrial appendage ligation, AICD placement, hypertension, hypothyroidism. She had been seen in the emergency department on 12/09/2023 after she had fallen when she was getting out of the shower and complained of right sided rib pain. She underwent thorough trauma evaluation including multiple images which included abdominal pelvic CT scan which revealed no evidence of acute abnormality . Patient was managed as an outpatient. She had developed nausea and vomiting. She returned to the emergency department at which time a repeat CT scan revealed a plethora of findings notable for severe hepatic steatosis. Nonspecific heterogeneous and irregular appearance of the liver. Recommend correlation with liver function test. Moderate enlarged cardiac silhouette. Postsurgical changes in the mediastinum. Pulmonary atelectasis infiltrates or edema within the lower chest bilaterally. Questionable acute cholecystitis. Cholelithiasis in addition to multiple other chronic findings. She was admitted to the hospitalist service for inpatient management. She did undergo gallbladder ultrasound which revealed gallstones with 8 mm thick wall. There was also findings of pericholecystic fluid. Common bile duct normal. Surgical consultation was ordered for today. Hospital Course Hospital Course Hospital Course: Shani Fuller is a 88-year-old female with a medical history significant for CAD s/p CABG, stents, HFpEF, PAD, mitral valve replacement, A-fib s/p GIOVANNI ligation with AICD, hypothyroidism, hypertension who presents with 2-day onset of nausea/vomiting. #Acute on chornic cholecystitis ? Suggested by nausea/vomiting, resolved epigastric pain, and findings on CT abdomen/pelvis and RUQ ultrasound. ? No leukocytosis, afebrile, no tachycardia. ? Patient states she is able to tolerate p.o. intake at this time after receiving antiemetic in the ED. - Cardiology consulted for pre-operative risk assessment. Given complex cardiac history as below, they said she is high cardiac risk. ? General Surgery consulted, recommended transfer to facility with high risk anesthesiology. - Discussed with [facility] general surgery, they advised if ruthy is currently able to tolerate PO intake and stable, she can follow-up outpatient with them for further evaluation and management. - Patient given both options, and since she is tolerating PO intake well and completely asymptomatic she will elect for outpatient management. She was provided with general surgery office number to make an appointment as soon as possible. - Discharged with Levaquin for 3 more days. #History of CAD s/p CABG, stents #PAD #Mitral valve replacement ? Continue home aspirin, atorvastatin. #A-fib s/p GIOVANNI ligation with AICD ? Currently rate controlled. ? Continue home digoxin, metoprolol. #HFpEF ? Currently stable. #Hypothyroidism ? Continue home levothyroxine #Hypertension ? Resume home metoprolol, losartan, spironolactone. Exam Data for Last 24 hours Vital signs and Labs for Last 24 Hours: Temp Pulse Resp BP Pulse Ox O2 Del Method 97.6 F 77 16 167/82 H 98 Room Air 12/13/23 16:00 12/13/23 16:00 12/13/23 16:00 12/13/23 16:00 12/13/23 16:00 12/13/23 16:00 Laboratory Results - last 24 hr 12/12/23 06:47: Hepatitis C Antibody Non reactive 12/13/23 07:07: WBC 5.9, RBC 4.40, Hgb 14.0, Hct 41.7, MCV 94.8, MCH 31.7 H, MCHC 33.4, RDW 19.1 H, Plt Count 93 L, MPV 8.3, Neut % (Auto) 80.7 H, Lymph % (Auto) 9.9 L, [place] % (Auto) 8.3, Eos % (Auto) 0.4, Baso % (Auto) 0.7, Neut # (Auto) 4.8, Lymph # (Auto) 0.6 L, [place] # (Auto) 0.5, Eos # (Auto) 0.0, Baso # (Auto) 0.0, Sodium 137, Potassium 4.5, Chloride 108 H, Carbon Dioxide 25, Anion Gap 8.5, BUN 18 H, Creatinine 1.00, Estimated Creat Clear 36, Estimated GFR 52 L, Est GFR ( Amer) 63, Glucose 90, Calcium 8.7, Magnesium 1.7, Total Bilirubin 1.7 H, AST 29, ALT 12 D, Alkaline Phosphatase 36 L, Total Protein 5.5 L, Albumin 3.2 L D, Globulin 2.3, Albumin/Globulin Ratio 1.4 12/13/23 08:08: PT 11.0, INR 0.98, Total Bilirubin 1.9 H, Direct Bilirubin 0.0, Conjugated Bilirubin 0.0, Indirect Bilirubin 1.9 H, Unconjugated Bilirubin 2.1 H, AST 26, ALT 17 D, Alkaline Phosphatase 41, Total Protein 6.1 L, Albumin 3.9 D I & O for Last 24 hours: Intake & Output 12/10/23 12/11/23 12/12/23 12/13/23 23:59 23:59 23:59 23:59 Intake Total 100 / 100 Output Total 0 / 0 0 / 0 Balance 0 / 0 100 / 100 Weight 55.338 kg 56.9 kg Results Data Completed and Pending Labs on day of discharge: Labs from last 24 hours 12/13/23 12/13/23 12/12/23 08:08 07:07 06:47 WBC 5.9 RBC 4.40 Hgb 14.0 Hct 41.7 MCV 94.8 MCH 31.7 H MCHC 33.4 RDW 19.1 H Plt Count 93 L MPV 8.3 Neut % (Auto) 80.7 H Lymph % (Auto) 9.9 L [place] % (Auto) 8.3 Eos % (Auto) 0.4 Baso % (Auto) 0.7 Neut # (Auto) 4.8 Lymph # (Auto) 0.6 L [place] # (Auto) 0.5 Eos # (Auto) 0.0 Baso # (Auto) 0.0 PT 11.0 INR 0.98 Sodium 137 Potassium 4.5 Chloride 108 H Carbon Dioxide 25 Anion Gap 8.5 BUN 18 H Creatinine 1.00 Estimated Creat Clear 36 Estimated GFR 52 L Est GFR ( Amer) 63 Glucose 90 Calcium 8.7 Magnesium 1.7 Total Bilirubin 1.9 H 1.7 H Direct Bilirubin 0.0 Conjugated Bilirubin 0.0 Indirect Bilirubin 1.9 H Unconjugated Bilirubin 2.1 H AST 26 29 ALT 17 D 12 D Alkaline Phosphatase 41 36 L Total Protein 6.1 L 5.5 L Albumin 3.9 D 3.2 L D Globulin 2.3 Albumin/Globulin Ratio 1.4 Hepatitis C Antibody Non reactive DS: Diagnosis Discharge Diagnosis (1) Pre-op evaluation: Status: Acute Code(s): Z01.818 - Encounter for other preprocedural examination (2) Acute cholecystitis: Status: Resolved Code(s): K81.0 - Acute cholecystitis (3) Atrial fibrillation: Status: Chronic Code(s): I48.91 - Unspecified atrial fibrillation Qualifiers: Atrial fibrillation type: chronic Qualified Code(s): I48.2 - Chronic atrial fibrillation (4) Coronary arteriosclerosis: Status: Chronic Code(s): I25.10 - Atherosclerotic heart disease of [place] coronary artery without angina pectoris Meds Home Medications and Allergies Home Medications ?Medication ?Instructions ?Recorded ?Confirmed ?Type metoprolol tartrate 100 mg tablet 100 mg PO BID 03/27/18 12/12/23 History levothyroxine 100 mcg tablet 100 mcg PO DAILY 02/04/21 12/12/23 History losartan 100 mg tablet 100 mg PO DAILY 02/04/21 12/12/23 History aspirin 81 mg capsule 81 mg PO DAILY #30 caps 02/06/22 12/12/23 Rx atorvastatin 40 mg tablet 40 mg PO HS 02/06/22 12/12/23 History digoxin 125 mcg (0.125 mg) tablet 0.125 mg PO DAILY 08/05/23 12/12/23 History famotidine 20 mg tablet 20 mg PO BID 08/05/23 12/12/23 History ferrous sulfate 325 mg (65 mg 325 mg PO DAILY 12/12/23 12/12/23 History iron) tablet (FeroSul) ondansetron 4 mg disintegrating 4 mg PO Q6H PRN nausea and 12/12/23 Rx tablet vomiting #10 tabs spironolactone 25 mg tablet 25 mg PO BID 12/12/23 12/12/23 History levofloxacin 750 mg tablet 750 mg PO DAILY 3 days #3 tabs 12/13/23 Rx New Prescriptions to Start Prescriptions: levofloxacin Thomas Benz ondansetron Prakash Whitten Allergies Allergy/AdvReac Type Severity Reaction Status Date / Time codeine Allergy Intermediate DEATHLY Verified 08/05/23 09:27 SICK amiodarone Allergy Mild tongue Verified 08/05/23 09:27 tingling oxycodone [From Percocet] AdvReac Nausea Verified 08/05/23 09:27 Discharge Plan Disposition Patient Disposition: Home, Self-Care Follow up Plan Follow up with: Besson,Hood, MD [Staff Physician] - Enter time for follow up (please call for appointment) Prescriptions/Medication Reconciliation: New ondansetron 4 mg tablet,disintegrating 4 mg PO Q6H PRN (Reason: nausea and vomiting) Qty: 10 0RF levofloxacin 750 mg tablet 750 mg PO DAILY 3 Days Qty: 3 0RF Continued metoprolol tartrate 100 mg tablet 100 mg PO BID famotidine 20 mg tablet 20 mg PO BID digoxin 125 mcg (0.125 mg) tablet 0.125 mg PO DAILY levothyroxine 100 MCG tablet 100 mcg PO DAILY losartan 100 MG tablet 100 mg PO DAILY ferrous sulfate [FeroSul] 325 mg (65 mg iron) tablet 325 mg PO DAILY spironolactone 25 mg tablet 25 mg PO BID atorvastatin 40 MG tablet 40 mg PO HS aspirin 81 mg Capsule 81 mg PO DAILY Qty: 30 0RF Problem Reconciliation Problems Reviewed?: Yes Patient Discharge Instructions DIET: low fat, low cholesterol Additional Instructions: Please call the general surgeon in and [facility] in [facility] for further evaluation and management of your gallbladder inflammation. Dr. Thomas West [phone] Patient Instructions: Gallstones Print Language: [place] Providers Primary Care Provider: Provider,Referral Admit Provider: Thomas Benz Attending Provider: Thomas Benz
--- NOTE | 2023-12-17 13:33 | CARE MANAGER ---
Attempted to contact patient related to hospital discharge x2. Left voicemail option. JANETH Yadav
== END 2023-12-13 18:13 | disposition home or self-care (01) ==
LOC: ER 09:53 → 2ND 13:21
PROVIDERS: Emergency Medicine; Surgery; Admitting Provider Student in an Organized Health Care Education/Training Program; Emergency Provider Emergency Medicine; Visit Provider Student in an Organized Health Care Education/Training Program
DX: K81.2 Acute cholecystitis with chronic cholecystitis (principal); E86.0 Dehydration; I48.20 Chronic atrial fibrillation, unspecified; I25.10 Atherosclerotic heart disease of native coronary artery without angina pectoris; Z95.3 Presence of xenogenic heart valve; Z79.899 Other long term (current) drug therapy; Z95.810 Presence of automatic (implantable) cardiac defibrillator; Z95.1 Presence of aortocoronary bypass graft
CPT/HCPCS: 36415; 74177; 76705; 80053; 80076; 83690; 83735; 84484; 85025; 85610; 86803; 87389; 93005; 93306; 99285; G0378; J1885; J2405; J2543; J7030; J7120; Q0162; Q9957; Q9967; S0028

== ENCOUNTER 2024-02-11 07:37 | Day surgery (SDC) | payer MEDICARE, SELFPAY ==
[2024-02-11] VITALS (11 sets, daily range): BP systolic 104–140; BP diastolic 50–81; PULSE 65–75; RESP 17–20; TEMP 36.7; O2SAT 93–96; BMI 20.4
--- NOTE | 2024-02-11 07:25 | IR_ITS ---
APPROVED REPORT Patient Location: Outpatient PROCEDURES Left heart catheterization Left ventriculogram Selective coronary angiogram INDICATION Abnormal Myoview, Known coronary artery disease, Interval reduction in ejection fraction, Informed consent was obtained prior to the procedure. COMPLICATIONS None Estimated Blood Loss: Less than 10 mls TECHNIQUE One percent lidocaine used to anesthetize the right anterior aspect of the wrist. The right radial artery was accessed via the Seldinger technique. A 6 [place] sheath was placed in the right radial artery. 2.5 mg of Verapamil, 800 mcg of nitroglycerin, 1mg Lidocaine and 5000 U Heparin were given through the arterial sheath. The papa catheter was also used to perform left heart catheterization, left ventriculogram and selective coronary angiogram. At the end of the procedure the sheath was removed good hemostasis was achieved using Traclet band, patient was transferred to the postop holding area in stable condition. ANGIOGRAPHIC RESULTS The left main artery Normal The left anterior descending artery Has stents in the proximal to mid segment which are widely patent with 30% distal concentric in-stent restenosis. Distally there is excellent transitioning into the [place] vessel. The first diagonal artery has a bifurcating stent originating from the proximal LAD which has mild to moderate concentric in-stent restenosis The circumflex artery Nondominant widely patent The right coronary artery Dominant with stents in the proximal segment which are widely patent with excellent distal transitioning. Distally there are 20% stenoses The MARTINEZ ventriculogram reveals Normal 65% The left ventricular end-diastolic pressure 10 mmHg IMPRESSION Widely patent stents as described above Normal left ventriculogram with ejection fraction 65% Normal LVEDP PLAN 1. Appears to be disparity in ejection fraction between modalities. Clinical correlation is advised with consideration to perform additional modality for better quantification of ejection fraction 2. Medical management of coronary artery disease Electronically signed by : Cliff Rosales MD 02/11/2024 13:53:13
[2024-02-11 08:17] LABS: Basophils # 0.1 K/mm3 (0-0.2); Basophils % 0.7 % (0.1-2.0); Eosinophils # 0.2 K/mm3 (0.0-0.4); Hematocrit 42.9 % (37.0-47.0); Hemoglobin 14.4 g/dL (12.2-16.2); Lymphocytes % 10.9 % (10-50); Mean Corpuscular HGB Conc 33.6 g/dL (31.8-35.4); Mean Corpuscular Hemoglobin 32.5 pg (27.0-31.2); Mean Corpuscular Volume 96.8 fl (81-99); Mean Platelet Volume 10.7 fl (7.4-10.4); Monocytes # 0.9 K/mm3 (0.1-1.0); Monocytes % 9.6 % (1.7-9.3); Neutrophils # 6.8 K/mm3 (1.8-7.8); Neutrophils % 76.4 % (37.0-80.0); Platelet Count 112 K/mm3 (142-424); Red Blood Count 4.43 M/mm3 (4.20-5.40); Red Cell Distribution Width 13.4 % (11.5-17.5); White Blood Count 8.9 K/mm3 (4.8-10.8)
[2024-02-11 08:28] LABS: Chloride 104 mmol/L (98-107); Sodium 138 mmol/L (136-145)
[2024-02-11 08:29] LABS: Potassium 4.1 mmoL/L (3.5-5.1)
[2024-02-11 08:31] LABS: Blood Urea Nitrogen 23 mg/dl (7-17); Creatinine Clearance Estimated 28 mL/min (50-200); Estimated Glomerular Filt Rate 42 ml/min (>60); GFR (African American) 51 ML/MIN (>60)
[2024-02-11 08:32] LABS: Anion Gap 10.1 mEq/L (5-15); Calcium 10.1 mg/dl (8.4-10.2); Carbon Dioxide 28 mmol/L (22.0-30.0); Glucose 116 mg/dl (74-100)
[2024-02-11] MEDS: HEPARIN 1,000 UNITS/500ML NS (CATH LAB) 3000 UNIT IV (09:06)
[2024-02-11] MEDS: LIDOCAINE 1% 10ML MDV 20 ML IJ (09:09)
[2024-02-11] MEDS: HEPARIN 1,000 UNITS/ML 10ML VIAL (CATH LAB) 10000 UNIT IV (09:10)
[2024-02-11] MEDS: NITROGLYCERIN 800MCG/8ML SYR (CATH LAB) 800 MCG IA (09:10)
[2024-02-11] MEDS: VERAPAMIL 2.5MG/ML 2ML VIAL 2.5 MG IV (09:10)
[2024-02-11] MEDS: MIDAZOLAM HCL 1MG/ML 5ML VIAL 1 MG IV (09:34)
[2024-02-11] MEDS: FENTANYL 100MCG/2ML VIAL 50 MCG IV (09:34)
[2024-02-11] MEDS: diphenhydrAMINE 50MG/ML VIAL 50 MG IV (10:35)
[2024-02-11] MEDS: IOPAMIDOL-370 (76%);100ML BOTTLE 50 ML IV (12:43)
== END 2024-02-11 12:35 | disposition home or self-care (01) ==
PROVIDERS: PCP Internal Medicine Adolescent Medicine; Visit Provider Internal Medicine
DX: I11.0 Hypertensive heart disease with heart failure (principal); I25.10 Atherosclerotic heart disease of native coronary artery without angina pectoris; I50.22 Chronic systolic (congestive) heart failure; I05.9 Rheumatic mitral valve disease, unspecified; I73.9 Peripheral vascular disease, unspecified; E78.2 Mixed hyperlipidemia; Z79.899 Other long term (current) drug therapy; Z95.810 Presence of automatic (implantable) cardiac defibrillator; Z95.3 Presence of xenogenic heart valve; I48.20 Chronic atrial fibrillation, unspecified
CPT/HCPCS: 80048; 85025; 93458; 99152; C1725; C1769; J1200; J1644; J2250; J3010; Q9967

== ENCOUNTER 2024-04-25 12:27 | Observation (INO) | payer MEDICARE, SELFPAY ==
[2024-04-25] VITALS (15 sets, daily range): BP systolic 92–127; BP diastolic 49–71; PULSE 72–100; RESP 15–22; TEMP 36.6–36.8; O2SAT 94–98; BMI 20.8; BMI 20.5
--- NOTE | 2024-04-25 12:36 | ECG_ITS ---
APPROVED REPORT Exam: Resting ECG HR:93 bpm ECG Measurements Heart Rate 93 AXES QRSd 91 QRS -2 QT 342 T 247 QTc [address] DEVIATION AND MODERATE T-WAVE ABNORMALITY, CONSIDER ANTEROLATERAL ISCHEMIA [-0.1+ mV T-WAVE IN V3-V6] ST DEVIATION AND MODERATE T-WAVE ABNORMALITY, CONSIDER INFERIOR ISCHEMIA [-0.1+ mV T-WAVE IN II/aVF] ABNORMAL ECG UNCONFIRMED REPORT Electronically signed by : INÉS STARK, 04/29/2024 05:57:31
--- NOTE | 2024-04-25 12:41 | CT_ITS ---
PROCEDURE INFORMATION: Exam: CTA Chest With Contrast Exam date and time: 04/25/2024 1:27 PM Age: 89 years old Clinical indication: Other: Coughing blood TECHNIQUE: Imaging protocol: Computed tomographic angiography of the chest with contrast. Exam focused on the arteries. 3D rendering (Not supervised by radiologist): MIP and/or 3D reconstructed images were created by the technologist. Radiation optimization: All CT scans at this facility use at least one of these dose optimization techniques: automated exposure control; mA and/or kV adjustment per patient size (includes targeted exams where dose is matched to clinical indication); or iterative reconstruction. Contrast material: ISOVUE 370; Contrast volume: 80 ml; Contrast route: INTRAVENOUS (IV); COMPARISON: CT CHEST W CON 12/09/2023 2:46 PM FINDINGS: Pulmonary arteries: Negative for acute pulmonary embolism. Aorta: Unremarkable. No aortic aneurysm. No aortic dissection. Lungs: Unremarkable. No consolidation. No masses. Pleural spaces: Unremarkable. No pneumothorax. No pleural effusion. Heart: Unremarkable. No cardiomegaly. No pericardial effusion. Lymph nodes: Unremarkable. No enlarged lymph nodes. Bones/joints: Unremarkable. No acute fracture. Soft tissues: Unremarkable. IMPRESSION: Negative for acute pulmonary embolism.
--- NOTE | 2024-04-25 12:41 | XR_ITS ---
PROCEDURE INFORMATION: Exam: XR Chest Exam date and time: 04/25/2024 1:37 PM Age: 89 years old Clinical indication: Pain; Chest pressure; Additional info: Cp TECHNIQUE: Imaging protocol: Radiologic exam of the chest. Views: 1 view. COMPARISON: CT ANGIO CHEST 04/25/2024 1:27 PM FINDINGS: Tubes, catheters and devices: Implanted cardiac device. Lungs: Unremarkable. No consolidation. Pleural spaces: Unremarkable. No pleural effusion. No pneumothorax. Heart/Mediastinum: Unremarkable. No cardiomegaly. Bones/joints: Median sternotomy wires. IMPRESSION: No acute findings.
--- NOTE | 2024-04-25 12:41 | CT_ITS ---
PROCEDURE INFORMATION: Exam: CT Abdomen And Pelvis With Contrast Exam date and time: 04/25/2024 1:27 PM Age: 89 years old Clinical indication: Abdominal pain; Generalized; Additional info: Abd pain / generalized TECHNIQUE: Imaging protocol: Computed tomography of the abdomen and pelvis with contrast. 3D rendering (Not supervised by radiologist): MIP and/or 3D reconstructed images were created by the technologist. Radiation optimization: All CT scans at this facility use at least one of these dose optimization techniques: automated exposure control; mA and/or kV adjustment per patient size (includes targeted exams where dose is matched to clinical indication); or iterative reconstruction. Contrast material: ISOVUE; Contrast volume: 75 ml; Contrast route: IV; COMPARISON: CT ANGIO ABDOMEN/FEMORAL 02/03/2021 4:28 PM FINDINGS: Liver: Fatty infiltration of the liver. Stable low-attenuation focus in the right hepatic lobe measures 3 x 2.2 cm. Likely cyst. Gallbladder and biliary ducts: Cholelithiasis. Pancreas: Normal. No ductal dilation. Spleen: Normal. No splenomegaly. Adrenal glands: Stable nodule right adrenal gland measures 1.2 x 1.3 cm. Further characterization not possible. Left adrenal gland unremarkable. Kidneys and ureters: Simple cortical renal cysts bilaterally. Largest within the inferior pole right kidney measures 4.5 x 5.2 cm. No additional workup necessary. No hydronephrosis. Stomach and bowel: Colonic diverticulosis without CT evidence of diverticulitis. Appendix: No evidence of appendicitis. Intraperitoneal space: Unremarkable. No free air. No significant fluid collection. Vasculature: Atherosclerotic calcification within the abdominal aorta. No aortic aneurysm. Lymph nodes: Unremarkable. No enlarged lymph nodes. Urinary bladder: Unremarkable as visualized. Reproductive: Unremarkable as visualized. Bones/joints: Unremarkable. No acute fracture. Soft tissues: Unremarkable. IMPRESSION: 1. Cholelithiasis. 2. Stable nodule right adrenal gland measures 1.2 x 1.3 cm. Further characterization not possible. 3. Colonic diverticulosis without CT evidence of diverticulitis. COMMENTS: Consistent with the [employer]'s Incidental Findings Committee white paper (J Am Milo Radiol 2018): Any incidental renal lesion less than 1 cm or classified as too small to characterize, or any incidental cystic renal lesion characterized as simple-appearing, is likely benign. No follow-up imaging is recommended for these lesions per consensus recommendations based on imaging criteria.
--- NOTE | 2024-04-25 12:43 | ED_ITS ---
<Statement entered by Jade Swain DO - 04/25/24 15:40> I was consulted by the JANEE, and we discussed the complexity of the problems being addressed. I approved the treatment and management plan for this patient's care in the emergency department, thus performing a substantive portion of the medical decision making. I signed out care to oncoming provider, Dr. Whitten, at 1500 at my departure. Jade Swain DO Discharge Plan Disposition Patient Disposition: Admitted Clinical Impressions Clinical Impression: Duodenitis, Acute upper GI bleed Discharge ED Provider: Prakash Whitten General Adult HPI <Radha Michelle, HAND SHAPER - Last Filed: 04/25/24 18:27> General Chief complaint: Nausea/Vomiting/Diarrhea Stated complaint: coughing up blood, nausea Time Seen by Provider: 04/25/24 12:33 History of Present Illness HPI narrative: patient is an 89-year-old female PMHx HRrEF, pacemaker, PAD, DJD, Mitral valve replacement, Hx A-fib (not anticoagulated), HLD, hypertensive heart disease (aspirin), coronary arterial sclerosis who presents to the ED for 1 episode of vomiting blood prior to arrival. Related Data Home Medications ?Medication ?Instructions ?Recorded ?Confirmed metoprolol tartrate 100 mg tablet 100 mg PO BID 03/27/18 02/11/24 levothyroxine 100 mcg tablet 100 mcg PO DAILY 02/04/21 02/11/24 losartan 100 mg tablet 100 mg PO DAILY 02/04/21 02/11/24 atorvastatin 40 mg tablet 40 mg PO HS 02/06/22 02/11/24 digoxin 125 mcg (0.125 mg) tablet 0.125 mg PO DAILY 08/05/23 02/11/24 famotidine 20 mg tablet 20 mg PO BID 08/05/23 02/11/24 ferrous sulfate 325 mg (65 mg 325 mg PO DAILY 12/12/23 02/11/24 iron) tablet (FeroSul) spironolactone 25 mg tablet 25 mg PO BID 12/12/23 02/11/24 hydralazine 50 mg tablet 50 mg PO TID 01/30/24 02/11/24 pantoprazole 40 mg tablet,delayed 40 mg PO BID 01/30/24 02/11/24 release Previous Rx's ?Medication ?Instructions ?Recorded aspirin 81 mg capsule 81 mg PO DAILY #30 caps 02/06/22 ondansetron 4 mg disintegrating 4 mg PO Q6H PRN nausea and 12/12/23 tablet vomiting #10 tabs levofloxacin 750 mg tablet 750 mg PO DAILY 3 days #3 tabs 12/13/23 Allergies Allergy/AdvReac Type Severity Reaction Status Date / Time codeine Allergy Intermediate DEATHLY Verified 01/30/24 08:59 SICK amiodarone Allergy Mild tongue Verified 01/30/24 08:59 tingling oxycodone (From Percocet) AdvReac Nausea Verified 01/30/24 08:59 [facility] <Radha Michelle APRN - Last Filed: 04/25/24 18:27> [facility] Disclaimer: The information contained in this section may have been updated after the patient was seen, as this information can be updated by other users. Medical History (Updated 04/25/24 @ 17:11 by Cliff Horan MD) Pre-op evaluation Near syncope HFrEF (heart failure with reduced ejection fraction) Fall Chest wall contusion Facial numbness Left ventricular hypokinesis Drug dosage form changed Chest pain Dizziness Near syncope Embolism, arterial, leg, left Hydronephrosis Urinary retention Neuralgia of left lower extremity Cholelithiasis Renal insufficiency Abnormal EKG Cholelithiasis and cholecystitis without obstruction UTI (urinary tract infection) Headache Confusion Finger numbness Facial numbness Pre-syncope Chest pain, precordial Fracture of shaft of humerus with routine healing Decubitus ulcer of buttock, stage 2 Fracture, humerus closed, shaft Arm pain, left Intractable pain Fracture of humeral shaft, left, closed Systolic heart failure Cardiomyopathy Syncope Typical angina Left leg numbness Carotid artery stenosis Surgical History AICD (automatic cardioverter/defibrillator) present History of mitral valve replacement with bioprosthetic valve Stented coronary artery History of implantable cardioverter-defibrillator (ICD) insertion H/O heart valve replacement with bioprosthetic valve History of cardiac cath History of heart artery stent Family History Other No significant family history Social History (Updated 02/11/24 @ 08:05 by Luz Plascencia RN) Smoking Status: Never smoker alcohol intake: never substance use type: denies use current occupational status: retired Travel in the last 8 weeks: Inside the [place] household members: none housing: house caffeine: No Have you lived/traveled outside [place] in past 30 days?: No Contact w/someone who lives/traveled outside [place] past 30 days?: No Exposure to someone with infectious disease in past 14 days?: No Do you have a fever (greater than 100.4 F or 38 C)?: No Have you tested positive for COVID-19: No Exposed to someone with COVID-19 in past 14 days?: No Do you have a sore throat?: No Do you have a cough?: No Do you have any weakness?: No Do you have any diarrhea?: No Are you experiencing any unusual bleeding?: Yes Do you have any muscle aches/pain?: No Do you have any abdominal pain?: No Are you experiencing loss of taste or smell?: No Other Medical History Have you received the Flu Vaccine for this season: No Have you received the Pneumonia Vaccine: No <Radha Michelle APRN - Last Filed: 04/25/24 18:27> ROS Obtained: Yes Systems reviewed as appropriate & no additional complaints except as documented <Prakash Whitten MD - Last Filed: 04/25/24 20:34> ROS Obtained: Yes All systems reviewed & no additional complaints except as documented Physical Exam <Radha Michelle APRN - Last Filed: 04/25/24 18:27> General General appearance: alert and in no apparent distress Head Head exam: atraumatic and normocephalic Eye Eye exam: Present normal appearance and PERRL ENT ENT exam: Present normal exam Neck Neck exam: Present normal inspection Chest Chest inspection: Present normal inspection and symmetric chest wall rise; Absent tenderness Respiratory Respiratory exam: Present normal lung sounds bilaterally Cardiovascular Cardiovascular exam: Present regular rate Abdominal Exam Abdominal exam: Present soft and normal bowel sounds; Absent tenderness Extremities Exam Extremities exam: Present normal inspection and full ROM Back Exam Back exam: Present normal inspection and full ROM Neurological Exam Neurological exam: Present alert and oriented X3 Psychiatric Psychiatric exam: Present normal affect and normal mood Skin Skin exam: Present warm and dry Medical Decision Making <Radha Michelle APRN - Last Filed: 04/25/24 18:27> Medical Records Screening: Per USPSTF and CDC recommendations, given the prevalence of disease in our region, it is our hospital?s policy to screen for HIV and viral Hepatitis for all patients aged 18 and over and those with ongoing risk factors. Alan Inquiry Pt receiving controlled substance: No Alan was queried for this patient: No Vital Signs: 04/25/24 12:54 04/25/24 13:01 04/25/24 13:55 Temperature 98.0 F Temperature Source Oral Pulse Rate 89 83 Pulse Rate [Left Radial] 87 Respiratory Rate 19 22 Blood Pressure 105/49 L 109/59 L Blood Pressure [Right Arm] 123/64 Blood Pressure Mean [Right Arm] 83 02 Sat by Pulse Oximetry 98 97 95 Oxygen Delivery Method Room Air 04/25/24 14:00 04/25/24 14:30 04/25/24 15:00 Temperature Temperature Source Pulse Rate 78 74 87 Pulse Rate [Left Radial] Respiratory Rate 20 21 15 Blood Pressure 109/62 L 94/57 L 92/57 L Blood Pressure [Right Arm] Blood Pressure Mean [Right Arm] 02 Sat by Pulse Oximetry 98 98 94 L Oxygen Delivery Method Room Air Room Air Room Air 04/25/24 15:30 04/25/24 16:00 04/25/24 16:30 Temperature Temperature Source Pulse Rate 100 H 72 79 Pulse Rate [Left Radial] Respiratory Rate 22 17 19 Blood Pressure 111/60 106/59 L 121/66 Blood Pressure [Right Arm] Blood Pressure Mean [Right Arm] 02 Sat by Pulse Oximetry 96 95 96 Oxygen Delivery Method Room Air Room Air 04/25/24 17:00 04/25/24 17:31 04/25/24 18:00 Temperature Temperature Source Pulse Rate 79 82 78 Pulse Rate [Left Radial] Respiratory Rate 18 22 16 Blood Pressure 127/61 101/66 L 108/63 L Blood Pressure [Right Arm] Blood Pressure Mean [Right Arm] 02 Sat by Pulse Oximetry 97 97 96 Oxygen Delivery Method Room Air Room Air Room Air 04/25/24 18:14 Temperature 98 F Temperature Source Oral Pulse Rate 78 Pulse Rate [Left Radial] Respiratory Rate 16 Blood Pressure 108/63 L Blood Pressure [Right Arm] Blood Pressure Mean [Right Arm] 02 Sat by Pulse Oximetry Oxygen Delivery Method Room Air Lab Data Lab Results 04/25/24 12:35: WBC 12.8 H, RBC 4.32, Hgb 14.2, Hct 43.5, MCV 100.7 H, MCH 32.9 H, MCHC 32.6, RDW 13.3, Plt Count 163, MPV 10.9 H, Neut % (Auto) 81.5 H, Lymph % (Auto) 12.4, Bonner % (Auto) 4.5, Eos % (Auto) 0.7, Baso % (Auto) 0.5, Neut # (Auto) 10.4 H, Lymph # (Auto) 1.6, Bonner # (Auto) 0.6, Eos # (Auto) 0.1, Baso # (Auto) 0.1, Sodium 136, Potassium 5.6 H, Chloride 103, Carbon Dioxide 27, Anion Gap 11.6, BUN 40 H, Creatinine 1.30 H, Estimated Creat Clear 24, Estimated GFR 39 L, Est GFR ( Amer) 47 L, Glucose 161 H, Calcium 9.5, Total Bilirubin 2.5 H, AST 26, ALT 21, Alkaline Phosphatase 35 L, Troponin I < 0.01, NT-Pro-B Natriuret Pep 2150 H, Total Protein 6.3, Albumin 4.3, Globulin 2.0, A lbumin/Globulin Ratio 2.2 H 04/25/24 13:50: Urine Color Yellow, Urine Appearance Clear, Urine pH 6.0, Ur Specific [place] 1.015, Urine Protein Negative, Urine Glucose (UA) Negative, Urine Ketones Trace, Urine Blood Negative, Urine Nitrate Negative, Urine Bilirubin Negative, Urine Urobilinogen 1.0, Ur Leukocyte Esterase 1+ A 04/25/24 12:35 04/25/24 12:35 Orders (Tests/Meds): ED MEDICATIONS Generic Name Dose Route Start Last Admin Trade Name Freq PRN Reason Stop Dose Admin Pantoprazole Sodium 40 mg 04/25/24 21:00 Pantoprazole 40mg Vial IV 05/25/24 20:59 BID STEPHANE Discontinued Medications Generic Name Dose Route Start Last Admin Trade Name Freq PRN Reason Stop Dose Admin Sodium Chloride 1,000 mls @ 999 mls/hr 04/25/24 15:22 04/25/24 15:26 Sod Chlor 0.9% 1000ml Bag IV 04/25/24 16:22 999 mls/hr .Q1H1M ONE Administration Iopamidol 80 ml 04/25/24 13:28 04/25/24 13:29 Iopamidol-370 (76%);100ml Bottle IV 04/25/24 13:29 80 ml ONCE ONE Administration Pantoprazole Sodium 80 mg 04/25/24 13:00 04/25/24 13:05 Pantoprazole 40mg Vial IV 04/25/24 13:01 80 mg ONCE ONE Administration Sodium Chloride 50 ml 04/25/24 13:28 04/25/24 13:29 0.9 % Sodium Chloride 50 Ml Vial IV 04/25/24 13:29 50 ml ONCE ONE Administration Sodium Chloride 10 ml 04/25/24 13:28 04/25/24 13:29 Sodium Chloride 0.9% 10ml Syr (Rad Only) IV 04/25/24 13:29 10 ml ONCE ONE Administration ORDERS Category Date Time Status CT abdomen pelvis w con Stat Cat Scan 04/25/24 12:[address] angio chest - dissection Stat Cat Scan 04/25/24 12:41 Completed CXR --portable [XR chest portable] Stat Exams 04/25/24 12:41 Completed POCUS Point of Care (ER Only) Stat Exams 04/25/24 15:13 Taken BNP [NT Pro Brain Natriuretic Pep.] Stat Lab 04/25/24 12:35 Completed CBC w/Auto Diff [Complete Blood Count Auto Diff] Stat Lab 04/25/24 12:35 Completed CMP [Comprehensive Metabolic Panel] Stat Lab 04/25/24 12:35 Completed Trop I [Troponin I] Stat Lab 04/25/24 12:35 Completed Troponin I Q3H Lab 04/25/24 18:35 Received Troponin I Q3H Lab 04/25/24 18:55 Completed Urinalysis and Microscopic Stat Lab 04/25/24 13:50 Completed Urine Culture Stat Micro 04/25/24 13:50 Received Medical Decision Narrative: In summary, patient is an 89-year-old female PMHx HRrEF, pacemaker, PAD, DJD, Mitral valve replacement, Hx A-fib (not anticoagulated), HLD, hypertensive heart disease (aspirin), coronary arterial sclerosis who presents to the ED for 1 episode of vomiting blood prior to arrival. Patient denies any additional symptoms. She denies cough, shortness of breath, abdominal pain. Upon initial exam, patient is alert, oriented and cooperative. Patient is hemodynamically stable. Physical exam unremarkable. Denies fever, chills, body aches, headache, visual disturbances, posterior neck pain, chest pain, shortness of breath, dysuria, diarrhea. Differential diagnosis includes GI bleed, infectious process, esophageal varices, among others. Initial workup will be conducted with hematologic labs and CT imaging. Initial inventions include IV fluids & 80mg of Protonix. Initial workup reviewed by me. CBC remarkable for WBC 12.8, stable H&H. CMP remarkable for potassium 5.6, BUN elevated at 40, creatinine 1.30. BNP 2,150. Final read of the chest x-ray unremarkable for any acute findings. CT abdomen and pelvis remarkable for cholelithiasis, stable nodule on the adrenal gland and colonic diverticulosis without evidence of diverticulitis. Final read of the CTA chest unremarkable for any pulmonary embolism or aortic dissection. Due to slightly elevated BUN and soft blood pressures with 1 episode of hematemesis this morning, patient is at high risk to be having a GI bleed. My attending discussed the case with general surgery who came into evaluate patient at bedside. Patient to be admitted to medicine for further evaluation. I discussed case with hospital medicine. Patient remained stable, agreeable to admission. I independently examined and interviewed patient. No acute distress, but usually hypertensive. Patient is beta blocked and currently borderline tachycardic even in the setting of being hypotensive. On independent interpretation of labs, she has had a 2 point hemoglobin drop since December 2023, BUN elevated disproportionately to creatinine and I am concerned for upper GI bleed. On independent interpretation of CT scan, no obvious arterial bleed, but after speaking to surgeon, Dr. Horan, patient does have pretty significant duodenitis which is likely where she is having upper GI bleed. 40 mg omeprazole IV twice daily ordered. I consulted the surgeon, he evaluated patient at bedside for emergent scope, ultimately ended up deciding against given well clinical appearance of patient. I was consulted by the JANEE, and we discussed the complexity of the problems being addressed. I approved the treatment and management plan for this patient's care in the Emergency Department, thus performing a substantive portion of the medical decision making. Because patient high risk for clinical decompensation, deemed appropriate for inpatient admission. Results were relayed to patient who voiced understanding and patient was agreeable to inpatient admission and management. Patient was admitted to the hospital for further definitive management. Prakash Whitten MD <Jade Swain, DO - Last Filed: 04/25/24 15:41> Vital Signs: 04/25/24 12:54 04/25/24 13:01 04/25/24 13:55 Temperature 98.0 F Temperature Source Oral Pulse Rate 89 83 Pulse Rate [Left Radial] 87 Respiratory Rate 19 22 Blood Pressure 105/49 L 109/59 L Blood Pressure [Right Arm] 123/64 Blood Pressure Mean [Right Arm] 83 02 Sat by Pulse Oximetry 98 97 95 Oxygen Delivery Method Room Air 04/25/24 14:00 04/25/24 14:30 04/25/24 15:00 Temperature Temperature Source Pulse Rate 78 74 87 Pulse Rate [Left Radial] Respiratory Rate 20 21 15 Blood Pressure 109/62 L 94/57 L 92/57 L Blood Pressure [Right Arm] Blood Pressure Mean [Right Arm] 02 Sat by Pulse Oximetry 98 98 94 L Oxygen Delivery Method Room Air Room Air Room Air 04/25/24 15:30 04/25/24 16:00 04/25/24 16:30 Temperature Temperature Source Pulse Rate 100 H 72 79 Pulse Rate [Left Radial] Respiratory Rate 22 17 19 Blood Pressure 111/60 106/59 L 121/66 Blood Pressure [Right Arm] Blood Pressure Mean [Right Arm] 02 Sat by Pulse Oximetry 96 95 96 Oxygen Delivery Method Room Air Room Air 04/25/24 17:00 04/25/24 17:31 04/25/24 18:00 Temperature Temperature Source Pulse Rate 79 82 78 Pulse Rate [Left Radial] Respiratory Rate 18 22 16 Blood Pressure 127/61 101/66 L 108/63 L Blood Pressure [Right Arm] Blood Pressure Mean [Right Arm] 02 Sat by Pulse Oximetry 97 97 96 Oxygen Delivery Method Room Air Room Air Room Air 04/25/24 18:14 Temperature 98 F Temperature Source Oral Pulse Rate 78 Pulse Rate [Left Radial] Respiratory Rate 16 Blood Pressure 108/63 L Blood Pressure [Right Arm] Blood Pressure Mean [Right Arm] 02 Sat by Pulse Oximetry Oxygen Delivery Method Room Air Lab Data Lab Results 04/25/24 12:35: WBC 12.8 H, RBC 4.32, Hgb 14.2, Hct 43.5, MCV 100.7 H, MCH 32.9 H, MCHC 32.6, RDW 13.3, Plt Count 163, MPV 10.9 H, Neut % (Auto) 81.5 H, Lymph % (Auto) 12.4, Bonner % (Auto) 4.5, Eos % (Auto) 0.7, Baso % (Auto) 0.5, Neut # (Auto) 10.4 H, Lymph # (Auto) 1.6, Bonner # (Auto) 0.6, Eos # (Auto) 0.1, Baso # (Auto) 0.1, Sodium 136, Potassium 5.6 H, Chloride 103, Carbon Dioxide 27, Anion Gap 11.6, BUN 40 H, Creatinine 1.30 H, Estimated Creat Clear 24, Estimated GFR 39 L, Est GFR ( Amer) 47 L, Glucose 161 H, Calcium 9.5, Total Bilirubin 2.5 H, AST 26, ALT 21, Alkaline Phosphatase 35 L, Troponin I < 0.01, NT-Pro-B Natriuret Pep 2150 H, Total Protein 6.3, Albumin 4.3, Globulin 2.0, A lbumin/Globulin Ratio 2.2 H 04/25/24 13:50: Urine Color Yellow, Urine Appearance Clear, Urine pH 6.0, Ur Specific [place] 1.015, Urine Protein Negative, Urine Glucose (UA) Negative, Urine Ketones Trace, Urine Blood Negative, Urine Nitrate Negative, Urine Bilirubin Negative, Urine Urobilinogen 1.0, Ur Leukocyte Esterase 1+ A Orders (Tests/Meds): ED MEDICATIONS Generic Name Dose Route Start Last Admin Trade Name Freq PRN Reason Stop Dose Admin Pantoprazole Sodium 40 mg 04/25/24 21:00 Pantoprazole 40mg Vial IV 05/25/24 20:59 BID STEPHANE Discontinued Medications Generic Name Dose Route Start Last Admin Trade Name Freq PRN Reason Stop Dose Admin Sodium Chloride 1,000 mls @ 999 mls/hr 04/25/24 15:22 04/25/24 15:26 Sod Chlor 0.9% 1000ml Bag IV 04/25/24 16:22 999 mls/hr .Q1H1M ONE Administration Iopamidol 80 ml 04/25/24 13:28 04/25/24 13:29 Iopamidol-370 (76%);100ml Bottle IV 04/25/24 13:29 80 ml ONCE ONE Administration Pantoprazole Sodium 80 mg 04/25/24 13:00 04/25/24 13:05 Pantoprazole 40mg Vial IV 04/25/24 13:01 80 mg ONCE ONE Administration Sodium Chloride 50 ml 04/25/24 13:28 04/25/24 13:29 0.9 % Sodium Chloride 50 Ml Vial IV 04/25/24 13:29 50 ml ONCE ONE Administration Sodium Chloride 10 ml 04/25/24 13:28 04/25/24 13:29 Sodium Chloride 0.9% 10ml Syr (Rad Only) IV 04/25/24 13:29 10 ml ONCE ONE Administration ORDERS Category Date Time Status CT abdomen pelvis w con Stat Cat Scan 04/25/24 12:[address] angio chest - dissection Stat Cat Scan 04/25/24 12:41 Completed CXR --portable [XR chest portable] Stat Exams 04/25/24 12:41 Completed POCUS Point of Care (ER Only) Stat Exams 04/25/24 15:13 Taken BNP [NT Pro Brain Natriuretic Pep.] Stat Lab 04/25/24 12:35 Completed CBC w/Auto Diff [Complete Blood Count Auto Diff] Stat Lab 04/25/24 12:35 Completed CMP [Comprehensive Metabolic Panel] Stat Lab 04/25/24 12:35 Completed Trop I [Troponin I] Stat Lab 04/25/24 12:35 Completed Troponin I Q3H Lab 04/25/24 18:35 Received Troponin I Q3H Lab 04/25/24 18:55 Completed Urinalysis and Microscopic Stat Lab 04/25/24 13:50 Completed Urine Culture Stat Micro 04/25/24 13:50 Received ECG Data Tracing #1: I reviewed this ECG and interpreted as documented below: Atrial fibrillation with a ventricular rate of [address]/T wave changes without acute STEMI. No significant changes noted from prior EKG. PVC noted ECG initial impression date: 04/25/24 ECG initial impression time: 12:44 <Praaksh Whitten MD - Last Filed: 04/25/24 20:34> Vital Signs: 04/25/24 12:54 04/25/24 13:01 04/25/24 13:55 Temperature 98.0 F Temperature Source Oral Pulse Rate 89 83 Pulse Rate [Left Radial] 87 Respiratory Rate 19 22 Blood Pressure 105/49 L 109/59 L Blood Pressure [Right Arm] 123/64 Blood Pressure Mean [Right Arm] 83 02 Sat by Pulse Oximetry 98 97 95 Oxygen Delivery Method Room Air 04/25/24 14:00 04/25/24 14:30 04/25/24 15:00 Temperature Temperature Source Pulse Rate 78 74 87 Pulse Rate [Left Radial] Respiratory Rate 20 21 15 Blood Pressure 109/62 L 94/57 L 92/57 L Blood Pressure [Right Arm] Blood Pressure Mean [Right Arm] 02 Sat by Pulse Oximetry 98 98 94 L Oxygen Delivery Method Room Air Room Air Room Air 04/25/24 15:30 04/25/24 16:00 04/25/24 16:30 Temperature Temperature Source Pulse Rate 100 H 72 79 Pulse Rate [Left Radial] Respiratory Rate 22 17 19 Blood Pressure 111/60 106/59 L 121/66 Blood Pressure [Right Arm] Blood Pressure Mean [Right Arm] 02 Sat by Pulse Oximetry 96 95 96 Oxygen Delivery Method Room Air Room Air 04/25/24 17:00 04/25/24 17:31 04/25/24 18:00 Temperature Temperature Source Pulse Rate 79 82 78 Pulse Rate [Left Radial] Respiratory Rate 18 22 16 Blood Pressure 127/61 101/66 L 108/63 L Blood Pressure [Right Arm] Blood Pressure Mean [Right Arm] 02 Sat by Pulse Oximetry 97 97 96 Oxygen Delivery Method Room Air Room Air Room Air 04/25/24 18:14 Temperature 98 F Temperature Source Oral Pulse Rate 78 Pulse Rate [Left Radial] Respiratory Rate 16 Blood Pressure 108/63 L Blood Pressure [Right Arm] Blood Pressure Mean [Right Arm] 02 Sat by Pulse Oximetry Oxygen Delivery Method Room Air Lab Data Lab Results 04/25/24 12:35: WBC 12.8 H, RBC 4.32, Hgb 14.2, Hct 43.5, MCV 100.7 H, MCH 32.9 H, MCHC 32.6, RDW 13.3, Plt Count 163, MPV 10.9 H, Neut % (Auto) 81.5 H, Lymph % (Auto) 12.4, Bonner % (Auto) 4.5, Eos % (Auto) 0.7, Baso % (Auto) 0.5, Neut # (Auto) 10.4 H, Lymph # (Auto) 1.6, [place] # (Auto) 0.6, Eos # (Auto) 0.1, Baso # (Auto) 0.1, Sodium 136, Potassium 5.6 H, Chloride 103, Carbon Dioxide 27, Anion Gap 11.6, BUN 40 H, Creatinine 1.30 H, Estimated Creat Clear 24, Estimated GFR 39 L, Est GFR ( Amer) 47 L, Glucose 161 H, Calcium 9.5, Total Bilirubin 2.5 H, AST 26, ALT 21, Alkaline Phosphatase 35 L, Troponin I < 0.01, NT-Pro-B Natriuret Pep 2150 H, Total Protein 6.3, Albumin 4.3, Globulin 2.0, A lbumin/Globulin Ratio 2.2 H 04/25/24 13:50: Urine Color Yellow, Urine Appearance Clear, Urine pH 6.0, Ur Specific [place] 1.015, Urine Protein Negative, Urine Glucose (UA) Negative, Urine Ketones Trace, Urine Blood Negative, Urine Nitrate Negative, Urine Bilirubin Negative, Urine Urobilinogen 1.0, Ur Leukocyte Esterase 1+ A Orders (Tests/Meds): ED MEDICATIONS Generic Name Dose Route Start Last Admin Trade Name Freq PRN Reason Stop Dose Admin Pantoprazole Sodium 40 mg 04/25/24 21:00 Pantoprazole 40mg Vial IV 05/25/24 20:59 BID STEPHANE Discontinued Medications Generic Name Dose Route Start Last Admin Trade Name Freq PRN Reason Stop Dose Admin Sodium Chloride 1,000 mls @ 999 mls/hr 04/25/24 15:22 04/25/24 15:26 Sod Chlor 0.9% 1000ml Bag IV 04/25/24 16:22 999 mls/hr .Q1H1M ONE Administration Iopamidol 80 ml 04/25/24 13:28 04/25/24 13:29 Iopamidol-370 (76%);100ml Bottle IV 04/25/24 13:29 80 ml ONCE ONE Administration Pantoprazole Sodium 80 mg 04/25/24 13:00 04/25/24 13:05 Pantoprazole 40mg Vial IV 04/25/24 13:01 80 mg ONCE ONE Administration Sodium Chloride 50 ml 04/25/24 13:28 04/25/24 13:29 0.9 % Sodium Chloride 50 Ml Vial IV 04/25/24 13:29 50 ml ONCE ONE Administration Sodium Chloride 10 ml 04/25/24 13:28 04/25/24 13:29 Sodium Chloride 0.9% 10ml Syr (Rad Only) IV 04/25/24 13:29 10 ml ONCE ONE Administration ORDERS Category Date Time Status CT abdomen pelvis w con Stat Cat Scan 04/25/24 12:[address] angio chest - dissection Stat Cat Scan 04/25/24 12:41 Completed CXR --portable [XR chest portable] Stat Exams 04/25/24 12:41 Completed POCUS Point of Care (ER Only) Stat Exams 04/25/24 15:13 Taken BNP [NT Pro Brain Natriuretic Pep.] Stat Lab 04/25/24 12:35 Completed CBC w/Auto Diff [Complete Blood Count Auto Diff] Stat Lab 04/25/24 12:35 Completed CMP [Comprehensive Metabolic Panel] Stat Lab 04/25/24 12:35 Completed Trop I [Troponin I] Stat Lab 04/25/24 12:35 Completed Troponin I Q3H Lab 04/25/24 18:35 Received Troponin I Q3H Lab 04/25/24 18:55 Completed Urinalysis and Microscopic Stat Lab 04/25/24 13:50 Completed Urine Culture Stat Micro 04/25/24 13:50 Received Medical Decision Narrative: In summary, patient is an 89-year-old female PMHx HRrEF, pacemaker, PAD, DJD, Mitral valve replacement, Hx A-fib (not anticoagulated), HLD, hypertensive heart disease (aspirin), coronary arterial sclerosis who presents to the ED for 1 episode of vomiting blood prior to arrival. Patient denies any additional symptoms. She denies cough, shortness of breath, abdominal pain. Upon initial exam, patient is alert, oriented and cooperative. Patient is hemodynamically stable. Physical exam unremarkable. Differential diagnosis includes GI bleed, infectious process, esophageal varices, among others. Initial workup will be conducted with hematologic labs and CT imaging. Initial inventions include IV fluids & 80mg of Protonix. Initial workup reviewed by me. CBC remarkable for WBC 12.8, stable H&H. CMP remarkable for potassium 5.6, BUN elevated at 40, creatinine 1.30. BNP 2,150. Final read of the chest x-ray unremarkable for any acute findings. CT abdomen and pelvis remarkable for cholelithiasis, stable nodule on the adrenal gland and colonic diverticulosis without evidence of diverticulitis. Final read of the CTA chest unremarkable for any pulmonary embolism or aortic dissection. Due to slightly elevated BUN and soft blood pressures with 1 episode of hematemesis this morning, patient is at high risk to be having a GI bleed. My attending discussed the case with general surgery who is coming in to scope the patient. I discussed case with hospital medicine. Patient remained stable, agreeable to admission. I independently examined and interviewed patient. No acute distress, but usually hypertensive. Patient is beta blocked and currently borderline tachycardic even in the setting of being hypotensive. On independent interpretation of labs, she has had a 2 point hemoglobin drop since December 2023, BUN elevated disproportionately to creatinine and I am concerned for upper GI bleed. On independent interpretation of CT scan, no obvious arterial bleed, but after speaking to surgeon, Dr. Horan, patient does have pretty significant duodenitis which is likely where she is having upper GI bleed. 40 mg omeprazole IV twice daily ordered. I consulted the surgeon, he evaluated patient at bedside for emergent scope, ultimately ended up deciding against given well clinical appearance of patient. I was consulted by the JANEE, and we discussed the complexity of the problems being addressed. I approved the treatment and management plan for this patient's care in the Emergency Department, thus performing a substantive portion of the medical decision making. Because patient high risk for clinical decompensation, deemed appropriate for inpatient admission. Results were relayed to patient who voiced understanding and patient was agreeable to inpatient admission and management. Patient was admitted to the hospital for further definitive management. Prakash Whitten MD Procedures <Prakash Whitten MD - Last Filed: 04/25/24 20:34> Limited Ultrasound Indication:: Limited RUQ ultrasound Indication: Epigastric pain, hematemesis Identified structures: -Gallbladder -Gallbladder wall -Common bile duct -Liver Findings: Sonographic Jasso sign: Absent Gallstones: Absent Sludge: Present Pericholecystic fluid: Absent Maximal GB wall thickness (mm) (normal is </= 3mm): Normal Common bile duct width (mm) (normal is </= 6mm): Normal Gallbladder width (cm) (normal is < 4cm): Normal Gallbladder length (cm) (normal is < 10cm): Normal Impression: Cholelithiasis without secondary signs of cholecystitis. Normal common bile duct. Normal echogenicity of liver Images were saved to permanent archive The study was technically adequate CPT 10992-81 This study was performed by me, and I personally interpreted all images/videos. Based on my clinical judgement, these images were adequate and did not necessitate further imaging. Critical Care <Radha Michelle APRN - Last Filed: 04/25/24 18:27> Critical Care Time Critical Care Time: No
[2024-04-25 12:49] LABS: Basophils # 0.1 K/mm3 (0-0.2); Basophils % 0.5 % (0.1-2.0); Eosinophils # 0.1 K/mm3 (0.0-0.4); Eosinophils % 0.7 % (0.1-12.0); Hematocrit 43.5 % (37.0-47.0); Hemoglobin 14.2 g/dL (12.2-16.2); Lymphocytes # 1.6 K/mm3 (0.7-4.5); Lymphocytes % 12.4 % (10-50); Mean Corpuscular HGB Conc 32.6 g/dL (31.8-35.4); Mean Corpuscular Hemoglobin 32.9 pg (27.0-31.2); Mean Corpuscular Volume 100.7 fl (81-99); Mean Platelet Volume 10.9 fl (7.4-10.4); Monocytes # 0.6 K/mm3 (0.1-1.0); Monocytes % 4.5 % (1.7-9.3); Neutrophils # 10.4 K/mm3 (1.8-7.8); Neutrophils % 81.5 % (37.0-80.0); Platelet Count 163 K/mm3 (142-424); Red Blood Count 4.32 M/mm3 (4.20-5.40); Red Cell Distribution Width 13.3 % (11.5-17.5); White Blood Count 12.8 K/mm3 (4.8-10.8)
[2024-04-25 12:59] LABS: Albumin Level 4.3 g/dl (3.5-5.0); Chloride 103 mmol/L (98-107); Potassium 5.6 mmoL/L (3.5-5.1); Sodium 136 mmol/L (136-145)
[2024-04-25 13:01] LABS: Blood Urea Nitrogen 40 mg/dl (7-17); Creatinine Clearance Estimated 24 mL/min (50-200); Estimated Glomerular Filt Rate 39 ml/min (>60); GFR (African American) 47 ML/MIN (>60)
[2024-04-25 13:02] LABS: Alanine Aminotransferase 21 U/L (12-78); Albumin/Globulin Ratio 2.2 (1.1-1.8); Alkaline Phosphatase 35 U/L (38-126); Anion Gap 11.6 mEq/L (5-15); Aspartate Amino Transferase 26 U/L (14-36); Bilirubin,Total 2.5 mg/dl (0.2-1.3); Calcium 9.5 mg/dl (8.4-10.2); Carbon Dioxide 27 mmol/L (22.0-30.0); Glucose 161 mg/dl (74-100); Total Protein,Serum 6.3 g/dl (6.3-8.2)
[2024-04-25] MEDS: PANTOPRAZOLE 40MG VIAL 80 MG IV (13:05)
[2024-04-25 13:18] LABS: Troponin I < 0.01 ng/ml (0.00-0.034)
[2024-04-25] MEDS: 0.9 % SODIUM CHLORIDE 50 ML VIAL IV (13:29)
[2024-04-25] MEDS: SODIUM CHLORIDE 0.9% 10ML SYR (RAD ONLY) 10 ML IV (13:29)
[2024-04-25] MEDS: IOPAMIDOL-370 (76%);100ML BOTTLE 80 ML IV (13:29)
[2024-04-25 13:31] LABS: NT Pro Brain Natriuretic Pep. 2150 pg/mL (0-450)
[2024-04-25 14:01] LABS: Microscopic, Urine URINE MICROSCOPIC (MICROSCOPIC)
[2024-04-25 14:27] LABS: Appearance,Urine Clear (Clear); Bilirubin,Urine Negative (Negative); Blood, Urine Negative (Negative); Color,Urine Yellow (Yellow); Glucose,Urine (UA) Negative (Negative); Ketones,Urine Trace (Negative); Nitrate,Urine Negative (Negative); Protein,Urine Negative (Negative); Specific Gravity, Urine 1.015 (1.005-1.030)
[2024-04-25 14:28] LABS: Leukocyte Esterase,Urine 1+ (Negative)
--- NOTE | 2024-04-25 15:24 | PC.NURSE ---
ICE CHIPS WAS GIVEN TO PT AT THIS TIME
[2024-04-25] MEDS: 0.9 % SODIUM CHLORIDE 1000ML 1,000 ML 999 ML IV (15:26)
--- NOTE | 2024-04-25 16:11 | PC.NURSE ---
ER on phone with hospitalist
--- NOTE | 2024-04-25 16:19 | PC.NURSE ---
HS calling in surgery for request
--- NOTE | 2024-04-25 16:34 | PC.NURSE ---
PT WAS PLACED IN GOWN AT THIS TIME FOR SCOPE PROCEDURE AND [facility] [employer] AND FALL RISK BRACELETS
--- NOTE | 2024-04-25 17:05 | P.CONS_ITS ---
History of Present Illness *Admission Date: 04/25/24 *Reason for visit:: GI bleed *History of present illness: 89-year-old lady presents to the emergency department with an episode of hematemesis. She states that she got up this morning and felt in her usual state until just after breakfast. She got incredibly nauseous and sick feeling and then threw up dark red clots. She had 1 more episode of this and it is since subsided. She feels back to her normal usual state of health. She denies any nausea, abdominal pain, chest pain, shortness of breath, or any other symptoms. She is hungry [facility] Disclaimer: The information contained in this section may have been updated after the patient was seen, as this information can be updated by other users. Medical History (Updated 04/25/24 @ 17:11 by Cliff oHran MD) Pre-op evaluation Near syncope HFrEF (heart failure with reduced ejection fraction) Fall Chest wall contusion Facial numbness Left ventricular hypokinesis Drug dosage form changed Chest pain Dizziness Near syncope Embolism, arterial, leg, left Hydronephrosis Urinary retention Neuralgia of left lower extremity Cholelithiasis Renal insufficiency Abnormal EKG Cholelithiasis and cholecystitis without obstruction UTI (urinary tract infection) Headache Confusion Finger numbness Facial numbness Pre-syncope Chest pain, precordial Fracture of shaft of humerus with routine healing Decubitus ulcer of buttock, stage 2 Fracture, humerus closed, shaft Arm pain, left Intractable pain Fracture of humeral shaft, left, closed Systolic heart failure Cardiomyopathy Syncope Typical angina Left leg numbness Carotid artery stenosis Surgical History AICD (automatic cardioverter/defibrillator) present History of mitral valve replacement with bioprosthetic valve Stented coronary artery History of implantable cardioverter-defibrillator (ICD) insertion H/O heart valve replacement with bioprosthetic valve History of cardiac cath History of heart artery stent Family History Other No significant family history Social History (Updated 02/11/24 @ 08:05 by Luz Plascencia RN) Smoking Status: Never smoker alcohol intake: never substance use type: denies use current occupational status: retired Travel in the last 8 weeks: Inside the [place] household members: none housing: house caffeine: No Have you lived/traveled outside [place] in past 30 days?: No Contact w/someone who lives/traveled outside [place] past 30 days?: No Exposure to someone with infectious disease in past 14 days?: No Do you have a fever (greater than 100.4 F or 38 C)?: No Have you tested positive for COVID-19: No Exposed to someone with COVID-19 in past 14 days?: No Do you have a sore throat?: No Do you have a cough?: No Do you have any weakness?: No Do you have any diarrhea?: No Are you experiencing any unusual bleeding?: Yes Do you have any muscle aches/pain?: No Do you have any abdominal pain?: No Are you experiencing loss of taste or smell?: No Review of Systems Review of Systems Review of systems:: pertinent systems reviewed and negative unless documented below Meds Home Medications and Allergies Home Medications ?Medication ?Instructions ?Recorded ?Confirmed ?Type metoprolol tartrate 100 mg tablet 100 mg PO BID 03/27/18 02/11/24 History levothyroxine 100 mcg tablet 100 mcg PO DAILY 02/04/21 02/11/24 History losartan 100 mg tablet 100 mg PO DAILY 02/04/21 02/11/24 History aspirin 81 mg capsule 81 mg PO DAILY #30 caps 02/06/22 02/11/24 Rx atorvastatin 40 mg tablet 40 mg PO HS 02/06/22 02/11/24 History digoxin 125 mcg (0.125 mg) tablet 0.125 mg PO DAILY 08/05/23 02/11/24 History famotidine 20 mg tablet 20 mg PO BID 08/05/23 02/11/24 History ferrous sulfate 325 mg (65 mg 325 mg PO DAILY 12/12/23 02/11/24 History iron) tablet (FeroSul) ondansetron 4 mg disintegrating 4 mg PO Q6H PRN nausea and 12/12/23 02/11/24 Rx tablet vomiting #10 tabs spironolactone 25 mg tablet 25 mg PO BID 12/12/23 02/11/24 History levofloxacin 750 mg tablet 750 mg PO DAILY 3 days #3 tabs 12/13/23 02/11/24 Rx hydralazine 50 mg tablet 50 mg PO TID 01/30/24 02/11/24 History pantoprazole 40 mg tablet,delayed 40 mg PO BID 01/30/24 02/11/24 History release New Prescriptions to Start Prescriptions: Allergies Allergy/AdvReac Type Severity Reaction Status Date / Time codeine Allergy Intermediate DEATHLY Verified 01/30/24 08:59 SICK amiodarone Allergy Mild tongue Verified 01/30/24 08:59 tingling oxycodone (From Percocet) AdvReac Nausea Verified 01/30/24 08:59 Exam (Inpt) Vital signs and Labs for Last 24 Hours: Temp Pulse Resp BP Pulse Ox O2 Del Method 98.0 F 79 19 121/66 96 Room Air 04/25/24 12:54 04/25/24 16:30 04/25/24 16:30 04/25/24 16:30 04/25/24 16:30 04/25/24 16:30 Laboratory Results - last 24 hr 04/25/24 12:35: WBC 12.8 H, RBC 4.32, Hgb 14.2, Hct 43.5, MCV 100.7 H, MCH 32.9 H, MCHC 32.6, RDW 13.3, Plt Count 163, MPV 10.9 H, Neut % (Auto) 81.5 H, Lymph % (Auto) 12.4, [place] % (Auto) 4.5, Eos % (Auto) 0.7, Baso % (Auto) 0.5, Neut # (Auto) 10.4 H, Lymph # (Auto) 1.6, [place] # (Auto) 0.6, Eos # (Auto) 0.1, Baso # (Auto) 0.1, Sodium 136, Potassium 5.6 H, Chloride 103, Carbon Dioxide 27, Anion Gap 11.6, BUN 40 H, Creatinine 1.30 H, Estimated Creat Clear 24, Estimated GFR 39 L, Est GFR ( Amer) 47 L, Glucose 161 H, Calcium 9.5, Total Bilirubin 2.5 H, AST 26, ALT 21, Alkaline Phosphatase 35 L, Troponin I < 0.01, NT-Pro-B Natriuret Pep 2150 H, Total Protein 6.3, Albumin 4.3, Globulin 2.0, A lbumin/Globulin Ratio 2.2 H 04/25/24 13:50: Urine Color Yellow, Urine Appearance Clear, Urine pH 6.0, Ur Specific [place] 1.015, Urine Protein Negative, Urine Glucose (UA) Negative, Urine Ketones Trace, Urine Blood Negative, Urine Nitrate Negative, Urine Bilirubin Negative, Urine Urobilinogen 1.0, Ur Leukocyte Esterase 1+ A I & O for Labs for Last 24 Hours: Intake & Output 04/22/24 04/23/24 04/24/24 04/25/24 23:59 23:59 23:59 23:59 Weight 114 lb Constitutional: no acute distress Comment:: Elderly Head: Present normocephalic and atraumatic Neck: Present normal inspection and full ROM Respiratory: Present CTA bilaterally Cardiac: Present Reg Rate and Rhythm GI: Present soft; Absent distention or tenderness Rectal (female): Present deferred (female): Present deferred Extremities: Present normal inspection Skin: Present intact; Absent cyanosis Neuro: Present oriented x 3 Results Labs 04/25/24 12:35 04/25/24 12:35 Labs: Laboratory Results - last 24 hr 04/25/24 12:35: WBC 12.8 H, RBC 4.32, Hgb 14.2, Hct 43.5, MCV 100.7 H, MCH 32.9 H, MCHC 32.6, RDW 13.3, Plt Count 163, MPV 10.9 H, Neut % (Auto) 81.5 H, Lymph % (Auto) 12.4, [place] % (Auto) 4.5, Eos % (Auto) 0.7, Baso % (Auto) 0.5, Neut # (Auto) 10.4 H, Lymph # (Auto) 1.6, [place] # (Auto) 0.6, Eos # (Auto) 0.1, Baso # (Auto) 0.1, Sodium 136, Potassium 5.6 H, Chloride 103, Carbon Dioxide 27, Anion Gap 11.6, BUN 40 H, Creatinine 1.30 H, Estimated Creat Clear 24, Estimated GFR 39 L, Est GFR ( Amer) 47 L, Glucose 161 H, Calcium 9.5, Total Bilirubin 2.5 H, AST 26, ALT 21, Alkaline Phosphatase 35 L, Troponin I < 0.01, NT-Pro-B Natriuret Pep 2150 H, Total Protein 6.3, Albumin 4.3, Globulin 2.0, A lbumin/Globulin Ratio 2.2 H 04/25/24 13:50: Urine Color Yellow, Urine Appearance Clear, Urine pH 6.0, Ur Specific [place] 1.015, Urine Protein Negative, Urine Glucose (UA) Negative, Urine Ketones Trace, Urine Blood Negative, Urine Nitrate Negative, Urine Bilirubin Negative, Urine Urobilinogen 1.0, Ur Leukocyte Esterase 1+ A Imaging CT scan - abdomen: image reviewed (Per my private interpretation there is thickening around the pylorus and duodenum consistent with gastritis and duodenitis, likely the cause of her bleeding) Assessment and Plan *Assessment and plan (1) Acute upper GI bleed: Problem Comment: She had a couple episodes of hematemesis. She has been hemodynamically stable and her symptoms have resolved on exam. I suspect the CT scan finding of duodenitis is the cause of her upper GI bleed and I would recommend twice daily Protonix and admission to the hospital for observation with every 6 hour H&H. Status: Acute Category: Medical Code(s): K92.2 - Gastrointestinal hemorrhage, unspecified (2) Duodenitis: Problem Comment: See above problem Status: Acute Category: Medical Code(s): K29.80 - Duodenitis without bleeding (3) HFrEF (heart failure with reduced ejection fraction): Problem Comment: High risk for any intervention at this point. I would recommend observation in this elderly frail lady with a significant cardiac history. I would recommend modest IV fluids as well for resuscitation. Status: Acute Category: Medical Code(s): I50.20 - Unspecified systolic (congestive) heart failure (4) History of mitral valve replacement with tissue graft: Status: Chronic Category: Surgical Code(s): Z95.4 - Presence of other heart-valve replacement (5) Hypertensive heart disease: Status: Chronic Qualifiers: Heart failure presence: with heart failure Heart failure type: u nspecified Qualified Code(s): I11.0 - Hypertensive heart disease with heart failure Category: Medical Code(s): I11.9 - Hypertensive heart disease without heart failure
--- NOTE | 2024-04-25 17:48 | PC.NURSE ---
report called to kasi on the second floor
--- NOTE | 2024-04-25 18:20 | PC.NURSE ---
arrived by w/c from ED
[2024-04-25 19:44] LABS: Troponin I < 0.01 ng/ml (0.00-0.034)
[2024-04-25] MEDS: PANTOPRAZOLE 40MG VIAL 40 MG IV (20:33)
--- NOTE | 2024-04-25 21:18 | P.HP_ITS ---
<Statement entered by Thomas Benz MD - 04/27/24 19:50> Personally evaluated patient and agree with plan of care as outlined by the MEDICAL ADMINISTRATOR. History of Present Illness *Admission Date: 04/25/24 *History of present illness: 89-year-old lady presents to the emergency department with an episode of hematemesis. She states that she got up this morning and felt in her usual state until just after breakfast. She got incredibly nauseous and sick feeling and then threw up dark red clots. She had 1 more episode of this and it is since subsided. She feels back to her normal usual state of health. She denies any nausea, abdominal pain, chest pain, shortness of breath, or any other symp toms. She was seen by Dr. Horan., Per his notes feel this may be a duodenal ulcer, she is doing to be kept n.p.o. and probably will have an upper endoscopy in the a.m.. Patient is noted as being stable able to talk well and in no distress at this time during my exam Patient has a significant cardiovascular history with several stenting's also AICD placement. But has normal ejection fraction per her last catheterization. Longstanding chronic atrial fibs weight has been stable history of hypothyroidism also fractured humerus and 1 note showing total hip replacement. Patient also noted she has had a mitral valve replaced using a pig valve. Plans are to keep patient n.p.o. tonight to monitor for any other complications that would develop may have ice chips to keep her mouth moist [facility] Disclaimer: The information contained in this section may have been updated after the patient was seen, as this information can be updated by other users. Medical History Pre-op evaluation Near syncope HFrEF (heart failure with reduced ejection fraction) Fall Chest wall contusion Facial numbness Left ventricular hypokinesis Drug dosage form changed Chest pain Dizziness Near syncope Embolism, arterial, leg, left Hydronephrosis Urinary retention Neuralgia of left lower extremity Cholelithiasis Renal insufficiency Abnormal EKG Cholelithiasis and cholecystitis without obstruction UTI (urinary tract infection) Headache Confusion Finger numbness Facial numbness Pre-syncope Chest pain, precordial Fracture of shaft of humerus with routine healing Decubitus ulcer of buttock, stage 2 Fracture, humerus closed, shaft Arm pain, left Intractable pain Fracture of humeral shaft, left, closed Systolic heart failure Cardiomyopathy Syncope Typical angina Left leg numbness Carotid artery stenosis Surgical History AICD (automatic cardioverter/defibrillator) present History of mitral valve replacement with bioprosthetic valve Stented coronary artery History of implantable cardioverter-defibrillator (ICD) insertion H/O heart valve replacement with bioprosthetic valve History of cardiac cath History of heart artery stent Family History Other No significant family history Social History Smoking Status: Never smoker alcohol intake: never substance use type: denies use current occupational status: retired Travel in the last 8 weeks: Inside the [place] household members: none housing: house caffeine: No Have you lived/traveled outside [place] in past 30 days?: No Contact w/someone who lives/traveled outside US past 30 days?: No Exposure to someone with infectious disease in past 14 days?: No Do you have a fever (greater than 100.4 F or 38 C)?: No Have you tested positive for COVID-19: No Exposed to someone with COVID-19 in past 14 days?: No Do you have a sore throat?: No Do you have a cough?: No Do you have any weakness?: No Do you have any diarrhea?: No Are you experiencing any unusual bleeding?: Yes Do you have any muscle aches/pain?: No Do you have any abdominal pain?: No Are you experiencing loss of taste or smell?: No Other Medical History Have you received the Flu Vaccine for this season: No Have you received the Pneumonia Vaccine: No Review of Systems Review of Systems Review of systems:: pertinent systems reviewed and negative unless documented below Constitutional Constitutional: Reports as per HPI Eyes Eyes: Reports as per HPI ENT Ears, Nose, Mouth, and Throat: Reports as per HPI *Cardiovascular Cardiovascular: Reports as per HPI Comments: Per patient chronic atrial fibrillation, AICD placement several years ago and with mitral valve replacement *Respiratory Respiratory: Reports as per HPI *Gastrointestinal Gastrointestinal: Reports as per HPI, Reports dyspepsia and Reports hematemesis *Genitourinary Genitourinary: Reports as per HPI *Musculoskeletal Musculoskeletal: Reports as per HPI Integumentary/Breasts Skin/Breast: Reports as per HPI *Neurologic Neurologic: Reports as per HPI Psychiatric Psychiatric: Reports as per HPI Endocrine Endocrine: Reports as per HPI Hematologic/Lymphatic Hematologic/Lymphatic: Reports as per HPI Meds Home Medications and Allergies Home Medications ?Medication ?Instructions ?Recorded ?Confirmed ?Type metoprolol tartrate 100 mg tablet 100 mg PO BID 03/27/18 02/11/24 History levothyroxine 100 mcg tablet 100 mcg PO DAILY 02/04/21 02/11/24 History losartan 100 mg tablet 100 mg PO DAILY 02/04/21 02/11/24 History aspirin 81 mg capsule 81 mg PO DAILY #30 caps 02/06/22 02/11/24 Rx atorvastatin 40 mg tablet 40 mg PO HS 02/06/22 02/11/24 History digoxin 125 mcg (0.125 mg) tablet 0.125 mg PO DAILY 08/05/23 02/11/24 History famotidine 20 mg tablet 20 mg PO BID 08/05/23 02/11/24 History ferrous sulfate 325 mg (65 mg 325 mg PO DAILY 12/12/23 02/11/24 History iron) tablet (FeroSul) ondansetron 4 mg disintegrating 4 mg PO Q6H PRN nausea and 12/12/23 02/11/24 Rx tablet vomiting #10 tabs spironolactone 25 mg tablet 25 mg PO BID 12/12/23 02/11/24 History levofloxacin 750 mg tablet 750 mg PO DAILY 3 days #3 tabs 12/13/23 02/11/24 Rx hydralazine 50 mg tablet 50 mg PO TID 01/30/24 02/11/24 History pantoprazole 40 mg tablet,delayed 40 mg PO BID 01/30/24 02/11/24 History release New Prescriptions to Start Prescriptions: Allergies Allergy/AdvReac Type Severity Reaction Status Date / Time codeine Allergy Intermediate DEATHLY Verified 01/30/24 08:59 SICK amiodarone Allergy Mild tongue Verified 01/30/24 08:59 tingling oxycodone (From Percocet) AdvReac Nausea Verified 01/30/24 08:59 Exam Data for Last 24 hours Vital signs and Labs for Last 24 Hours: Temp Pulse Resp BP Pulse Ox O2 Del Method 98.2 F 75 17 106/71 L 96 Room Air 04/25/24 19:51 04/25/24 19:51 04/25/24 19:51 04/25/24 19:51 04/25/24 19:51 04/25/24 19:51 Laboratory Results - last 24 hr 04/25/24 12:35: WBC 12.8 H, RBC 4.32, Hgb 14.2, Hct 43.5, MCV 100.7 H, MCH 32.9 H, MCHC 32.6, RDW 13.3, Plt Count 163, MPV 10.9 H, Neut % (Auto) 81.5 H, Lymph % (Auto) 12.4, [place] % (Auto) 4.5, Eos % (Auto) 0.7, Baso % (Auto) 0.5, Neut # (Auto) 10.4 H, Lymph # (Auto) 1.6, [place] # (Auto) 0.6, Eos # (Auto) 0.1, Baso # (Auto) 0.1, Sodium 136, Potassium 5.6 H, Chloride 103, Carbon Dioxide 27, Anion Gap 11.6, BUN 40 H, Creatinine 1.30 H, Estimated Creat Clear 24, Estimated GFR 39 L, Est GFR ( Amer) 47 L, Glucose 161 H, Calcium 9.5, Total Bilirubin 2.5 H, AST 26, ALT 21, Alkaline Phosphatase 35 L, Troponin I < 0.01, NT-Pro-B Natriuret Pep 2150 H, Total Protein 6.3, Albumin 4.3, Globulin 2.0, Albumin/Globulin Ratio 2.2 H 04/25/24 13:50: Urine Color Yellow, Urine Appearance Clear, Urine pH 6.0, Ur Specific [place] 1.015, Urine Protein Negative, Urine Glucose (UA) Negative, Urine Ketones Trace, Urine Blood Negative, Urine Nitrate Negative, Urine Bilirubin Negative, Urine Urobilinogen 1.0, Ur Leukocyte Esterase 1+ A 04/25/24 18:55: Troponin I < 0.01 I & O for Last 24 hours: Intake & Output 04/23/24 04/24/24 04/25/24 04/26/24 05:59 05:59 05:59 05:59 Output Total 100 / 100 Balance -100 / -100 Weight 112 lb 9.6 oz Radiology Reports for the Last 24 Hours: CT scan of abdomen question some stenosis in the duodenum with a probable ulcer. Versus diverticulum Constitutional Constitutional: no acute distress *Routine HEENT Exam Head: Present normocephalic and atraumatic Eye: Present EOMI, PERRL and normal accommodation ENT: Present mucous membranes moist Comments: Patient is alert and oriented having no problems whatsoever able to swallow talk freely no signs of any type of trauma to head or neck *Routine Neck Exam Neck: Present supple and full ROM Routine Chest/Breast/Axilla Exam Comments: No tenderness to chest wall or breast. No signs of injury *Routine Respiratory Exam Respiratory: Present CTA bilaterally, normal respiratory effort, able to speak in complete sentences and symmetric chest movement *Routine Cardiovascular Exam Cardiovascular: Present Normal S1, Normal S2, murmur and irregular rhythm Comments: Mild systolic murmur, pleasant rate but irregular rhythm related to A-fib *Routine Abdominal Exam Abdominal: Present soft Comments: Abdomen is soft flat no signs of pain on palpation *Routine Rectal Exam Rectal:: deferred *Routine Genitalia Exam Genitalia:: deferred *Routine Extremities Exam Extremities: Present full ROM and pulses intact Comments: No tenderness to arms or legs no signs of edema in lower extremities Routine Back/Spine/Pelvis Exam Back/Spine: Present full ROM Comments: Did not stand the patient but she is able to move well in the bed without any difficulty whatsoever no signs of back injury are any significant discomfort *Routine Skin Exam Skin: Present intact, dry and warm Comments: Poor turgor in the lower extremities slightly pale *Routine Neurological Exam Neurological: Present alert, oriented X3, CN II-XII intact, normal reflexes, normal tone, vision grossly intact, hearing grossly intact and normal speech H&P: Result Impressions #1 GI bleed unknown cause questionable ulcer duodenum., Presently doing well without any nausea. #2 a long history of gallstones 3. Significant cardiovascular history with AICD and valve replacement presently stable Imaging and Cardiology CT scan - chest: Status: image reviewed by me Additional comments: No acute changes CT scan - abdomen: Status: image reviewed by me Additional comments: No acute changes, noting diverticulum Assessment and Plan *Assessment and plan (1) Acute upper GI bleed: Problem Comment: She had a couple episodes of hematemesis. She has been hemodynamically stable and her symptoms have resolved on exam. I suspect the CT scan finding of duodenitis is the cause of her upper GI bleed and I would recommend twice daily Protonix and admission to the hospital for observation with every 6 hour H&H. Status: Acute Category: Medical Code(s): K92.2 - Gastrointestinal hemorrhage, unspecified (2) Duodenitis: Problem Comment: See above problem Status: Acute Category: Medical Code(s): K29.80 - Duodenitis without bleeding (3) Atrial fibrillation: Status: Chronic Qualifiers: Atrial fibrillation type: chronic Qualified Code(s): I48.2 - Chronic atrial fibrillation Category: Medical Code(s): I48.91 - Unspecified atrial fibrillation (4) Hypertensive heart disease: Status: Chronic Qualifiers: Heart failure presence: with heart failure Heart failure type: unspecified Qualified Code(s): I11.0 - Hypertensive heart disease with heart failure Category: Medical Code(s): I11.9 - Hypertensive heart disease without heart failure Plan 1. Patient is stable at this time, she has been seen by Dr. Nielsen and will be kept n.p.o./ will allow few ice chips to keep her mouth moist. Anticipating upper endoscopy in the a.m. Present medications started to decrease stomach acid and protect from any ulcers., Patient is stable without any distress we will continue to monitor throughout the night
[2024-04-25 22:18] LABS: Troponin I < 0.01 ng/ml (0.00-0.034)
[2024-04-25] MEDS: diphenhydrAMINE ELIXIR 12.5MG/5ML UDC 12.5 MG PO (22:51)
[2024-04-26 04:00] VITALS: BMI 20.9
--- NOTE | 2024-04-26 04:21 | PC.NURSE ---
Pt. is alert and orientated x 4. Pt. is on room air. Pt. denies any abdominal pain. Pt. states that she feels fine now. there has been.no further coughing up blood or vomiting blood. Pt. was anxious she would not sleep. Pt. states she was taking Melatonin at home but it stopped working for her. Pt. given a dose on Benadryl and has slept well this shift. Pt. has had no needs this shift. VSS. Personal items and call chang in reach.
[2024-04-26 08:00] VITALS: BP 95/56; PULSE 88; RESP 16; TEMP 36.7; O2SAT 97
--- NOTE | 2024-04-26 08:56 | HMH.PHAINT1 ---
Pharmacy Intervention Comments: MEDICATION RECONCILIATION COMPLETE USING EXTERNAL PHARMACY FILL HISTORY AND CARDIOLOGY OFFICE VISIT NOTE FROM 01/2024.
[2024-04-26] MEDS: PANTOPRAZOLE 40MG VIAL 40 MG IV (09:07)
[2024-04-26 10:02] LABS: Basophils % 0.4 % (0.1-2.0); Eosinophils % 0.4 % (0.1-12.0); Hematocrit 39.7 % (37.0-47.0); Lymphocytes # 0.8 K/mm3 (0.7-4.5); Mean Corpuscular HGB Conc 32.7 g/dL (31.8-35.4); Mean Corpuscular Hemoglobin 32.9 pg (27.0-31.2); Mean Corpuscular Volume 100.5 fl (81-99); Mean Platelet Volume 11.1 fl (7.4-10.4); Monocytes # 0.6 K/mm3 (0.1-1.0); Monocytes % 5.8 % (1.7-9.3); Neutrophils # 8.7 K/mm3 (1.8-7.8); Neutrophils % 85.1 % (37.0-80.0); Platelet Count 100 K/mm3 (142-424); Red Blood Count 3.95 M/mm3 (4.20-5.40); Red Cell Distribution Width 13.5 % (11.5-17.5); White Blood Count 10.2 K/mm3 (4.8-10.8)
[2024-04-26 10:09] LABS: Albumin Level 3.9 g/dl (3.5-5.0); Chloride 108 mmol/L (98-107); Potassium 4.9 mmoL/L (3.5-5.1); Sodium 137 mmol/L (136-145)
[2024-04-26 10:12] LABS: Alanine Aminotransferase 19 U/L (12-78); Albumin/Globulin Ratio 2.2 (1.1-1.8); Alkaline Phosphatase 41 U/L (38-126); Anion Gap 10.9 mEq/L (5-15); Aspartate Amino Transferase 28 U/L (14-36); Bilirubin,Total 1.9 mg/dl (0.2-1.3); Blood Urea Nitrogen 58 mg/dl (7-17); Carbon Dioxide 23 mmol/L (22.0-30.0); Creatinine Clearance Estimated 26 mL/min (50-200); Estimated Glomerular Filt Rate 42 ml/min (>60); GFR (African American) 51 ML/MIN (>60); Globulin 1.8 g/dL (1.3-3.2); Total Protein,Serum 5.7 g/dl (6.3-8.2)
[2024-04-26 10:13] LABS: Calcium 9.6 mg/dl (8.4-10.2); Glucose 81 mg/dl (74-100); Magnesium 1.8 mg/dl (1.6-2.3)
--- NOTE | 2024-04-26 10:41 | P.PN_ITS ---
Subjective Patient reports: no new complaints and feels better Narrative: No vomiting, no bleeding, feels better Exam Data for Last 24 hours Vital signs and Labs for Last 24 Hours: Temp Pulse Resp BP Pulse Ox O2 Del Method 98.1 F 88 16 95/56 L 97 Room Air 04/26/24 08:00 04/26/24 08:00 04/26/24 08:00 04/26/24 08:00 04/26/24 08:00 04/26/24 08:44 Laboratory Results - last 24 hr 04/25/24 12:35: WBC 12.8 H, RBC 4.32, Hgb 14.2, Hct 43.5, MCV 100.7 H, MCH 32.9 H, MCHC 32.6, RDW 13.3, Plt Count 163, MPV 10.9 H, Neut % (Auto) 81.5 H, Lymph % (Auto) 12.4, [place] % (Auto) 4.5, Eos % (Auto) 0.7, Baso % (Auto) 0.5, Neut # (Auto) 10.4 H, Lymph # (Auto) 1.6, [place] # (Auto) 0.6, Eos # (Auto) 0.1, Baso # (Auto) 0.1, Sodium 136, Potassium 5.6 H, Chloride 103, Carbon Dioxide 27, Anion Gap 11.6, BUN 40 H, Creatinine 1.30 H, Estimated Creat Clear 24, Estimated GFR 39 L, Est GFR ( Amer) 47 L, Glucose 161 H, Calcium 9.5, Total Bilirubin 2.5 H, AST 26, ALT 21, Alkaline Phosphatase 35 L, Troponin I < 0.01, NT-Pro-B Natriuret Pep 2150 H, Total Protein 6.3, Albumin 4.3, Globulin 2.0, Albumin/Globulin Ratio 2.2 H 04/25/24 13:50: Urine Color Yellow, Urine Appearance Clear, Urine pH 6.0, Ur Specific [place] 1.015, Urine Protein Negative, Urine Glucose (UA) Negative, Urine Ketones Trace, Urine Blood Negative, Urine Nitrate Negative, Urine Bilirubin Negative, Urine Urobilinogen 1.0, Ur Leukocyte Esterase 1+ A 04/25/24 18:55: Troponin I < 0.01 04/25/24 21:35: Troponin I < 0.01 04/26/24 09:29: WBC 10.2, RBC 3.95 L, Hgb 13.0, Hct 39.7, MCV 100.5 H, MCH 32.9 H, MCHC 32.7, RDW 13.5, Plt Count 100 L D, MPV 11.1 H, Neut % (Auto) 85.1 H, Lymph % (Auto) 8.0 L, [place] % (Auto) 5.8, Eos % (Auto) 0.4, Baso % (Auto) 0.4, Neut # (Auto) 8.7 H, Lymph # (Auto) 0.8, [place] # (Auto) 0.6, Eos # (Auto) 0.0, Baso # (Auto) 0.0, Sodium 137, Potassium 4.9, Chloride 108 H, Carbon Dioxide 23, Anion Gap 10.9, BUN 58 H D, Creatinine 1.20 H, Estimated Creat Clear 26, Estimated GFR 42 L, Est GFR ( Amer) 51 L, Glucose 81 D, Calcium 9.6, Magnesium 1.8, Total Bilirubin 1.9 H, AST 28, ALT 19, Alkaline Phosphatase 41, Total Protein 5.7 L, Albumin 3.9, Globulin 1.8, Albumin/Globulin Ratio 2.2 H I & O for Last 24 hours: Intake & Output 04/23/24 04/24/24 04/25/24 04/26/24 23:59 23:59 23:59 23:59 Intake Total 240 / 240 Output Total 100 / 100 0 / 0 Balance -100 / 140 240 / 240 Weight 112 lb 9.6 oz 113 lb 12.8 oz Microbiology Reports for the Last 24 Hours: Microbiology 04/25/24 13:50 Urine,Clean Catch Urine Culture - Preliminary Gram Negative Rods Constitutional Constitutional: no acute distress *Routine Abdominal Exam Abdominal: Present soft; Absent tenderness or distended Progress Note: A&P Assessment and plan (1) Acute upper GI bleed: Problem details: Upper GI bleed resolved. Likely due to the gastritis and duodenitis seen on CT scan. I would recommend twice daily PPIs. She can follow-up with general surgery or gastroenterology in 2 weeks. Status: Acute (2) Duodenitis: Problem details: See above problem Status: Acute (3) Atrial fibrillation: Status: Chronic (4) Hypertensive heart disease: Status: Chronic
--- NOTE | 2024-04-26 11:55 | EXP.DC.SUM ---
General Admission date:: 04/25/24 HPI HPI HPI: 89-year-old lady presents to the emergency department with an episode of hematemesis. She states that she got up this morning and felt in her usual state until just after breakfast. She got incredibly nauseous and sick feeling and then threw up dark red clots. She had 1 more episode of this and it is since subsided. She feels back to her normal usual state of health. She denies any nausea, abdominal pain, chest pain, shortness of breath, or any other symptoms. She was seen by Dr. Horan., Per his notes feel this may be a duodenal ulcer, she is doing to be kept n.p.o. and probably will have an upper endoscopy in the a.m.. Patient is noted as being stable able to talk well and in no distress at this time during my exam Patient has a significant cardiovascular history with several stenting's also AICD placement. But has normal ejection fraction per her last catheterization. Longstanding chronic atrial fibs weight has been stable history of hypothyroidism also fractured humerus and 1 note showing total hip replacement. Patient also noted she has had a mitral valve replaced using a pig valve. Plans are to keep patient n.p.o. tonight to monitor for any other complications that would develop may have ice chips to keep her mouth moist Hospital Course Hospital Course Hospital Course: Shani Fuller is a 89-year-old female who presented after an episode of hematemesis and was admitted for the same. #Hematemesis #Suspected duodenitis ? Had one episode of hematemesis the day of admission, no further episodes since then. Hemoglobin remained stable around 13. No tachycardia. ? General Surgery consulted, do not think patient has an active GI bleed but rather duodenitis based on CT abdomen. Recommended continuing Protonix. ? No further episodes, no abdominal pain, tolerating oral intake without any issues. ? Patient takes Protonix 40 mg twice daily but not on empty stomach. She states she also has been drinking a lot of orange juice which can be corrosive with underlying gastritis/duodenitis. ? Advised patient to take Protonix on empty stomach. Referred to GI for further evaluation and management. #UTI ? UA grossly abnormal, urine culture growing gram-negative rods. Patient states she feels little dizzy with ambulation. ? Discharged with cefdinir for 5 days. #Hypertension ? Hold home losartan, spironolactone due to normal blood soft pressures. No tachycardia. Will follow-up with PCP to resume these medications. #History of CAD s/p CABG, stents #PAD #Mitral valve replacement ? Continue home aspirin, atorvastatin. #A-fib s/p GIOVANNI ligation with AICD ? Currently rate controlled. ? Continue home digoxin, metoprolol. #HFpEF ? Currently stable. #Hypothyroidism ? Continue home levothyroxine. Total time spent on discharge: 32 minutes on chart review, counseling, documentation, and direct care with patient. Exam Data for Last 24 hours Vital signs and Labs for Last 24 Hours: Temp Pulse Resp BP Pulse Ox O2 Del Method 98.1 F 88 16 95/56 L 97 Room Air 04/26/24 08:00 04/26/24 08:00 04/26/24 08:00 04/26/24 08:00 04/26/24 08:00 04/26/24 11:00 Laboratory Results - last 24 hr 04/25/24 12:35: WBC 12.8 H, RBC 4.32, Hgb 14.2, Hct 43.5, MCV 100.7 H, MCH 32.9 H, MCHC 32.6, RDW 13.3, Plt Count 163, MPV 10.9 H, Neut % (Auto) 81.5 H, Lymph % (Auto) 12.4, Woodward % (Auto) 4.5, Eos % (Auto) 0.7, Baso % (Auto) 0.5, Neut # (Auto) 10.4 H, Lymph # (Auto) 1.6, Woodward # (Auto) 0.6, Eos # (Auto) 0.1, Baso # (Auto) 0.1, Sodium 136, Potassium 5.6 H, Chloride 103, Carbon Dioxide 27, Anion Gap 11.6, BUN 40 H, Creatinine 1.30 H, Estimated Creat Clear 24, Estimated GFR 39 L, Est GFR ( Amer) 47 L, Glucose 161 H, Calcium 9.5, Total Bilirubin 2.5 H, AST 26, ALT 21, Alkaline Phosphatase 35 L, Troponin I < 0.01, NT-Pro-B Natriuret Pep 2150 H, Total Protein 6.3, Albumin 4.3, Globulin 2.0, Albumin/Globulin Ratio 2.2 H 04/25/24 13:50: Urine Color Yellow, Urine Appearance Clear, Urine pH 6.0, Ur Specific Chili 1.015, Urine Protein Negative, Urine Glucose (UA) Negative, Urine Ketones Trace, Urine Blood Negative, Urine Nitrate Negative, Urine Bilirubin Negative, Urine Urobilinogen 1.0, Ur Leukocyte Esterase 1+ A 04/25/24 18:55: Troponin I < 0.01 04/25/24 21:35: Troponin I < 0.01 04/26/24 09:29: WBC 10.2, RBC 3.95 L, Hgb 13.0, Hct 39.7, MCV 100.5 H, MCH 32.9 H, MCHC 32.7, RDW 13.5, Plt Count 100 L D, MPV 11.1 H, Neut % (Auto) 85.1 H, Lymph % (Auto) 8.0 L, Woodward % (Auto) 5.8, Eos % (Auto) 0.4, Baso % (Auto) 0.4, Neut # (Auto) 8.7 H, Lymph # (Auto) 0.8, Woodward # (Auto) 0.6, Eos # (Auto) 0.0, Baso # (Auto) 0.0, Sodium 137, Potassium 4.9, Chloride 108 H, Carbon Dioxide 23, Anion Gap 10.9, BUN 58 H D, Creatinine 1.20 H, Estimated Creat Clear 26, Estimated GFR 42 L, Est GFR ( Amer) 51 L, Glucose 81 D, Calcium 9.6, Magnesium 1.8, Total Bilirubin 1.9 H, AST 28, ALT 19, Alkaline Phosphatase 41, Total Protein 5.7 L, Albumin 3.9, Globulin 1.8, Albumin/Globulin Ratio 2.2 H I & O for Last 24 hours: Intake & Output 04/23/24 04/24/24 04/25/24 04/26/24 23:59 23:59 23:59 23:59 Intake Total 240 / 240 Output Total 100 / 100 0 / 0 Balance -100 / 140 240 / 240 Weight 51.075 kg 51.619 kg Microbiology Reports for the Last 24 Hours: Microbiology 04/25/24 13:50 Urine,Clean Catch Urine Culture - Preliminary Gram Negative Rods Constitutional Constitutional: no acute distress *Routine HEENT Exam Head: Present normocephalic Eye: Present EOMI and PERRL ENT: Present mucous membranes moist *Routine Neck Exam Neck: Present supple; Absent lymphadenopathy *Routine Respiratory Exam Respiratory: Present CTA bilaterally *Routine Cardiovascular Exam Cardiovascular: Present RRR *Routine Abdominal Exam Abdominal: Present soft and normoactive bowel sounds; Absent tenderness *Routine Extremities Exam Extremities: Absent cyanosis, clubbing or edema *Routine Skin Exam Skin: Present warm; Absent rash *Routine Neurological Exam Neurological: Present alert and oriented X3 Results Data Completed and Pending Labs on day of discharge: Labs from last 24 hours 04/26/24 04/25/24 04/25/24 09:29 21:35 18:55 WBC 10.2 RBC 3.95 L Hgb 13.0 Hct 39.7 MCV 100.5 H MCH 32.9 H MCHC 32.7 RDW 13.5 Plt Count 100 L D MPV 11.1 H Neut % (Auto) 85.1 H Lymph % (Auto) 8.0 L Woodward % (Auto) 5.8 Eos % (Auto) 0.4 Baso % (Auto) 0.4 Neut # (Auto) 8.7 H Lymph # (Auto) 0.8 Woodward # (Auto) 0.6 Eos # (Auto) 0.0 Baso # (Auto) 0.0 Sodium 137 Potassium 4.9 Chloride 108 H Carbon Dioxide 23 Anion Gap 10.9 BUN 58 H D Creatinine 1.20 H Estimated Creat Clear 26 Estimated GFR 42 L Est GFR ( Amer) 51 L Glucose 81 D Calcium 9.6 Magnesium 1.8 Total Bilirubin 1.9 H AST 28 ALT 19 Alkaline Phosphatase 41 Troponin I < 0.01 < 0.01 NT-Pro-B Natriuret Pep Total Protein 5.7 L Albumin 3.9 Globulin 1.8 Albumin/Globulin Ratio 2.2 H Urine Color Urine Appearance Urine pH Ur Specific Chili Urine Protein Urine Glucose (UA) Urine Ketones Urine Blood Urine Nitrate Urine Bilirubin Urine Urobilinogen Ur Leukocyte Esterase 04/25/24 04/25/24 13:50 12:35 WBC 12.8 H RBC 4.32 Hgb 14.2 Hct 43.5 MCV 100.7 H MCH 32.9 H MCHC 32.6 RDW 13.3 Plt Count 163 MPV 10.9 H Neut % (Auto) 81.5 H Lymph % (Auto) 12.4 Woodward % (Auto) 4.5 Eos % (Auto) 0.7 Baso % (Auto) 0.5 Neut # (Auto) 10.4 H Lymph # (Auto) 1.6 Woodward # (Auto) 0.6 Eos # (Auto) 0.1 Baso # (Auto) 0.1 Sodium 136 Potassium 5.6 H Chloride 103 Carbon Dioxide 27 Anion Gap 11.6 BUN 40 H Creatinine 1.30 H Estimated Creat Clear 24 Estimated GFR 39 L Est GFR ( Amer) 47 L Glucose 161 H Calcium 9.5 Magnesium Total Bilirubin 2.5 H AST 26 ALT 21 Alkaline Phosphatase 35 L Troponin I < 0.01 NT-Pro-B Natriuret Pep 2150 H Total Protein 6.3 Albumin 4.3 Globulin 2.0 Albumin/Globulin Ratio 2.2 H Urine Color Yellow Urine Appearance Clear Urine pH 6.0 Ur Specific [place] 1.015 Urine Protein Negative Urine Glucose (UA) Negative Urine Ketones Trace Urine Blood Negative Urine Nitrate Negative Urine Bilirubin Negative Urine Urobilinogen 1.0 Ur Leukocyte Esterase 1+ A Preliminary micro results at discharge 04/25/24 13:50 Urine Culture - Preliminary Urine,Clean Catch Gram Negative Rods DS: Diagnosis Discharge Diagnosis (1) Acute upper GI bleed: Status: Acute Code(s): K92.2 - Gastrointestinal hemorrhage, unspecified Problem details: Upper GI bleed resolved. Likely due to the gastritis and duodenitis seen on CT scan. I would recommend twice daily PPIs. She can follow-up with general surgery or gastroenterology in 2 weeks. (2) Duodenitis: Status: Acute Code(s): K29.80 - Duodenitis without bleeding Problem details: See above problem (3) Atrial fibrillation: Status: Chronic Code(s): I48.91 - Unspecified atrial fibrillation Qualifiers: Atrial fibrillation type: chronic Qualified Code(s): I48.2 - Chronic atrial fibrillation (4) Hypertensive heart disease: Status: Chronic Code(s): I11.9 - Hypertensive heart disease without heart failure Qualifiers: Heart failure presence: with heart failure Heart failure type: unspecified Qualified Code(s): I11.0 - Hypertensive heart disease with heart failure Meds Home Medications and Allergies Home Medications ?Medication ?Instructions ?Recorded ?Confirmed ?Type metoprolol tartrate 100 mg tablet 100 mg PO BID 03/27/18 04/26/24 History losartan 100 mg tablet 100 mg PO DAILY 02/04/21 04/26/24 History aspirin 81 mg capsule 81 mg PO DAILY #30 caps 02/06/22 04/26/24 Rx atorvastatin 40 mg tablet 40 mg PO HS 02/06/22 04/26/24 History digoxin 125 mcg (0.125 mg) tablet 0.125 mg PO DAILY 08/05/23 04/26/24 History famotidine 20 mg tablet 20 mg PO BID 08/05/23 04/26/24 History ferrous sulfate 325 mg (65 mg 325 mg PO DAILY 12/12/23 04/26/24 History iron) tablet (FeroSul) spironolactone 25 mg tablet 25 mg PO BID 12/12/23 04/26/24 History hydralazine 50 mg tablet 50 mg PO TID 01/30/24 04/26/24 History pantoprazole 40 mg tablet,delayed 40 mg PO BID 01/30/24 04/26/24 History release levothyroxine 88 mcg tablet 88 mcg PO DAILYDM 04/25/24 04/26/24 History cefdinir 300 mg capsule 300 mg PO BID 5 days #10 caps 04/26/24 Rx ondansetron 4 mg disintegrating 4 mg PO Q6HP PRN nausea and 04/26/24 04/26/24 History tablet vomiting New Prescriptions to Start Prescriptions: Thomas Dhillon Allergies Allergy/AdvReac Type Severity Reaction Status Date / Time codeine Allergy Intermediate DEATHLY Verified 01/30/24 08:59 SICK amiodarone Allergy Mild tongue Verified 01/30/24 08:59 tingling oxycodone (From Percocet) AdvReac Nausea Verified 01/30/24 08:59 Discharge Plan Disposition Patient Disposition: Home, Self-Care Condition: Fair Follow up Plan Follow up with: Cas Espinal II, MD [Staff Physician] - Enter time for follow up (please call for appointment) Hood Paredes MD [Primary Care Provider] - Enter time for follow up (please call for appointment) Prescriptions/Medication Reconciliation: New cefdinir 300 mg capsule 300 mg PO BID 5 Days Qty: 10 0RF Continued metoprolol tartrate 100 mg tablet 100 mg PO BID pantoprazole 40 mg tablet,delayed release (DR/EC) 40 mg PO BID famotidine 20 mg tablet 20 mg PO BID digoxin 125 mcg (0.125 mg) tablet 0.125 mg PO DAILY ferrous sulfate [FeroSul] 325 mg (65 mg iron) tablet 325 mg PO DAILY spironolactone 25 mg tablet 25 mg PO BID atorvastatin 40 MG tablet 40 mg PO HS aspirin 81 mg Capsule 81 mg PO DAILY Qty: 30 0RF levothyroxine 88 mcg tablet 88 mcg PO DAILYDM ondansetron 4 mg tablet,disintegrating 4 mg PO Q6HP PRN (Reason: nausea and vomiting) Held hydralazine 50 mg tablet 50 mg PO TID Hold Instructions: Resume on 05/04/24. Your blood pressures are all a bit low right now. Please hold this medication until you follow-up with your PCP. losartan 100 MG tablet 100 mg PO DAILY Hold Instructions: Resume on 05/03/24. Your blood pressures are all a bit low right now. Please hold this medication until you follow-up with your PCP. Problem Reconciliation Problems Reviewed?: Yes Patient Discharge Instructions Patient Instructions: Gastritis, Gastrointestinal Bleeding Print Language: Mongolian Providers Primary Care Provider: Hood Paredes Admit Provider: Thomas Benz Attending Provider: Thomas Benz
--- NOTE | 2024-04-26 12:53 | PC.NURSE ---
per hospitalist pt will hold spiralactone and losartan until follow up with pcp.
--- NOTE | 2024-04-28 11:18 | SW/DCPLANNER ---
Spoke with patient on the phone. Patient stated that she is doing good. Patient stated that she went to her follow up appointment today and that she is aware of her other appointment. Patient stated that she was able to get her new medicine picked up at [facility]. Patient stated that she has no concerns or questions at this time. Jair Haq
== END 2024-04-26 12:54 | disposition home or self-care (01) ==
LOC: ER 17:08 → 2ND 17:58
PROVIDERS: Nurse Practitioner; Student in an Organized Health Care Education/Training Program; Admitting Provider Student in an Organized Health Care Education/Training Program; Emergency Provider Emergency Medicine; PCP Internal Medicine Adolescent Medicine; Visit Provider Student in an Organized Health Care Education/Training Program
PROC: 0DJD8ZZ Inspection of Lower Intestinal Tract, Via Natural or Artificial Opening Endoscopic (ICD-10-PCS; CPT 45378; principal; 2024-04-25 17:15)
DX: K92.0 Hematemesis (principal); K29.80 Duodenitis without bleeding; K29.70 Gastritis, unspecified, without bleeding; I11.0 Hypertensive heart disease with heart failure; I50.20 Unspecified systolic (congestive) heart failure; I50.32 Chronic diastolic (congestive) heart failure; K80.20 Calculus of gallbladder without cholecystitis without obstruction; K57.30 Diverticulosis of large intestine without perforation or abscess without bleeding; I48.20 Chronic atrial fibrillation, unspecified; D35.01 Benign neoplasm of right adrenal gland; I73.9 Peripheral vascular disease, unspecified; I65.29 Occlusion and stenosis of unspecified carotid artery; R42 Dizziness and giddiness; E03.9 Hypothyroidism, unspecified; Z79.890 Hormone replacement therapy; Z95.1 Presence of aortocoronary bypass graft; Z79.899 Other long term (current) drug therapy; Z88.5 Allergy status to narcotic agent; Z79.82 Long term (current) use of aspirin; Z88.8 Allergy status to other drugs, medicaments and biological substances; Z95.3 Presence of xenogenic heart valve; Z95.810 Presence of automatic (implantable) cardiac defibrillator; Z95.5 Presence of coronary angioplasty implant and graft; Z86.718 Personal history of other venous thrombosis and embolism
CPT/HCPCS: 36415; 71045; 71275; 74177; 80053; 81001; 83735; 83880; 84484; 85025; 87086; 87088; 87186; 93005; 99285; G0378; J7030; Q9967

== ENCOUNTER 2024-05-23 12:40 | Emergency (ER) | payer MEDICARE, SELFPAY ==
[2024-05-23] VITALS (10 sets, daily range): BP systolic 155–180; BP diastolic 71–101; PULSE 55–71; RESP 12–22; TEMP 36.7; O2SAT 97–98; BMI 22.1
--- NOTE | 2024-05-23 12:46 | ECG_ITS ---
APPROVED REPORT Exam: Resting ECG HR:76 bpm ECG Measurements Heart Rate 76 AXES LA 196 P 87 QRSd 93 QRS -7 QT 400 T -82 QTc 430 Conclusion SINUS RHYTHM WITH OCCASIONAL VENTRICULAR PREMATURE COMPLEXES ST DEVIATION AND MODERATE T-WAVE ABNORMALITY, CONSIDER ANTEROLATERAL ISCHEMIA [-0.1+ mV T-WAVE IN V3-V6] ST DEVIATION AND MODERATE T-WAVE ABNORMALITY, CONSIDER INFERIOR ISCHEMIA [-0.1+ mV T-WAVE IN II/aVF] Unchanged from prior ECG No STEMI Electronically signed by : JAZZ SHANKAR, 05/23/2024 15:27:39
--- NOTE | 2024-05-23 12:50 | XR_ITS ---
PROCEDURE INFORMATION: Exam: XR Chest Exam date and time: 05/23/2024 12:57 PM Age: 89 years old Clinical indication: Other: Shocked by defib TECHNIQUE: Imaging protocol: Radiologic exam of the chest. Views: 1 view. COMPARISON: CR XR CHEST PORTABLE 04/25/2024 1:37 PM FINDINGS: Tubes, catheters and devices: Transvenous pacemaker leads in the heart. Surgical device in the left atrium Lungs: Unremarkable. No consolidation. Pleural spaces: Unremarkable. No pleural effusion. No pneumothorax. Heart/Mediastinum: Cardiomegaly Bones/joints: Median sternotomy. Healed midshaft left humerus fracture IMPRESSION: No acute findings.
--- NOTE | 2024-05-23 12:54 | [facility].EDGENADL ---
Discharge Plan Disposition Patient Disposition: Home, Self-Care Condition: Good Prescriptions Prescriptions: No Action metoprolol tartrate 100 mg tablet 100 mg PO BID pantoprazole 40 mg tablet,delayed release (DR/EC) 40 mg PO BID hydralazine 50 mg tablet 50 mg PO TID famotidine 20 mg tablet 20 mg PO BID digoxin 125 mcg (0.125 mg) tablet 0.125 mg PO DAILY losartan 100 MG tablet 100 mg PO DAILY ferrous sulfate [FeroSul] 325 mg (65 mg iron) tablet 325 mg PO DAILY spironolactone 25 mg tablet 25 mg PO BID atorvastatin 40 MG tablet 40 mg PO HS aspirin 81 mg Capsule 81 mg PO DAILY Qty: 30 0RF levothyroxine 88 mcg tablet 88 mcg PO DAILYDM ondansetron 4 mg tablet,disintegrating 4 mg PO Q6HP PRN (Reason: nausea and vomiting) cefdinir 300 mg capsule 300 mg PO BID 5 Days Qty: 10 0RF Referrals Follow up/Referrals: Quintin Easley MD [Staff Physician] - See instructions Cas Espinal II, MD [Staff Physician] - See instructions Ruben Lincoln MD [Staff Physician] - See instructions Cliff Rosales MD [Staff Physician] - See instructions Hood Paredes MD [Primary Care Provider] - See instructions Shailesh Naidu MD [Staff Physician] - See instructions Activity Restrictions/Add. Instructions Additional Instructions/Restrictions: You were evaluated in the emergency department today. Your defibrillator did fire because your heart rate was significantly elevated. Lab work overall is reassuring today. Given this, I recommend close follow-up with cardiology on an outpatient basis. Dr. Rosales would like for you to be seen in clinic Saturday at 1 PM. Incidentally, you have what appears to be a mass in your stomach. Unclear what this is at this time, but we recommend very close follow-up with either gastroenterology or general surgery for further evaluation and management. Please call their offices to schedule appointments. Follow-up closely with your primary care provider as well. Return to the emergency department for new or worsening symptoms Clinical Impressions Clinical Impression: Atrial fibrillation with RVR, Implantable cardioverter-defibrillator discharge, Gastric mass Instructions Patient Instructions: DI for Atrial Fibrillation Print Language Print Language: Setswana Discharge ED Provider: Nav Zapien Adult HPI <Jade N DO Wiliam - Last Filed: 05/23/24 14:40> General Chief complaint: Arrhythmia/Palpitations Stated complaint: [employer] shocking her BP/Pulse rising Time Seen by Provider: 05/23/24 12:44 History of Present Illness HPI narrative: This patient is an 89-year-old female with a history of CHF status post ICD placement, atrial fibrillation, hypertension, hyperlipidemia, CAD, prior mitral valve replacement, PAD presented to the emergency department for evaluation with concern for being shocked by her defibrillator. Patient states that she was on her lawnmower this morning when she felt something shock her a total of 3 times. She states that she thought maybe it was a lawnmower or wires from a telephone pole, but she got off the lawnmower and went away when she felt it very clearly shock her again. It was on the left side of her chest. She is now having some pain of the left side of her chest but denies any other concerns or complaints. She reports feeling fine prior to this. No history of having her ICD shock or in the past. She reports that she has had it for 10 years without any issues. It is a [place]. No recent infectious symptoms or traumatic injuries. She reports compliance with her home medications, including digoxin. Related Data Home Medications ?Medication ?Instructions ?Recorded ?Confirmed metoprolol tartrate 100 mg tablet 100 mg PO BID 03/27/18 05/23/24 losartan 100 mg tablet 100 mg PO DAILY 02/04/21 05/23/24 atorvastatin 40 mg tablet 40 mg PO HS 02/06/22 05/23/24 digoxin 125 mcg (0.125 mg) tablet 0.125 mg PO DAILY 08/05/23 05/23/24 famotidine 20 mg tablet 20 mg PO BID 08/05/23 05/23/24 ferrous sulfate 325 mg (65 mg 325 mg PO DAILY 12/12/23 05/23/24 iron) tablet (FeroSul) spironolactone 25 mg tablet 25 mg PO BID 12/12/23 05/23/24 hydralazine 50 mg tablet 50 mg PO TID 01/30/24 05/23/24 pantoprazole 40 mg tablet,delayed 40 mg PO BID 01/30/24 05/23/24 release levothyroxine 88 mcg tablet 88 mcg PO DAILYDM 04/25/24 05/23/24 ondansetron 4 mg disintegrating 4 mg PO Q6HP PRN nausea and 04/26/24 05/23/24 tablet vomiting Previous Rx's ?Medication ?Instructions ?Recorded aspirin 81 mg capsule 81 mg PO DAILY #30 caps 02/06/22 cefdinir 300 mg capsule 300 mg PO BID 5 days #10 caps 04/26/24 Allergies Allergy/AdvReac Type Severity Reaction Status Date / Time codeine Allergy Intermediate DEATHLY Verified 01/30/24 08:59 SICK amiodarone Allergy Mild tongue Verified 01/30/24 08:59 tingling oxycodone (From Percocet) AdvReac Nausea Verified 01/30/24 08:59 PFS <Jade Swain DO - Last Filed: 05/23/24 14:40> [facility] Disclaimer: The information contained in this section may have been updated after the patient was seen, as this information can be updated by other users. Medical History Acute upper GI bleed Pre-op evaluation Near syncope HFrEF (heart failure with reduced ejection fraction) Fall Chest wall contusion Facial numbness Left ventricular hypokinesis Drug dosage form changed Chest pain Dizziness Near syncope Embolism, arterial, leg, left Hydronephrosis Urinary retention Neuralgia of left lower extremity Cholelithiasis Renal insufficiency Abnormal EKG Cholelithiasis and cholecystitis without obstruction UTI (urinary tract infection) Headache Confusion Finger numbness Facial numbness Pre-syncope Chest pain, precordial Fracture of shaft of humerus with routine healing Decubitus ulcer of buttock, stage 2 Fracture, humerus closed, shaft Arm pain, left Intractable pain Fracture of humeral shaft, left, closed Systolic heart failure Cardiomyopathy Syncope Typical angina Left leg numbness Carotid artery stenosis Surgical History AICD (automatic cardioverter/defibrillator) present History of mitral valve replacement with bioprosthetic valve Stented coronary artery History of implantable cardioverter-defibrillator (ICD) insertion H/O heart valve replacement with bioprosthetic valve History of cardiac cath History of heart artery stent Family History Other No significant family history Social History Smoking Status: Never smoker alcohol intake: never substance use type: denies use current occupational status: retired Travel in the last 8 weeks: Inside the [place] household members: none housing: house caffeine: No Have you lived/traveled outside [place] in past 30 days?: No Contact w/someone who lives/traveled outside US past 30 days?: No Exposure to someone with infectious disease in past 14 days?: No Do you have a fever (greater than 100.4 F or 38 C)?: No Have you tested positive for COVID-19: No Exposed to someone with COVID-19 in past 14 days?: No Do you have a sore throat?: No Do you have a cough?: No Do you have any weakness?: No Do you have any diarrhea?: No Are you experiencing any unusual bleeding?: No Do you have any muscle aches/pain?: No Do you have any abdominal pain?: No Are you experiencing loss of taste or smell?: No Other Medical History Have you received the Flu Vaccine for this season: No Have you received the Pneumonia Vaccine: No <Jade Swain DO - Last Filed: 05/23/24 14:40> ROS Obtained: Yes All systems reviewed & no additional complaints except as documented Physical Exam <Jade Swain DO - Last Filed: 05/23/24 14:40> General General appearance: alert and in no apparent distress Head Head exam: atraumatic and normocephalic Eye Eye exam: Present normal appearance, PERRL and EOMI ENT ENT exam: Present normal exam, normal oropharynx, mucous membranes moist and normal external ear exam Neck Neck exam: Present normal inspection, full ROM and trachea midline; Absent tenderness Chest Chest inspection: Present normal inspection and symmetric chest wall rise; Absent tenderness Respiratory Respiratory exam: Present normal lung sounds bilaterally; Absent respiratory distress, wheezes, stridor or accessory muscle use Cardiovascular Cardiovascular exam: Present regular rate and normal rhythm Abdominal Exam Abdominal exam: Present soft; Absent distention, tenderness or guarding Extremities Exam Extremities exam: Present normal inspection, full ROM and normal capillary refill; Absent tenderness or edema Back Exam Back exam: Present normal inspection and full ROM; Absent tenderness Neurological Exam Neurological exam: Present alert, oriented X3, CN II-XII intact and normal gait; Absent motor sensory deficit Psychiatric Psychiatric exam: Present normal affect and normal mood Skin Skin exam: Present warm and dry Medical Decision Making <Jade Swain, DO - Last Filed: 05/23/24 14:40> Medical Records Medical records reviewed: Yes I reviewed the patient's medical records. Screening: Per USPSTF and CDC recommendations, given the prevalence of disease in our region, it is our hospital?s policy to screen for HIV and viral Hepatitis for all patients aged 18 and over and those with ongoing risk factors. Alan Inquiry Pt receiving controlled substance: No Vital Signs: 05/23/24 12:53 05/23/24 13:00 05/23/24 13:30 Temperature 98.0 F Temperature Source Oral Pulse Rate 59 L 59 L Pulse Rate [Apical] 71 Respiratory Rate 16 22 16 Blood Pressure 167/78 H 157/75 H Blood Pressure [Right Arm] 163/101 H Blood Pressure Mean [Right Arm] 121 Blood Pressure Source Blood Pressure Source [Right Arm] Automatic Cuff Blood Pressure Position Blood Pressure Position [Right Arm] Sitting 02 Sat by Pulse Oximetry 98 97 97 Oxygen Delivery Method Room Air Room Air Room Air 05/23/24 14:00 05/23/24 14:30 05/23/24 15:00 Temperature Temperature Source Pulse Rate 60 59 L 60 Pulse Rate [Apical] Respiratory Rate 20 22 21 Blood Pressure 155/71 H 164/80 H 161/94 H Blood Pressure [Right Arm] Blood Pressure Mean [Right Arm] Blood Pressure Source Blood Pressure Source [Right Arm] Blood Pressure Position Blood Pressure Position [Right Arm] 02 Sat by Pulse Oximetry 97 98 97 Oxygen Delivery Method Room Air Room Air Room Air 05/23/24 15:30 05/23/24 16:00 05/23/24 16:03 Temperature Temperature Source Pulse Rate 60 55 L 60 Pulse Rate [Apical] Respiratory Rate 14 12 16 Blood Pressure 166/77 H 174/79 H 180/90 H Blood Pressure [Right Arm] Blood Pressure Mean [Right Arm] Blood Pressure Source Blood Pressure Source [Right Arm] Blood Pressure Position Blood Pressure Position [Right Arm] 02 Sat by Pulse Oximetry 97 97 98 Oxygen Delivery Method Room Air Room Air Room Air 05/23/24 16:25 Temperature 98.0 F Temperature Source Oral Pulse Rate 60 Pulse Rate [Apical] Respiratory Rate 18 Blood Pressure 168/72 H Blood Pressure [Right Arm] Blood Pressure Mean [Right Arm] Blood Pressure Source Automatic Cuff Blood Pressure Source [Right Arm] Blood Pressure Position Sitting Blood Pressure Position [Right Arm] 02 Sat by Pulse Oximetry Oxygen Delivery Method Room Air Lab Data Lab results reviewed: Yes I reviewed the patient's lab results. Lab Results 05/23/24 12:55: WBC 7.6, RBC 4.32, Hgb 14.3, Hct 43.4, MCV 100.5 H, MCH 33.1 H, MCHC 32.9, RDW 13.6, Plt Count 154, MPV 10.4, Neut % (Auto) 74.8, Lymph % (Auto) 13.1, [place] % (Auto) 8.3, Eos % (Auto) 2.8, Baso % (Auto) 0.7, Neut # (Auto) 5.7, Lymph # (Auto) 1.0, [place] # (Auto) 0.6, Eos # (Auto) 0.2, Baso # (Auto) 0.1, PT 10.8, INR 0.96, APTT 24.2, D-Dimer 1.05 H, Sodium 141, Potassium 3.9, Chloride 104, Carbon Dioxide 27, Anion Gap 13.9, BUN 16, Creatinine 1.10 H, Estimated Creat Clear 30, Estimated GFR 47 L, Est GFR ( Amer) 57 L, Glucose 144 H, Calcium 9.5, Magnesium 1.8, Total Bilirubin 1.5 H, AST 30, ALT 21, Alkaline Phosphatase 46, Troponin I 0.02, NT-Pro-B Natriuret Pep 5460 H, Total Protein 7.6 D, Albumin 4.6, Globulin 3.0, Albumin/Globulin Ratio 1.5, Lipase 173, TSH 0.67, Thyroxine (T4) 11.8 H, Digoxin 1.10 05/23/24 15:30: Troponin I 0.10 H 05/23/24 12:55 05/23/24 12:55 Orders (Tests/Meds): ED MEDICATIONS Discontinued Medications Generic Name Dose Route Start Last Admin Trade Name Arenq PRN Reason Stop Dose Admin Aspirin 324 mg 05/23/24 13:03 05/23/24 13:49 Aspirin 81mg Chewable Tablet PO 05/23/24 13:04 243 mg ONCE ONE Administration Iopamidol 70 ml 05/23/24 14:09 05/23/24 14:13 Iopamidol-370 (76%);100ml Bottle IV 05/23/24 14:10 70 ml ONCE ONE Administration Sodium Chloride 10 ml 05/23/24 14:09 05/23/24 14:14 Sodium Chloride 0.9% 10ml Syr (Rad Only) IV 06/22/24 14:08 10 ml NEEDED PRN Administration Maintain IV Site Sodium Chloride 50 ml 05/23/24 14:09 05/23/24 14:14 0.9 % Sodium Chloride 50 Ml Vial IV 05/23/24 14:10 50 ml ONCE ONE Administration ORDERS Category Date Time Status CT angio chest PE protocol Stat Cat Scan 05/23/24 13:23 Completed CXR --portable [XR chest portable] Stat Exams 05/23/24 12:50 Completed Activated Partial Thrombo Time Stat Lab 05/23/24 12:55 Completed BNP [NT Pro Brain Natriuretic Pep.] Stat Lab 05/23/24 12:55 Completed Complete Blood Count Auto Diff Stat Lab 05/23/24 12:55 Completed Comprehensive Metabolic Panel Stat Lab 05/23/24 12:55 Completed D-Dimer Stat Lab 05/23/24 12:55 Completed Digoxin Stat Lab 05/23/24 12:55 Completed Lipase Stat Lab 05/23/24 12:55 Completed MAG [Magnesium] Stat Lab 05/23/24 12:55 Completed Prothrombin Time INR Stat Lab 05/23/24 12:55 Completed T4 (Thyroxine) Stat Lab 05/23/24 12:55 Completed TSH [Thyroid Stimulating Hormone] Stat Lab 05/23/24 12:55 Completed Trop I [Troponin I] Stat Lab 05/23/24 12:55 Completed Troponin I Q3H Lab 05/23/24 15:30 Completed ECG Data Tracing #1: I reviewed this ECG and interpreted as documented below: Normal sinus rhythm with a ventricular rate of [address]/T wave changes that significant change from prior. No STEMI. PVCs noted ECG initial impression date: 05/23/24 ECG initial impression time: 12:50 Medical Decision Narrative: In summary, this patient is a 89-year-old female presenting to the Emergency Department for evaluation of ICD firing and now having left chest pain. Differential diagnoses considered include but are not limited to ACS, ventricular dysrhythmia, inappropriate ICD firing, electrolyte derangements, PE. Ruling out the most morbid conditions drove assessment. It should be noted patient's history includes CAD, CHF, atrial fibrillation, PAD, hypertension, hyperlipidemia, hypertensive heart disease which may or may not be at goal therapy. This complicates all aspects of care by increasing patient's risk for morbidity. I reviewed patient's past medical records and noted prior cardiology evaluations for maintenance of health, prior ICD interrogations with most recent 1 being in April. On exam, the patient is lying in bed in no acute distress complaining of some left chest pain but otherwise is feeling fine. Vitals are normal on cardiac telemetry. Workup included CBC, CMP, troponin, BNP, D-dimer, TSH, T4, coags, lipase, digoxin level, chest x-ray, EKG. EKG obtained does not demonstrate any significant changes from prior. Patient was given oral aspirin. Her device was interrogated and demonstrated that patient had A-fib with RVR with a rate greater than 200, for which she was shocked 3 times with of her dysrhythmia and return to a normal sinus rhythm prior to arrival. Her pacer appears to be functioning properly. I had an interactive discussion with the dairy supplies sales representative from [employer] who confirmed this. Labs demonstrated elevated D-dimer, so CTA PE protocol was added onto workup. Kidney function is around her baseline. No significantly fluid derangements, initial troponin 0.02. She does have mild hyper bilirubinemia which is actually improved from prior. T4 is mildly elevated. I independently interpreted chest x-ray and CTA prior to the radiologist read and noted no PE, no pneumothorax, no large focal consolidation of the lung. Please see their read for final interpretation. They note concern for a gastric mass with calcifications, which I notified patient of and instructed her to follow-up closely outpatient for further evaluation and management. On reassessment, patient is resting comfortably with no symptoms or complaints. She says she is feeling fine. Vitals are reassuring on cardiac telemetry with no significant dysrhythmia, heart rate in the 70s. She is mildly hypertensive. O2 saturation normal, she is not tachypneic with reassuring cardiopulmonary exam. She is requesting to go home as she is feeling fine. Second troponin is pending at this time. I went ahead and had an indirect discussion with Dr. Rosales with cardiology who advised a second troponin is negative, patient can go home and follow-up outpatient in their clinic on Saturday afternoon. At 1430, patient was placed in ED observation status pending second troponin to determine whether or not the patient would be appropriate for discharge versus admission. The patient was provided serial reevaluations and cardiac monitoring while awaiting ultimate disposition. Patient care signed out to the oncoming provider, Dr. Zapien, pending second troponin and disposition. <Nav Zapien MD - Last Filed: 05/24/24 19:28> Vital Signs: 05/23/24 12:53 05/23/24 13:00 05/23/24 13:30 Temperature 98.0 F Temperature Source Oral Pulse Rate 59 L 59 L Pulse Rate [Apical] 71 Respiratory Rate 16 22 16 Blood Pressure 167/78 H 157/75 H Blood Pressure [Right Arm] 163/101 H Blood Pressure Mean [Right Arm] 121 Blood Pressure Source Blood Pressure Source [Right Arm] Automatic Cuff Blood Pressure Position Blood Pressure Position [Right Arm] Sitting 02 Sat by Pulse Oximetry 98 97 97 Oxygen Delivery Method Room Air Room Air Room Air 05/23/24 14:00 05/23/24 14:30 05/23/24 15:00 Temperature Temperature Source Pulse Rate 60 59 L 60 Pulse Rate [Apical] Respiratory Rate 20 22 21 Blood Pressure 155/71 H 164/80 H 161/94 H Blood Pressure [Right Arm] Blood Pressure Mean [Right Arm] Blood Pressure Source Blood Pressure Source [Right Arm] Blood Pressure Position Blood Pressure Position [Right Arm] 02 Sat by Pulse Oximetry 97 98 97 Oxygen Delivery Method Room Air Room Air Room Air 05/23/24 15:30 05/23/24 16:00 05/23/24 16:03 Temperature Temperature Source Pulse Rate 60 55 L 60 Pulse Rate [Apical] Respiratory Rate 14 12 16 Blood Pressure 166/77 H 174/79 H 180/90 H Blood Pressure [Right Arm] Blood Pressure Mean [Right Arm] Blood Pressure Source Blood Pressure Source [Right Arm] Blood Pressure Position Blood Pressure Position [Right Arm] 02 Sat by Pulse Oximetry 97 97 98 Oxygen Delivery Method Room Air Room Air Room Air 05/23/24 16:25 Temperature 98.0 F Temperature Source Oral Pulse Rate 60 Pulse Rate [Apical] Respiratory Rate 18 Blood Pressure 168/72 H Blood Pressure [Right Arm] Blood Pressure Mean [Right Arm] Blood Pressure Source Automatic Cuff Blood Pressure Source [Right Arm] Blood Pressure Position Sitting Blood Pressure Position [Right Arm] 02 Sat by Pulse Oximetry Oxygen Delivery Method Room Air Lab Data Lab Results 05/23/24 12:55: WBC 7.6, RBC 4.32, Hgb 14.3, Hct 43.4, MCV 100.5 H, MCH 33.1 H, MCHC 32.9, RDW 13.6, Plt Count 154, MPV 10.4, Neut % (Auto) 74.8, Lymph % (Auto) 13.1, [place] % (Auto) 8.3, Eos % (Auto) 2.8, Baso % (Auto) 0.7, Neut # (Auto) 5.7, Lymph # (Auto) 1.0, [place] # (Auto) 0.6, Eos # (Auto) 0.2, Baso # (Auto) 0.1, PT 10.8, INR 0.96, APTT 24.2, D-Dimer 1.05 H, Sodium 141, Potassium 3.9, Chloride 104, Carbon Dioxide 27, Anion Gap 13.9, BUN 16, Creatinine 1.10 H, Estimated Creat Clear 30, Estimated GFR 47 L, Est GFR ( Amer) 57 L, Glucose 144 H, Calcium 9.5, Magnesium 1.8, Total Bilirubin 1.5 H, AST 30, ALT 21, Alkaline Phosphatase 46, Troponin I 0.02, NT-Pro-B Natriuret Pep 5460 H, Total Protein 7.6 D, Albumin 4.6, Globulin 3.0, Albumin/Globulin Ratio 1.5, Lipase 173, TSH 0.67, Thyroxine (T4) 11.8 H, Digoxin 1.10 05/23/24 15:30: Troponin I 0.10 H Orders (Tests/Meds): ED MEDICATIONS Discontinued Medications Generic Name Dose Route Start Last Admin Trade Name Ani PRN Reason Stop Dose Admin Aspirin 324 mg 05/23/24 13:03 05/23/24 13:49 Aspirin 81mg Chewable Tablet PO 05/23/24 13:04 243 mg ONCE ONE Administration Iopamidol 70 ml 05/23/24 14:09 05/23/24 14:13 Iopamidol-370 (76%);100ml Bottle IV 05/23/24 14:10 70 ml ONCE ONE Administration Sodium Chloride 10 ml 05/23/24 14:09 05/23/24 14:14 Sodium Chloride 0.9% 10ml Syr (Rad Only) IV 06/22/24 14:08 10 ml NEEDED PRN Administration Maintain IV Site Sodium Chloride 50 ml 05/23/24 14:09 05/23/24 14:14 0.9 % Sodium Chloride 50 Ml Vial IV 05/23/24 14:10 50 ml ONCE ONE Administration ORDERS Category Date Time Status CT angio chest PE protocol Stat Cat Scan 05/23/24 13:23 Completed CXR --portable [XR chest portable] Stat Exams 05/23/24 12:50 Completed Activated Partial Thrombo Time Stat Lab 05/23/24 12:55 Completed BNP [NT Pro Brain Natriuretic Pep.] Stat Lab 05/23/24 12:55 Completed Complete Blood Count Auto Diff Stat Lab 05/23/24 12:55 Completed Comprehensive Metabolic Panel Stat Lab 05/23/24 12:55 Completed D-Dimer Stat Lab 05/23/24 12:55 Completed Digoxin Stat Lab 05/23/24 12:55 Completed Lipase Stat Lab 05/23/24 12:55 Completed MAG [Magnesium] Stat Lab 05/23/24 12:55 Completed Prothrombin Time INR Stat Lab 05/23/24 12:55 Completed T4 (Thyroxine) Stat Lab 05/23/24 12:55 Completed TSH [Thyroid Stimulating Hormone] Stat Lab 05/23/24 12:55 Completed Trop I [Troponin I] Stat Lab 05/23/24 12:55 Completed Troponin I Q3H Lab 05/23/24 15:30 Completed Medical Decision Narrative: In summary, this patient is a 89-year-old female presenting to the Emergency Department for evaluation of ICD firing and now having left chest pain. Differential diagnoses considered include but are not limited to ACS, ventricular dysrhythmia, inappropriate ICD firing, electrolyte derangements, PE. Ruling out the most morbid conditions drove assessment. It should be noted patient's history includes CAD, CHF, atrial fibrillation, PAD, hypertension, hyperlipidemia, hypertensive heart disease which may or may not be at goal therapy. This complicates all aspects of care by increasing patient's risk for morbidity. I reviewed patient's past medical records and noted prior cardiology evaluations for maintenance of health, prior ICD interrogations with most recent 1 being in April. On exam, the patient is lying in bed in no acute distress complaining of some left chest pain but otherwise is feeling fine. Vitals are normal on cardiac telemetry. Workup included CBC, CMP, troponin, BNP, D-dimer, TSH, T4, coags, lipase, digoxin level, chest x-ray, EKG. EKG obtained does not demonstrate any significant changes from prior. Patient was given oral aspirin. Her device was interrogated and demonstrated that patient had A-fib with RVR with a rate greater than 200, for which she was shocked 3 times with of her dysrhythmia and return to a normal sinus rhythm prior to arrival. Her pacer appears to be functioning properly. I had an interactive discussion with the dairy supplies sales representative from [employer] who confirmed this. Labs demonstrated elevated D-dimer, so CTA PE protocol was added onto workup. Kidney function is around her baseline. No significantly fluid derangements, initial troponin 0.02. She does have mild hyper bilirubinemia which is actually improved from prior. T4 is mildly elevated. I independently interpreted chest x-ray and CTA prior to the radiologist read and noted no PE, no pneumothorax, no large focal consolidation of the lung. Please see their read for final interpretation. They note concern for a gastric mass with calcifications, which I notified patient of and instructed her to follow-up closely outpatient for further evaluation and management. On reassessment, patient is resting comfortably with no symptoms or complaints. She says she is feeling fine. Vitals are reassuring on cardiac telemetry with no significant dysrhythmia, heart rate in the 70s. She is mildly hypertensive. O2 saturation normal, she is not tachypneic with reassuring cardiopulmonary exam. She is requesting to go home as she is feeling fine. Second troponin is pending at this time. I went ahead and had an indirect discussion with Dr. Rosales with cardiology who advised a second troponin is negative, patient can go home and follow-up outpatient in their clinic on Saturday afternoon. At 1430, patient was placed in ED observation status pending second troponin to determine whether or not the patient would be appropriate for discharge versus admission. The patient was provided serial reevaluations and cardiac monitoring while awaiting ultimate disposition. Patient care signed out to the oncoming provider, Dr. Zapien, pending second troponin and disposition. Nav Zapien MD KENDALL: I assumed care of this patient from the previous emergency medicine physician. Repeat troponin with slight uptrend. I discussed the case including clinical picture at this time with on-call rabbit breeder. After follow-up discussion, patient is deemed stable for discharge at this time. Patient is asymptomatic and pain-free. She will follow-up expeditiously with the rabbit breeder as per previous plan. Return precautions given Critical Care <Jade Swain, - Last Filed: 05/23/24 14:40> Critical Care Time Critical Care Time: No
[2024-05-23 13:04] LABS: Basophils # 0.1 K/mm3 (0-0.2); Basophils % 0.7 % (0.1-2.0); Eosinophils # 0.2 K/mm3 (0.0-0.4); Eosinophils % 2.8 % (0.1-12.0); Hematocrit 43.4 % (37.0-47.0); Hemoglobin 14.3 g/dL (12.2-16.2); Lymphocytes % 13.1 % (10-50); Mean Corpuscular HGB Conc 32.9 g/dL (31.8-35.4); Mean Corpuscular Hemoglobin 33.1 pg (27.0-31.2); Mean Corpuscular Volume 100.5 fl (81-99); Mean Platelet Volume 10.4 fl (7.4-10.4); Monocytes # 0.6 K/mm3 (0.1-1.0); Monocytes % 8.3 % (1.7-9.3); Neutrophils # 5.7 K/mm3 (1.8-7.8); Neutrophils % 74.8 % (37.0-80.0); Nucleated Red Blood Cells # 0 10^3/uL; Nucleated Red Blood Cells % 0 %; Platelet Count 154 K/mm3 (142-424); Red Blood Count 4.32 M/mm3 (4.20-5.40); Red Cell Distribution Width 13.6 % (11.5-17.5); Red Cell Distribution Width-SD 50.9 fL; White Blood Count 7.6 K/mm3 (4.8-10.8)
[2024-05-23 13:10] LABS: Albumin Level 4.6 g/dl (3.5-5.0); Chloride 104 mmol/L (98-107); Potassium 3.9 mmoL/L (3.5-5.1); Sodium 141 mmol/L (136-145)
[2024-05-23 13:13] LABS: Alanine Aminotransferase 21 U/L (12-78); Albumin/Globulin Ratio 1.5 (1.1-1.8); Alkaline Phosphatase 46 U/L (38-126); Anion Gap 13.9 mEq/L (5-15); Aspartate Amino Transferase 30 U/L (14-36); Bilirubin,Total 1.5 mg/dl (0.2-1.3); Blood Urea Nitrogen 16 mg/dl (7-17); Calcium 9.5 mg/dl (8.4-10.2); Carbon Dioxide 27 mmol/L (22.0-30.0); Creatinine Clearance Estimated 30 mL/min (50-200); Estimated Glomerular Filt Rate 47 ml/min (>60); GFR (African American) 57 ML/MIN (>60); Glucose 144 mg/dl (74-100); Lipase 173 U/L (23-300); Magnesium 1.8 mg/dl (1.6-2.3); Total Protein,Serum 7.6 g/dl (6.3-8.2)
[2024-05-23 13:16] LABS: Activated Partial Thrombo Time 24.2 seconds (22.8-30.6); INR 0.96 (0.9-1.1); Prothrombin Time 10.8 seconds (10.1-12.5)
[2024-05-23 13:21] LABS: D-Dimer 1.05 ug/mL (0.0-0.5)
--- NOTE | 2024-05-23 13:23 | CT_ITS ---
PROCEDURE INFORMATION: Exam: CTA Chest With Contrast Exam date and time: 05/23/2024 2:03 PM Age: 89 years old Clinical indication: Pain; Chest pressure; Additional info: Chest pain, dysrhythmia, elevated d-dimer TECHNIQUE: Imaging protocol: Computed tomographic angiography of the chest with contrast. Exam focused on the arteries. 3D rendering (Not supervised by radiologist): MIP and/or 3D reconstructed images were created by the technologist. Radiation optimization: All CT scans at this facility use at least one of these dose optimization techniques: automated exposure control; mA and/or kV adjustment per patient size (includes targeted exams where dose is matched to clinical indication); or iterative reconstruction. Contrast material: ISOVUE 370; Contrast volume: 70 ml; Contrast route: INTRAVENOUS (IV); COMPARISON: CT ANGIO CHEST 04/25/2024 1:27 PM FINDINGS: Pulmonary arteries: No evidence of pulmonary embolus to the segmental level. Aorta: No aneurysm of the aorta. No dissection of the aorta. Lungs: Unremarkable. No consolidation. No masses. Pleural spaces: Unremarkable. No pneumothorax. No pleural effusion. Heart: There is calcification of the aortic valve annulus. There is calcification of the mitral valve annulus. Coronary arteries: Coronary artery calcifications may indicate coronary artery disease. Lymph nodes: Unremarkable. No enlarged lymph nodes. Liver: 3 cm low-attenuation mass in the right lobe of the liver. 23 Hounsfield units. Not clearly a cyst although it measured cystic on the prior study. Stomach: 4.5 x 2.9 cm mass adjacent to the proximal aspect of the stomach. The stomach is decompressed. (series 7, image [id number] -[id number]; coronal series 1001, image 50 63. It contains calcifications. On the prior study it appeared to be within the stomach. Bones/joints: Median sternotomy Soft tissues: Unremarkable. IMPRESSION: 1. No evidence of pulmonary embolus to the segmental level. 2. No aneurysm of the aorta. 3. No dissection of the aorta. 4. 4.5 x 2.9 cm mass adjacent to the proximal aspect of the stomach. The stomach is decompressed. (series 7, image 93 -107; coronal series 1001, image 50 63. It contains calcifications. On the prior study it appeared to be within the stomach. Recommend further evaluation 5. 3 cm low-attenuation mass in the right lobe of the liver. 23 Hounsfield units. Not clearly a cyst although it measured cystic on the prior study.
[2024-05-23 13:26] LABS: Troponin I 0.02 ng/ml (0.00-0.034)
[2024-05-23 13:30] LABS: T4 (Thyroxine) 11.8 ug/dl (5.53-11.0)
[2024-05-23 13:44] LABS: Thyroid Stimulating Hormone 0.67 uIU/mL (0.465-4.68)
[2024-05-23] MEDS: ASPIRIN 81MG CHEWABLE TABLET 324 MG PO (13:49)
[2024-05-23 13:52] LABS: NT Pro Brain Natriuretic Pep. 5460 pg/mL (0-450)
[2024-05-23] MEDS: IOPAMIDOL-370 (76%);100ML BOTTLE 70 ML IV (14:13)
[2024-05-23] MEDS: SODIUM CHLORIDE 0.9% 10ML SYR (RAD ONLY) 10 ML IV (14:14)
[2024-05-23] MEDS: 0.9 % SODIUM CHLORIDE 50 ML VIAL IV (14:14)
--- NOTE | 2024-05-23 16:13 | PC.NURSE ---
assisted pt to restroom and back to room, pt tolerated ambulation well.
--- NOTE | 2024-05-23 16:20 | PC.NURSE ---
dr. huang speaking with dr. ferreira
== END 2024-05-23 16:32 | disposition home or self-care (01) ==
PROVIDERS: Emergency Medicine; Emergency Provider Emergency Medicine; PCP Internal Medicine Adolescent Medicine
DX: I48.91 Unspecified atrial fibrillation (principal); R07.89 Other chest pain; K31.89 Other diseases of stomach and duodenum; Z45.02 Encounter for adjustment and management of automatic implantable cardiac defibrillator
CPT/HCPCS: 99285; 71045; 71275; 80053; 80162; 83690; 83735; 83880; 84436; 84443; 84484; 85025; 85378; 85610; 85730; 93005; Q9967

== ENCOUNTER 2024-06-04 12:41 | Outpatient (CLI) | payer MEDICARE, SELFPAY ==
--- NOTE | 2024-06-04 | CA_ITS ---
APPROVED REPORT EXAM: Comprehensive 2D, Doppler, and color-flow Echocardiogram Repairer Handtools: Ness Almeida, RT(R) Ht: 5 ft 4 in Wt: 118lbs BSA: 1.56 BP: 148/76 mmHg Indications: CP, HTN, SOB, hyerlipidemia, left arm pain, HFrEF, AICD, MVR, CAD, LEV, PVD 2D Dimensions LVEF (Paz's) 44.50 % F: 54 - 74 LV Volume 79.80 mL F: 46 - 106 LV Volume Index 51.2 mL/m2 F: 29 - 61 LA Volume 45.50 mL LA Volume Index 29.17 mL/m2 (M/F) 16-34 EF AP4 44.40 % EF AP2 42.9 % EF BP 44.5 % GL Strain -11.0 % M-Mode Dimensions RVDd 2.63 cm (0.9-2.6) LA Diam 4.81 cm (1.9-4.0) LVDd 5.38 cm (3.5-5.7) LVDs 4.41 cm (3.5-5.7) IVSd 1.17 cm (0.6-1.1) PWd 0.64 cm (0.6-1.1) EF (Teich) 37.00% FS 18.00% EDV (Teich) 140.10 mL ESV (Teich) 88.20 mL LV Diastology E Decel Time 310 (160-240 msec) E/A Ratio 2.41 Aortic Valve AO VTI 50.0 (18-25 cm) Mitral Valve MV A Velocity 58.0 (40-130 cm/s) E/A Ratio 2.41 MV PHT 90.0 ms Tricuspid Valve TR P. Velocity 271.00 cm/s RAP Estimate 10.00 mmHg RVSP 39.30 mmHg Left Ventricle The left ventricle is normal size. The left ventricular systolic function is low normal. LVEF is 50%. There is increased LV wall thickness. There is normal LV segmental wall motion. Diastolic function is indeterminate. Right Ventricle The right ventricle is normal size. The right ventricular systolic function is normal. Atria Left atrium is mildly dilated. Right atrium is mildly dilated. There is no Doppler evidence of interatrial shunt. Aortic Valve Aortic valve is mildly thickened. Mild aortic regurgitation. There is no aortic valvular stenosis. Mitral Valve s/p mechanical MVR. The prosthesis is well-seated. No evidence of mobile echodensities. Mean MV gradient 4 mmHg (HR 60 bpm). PHT is 90 ms. Mild central mitral regurgitation. No evidence of paravalvular leak. Tricuspid Valve Tricuspid valve is grossly normal in structure and function. Mild tricuspid regurgitation. RVSP is normal. Pulmonic Valve The pulmonary valve is normal in structure. Trace pulmonic regurgitation. Great Vessels The aortic root is normal in size. IVC is normal in size and collapses >50% with inspiration. Pericardium There is no pericardial effusion. Other Information Study Quality: Fair Conclusion Low normal LV systolic function (LVEF 50%). Mild biatrial dilation. s/p mechanical MVR. The prosthesis is well-seated. Mild central MR. No evidence of echodensities. Acceptable mean MV gradient. Mild AI, mild TR. Electronically signed by : China Brock MD 06/10/2024 13:51:21
== END 2024-06-04 23:59 | disposition home or self-care (01) ==
LOC: RT 12:42
PROVIDERS: PCP Internal Medicine Adolescent Medicine; Visit Provider Physician Assistant
DX: I51.7 Cardiomegaly (principal); I35.1 Nonrheumatic aortic (valve) insufficiency; I36.1 Nonrheumatic tricuspid (valve) insufficiency; I50.20 Unspecified systolic (congestive) heart failure; Z95.2 Presence of prosthetic heart valve
CPT/HCPCS: 93306

== ENCOUNTER 2024-09-03 09:45 | Day surgery (SDC) | payer MEDICARE, SELFPAY ==
[2024-09-01 13:48] VITALS: BMI 21.2
[2024-09-03 10:21] VITALS: BP 148/61; PULSE 61; RESP 18; TEMP 36.5; O2SAT 97
--- NOTE | 2024-09-03 10:25 | EXP.HP ---
History of Present Illness *Admission Date: 09/03/24 *History of present illness: Mrs. Fuller is an 89-year-old female who is here for diagnostic EGD. She did have a single episode of hematemesis in April 2024. She also had a CTA that showed a 4.5 x 2.9 cm mass adjacent to the proximal aspect of the stomach.. The examination is deemed medically necessary for diagnostic EGD. The patient has been seen, interviewed and examined prior to the procedure by both myself and the anesthesia provider. [facility] Disclaimer: The information contained in this section may have been updated after the patient was seen, as this information can be updated by other users. Medical History Acute upper GI bleed Upper GI bleed resolved. Likely due to the gastritis and duodenitis seen on CT scan. I would recommend twice daily PPIs. She can follow-up with general surgery or gastroenterology in 2 weeks. Pre-op evaluation Near syncope HFrEF (heart failure with reduced ejection fraction) High risk for any intervention at this point. I would recommend observation in this elderly frail lady with a significant cardiac history. I would recommend modest IV fluids as well for resuscitation. Fall Chest wall contusion Facial numbness Left ventricular hypokinesis Drug dosage form changed Chest pain Dizziness Near syncope Embolism, arterial, leg, left Hydronephrosis Urinary retention Neuralgia of left lower extremity Cholelithiasis Renal insufficiency Abnormal EKG Cholelithiasis and cholecystitis without obstruction UTI (urinary tract infection) Headache Confusion Finger numbness Facial numbness Pre-syncope Chest pain, precordial Fracture of shaft of humerus with routine healing Decubitus ulcer of buttock, stage 2 Fracture, humerus closed, shaft Arm pain, left Intractable pain Fracture of humeral shaft, left, closed Systolic heart failure Cardiomyopathy Syncope Typical angina Left leg numbness Carotid artery stenosis Surgical History AICD (automatic cardioverter/defibrillator) present History of mitral valve replacement with bioprosthetic valve Stented coronary artery History of implantable cardioverter-defibrillator (ICD) insertion H/O heart valve replacement with bioprosthetic valve History of cardiac cath History of heart artery stent Family History Other No significant family history Social History Smoking Status: Never smoker alcohol intake: never substance use type: denies use current occupational status: retired Travel in the last 8 weeks?: Inside the [place] household members: none housing: house caffeine: No Have you lived/traveled outside US in past 30 days?: No Contact w/someone who lives/traveled outside US past 30 days?: No Exposure to someone with infectious disease in past 14 days?: No Do you have a fever (greater than 100.4 F or 38 C)?: No Have you tested positive for COVID-19?: No Exposed to someone with COVID-19 in past 14 days?: No Do you have a sore throat?: No Do you have a cough?: No Do you have any weakness?: No Do you have any diarrhea?: No Are you experiencing any unusual bleeding?: No Do you have any muscle aches/pain?: No Do you have any abdominal pain?: No Are you experiencing loss of taste or smell?: No Other Medical History Have you received the Flu Vaccine for this season: No Have you received the Pneumonia Vaccine: Yes Review of Systems Review of Systems Review of systems (narrative): Negative *Cardiovascular Comments: Negative *Gastrointestinal Comments: Negative *Genitourinary Comments: Negative *Musculoskeletal Comments: Negative *Neurologic Comments: Negative Meds Home Medications and Allergies Home Medications ?Medication ?Instructions ?Recorded ?Confirmed ?Type aspirin 81 mg capsule 81 mg PO DAILY #30 caps 02/06/22 09/01/24 Rx atorvastatin 40 mg tablet 40 mg PO HS 02/06/22 09/01/24 History digoxin 125 mcg (0.125 mg) tablet 0.125 mg PO DAILY 08/05/23 09/01/24 History ferrous sulfate 325 mg (65 mg 325 mg PO DAILY 12/12/23 09/01/24 History iron) tablet (FeroSul) pantoprazole 40 mg tablet,delayed 40 mg PO BID 01/30/24 09/01/24 History release levothyroxine 88 mcg tablet 88 mcg PO DAILYDM 04/25/24 09/01/24 History ondansetron 4 mg disintegrating 4 mg PO Q6HP PRN nausea and 04/26/24 09/01/24 History tablet vomiting cholecalciferol (vitamin D3) 25 25 mcg PO DAILY 05/25/24 09/01/24 History mcg (1,000 unit) capsule losartan 25 mg tablet 25 mg PO DAILY #30 tabs 05/25/24 09/01/24 Rx metoprolol tartrate 100 mg tablet 150 mg (1.5 x 100 mg) PO BID 90 05/25/24 09/01/24 Rx days #270 tabs spironolactone 25 mg tablet 25 mg PO DAILY 06/29/24 09/01/24 History New Prescriptions to Start Prescriptions: Allergies Allergy/AdvReac Type Severity Reaction Status Date / Time codeine Allergy Intermediate DEATHLY Verified 09/03/24 10:02 SICK amiodarone Allergy Mild tongue Verified 09/03/24 10:02 tingling oxycodone (From Percocet) AdvReac Nausea Verified 09/03/24 10:02 Exam Data for Last 24 hours I & O for Last 24 hours: Intake & Output 08/31/24 09/01/24 09/02/24 09/03/24 23:59 23:59 23:59 23:59 Weight 120 lb *Routine HEENT Exam Head: Present normocephalic Eye: Present EOMI and PERRL ENT: Present mucous membranes moist *Routine Neck Exam Neck: Present supple *Routine Respiratory Exam Respiratory: Present CTA bilaterally *Routine Cardiovascular Exam Cardiovascular: Present RRR *Routine Abdominal Exam Abdominal: Present soft and normoactive bowel sounds; Absent tenderness *Routine Rectal Exam Rectal:: deferred *Routine Genitalia Exam Genitalia:: deferred *Routine Extremities Exam Extremities: Absent cyanosis, clubbing or edema *Routine Skin Exam Skin: Present warm; Absent rash *Routine Neurological Exam Neurological: Present alert and oriented X3 Assessment and Plan *Assessment and plan (1) Gastric mass: Status: Acute Category: Medical Code(s): K31.89 - Other diseases of stomach and duodenum (2) Hematemesis: Status: Acute Category: Medical Code(s): K92.0 - Hematemesis (3) Iron deficiency anemia: Status: Acute Category: Medical Code(s): D50.9 - Iron deficiency anemia, unspecified Plan A/P: 1. 1 bout of hematemesis with CT imaging showing gastric mass or adjacent to stomach mass and patient with history of iron deficiency is the preprocedural diagnosis. The patient will be anesthetized/sedated using MAC sedation. The patient has been seen and examined. Cardiac and lung assessment prior to the examination is stable. Proceed with planned EGD.
--- NOTE | 2024-09-03 10:34 | P.PNANES_ITS ---
[facility] Disclaimer: The information contained in this section may have been updated after the patient was seen, as this information can be updated by other users. Medical History Acute upper GI bleed Upper GI bleed resolved. Likely due to the gastritis and duodenitis seen on CT scan. I would recommend twice daily PPIs. She can follow-up with general surgery or gastroenterology in 2 weeks. Pre-op evaluation Near syncope HFrEF (heart failure with reduced ejection fraction) High risk for any intervention at this point. I would recommend observation in this elderly frail lady with a significant cardiac history. I would recommend modest IV fluids as well for resuscitation. Fall Chest wall contusion Facial numbness Left ventricular hypokinesis Drug dosage form changed Chest pain Dizziness Near syncope Embolism, arterial, leg, left Hydronephrosis Urinary retention Neuralgia of left lower extremity Cholelithiasis Renal insufficiency Abnormal EKG Cholelithiasis and cholecystitis without obstruction UTI (urinary tract infection) Headache Confusion Finger numbness Facial numbness Pre-syncope Chest pain, precordial Fracture of shaft of humerus with routine healing Decubitus ulcer of buttock, stage 2 Fracture, humerus closed, shaft Arm pain, left Intractable pain Fracture of humeral shaft, left, closed Systolic heart failure Cardiomyopathy Syncope Typical angina Left leg numbness Carotid artery stenosis Surgical History AICD (automatic cardioverter/defibrillator) present History of mitral valve replacement with bioprosthetic valve Stented coronary artery History of implantable cardioverter-defibrillator (ICD) insertion H/O heart valve replacement with bioprosthetic valve History of cardiac cath History of heart artery stent Family History Other No significant family history Social History Smoking Status: Never smoker alcohol intake: never substance use type: denies use current occupational status: retired Travel in the last 8 weeks?: Inside the [place] household members: none housing: house caffeine: No Have you lived/traveled outside US in past 30 days?: No Contact w/someone who lives/traveled outside [place] past 30 days?: No Exposure to someone with infectious disease in past 14 days?: No Do you have a fever (greater than 100.4 F or 38 C)?: No Have you tested positive for COVID-19?: No Exposed to someone with COVID-19 in past 14 days?: No Do you have a sore throat?: No Do you have a cough?: No Do you have any weakness?: No Do you have any diarrhea?: No Are you experiencing any unusual bleeding?: No Do you have any muscle aches/pain?: No Do you have any abdominal pain?: No Are you experiencing loss of taste or smell?: No [facility] Anesthesia Checklist Patient Identification Patient Identification: Arm Band Structural Data Admitted From: Home Planned Operative Procedure/s: EGD Consent for Planned Operative Procedure(s) Verified: Yes Verified Documents: Surgical Consent and History and Physical NPO Status Verified Time NPO: 00:00 Additional verifications Anesthesia Reactions: No Airway Assessment Mallampati Score:: Class II C-Spine Mobility Assessed: Yes TMJ Mobility Assessed: Yes Dentition: Good Dentition (upper dentures removed) Neurological Assessment Level of Consciousness: Awake, Alert and Appropriate Anesthesia Plan Anesthesia Risk discussed: Yes Anesthesia Plan: Verified ASA Class: III Anesthesia Type: MAC
--- NOTE | 2024-09-03 10:55 | P.PCN_ITS ---
[facility] Procedure Note Date: 09/03/24 Time: 11:05 Procedure Note:: Upper Endoscopy Procedure Report: Esophagogastroduodenoscopy with cold biopsies Endoscopost: Cas Espinal II, MD Referring Physician: Hood Zavala MD Date of Procedure: September 03, 2024 Equipment: Olympus GIF-1100 standard upper endoscope Sedation: MAC sedation Indications: Mrs. Fuller is an 89-year-old female who is here for diagnostic upper endoscopy. The patient did have a single episode of hematemesis in April 2024. She did fall in the bathtub and developed some nausea, vomiting and an episode of bloody emesis. The patient did have CTA that showed a 4.5 x 2.9 cm mass adjacent to the proximal aspect of the stomach with a decompressed stomach and some calcifications. The patient does have prior history of anemia in the past but not presently. She does have macrocytic indices. She is on ferrous sulfate. The patient reports no abdominal pain, weight loss, heartburn, reflux, dysphagia, melena or hematochezia. She does take pantoprazole twice daily. Procedure: Prior to the procedure, a history and physical exam was performed, and patient's medications and allergies were reviewed. The risks, benefits and alternatives of the sedation and procedure were discussed with the patient. All questions were answered and informed consent was obtained. The patient was brought to the procedure room. Patient identification and proposed procedure were verified by the physician and the nurse. The patient was placed in a left lateral decubitus position and the scope was passed under direct vision. Throughout the procedure, the patient's blood pressure, pulse, and oxygen saturations were monitored continuously. The upper GI endoscopy was accomplished without difficulty. The patient tolerated the procedure well. Findings: The scope was passed directly into the upper esophagus and advanced to the fourth portion of the duodenum. A cold biopsy was taken from the 2nd/3rd portion of duodenum for the disaccharidase assay. The post bulbar duodenum, ampulla and duodenal bulb were normal with normal mucosa and conniventes. The scope was withdrawn through a normal duodenal bulb and pylorus into the stomach. There was a prepyloric gastric polyp that was 9 to 10 mm and biopsied. There was moderate to marked gastric atrophy of the body and fundus with some reduced gastric luminal diameter. Cold biopsies were taken from the fundus of the stomach. Upon retroflexion there was no hiatal hernia. There was no intrinsic gastric mass and no extrinsic compression of the stomach. The scope was then withdrawn into the esophagus. There was no evidence of any reflux esophagitis or Skinner's and the remainder of the esophageal mucosa was normal. Impression: 1. 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 Prepyloric gastric polyp Plan: There is no evidence of any intrinsic mass or extrinsic compression. I would consider follow-up imaging study of the prior mass in the abdominal cavity. The patient does have marked gastric atrophy and is likely achlorhydric and not producing acid from the parietal cells. PPI therapy only increases gastric atrophy and is not warranted presently. I would stop pantoprazole. I would also recommend stopping oral iron since she is not anemic and actually macrocytic. Chronic atrophic gastritis is associated with B12 deficiency and I will obtain B12 and folate levels today. I will discuss the findings with the patient and family.
[2024-09-03 11:06] VITALS: BP 95/53; PULSE 60; RESP 16; TEMP 36.2; O2SAT 95
[2024-09-03 11:16] VITALS: BP 90/51; PULSE 59; RESP 16; O2SAT 97
[2024-09-03 11:26] VITALS: BP 97/60; PULSE 61; RESP 16; O2SAT 97
[2024-09-03 11:36] VITALS: BP 106/59; PULSE 60; RESP 16; TEMP 36.2; O2SAT 97
[2024-09-03 12:34] LABS: Iron 133 ug/dL (37-170)
[2024-09-03 12:44] LABS: Total Iron Binding Capacity 273 ug/dL (265-497)
[2024-09-03 13:11] LABS: Ferritin 126 ng/ml (11.1-264)
[2024-09-03 13:29] LABS: Vitamin B12 < 159 pg/mL (239-931)
[2024-09-03 13:46] LABS: Folate 17.20 ng/mL
== END 2024-09-03 12:12 | disposition home or self-care (01) ==
PROVIDERS: PCP Internal Medicine Adolescent Medicine; Visit Provider Internal Medicine Gastroenterology
PROC: 0DJ08ZZ Inspection of Upper Intestinal Tract, Via Natural or Artificial Opening Endoscopic (ICD-10-PCS; CPT 43239; principal; 2024-09-03 11:30)
DX: K29.50 Unspecified chronic gastritis without bleeding (principal); K31.7 Polyp of stomach and duodenum; I50.20 Unspecified systolic (congestive) heart failure; Z95.810 Presence of automatic (implantable) cardiac defibrillator; Z88.5 Allergy status to narcotic agent; Z88.6 Allergy status to analgesic agent; Z79.82 Long term (current) use of aspirin; Z79.899 Other long term (current) drug therapy; Z79.890 Hormone replacement therapy
CPT/HCPCS: 43239; 36415; 82607; 82657; 82728; 82746; 83540; 83550; J2003; J2704